=== PATIENT | female | born 1955 | race Caucasian/White ===

== ENCOUNTER 2019-01-23 15:19 | Observation (INO) | payer OTHER ==
[2019-01-23] MEDS ORDERED: ASPIRIN 81 MG CHEWABLE TABLET ONE (16:11)
[2019-01-23 16:13] LABS: Absolute Lymphocytes (CBC) 0.9 K/uL (0.7-4.9); Absolute Monocytes 0.7 K/uL (0.1-1.3); Absolute Neutrophil 6.5 K/uL (1.8-8.0); Basophils % 0.6 % (0-1.3); Eosinophils % 1.9 % (0-4.4); Hematocrit 46.3 % (36.0-45.0); Lymphocytes % 10.9 % (15.3-44.8); MPV 9.4 fL (7.6-11.3); RBC Red Blood Cell Count 5.21 M/uL (3.86-4.86)
[2019-01-23 16:15] LABS: Protime INR 0.98
--- NOTE | 2019-01-23 16:32 | RAD REPORT ---
EXAM DESCRIPTION: Rico Single View01/23/2019 4:15 pm CLINICAL HISTORY: Cough COMPARISON: December 2017 FINDINGS: The lungs appear clear of acute infiltrate. The heart is mildly enlarged. Aorta is tortuo us/ectatic IMPRESSION: No acute abnormalities displayed
[2019-01-23 16:35] LABS: ALT/SGPT 16 U/L (12-78); AST/SGOT 18 U/L (15-37); Albumin 3.2 g/dL (3.4-5.0); Alkaline Phosphatase 80 U/L (45-117); BUN Blood Urea Nitrogen 20 mg/dL (7-18); Bicarbonate 32 mmol/L (21-32); Bilirubin Direct < 0.1 mg/dL (0-0.2); Bilirubin Total 0.3 mg/dL (0.2-1.0); Glucose Level 112 mg/dL (74-106); Magnesium 1.9 mg/dL (1.8-2.4); NT PRO-BNP 3426 pg/mL (<125); Potassium 3.3 mmol/L (3.5-5.1); Protein, Total 7.3 g/dL (6.4-8.2); Sodium Level 139 mmol/L (136-145); Troponin (Emerg Dept Use Only) 0.07 ng/mL (0.0-0.045)
--- NOTE | 2019-01-23 17:04 | ER ---
Nurse's Notes [facility] Name: Mandy Swain Age: 63 yrs Sex: Female : 1955 Arrival Date: 01/23/2019 Time: 15:21 Bed 26 Private MD: Angelo Matta E Diagnosis: Dyspnea;Abnormal electrocardiogram [ECG] [EKG];Chest pain, unspecified Presentation: 01/23 15:26 Presenting complaint: Patient states: sent by Dr Matta office for abnormal EKG. Pt sv stated that she went over there for a routine physical exam and for her cough, fatigue x 2 days. Denies SOB, CP, n/v/d. Transition of care: patient was not received from another setting of care. Onset of symptoms was January 21, 2019. Care prior to arrival: None. 15:26 Method Of Arrival: Wheelchair sv 15:26 Acuity: CRISTEL 3 sv 20:23 Risk Assessment: Do you want to hurt yourself or someone else? Patient reports no mg2 desire to harm self or others. Initial Sepsis Screen: Does the patient meet any 2 criteria? No. Patient's initial sepsis screen is negative. Does the patient have a suspected source of infection? No. Patient's initial sepsis screen is negative. Historical: - Allergies: 15:34 No Known Allergies; sv - PMHx: 15:34 Anxiety; CHF; Depression; Hypertension; sv - PSHx: 15:34 Hernia repair; sv - Immunization history:: Flu vaccine is not up to date. - Social history:: Smoking status: Patient/guardian denies using tobacco. - Ebola Screening: : No symptoms or risks identified at this time. Screenin:30 Abuse screen: Denies threats or abuse. Denies injuries from another. Nutritional ca1 screening: No deficits noted. Tuberculosis screening: No symptoms or risk factors identified. Fall Risk Assessment: 15:30 General: Appears in no apparent distress. comfortable, Behavior is calm, cooperative, ca1 appropriate for age. General: Reports fatigue for 1-2 days. Pain: Denies pain. Pain does not radiate. Pain began. Neuro: Level of Consciousness is awake, alert, obeys commands, Oriented to person, place, time, situation, Reports dizziness, since yesterday. Cardiovascular: Heart tones S1 S2 present Capillary refill < 3 seconds Patient's skin is warm and dry. Respiratory: Airway is patent Respiratory effort is even, unlabored, Respiratory pattern is regular, symmetrical, Breath sounds are clear bilaterally. GI: Abdomen is round non-distended, Bowel sounds present X 4 quads. Abd is soft and non tender X 4 quads. : No deficits noted. No signs and/or symptoms were reported regarding the genitourinary system. EENT: No deficits noted. No signs and/or symptoms were reported regarding the EENT system. Derm: Skin is intact, is healthy with good turgor, Skin is pink, warm \T\ dry. Musculoskeletal: Circulation, motion, and sensation intact. Capillary refill < 3 seconds. Vital Signs: 15:35 BP 130 / 112; Pulse 93; Resp 18; Temp 97.4; Pulse Ox 94% ; Weight 169 kg; Height 56 in. sv (142.24 cm); Pain 0/10; 16:41 BP 137 / 89; Pulse 71; Resp 20; Temp 97.8; Pulse Ox 94% ; lt1 20:23 BP 148 / 88; Pulse 74; Resp 18; Temp 98.4; Pulse Ox 94% on R/A; Pain 0/10; mg2 15:35 Body Mass Index 83.53 (169.00 kg, 142.24 cm) sv ED Course: 15:21 Patient arrived in ED. mr 15:22 Angelo Matta MD is Private Physician. mr 15:27 Damon Ross PA is PHCP. cp 15:27 Aimee Ramirez MD is Attending Physician. cp 15:29 Mandy Vaughan, DEZ is Primary Nurse. ca1 15:34 Triage completed. sv 15:35 Arm band placed on. sv 15:40 Warm blanket given. ca1 15:40 Patient has correct armband on for positive identification. Placed in gown. Bed in low ca1 position. Call light in reach. science job titles on. Pulse ox on. NIBP on. 15:45 Missed attempt(s): 20 gauge in right antecubital area. 22 gauge in left forearm. ca1 Patient maintains SpO2 saturation greater than 95% on room air. 15:46 EKG done, by hazardous waste technician. reviewed by Damon GIORDANO. sm3 16:00 Inserted saline lock: 22 gauge in right hand, using aseptic technique. Blood collected. mg2 16:15 XRAY Chest (1 view) In Process Unspecified. EDMS 17:01 Denise Rose MD is Hospitalizing Provider. cp 20:22 No provider procedures requiring assistance completed. mg2 20:22 Patient admitted, IV remains in place. mg2 Administered Medications: 16:02 Drug: Aspirin Chewable Tablet 324 mg Route: PO; ca1 17:00 Follow up: Response: No adverse reaction ca1 17:22 Drug: Potassium Effervescent Tablet 50 mEq Route: PO; mg2 18:30 Follow up: Response: No adverse reaction ca1 17:22 Drug: Lasix 20 mg Route: IVP; Site: right hand; mg2 18:30 Follow up: Response: No adverse reaction ca1 17:22 Drug: Lovenox 40 mg Route: Sub-Q; Site: right lower abdomen; mg2 19:30 Follow up: Response: No adverse reaction ca1 Outcome: 17:03 Decision to Hospitalize by Provider. cp 20:22 Admitted to Tele accompanied by tech, via wheelchair, room 430, with chart, Report mg2 called to DEZ Bella 20:22 Condition: stable 20:22 Instructed on the need for admit. 20:24 Patient left the ED. mg2 Signatures: Dispatcher [employer] EDMN Mimi Dominique RN RN Vargas, Evelia mr Vandana, Damon, PA PA cp Timothy Johnston RN RN mg2 Ebony Mathis 3 Mandy Vaughan RN RN ca1 Faith Hays lt1 Corrections: (The following items were deleted from the chart) 15:56 15:30 Patient has correct armband on for positive identification. Placed in gown. Bed ca1 in low position. Call light in reach. ca1 15:56 15:30 science job titles on. Pulse ox on. NIBP on. ca1 ca1 15:56 15:30 Warm blanket given. ca1 ca1
--- NOTE | 2019-01-23 17:05 | EDPHYS ---
Physician Documentation [facility] Name: Mandy Swain Age: 63 yrs Sex: Female : 1955 Arrival Date: 01/23/2019 Time: 15:21 Bed 26 Private MD: Angelo Matta E ED Physician Aimee Ramirez HPI: 01/23 15:45 This 63 yrs old Female presents to ER via Wheelchair with complaints of Chest cp Pain, Abnormal Lab Results. 15:45 The patient or guardian reports chest pain that is located primarily in the anterior cp chest wall. Onset: 2 day(s) ago, intermittent. Associated signs and symptoms: Pertinent positives: cough, exertional SOB, Pertinent negatives: abdominal pain, lower extremity pain, lower extremity swelling, syncope, vomiting. Duration: The patient or guardian reports multiple episodes, that are intermittent. 15:45 Modifying factors: the symptoms are aggravated by activity. Severity of pain: in the emergency department the pain has resolved. Patient reports she referred to ED for abnormal EKG done at office of DR Matta today. Historical: - Allergies: 15:34 No Known Allergies; sv - PMHx: 15:34 Anxiety; CHF; Depression; Hypertension; sv - PSHx: 15:34 Hernia repair; sv - Immunization history:: Flu vaccine is not up to date. - Social history:: Smoking status: Patient/guardian denies using tobacco. - Ebola Screening: : No symptoms or risks identified at this time. ROS: 15:50 Constitutional: Negative for body aches, chills, fever, poor PO intake. cp 15:50 Eyes: Negative for injury, pain, redness, and discharge. cp 15:50 ENT: Negative for drainage from ear(s), ear pain, sore throat, difficulty swallowing, difficulty handling secretions. 15:50 Cardiovascular: Negative for edema, palpitations. 15:50 Respiratory: Positive for cough, shortness of breath, on exertion. Negative for wheezing. 15:50 Abdomen/GI: Negative for abdominal pain, nausea, vomiting, and diarrhea, black/tarry stool, rectal bleeding. 15:50 Back: Negative for pain at rest, pain with movement, radiated pain. 15:50 Skin: Negative for cellulitis, rash. 15:50 Neuro: Negative for altered mental status, headache, weakness. 15:50 All other systems are negative. Exam: 15:55 Constitutional: The patient appears in no acute distress, alert, awake, cp non-diaphoretic, non-toxic, well developed, well nourished. 15:55 Head/Face: Normocephalic, atraumatic. Eyes: Pupils equal round and reactive to light, cp extra-ocular motions intact. Lids and lashes normal. Conjunctiva and sclera are non-icteric and not injected. Cornea within normal limits. Periorbital areas with no swelling, redness, or edema. ENT: Nares patent. No nasal discharge, no septal abnormalities noted. Tympanic membranes are normal and external auditory canals are clear. Oropharynx with no redness, swelling, or masses, exudates, or evidence of obstruction, uvula midline. Mucous membranes moist. Chest/axilla: Normal chest wall appearance and motion. Nontender with no deformity. No lesions are appreciated. 15:55 Cardiovascular: Rate: normal, Rhythm: regular, Pulses: Pulses are 2+ in right radial artery and left radial artery. Edema: is not appreciated, JVD: is not appreciated. 15:55 Respiratory: the patient does not display signs of respiratory distress, Respirations: normal, no use of accessory muscles, no retractions, no splinting, no tachypnea. 15:55 Abdomen/GI: Inspection: abdomen appears normal, Bowel sounds: active, all quadrants, Palpation: abdomen is soft and non-tender, in all quadrants. 15:55 Back: pain, is absent, ROM is normal. 15:55 Skin: no rash present. 15:55 Neuro: Orientation: to person, place \T\ time. Mentation: is normal, Cerebellar function: is grossly normal, Motor: moves all fours, strength is normal, Sensation: is normal. 15:56 ECG was reviewed by the Attending Physician. cp Vital Signs: 15:35 BP 130 / 112; Pulse 93; Resp 18; Temp 97.4; Pulse Ox 94% ; Weight 169 kg; Height 56 in. sv (142.24 cm); Pain 0/10; 16:41 BP 137 / 89; Pulse 71; Resp 20; Temp 97.8; Pulse Ox 94% ; lt1 20:23 BP 148 / 88; Pulse 74; Resp 18; Temp 98.4; Pulse Ox 94% on R/A; Pain 0/10; mg2 15:35 Body Mass Index 83.53 (169.00 kg, 142.24 cm) sv MDM: 15:27 Patient medically screened. 16:00 Differential diagnosis: acute myocardial infarction, pericarditis, pleurisy, pneumonia, cp pneumothorax, stable angina, unstable angina. 16:43 Physician consultation: Denise Rose MD was called at 16:44, left message on voicemail. 16:49 Physician consultation: Denise Rose MD was contacted at 16:49, regarding admission, to the telemetry unit. patient's condition. 17:10 Data reviewed: vital signs, nurses notes, lab test result(s), EKG, radiologic studies, cp plain films. 17:10 The patient was given aspirin in the Emergency Department. Test interpretation: by ED cp physician or midlevel provider: ECG, plain radiologic studies. 01/23 15:32 Order name: Basic Metabolic Panel; Complete Time: 16:37 01/23 15:32 Order name: CBC with Diff; Complete Time: 16:29 01/23 16:29 Interpretation: Normal except: RBC 5.21; HGB 15.2; HCT 46.3; ALONSO% 78.6; LYM% 10.9. 01/23 15:32 Order name: LFT's; Complete Time: 16:37 01/23 15:32 Order name: Magnesium; Complete Time: 16:37 cp 01/23 15:32 Order name: NT PRO-BNP; Complete Time: 16:37 01/23 15:32 Order name: PT-INR; Complete Time: 16:29 01/23 15:32 Order name: Troponin (emerg Dept Use Only); Complete Time: 16:37 cp 01/23 17:04 Interpretation: Abnormal: TROPED 0.07. 01/23 15:32 Order name: XRAY Chest (1 view); Complete Time: 16:37 cp 01/23 15:32 Order name: EKG; Complete Time: 15:33 cp 01/23 15:32 Order name: Influenza Screen (a \T\ B); Complete Time: 16:37 cp 01/23 15:32 Order name: Cardiac monitoring; Complete Time: 15:39 01/23 15:32 Order name: EKG - Nurse/Tech; Complete Time: 15:39 cp 03/19 15:32 Order name: IV Saline Lock; Complete Time: 15:39 cp 01/23 15:32 Order name: Labs collected and sent; Complete Time: 15:39 cp 01/23 15:32 Order name: O2 Per Protocol; Complete Time: 15:40 cp 01/23 15:32 Order name: O2 Sat Monitoring; Complete Time: 15:40 cp EC:56 Rate is 79 beats/min. Rhythm is regular. [place] interval is normal. QRS interval is cp prolonged at 156 msec. QT interval is normal. T waves are Inverted in lead aVL. Interpreted by me. Reviewed by me. Administered Medications: 16:02 Drug: Aspirin Chewable Tablet 324 mg Route: PO; ca1 17:00 Follow up: Response: No adverse reaction ca1 17:22 Drug: Potassium Effervescent Tablet 50 mEq Route: PO; mg2 18:30 Follow up: Response: No adverse reaction ca1 17:22 Drug: Lasix 20 mg Route: IVP; Site: right hand; mg2 18:30 Follow up: Response: No adverse reaction ca1 17:22 Drug: Lovenox 40 mg Route: Sub-Q; Site: right lower abdomen; mg2 19:30 Follow up: Response: No adverse reaction ca1 Disposition: 20:39 Co-signature as Attending Physician, Aimee Ramirez MD. ma2 Disposition: 01/23/19 17:03 Hospitalization ordered by Denise Rose for Observation. Preliminary diagnosis are Dyspnea, Abnormal electrocardiogram [ECG] [EKG], Chest pain, unspecified. - Bed requested for Telemetry/MedSurg (observation). - Status is Observation. mg2 - Condition is Stable. - Problem is new. - Symptoms have improved. UTI on Admission? No Signatures: Dispatcher [employer] Mimi Snyder RN Kathy Huff RN RN dw Damon Ross, PASQUALE PA cp Aimee Ramirez MD MD ma2 Timothy Johnston RN RN mg2 Mandy Vaughan RN RN ca1 Corrections: (The following items were deleted from the chart) 17:55 17:03 Hospitalization Ordered by Denise Rose MD for Observation. Preliminary diagnosis dw is Dyspnea; Abnormal electrocardiogram [ECG] [EKG]; Chest pain, unspecified. Bed requested for Telemetry/MedSurg (observation). Status is Observation. Condition is Stable. Problem is new. Symptoms have improved. UTI on Admission? No. cp 20:24 17:55 01/23/2019 17:03 Hospitalization Ordered by Denise Rose MD for Observation. mg2 Preliminary diagnosis is Dyspnea; Abnormal electrocardiogram [ECG] [EKG]; Chest pain, unspecified. Bed requested for Telemetry/MedSurg (observation). Status is Observation. Condition is Stable. Problem is new. Symptoms have improved. UTI on Admission? No. dw
[2019-01-23] MEDS ORDERED: POTASSIUM 25 MEQ EFFERV TAB ONE (17:24)
[2019-01-23] MEDS ORDERED: FUROSEMIDE 20 MG/ 2ML VIAL ONE (17:24)
[2019-01-23] MEDS ORDERED: ENOXAPARIN 40 MG/0.4 ML SQ ONE (17:25)
[2019-01-23] MEDS ORDERED: ACETAMINOPHEN 500 MG TAB PO PRN (20:46)
[2019-01-23] MEDS ORDERED: ONDANSETRON 4 MG/2 ML VIAL IV PRN (20:46)
[2019-01-23 20:51] VITALS: BMI 27.3
[2019-01-23] MEDS ORDERED: ATORVASTATIN 40 MG TAB PO SCH (21:00)
[2019-01-23] MEDS: METOPROLOL TAR 50 MG TAB PO SCH (21:43)
--- NOTE | 2019-01-23 21:52 | P.HP ---
Certification for Inpatient Patient admitted to: Observation With expected LOS: <2 Midnights Practitioner: I am a practitioner with admitting privileges, knowledge of patient current condition, hospital course, and medical plan of care. Services: Services provided to patient in accordance with Admission requirements found in Title 42 Section 412.3 of the Code of Federal Regulations Patient History Date of Service: 01/23/19 Reason for admission: abnormal EKG, elevated tropoinin I History of Present Illness: Ms Swain is a 63 years old woman with history of HTN, depression and anxiety, who went to see her PCP for a year physical today. She also went to see him because has been more weak, and has had cough for the last 2 days. She denied fever or chills, but has had cold sweat. In her PCP office, she had an EKG done , and since it was abnormal, she was referred to come to ED for evaluation. She denied any chest pain, palpitations or SOB. EKG in ER shows SR at 70 bpm with LBBB. Lab work remarkable for hypokalemia, elevated ProBNP and trop I. CXR shows no acute abnormalities. Influenza screening negative. Allergies No Known Allergies Allergy (Verified 12/22/17 01:16) Home medications list reviewed: Yes Home Medications: ALPRAZolam [Alprazolam] 1 mg PO BID 01/23/19 Aspirin/Acetaminophen/Caffeine [Excedrin Migraine Caplet] 1 each PO BID PRN Losartan/Hydrochlorothiazide [Losartan-Hctz 50-12.5 mg Tab] 50 mg PO DAILY 01/23 Vortioxetine Hydrobromide [Trintellix] 20 mg PO DAILY 01/23/19 - Past Medical/Surgical History Has patient received pneumonia vaccine in the past: Yes Diabetic: No -: Depression, Anxiety -: CHF, Hypertension -: hernia repair - Family History Family History: Reviewed- Non-Contributory - Social History Smoking Status: Never smoker Alcohol use: No CD- Drugs: No Caffeine use: Yes Place of Residence: Home Review of Systems 10-point ROS is otherwise unremarkable Physical Examination - Vital Signs Temperature: 98.4 F Blood Pressure: 144/88 Pulse: 74 Respirations: 18 Pulse Ox (%): 96 - Physical Exam General: Alert, In no apparent distress HEENT: Atraumatic, PERRLA, Mucous membr. moist/pink, EOMI, Sclerae nonicteric Neck: Supple, 2+ carotid pulse no bruit, No LAD, Without JVD or thyroid abnormality Respiratory: Normal air movement, Rhonchi/gurgles (scattered rhonchi bilateral) Cardiovascular: Regular rate/rhythm, Normal S1 S2 Gastrointestinal: Normal bowel sounds, No tenderness Musculoskeletal: No tenderness Integumentary: No rashes Neurological: Normal speech, Normal strength at 5/5 x4 extr, Normal tone, Normal affect Lymphatics: No axilla or inguinal lymphadenopathy - Studies Laboratory Data (last 24 hrs) 01/23/19 15:55: PT 11.6, INR 0.98 01/23/19 15:55: WBC 8.3, Hgb 15.2 H, Hct 46.3 H, Plt Count 321 01/23/19 15:55: Sodium 139, Potassium 3.3 L, BUN 20 H, Creatinine 0.92, Glucose 112 H, Magnesium 1.9, Total Bilirubin 0.3, AST 18, ALT 16, Alkaline Phosphatase 80 Microbiology Data (last 24 hrs): 01/23/19 15:47 Nasopharnyx Influenza Type A Antigen Screen - Final 01/23/19 15:47 Nasopharnyx Influenza Type B Antigen Screen - Final Assessment and Plan - Problems (Diagnosis) (1) HTN (hypertension) Current Visit: Yes Status: Acute Qualifiers: Hypertension type: essential hypertension Qualified Code(s): I10 - Essential (primary) hypertension (2) Left bundle branch block (LBBB) Current Visit: Yes Status: Acute (3) Elevated troponin I level Current Visit: Yes Status: Acute (4) Anxiety disorder Onset Date: 12/22/17 Current Visit: No Status: Chronic Qualifiers: Anxiety disorder type: generalized anxiety disorder Qualified Code(s): F41.1 - Generalized anxiety disorder (5) Depression Onset Date: 12/22/17 Current Visit: No Status: Chronic Qualifiers: Depression Type: unspecified Qualified Code(s): F32.9 - Major depressive disorder, single episode, unspecified - Plan The patient was admitted due to abnormal EKG with elevated trop I. She has not had chest pain. Will repeat serial trop I, EKG, ECHO in AM, consult cardiology. - Advance Directives Does patient have a Living Will: No Does patient have a Durable POA for Healthcare: No - Code Status/Comfort Care Code Status Assessed: Yes Code Status: Full Code
[2019-01-24 03:33] LABS: Hematocrit 41.9 % (36.0-45.0); RBC Red Blood Cell Count 4.75 M/uL (3.86-4.86)
[2019-01-24 03:34] LABS: Absolute Lymphocytes (CBC) 1.7 K/uL (0.7-4.9); Absolute Monocytes 0.7 K/uL (0.1-1.3); Absolute Neutrophil 3.6 K/uL (1.8-8.0); Basophils % 0.4 % (0-1.3); Eosinophils % 2.1 % (0-4.4); Lymphocytes % 27.5 % (15.3-44.8); MPV 9.7 fL (7.6-11.3); Monocytes % 11.9 % (3.3-12.3)
[2019-01-24 03:58] LABS: Bilirubin Total 0.2 mg/dL (0.2-1.0); Potassium 3.5 mmol/L (3.5-5.1); Protein, Total 6.5 g/dL (6.4-8.2)
[2019-01-24] MEDS ORDERED: guaiFENesin 100 MG/5 ML UCUP PO PRN (06:38)
--- NOTE | 2019-01-24 07:45 | EKG ---
Test Date: 2019-01-23 Test Time: 15:40:05 Windows Deployment Technician: KALYANI MEASUREMENT RESULTS: Intervals: Rate: 79 GA: 178 QRSD: 156 QT: 452 QTc: 518 [place]: P: 57 GA: 178 QRS: -50 T: 94 INTERPRETIVE STATEMENTS: Sinus rhythm with occasional premature ventricular complexes Right atrial enlargement Left axis deviation Left bundle branch block Abnormal ECG Compared to ECG 12/16/2011 17:39:07 Ventricular premature complex(es) now present Atrial abnormality now present Left-axis deviation now present Left bundle-branch block now present Electronically Signed On 01-24-19 07:45:06 CDT by Shadi Edwards
[2019-01-24] MEDS ORDERED: POTASSIUM 25 MEQ EFFERV TAB PO ONE (08:00)
[2019-01-24] MEDS ORDERED: ENOXAPARIN 40 MG/0.4 ML SQ SCH (09:00)
[2019-01-24] MEDS ORDERED: INFLUENZA VACCINE (for 3y+) 0.5 ML DOSE IMVAC ONE (09:00)
[2019-01-24] MEDS ORDERED: LISINOPRIL 10 MG TAB PO SCH (09:00)
[2019-01-24] MEDS: METOPROLOL TAR 50 MG TAB PO SCH (09:16)
[2019-01-24] MEDS: FUROSEMIDE 40 MG/4 ML VIAL IV SCH ×2 (09:18→17:29)
[2019-01-24] MEDS ORDERED: REGADENOSON 0.4 MG/5 ML SYR IV ONE (10:25)
[2019-01-24] MEDS ORDERED: SODIUM CHLORIDE 0.9% 10ML INJ IV PRN (10:25)
[2019-01-24 12:11] VITALS: O2SAT 94
--- NOTE | 2019-01-24 12:27 | ECHO ---
HEIGHT: 5 ft 6 in WEIGHT: 169 lb 9.6 oz DATE OF STUDY: 01/24/[address]: Denise Rose MD 2-DIMENSIONAL: YES M.MODE: YES DOPPLER: YES COLOR FLOW: YES TDS: NO PORTABLE: NO DEFINITY: NO BUBBLE STUDY: NO DIAGNOSIS: CONGESTIVE HEART FALURE/ CHEST PAIN CARDIAC HISTORY: CATHERIZATION: NO SURGERY: NO PROSTHETIC VALVE: NO PACEMAKER: NO MEASUREMENTS (cm) DIASTOLIC (NORMALS) SYSTOLIC (NORMALS) IVSd 1.2 (0.6-1.2) LA Diam 4.0 (1.9-4.0) LVEF 51% LVIDd 5.5 (3.5-5.7) LVIDs 4.1 (2.0-3.5) %FS 26% LVPWd 1.3 (0.6-1.2) Ao Diam 2.8 (2.0-3.7) 2 DIMENSIONAL ASSESSMENT: RIGHT ATRIUM: NORMAL LEFT ATRIUM: DILATED RIGHT VENTRICLE: NORMAL LEFT VENTRICLE: LEFT VENTRICULAR HYPERTROPHY TRICUSPID VALVE: NORMAL MITRAL VALVE: NORMAL PULMONIC VALVE: NORMAL AORTIC VALVE: NORMAL PERICARDIAL EFFUSION: NONE AORTIC ROOT: NORMAL LEFT VENTRICULAR WALL MOTION: LOWER LIMIT OF NORMAL. DOPPLER/COLOR FLOW: NORMAL. COMMENTS: NORMAL LEFT VENTRICULAR EJECTION FRACTION. LEFT VENTRICULAR HYPERTROPHY. TECHNOLOGIST: MARICARMEN GHOSH
--- NOTE | 2019-01-24 13:58 | CON ---
History Of Present Illness: She is a 63-year-old woman. She is here because of generalized feeling of being weak. She denies shortness of breath. She has chest pain, but she attributes this to gastr oesophageal reflux disease. She had a hiatal hernia surgery and since then has had lots of heartburn type pain which seems to get better with antacids. Never had myocardial infarction or stroke or alyssa betes. She takes blood pressure medicines. Several years ago, she was told by an ER doctor she migh t have congestive heart failure. She never had any followup on that. Outpatient Medications: Losartan 50, hydrochlorothiazide 12.5, alprazolam, Trintellix, and aspirin. Allergies: SHE HAS NO ALLERGIES. Social History: She uses no tobacco, no alcohol, no illegal drugs. Physical Examination: Vital Signs: She is 5 feet 6 inches, 169 pounds. Blood pressure 148/77, heart rate 63. General: Denies any pain. HEENT: Normal. Lungs: Clear. Cardiac exam: Within normal limits. Abdomen: Soft. Extremities: Normal pulses. No cyanosis, clubbing or edema. Laboratory Data: EKG reveals left bundle-branch block. Several years ago, she did not have the left bundle-branch block. A chest x-ray reveals no abnormalities. Impression: The patient has left bundle-branch block and mildly elevated troponin and vague symptoms could be a sign of a cardiomyopathy. We should do an echocardiogram and a pharmacologic nuclear stress test to see what breezy hernandez might learn that might help her. ROBERT Voice ID: [id number] Report ID: [id number]
--- NOTE | 2019-01-24 16:07 | RAD REPORT ---
EXAM DESCRIPTION: NM - Rest Stress Cardiac Imaging - 01/24/2019 3:54 pm CLINICAL HISTORY: CP Chest pain. COMPARISON: No comparisons TECHNIQUE: The patient was administered approximately 10mCi of Tc 99m Sestamibi prior to resting SPE CT imaging of the heart. The patient was then administered approximately 30 mCi of Tc 99m Sestamibi f ollowing exercise or pharmacologic stress. Multiplanar SPECT images were reviewed. FINDINGS: No stress induced ischemic defect is seen to suggest stress induced ischemia. No fixed def ect is seen to suggest hibernating myocardium or scarred myocardium. The end diastolic volume is 142 ml, the end systolic volume is 89 ml, and the ejection fraction is 37 %. IMPRESSION: No stress induced ischemia.
[2019-01-24 17:29] VITALS: BP 143/86
[2019-01-24 17:31] VITALS: TEMP 97.3
[2019-01-24] MEDS ORDERED: ALPRAZOLAM 1 MG TABLET PO SCH (21:00)
--- NOTE | 2019-01-25 08:21 | TREADPHA ---
DX: CHEST PAIN Date of Study: 01/24/19 Ht: 5 6 Wt: 169 lb 9.6 oz Consulting Physician: YEMI MEDICATIONS: TYLENOL, LIPITOR, LOVENOX, LASIX, PRINIVIL, LOPRESSOR, ZOFRAN. HISTORY: 63 YEAR OLD FEMALE, HISTORY OF CONGESTIVE HEART FAILURE, HYPERTENSION, ANXIETY, DEPRESSION. NON SMOKER, NON DRINKER PHYSICIAL EXAMINATION: RESTING B.P.: 142/105 RESTING H.R.: 71 RESTING EKG: SINUS, LEFT BUNDLE BRANCH BLOCK. PROTOCOL: LEXISCAN EXERCISE TIME: 3:30 B.P. AT PEAK STRESS: 161/88 IMPRESSION: LEXISCAN INJECTED, FOLLOWED BY CARDIOLITE PER PROTOCOL. SEE NUCLEAR MEDICINE REPORT. NO SUPRA VENTRICULAR TACHYCARDIA, VENTRICULAR TACHYCARDIA, PREMATURE VENTRICULAR COMPLEXES. OCCASIONAL PREMATURE ATRIAL COMPLEXES. PATIENT REPORTED NO CHEST PAIN. NON DIAGNOSTIC EKG WITH LEXISCAN STRESS.
[2019-01-25] MEDS ORDERED: HOME MED 1 EA UNK (Vortioxetine Hydrobromide [Trintellix] 20 MG) PO SCH (09:00)
[2019-01-25] MEDS ORDERED: LOSARTAN/HCTZ 50-12.5 PO SCH (09:00)
[2019-01-25] MEDS ORDERED: PANTOPRAZOLE 40 MG INJ IVP SCH (09:00)
--- NOTE | 2019-01-25 16:09 | DS ---
Date of Discharge: 01/24/2019 Supervisor Logging: Dr. Edwards with Cardiology. Procedure: Cardiac stress test on 01/24/2019 shows no stress-induced ischemia. Discharge Diagnoses: 1.Elevated troponin level, acute coronary syndrome ruled out. 2.Left bundle branch block, cardiac stress test negative, no acute myocardial infarction. 3.Essential hypertension. 4.Congestive heart failure, diastolic dysfunction, ejection fraction 51%. 5.Hypertensive heart disease, we will add beta-geena. 6.Generalized anxiety disorder, on benzodiazepines. 7.Major depressive disorder, single episode, in remission. 8.Overweight, BMI 27. Hospital Course: The patient is a 63-year-old female sent from her PCP for generalized malaise, flu- type symptoms, chest pain and abnormal EKG. The patient's EKG showed left bundle branch block. No p revious EKG available for comparison. The patient's influenza screen was negative. She did have an elevated troponin level of 0.07, did not have any chest pain. She had some hypokalemia, which was co rrected. Cardiac enzymes were checked serially were remained at 0.07. The patient did not have any chest pain during the course of the hospital stay. She did not have the left bundle-branch block, wh ich may have ST-elevation [place]. Therefore, a cardiac stress test was done to further evaluate her card iac disposition. Her cardiac stress test was negative. She was evaluated by Dr. Edwards, Cardiology. Echocardiogram was also done which showed EF of 51% and left ventricular hypertrophy. The patient had stopped taking her CHF medications. She was counseled regarding compliance with her medications. Beta-geena was added to her regimen. She is already on ARB and hydrochlorothiazide for diuretics . Followup: The patient needs to follow up with Cardiology as an outpatient in next 1-2 weeks. Follow up with PCP in 2-3 days. Return to ER for worsening condition. Diet: Heart healthy. Activity: As tolerated. Medications: As per medication reconciliation list. Physical Examination: General: Awake, alert, and oriented x3. No acute distress. CV: S1 and S2. No murmurs. Respiratory: Moving air well bilaterally. No wheezing. Gastrointestinal: Abdomen is soft, nontender, nondistended. Positive bowel sounds. Extremities: No clubbing, cyanosis, or edema. The patient stable for discharge. Cleared by Cardiology standpoint. SA/MODL Voice ID: [id number] Report ID: [id number]
== END 2019-01-24 18:39 | disposition home or self-care (01) ==
LOC: ER 15:19 → ERHOLD 17:27 → 4TH 20:07
PROVIDERS: ADMIT Family Medicine; ATTEND Internal Medicine
DX: R79.89 Other specified abnormal findings of blood chemistry (principal); I44.7 Left bundle-branch block, unspecified; I11.0 Hypertensive heart disease with heart failure; I50.32 Chronic diastolic (congestive) heart failure; F41.8 Other specified anxiety disorders; E66.9 Obesity, unspecified; Z68.27 Body mass index [BMI] 27.0-27.9, adult; E87.6 Hypokalemia; Z23 Encounter for immunization
CPT/HCPCS: 93005; 93017; 93306; 85025 ×2; 80048; 36415; 83735; 85610; 80076; 84484 ×3; 80053; 83880; 87804 ×2; 71045; 94760 ×2; 78452; 96372; 96374; 99285; G0008; J1940 ×3; Q2035; J1650 ×2; J2785; A9500; G0378 ×2

== ENCOUNTER 2020-08-12 14:40 | Inpatient (IN) | payer OTHER ==
[2020-08-12 15:29] LABS: Absolute Lymphocytes (CBC) 1.6 K/uL (0.7-4.9); Basophils % 0.5 % (0-1.3); Lymphocytes % 22.5 % (15.3-44.8); MPV 8.8 fL (7.6-11.3); RBC Red Blood Cell Count 3.82 M/uL (3.86-4.86)
[2020-08-12 15:38] LABS: Protime INR 1.03
--- NOTE | 2020-08-12 15:45 | RAD REPORT ---
EXAM DESCRIPTION: RAD - Chest Single View - 08/12/2020 3:36 pm CLINICAL HISTORY: DYSPNEA COMPARISON: Portable January 2019 TECHNIQUE: AP portable chest image was obtained 08/12/2020 3:36 pm . FINDINGS: No peripheral mass consolidation. Cardiomegaly is present with vascular engorgement and pr ominence of the perihilar interstitial markings. No measurable pleural effusion and no pneumothorax. No acute bony abnormality seen. No acute aortic findings suspected. IMPRESSION: Mild failure/ volume overload findings are evident.
[2020-08-12 15:53] LABS: Potassium 3.3 mmol/L (3.5-5.1); Troponin (Emerg Dept Use Only) 0.26 ng/mL (0.0-0.045)
[2020-08-12 15:58] LABS: Anisocytosis 2+; Blood Morphology Comment NOTED (NOT SEEN); Platelet Estimate ADEQ; White Blood Cell Scan OK (OK)
--- NOTE | 2020-08-12 16:19 | EDPHYS ---
Physician Documentation [facility] Name: Mandy Swain Age: 65 yrs Sex: Female : 1955 Arrival Date: 08/12/2020 Time: 14:42 Bed 19 Private MD: Angelo Matta E ED Physician Gwyn Valdes HPI: 08/12 15:16 This 65 yrs old Female presents to ER via Wheelchair with complaints of rn General Weakness, Abnormal EKG. 15:16 Reports generalized weakness, been going on for a while, was at GI center for EGD, told rn BP was high, had LBBB on ECG, sent here, near syncope in [facility], denies blood in stool but states has had GI bleed before with a few blood transfusions in past. No fever. + sob with exertion. . Onset: The symptoms/episode began/occurred at an unknown time. Severity of symptoms: At their worst the symptoms were moderate in the emergency department the symptoms are unchanged. The patient has experienced similar episodes in the past. The patient has been recently seen by a physician:. Historical: - Allergies: 14:51 No Known Allergies; ll1 - PMHx: 14:51 Anxiety; CHF; Depression; Hypertension; esophagus problem; ll1 - PSHx: 14:51 Hernia repair; ll1 - Immunization history:: Flu vaccine is not up to date. - Social history:: Smoking status: Patient denies any tobacco usage or history of. - Family history:: not pertinent. - Hospitalizations: : No recent hospitalization is reported. ROS: 15:16 Constitutional: Negative for fever, chills, and weight loss, Eyes: Negative for injury, rn pain, redness, and discharge, Cardiovascular: Negative for chest pain, palpitations, and edema, Respiratory: Negative for cough, wheezing, and pleuritic chest pain, Abdomen/GI: Negative for abdominal pain, nausea, vomiting, diarrhea, and constipation, MS/Extremity: Negative for injury and deformity, Skin: Negative for injury, rash, and discoloration, Neuro: + generalized weakness Exam: 15:16 Constitutional: This is a well developed, well nourished patient who is awake, alert, rn and in no acute distress. Appears pale Head/Face: Normocephalic, atraumatic. Eyes: Pupils equal round and reactive to light, extra-ocular motions intact. Pale ocnjunctivae Cardiovascular: Regular rate and rhythm . No pulse deficits. Respiratory: No increased work of breathing, no retractions or nasal flaring. Abdomen/GI: Soft, non-tender Skin: Warm, dry MS/ Extremity: Pulses equal, no cyanosis. Neurovascular intact. Full, normal range of motion. Equal circumference. Neuro: Awake and alert, GCS 15, oriented to person, place, time, and situation. Cranial nerves II-XII grossly intact. Motor strength 5/5 in all extremities. Sensory grossly intact. Vital Signs: 14:48 BP 147 / 108; Pulse 60; Resp 18; Temp 97.9; Pulse Ox 99% ; Weight 63.5 kg; Height 5 ft. ll1 6 in. (167.64 cm); Pain 8/10; 16:03 BP 148 / 102; Pulse 70; Resp 22; Pulse Ox 96% on R/A; ph 17:00 BP 152 / 106; Pulse 68; Resp 20; Pulse Ox 99% on 2 lpm NC; ph 18:00 BP 147 / 90; Pulse 71; Resp 20; Pulse Ox 100% on 2 lpm NC; ph 19:03 BP 158 / 92; Pulse 67; Resp 18; Pulse Ox 100% on 2 lpm NC; ph 19:11 Temp 97.7; bb 14:48 Body Mass Index 22.60 (63.50 kg, 167.64 cm) ll1 MDM: 14:59 Patient medically screened. rn 16:16 Differential Diagnosis anemia, CHF, electrolyte disorder. Data reviewed: vital signs, rn nurses notes, lab test result(s), EKG, radiologic studies, plain films, and as a result, I will admit patient. Counseling: I had a detailed discussion with the patient and/or guardian regarding: the historical points, exam findings, and any diagnostic results supporting the discharge/admit diagnosis, lab results, radiology results, the need for further work-up and treatment in the hospital. Response to treatment: the patient's symptoms have mildly improved after treatment, and as a result, I will admit patient. Admission orders: after a detailed discussion of the patient's condition and case, the admit orders are written by me. ED course: Pt with CHF exacerbation, states not taking lasix for months, mild anemia, no signs of active bleed, will admit to Dr. Mercer for diuresis and GI consultation. . 08/12 15:08 Order name: CBC with Diff; Complete Time: 16:00 rn 08/12 15:08 Order name: Basic Metabolic Panel; Complete Time: 16:00 rn 08/12 15:08 Order name: Protime (+inr); Complete Time: 15:50 rn 08/12 15:08 Order name: Ptt, Activated; Complete Time: 15:50 rn 08/12 15:08 Order name: Troponin (emerg Dept Use Only); Complete Time: 16:00 rn 08/12 15:08 Order name: Type And Screen rn 08/12 15:59 Order name: CBC Smear Scan EDMS 08/12 16:23 Order name: Comprehensive Metabolic Panel EDMS 08/12 16:23 Order name: Comprehensive Metabolic Panel EDMS 08/12 16:23 Order name: Lipid Profile EDMS 08/12 16:23 Order name: Lipid Profile EDMS 08/12 16:23 Order name: Magnesium EDMS 08/12 16:23 Order name: Magnesium EDMS 08/12 16:23 Order name: NT PRO-BNP EDMS 08/12 15:08 Order name: EKG; Complete Time: 15:09 rn 08/12 15:08 Order name: XRAY Chest (1 view); Complete Time: 15:50 rn 08/12 16:23 Order name: NT PRO-BNP EDMS 08/12 16:23 Order name: Phosphorus EDMS 08/12 16:23 Order name: Phosphorus EDMS 08/12 16:23 Order name: Troponin I EDMS 08/12 16:23 Order name: Troponin I EDMS 08/12 16:23 Order name: Troponin I EDMS 08/12 16:23 Order name: CONS Physician Consult EDMS 08/12 16:23 Order name: CONS Physician Consult EDMS 08/12 16:24 Order name: Echo with Doppler EDMS 08/12 16:24 Order name: Echo with Doppler EDMS 08/12 16:24 Order name: CBC with Automated Diff EDMS 08/12 16:24 Order name: CBC with Automated Diff EDMS 08/12 15:08 Order name: IV Start; Complete Time: 16:03 rn 08/12 15:08 Order name: EKG - Nurse/Tech; Complete Time: 16:16 rn 08/12 16:23 Order name: Heart Healthy EDMS Administered Medications: 17:06 Drug: Nitro-Bid Ointment 2 % 1 inches Route: Transdermal; Site: anterior chest wall; ph 19:05 Follow up: Response: No adverse reaction ph 17:06 Drug: Lasix 40 mg Route: IVP; Site: right antecubital; ph 19:05 Follow up: Urine output 800 ml; Response: No adverse reaction ph Disposition: 08/12/20 16:18 Hospitalization ordered by Aimee Mercer for Inpatient Admission. Preliminary diagnosis are Unspecified combined systolic (congestive) and diastolic (congestive) heart failure, Pulmonary edema, Anemia, unspecified. - Bed requested for Telemetry/MedSurg (Inpatient). - Status is Inpatient Admission. bb - Condition is Stable. - Problem is an ongoing problem. - Symptoms are unchanged. Signatures: Dispatcher [employer] EDMS Sandi Khalil Marilu Page RN RN bb Gwyn Valdes MD MD rn Hall, Patricia, RN RN Kurtis Santiago RN RN [facility] Corrections: (The following items were deleted from the chart) 16:34 16:18 Hospitalization Ordered by Aimee Mercer MD for Inpatient Admission. Preliminary bd diagnosis is Unspecified combined systolic (congestive) and diastolic (congestive) heart failure; Pulmonary edema; Anemia, unspecified. Bed requested for Telemetry/MedSurg (Inpatient). Status is Inpatient Admission. Condition is Stable. Problem is an ongoing problem. Symptoms are unchanged. rn 21:01 16:34 08/12/2020 16:18 Hospitalization Ordered by Aimee Mercer MD for Inpatient bb Admission. Preliminary diagnosis is Unspecified combined systolic (congestive) and diastolic (congestive) heart failure; Pulmonary edema; Anemia, unspecified. Bed requested for Telemetry/MedSurg (Inpatient). Status is Inpatient Admission. Condition is Stable. Problem is an ongoing problem. Symptoms are unchanged. bd
--- NOTE | 2020-08-12 16:19 | ER ---
Nurse's Notes [facility] Name: Mandy Swain Age: 65 yrs Sex: Female : 1955 Arrival Date: 08/12/2020 Time: 14:42 Bed 19 Private MD: Angelo Matta E Diagnosis: Unspecified combined systolic (congestive) and diastolic (congestive) heart failure;Pulmonary edema;Anemia, unspecified Presentation: 08/12 14:48 Chief complaint: Patient states: Was going to have EGD today, BP was 180/120. Oxygen ll1 sat. 81%. EKG showed left BBB. Sent here for eval. Near syncope event walking into ER today. Coronavirus screen: Client denies travel out of the [place] in the last 14 days. At this time, the client does not indicate any symptoms associated with coronavirus-19. The client reports previous COVID testing was negative. Ebola Screen: Patient denies travel to an Ebola-affected area in the 21 days before illness onset. Initial Sepsis Screen: Does the patient meet any 2 criteria? No. Patient's initial sepsis screen is negative. Does the patient have a suspected source of infection? Yes: Acute abdominal pain. Risk Assessment: Do you want to hurt yourself or someone else? Patient reports no desire to harm self or others. Onset of symptoms was August 12, 2020. 14:48 Method Of Arrival: Wheelchair ll1 14:48 Acuity: CRISTEL 2 ll1 Historical: - Allergies: 14:51 No Known Allergies; ll1 - PMHx: 14:51 Anxiety; CHF; Depression; Hypertension; esophagus problem; ll1 - PSHx: 14:51 Hernia repair; ll1 - Immunization history:: Flu vaccine is not up to date. - Social history:: Smoking status: Patient denies any tobacco usage or history of. - Family history:: not pertinent. - Hospitalizations: : No recent hospitalization is reported. Screenin:59 Abuse screen: Denies threats or abuse. Denies injuries from another. Nutritional ph screening: No deficits noted. Tuberculosis screening: No symptoms or risk factors identified. Fall Risk None identified. Assessment: 15:30 General: Appears in no apparent distress. comfortable, well groomed, Behavior is calm, ph cooperative, appropriate for age, Reports fatigue for Denies fever, chills. Pain: Denies pain. Neuro: Level of Consciousness is awake, alert, obeys commands, Oriented to person, place, time, situation. Cardiovascular: Reports fatigue, lightheadedness, shortness of breath, Capillary refill < 3 seconds in bilateral fingers Patient's skin is warm and dry. Respiratory: Reports shortness of breath at rest on exertion Airway is patent Respiratory effort is even, unlabored, Respiratory pattern is regular, symmetrical. GI: No signs and/or symptoms were reported involving the gastrointestinal system. Patient currently denies abdominal pain, bloody stool, nausea, rectal bleeding, vomiting. : No signs and/or symptoms were reported regarding the genitourinary system. Derm: Skin is intact, Skin is pink, warm \T\ dry. Musculoskeletal: Circulation, motion, and sensation intact. Range of motion: intact in all extremities. 16:07 Reassessment: Patient appears in no apparent distress at this time. Patient and/or ph family updated on plan of care and expected duration. Pain level reassessed. Patient is alert, oriented x 3, equal unlabored respirations, skin warm/dry/pink. Dr Valdes at bedside to speak w/ pt. 17:00 Reassessment: Patient appears in no apparent distress at this time. Patient and/or ph family updated on plan of care and expected duration. Pain level reassessed. Patient is alert, oriented x 3, equal unlabored respirations, skin warm/dry/pink. 18:00 Reassessment: Patient appears in no apparent distress at this time. Patient and/or ph family updated on plan of care and expected duration. Pain level reassessed. Patient is alert, oriented x 3, equal unlabored respirations, skin warm/dry/pink. 19:10 General: Appears in no apparent distress. comfortable, Behavior is calm, cooperative. bb Pain: Denies pain. Neuro: Level of Consciousness is awake, alert, obeys commands, Oriented to person, place, time, situation. Cardiovascular: Capillary refill < 3 seconds Patient's skin is warm and dry. Respiratory: Airway is patent Respiratory effort is even, unlabored, Respiratory pattern is regular. GI: No signs and/or symptoms were reported involving the gastrointestinal system. Derm: Skin is intact, Skin is pink, warm \T\ dry. Musculoskeletal: Circulation, motion, and sensation intact. Vital Signs: 14:48 BP 147 / 108; Pulse 60; Resp 18; Temp 97.9; Pulse Ox 99% ; Weight 63.5 kg; Height 5 ft. ll1 6 in. (167.64 cm); Pain 8/10; 16:03 BP 148 / 102; Pulse 70; Resp 22; Pulse Ox 96% on R/A; ph 17:00 BP 152 / 106; Pulse 68; Resp 20; Pulse Ox 99% on 2 lpm NC; ph 18:00 BP 147 / 90; Pulse 71; Resp 20; Pulse Ox 100% on 2 lpm NC; ph 19:03 BP 158 / 92; Pulse 67; Resp 18; Pulse Ox 100% on 2 lpm NC; ph 19:11 Temp 97.7; bb 14:48 Body Mass Index 22.60 (63.50 kg, 167.64 cm) ll1 ED Course: 14:42 Patient arrived in ED. ag5 14:42 Angelo Matta MD is Private Physician. ag5 14:50 Triage completed. ll1 14:51 Arm band placed on. ll1 14:59 Erma Saenz RN is Primary Nurse. ph 14:59 Gwyn Valdes MD is Attending Physician. rn 14:59 Patient has correct armband on for positive identification. Placed in gown. Bed in low ph position. Call light in reach. Side rails up X2. wall to wall carpet installer on. Pulse ox on. NIBP on. 15:15 Initial lab(s) drawn, by ga, sent to lab. T\T\S collected, blood band applied to patient. ph Inserted saline lock: 22 gauge in right antecubital area, using aseptic technique. Blood collected. 15:36 XRAY Chest (1 view) In Process Unspecified. EDMS 16:17 Aimee Mercer MD is Hospitalizing Provider. rn 19:05 No provider procedures requiring assistance completed. Patient admitted, IV remains in ph place. 19:13 IV is intact, no erythema or edema noted. bb Administered Medications: 17:06 Drug: Nitro-Bid Ointment 2 % 1 inches Route: Transdermal; Site: anterior chest wall; ph 19:05 Follow up: Response: No adverse reaction ph 17:06 Drug: Lasix 40 mg Route: IVP; Site: right antecubital; ph 19:05 Follow up: Urine output 800 ml; Response: No adverse reaction ph Output: 19:05 Urine: 800ml; Total: 800ml. ph Outcome: 16:18 Decision to Hospitalize by Provider. rn 19:12 Instructed on the need for admit. bb 20:29 Admitted to Tele accompanied by tech, via wheelchair, room 402, with chart, Report called to Shelly Merritt 20:29 Condition: good 21:01 Patient left the ED. bb Signatures: Dispatcher [employer] EDMS Arminda Fletcher RN RN Marilu Spence RN RN Gwyn Valdes MD MD rn Hall, Patricia, RN RN Maximo Martines ag5 Kurtis Santiago RN RN ll1 Corrections: (The following items were deleted from the chart) 14:52 14:48 Acuity: CRISTEL 3 ll1 ll1 19:13 19:11 BP 96 / 77; Pulse 67bpm; Resp 20bpm; Spontaneous; Pulse Ox 100% 2 lpm Nasal bb Cannula; Temp 97.7F; bb
[2020-08-12] MEDS ORDERED: NITROGLYCERIN 1 GM PKT TD ONE (16:33)
[2020-08-12] MEDS ORDERED: FUROSEMIDE 40 MG/4 ML VIAL ONE (16:33)
[2020-08-12] MEDS ORDERED: POTASSIUM CL SA 10 MEQ TAB PO ONE (21:23)
[2020-08-12] MEDS: METOPROLOL TAR 25 MG TAB PO SCH (21:42)
[2020-08-12] MEDS: ENOXAPARIN 40 MG/0.4 ML SQ SCH (21:43)
[2020-08-12] MEDS ORDERED: ALPRAZOLAM 1 MG TABLET PO ONE (23:23)
[2020-08-13 03:52] LABS: Absolute Lymphocytes (CBC) 1.3 K/uL (0.7-4.9); Hematocrit 28.8 % (36.0-45.0); Lymphocytes % 24.9 % (15.3-44.8); MPV 9.1 fL (7.6-11.3); RBC Red Blood Cell Count 3.47 M/uL (3.86-4.86)
[2020-08-13 04:25] LABS: Albumin 2.8 g/dL (3.4-5.0); Bilirubin Total 0.2 mg/dL (0.2-1.0); Magnesium 1.6 mg/dL (1.8-2.4); Phosphorus 3.6 mg/dL (2.5-4.9); Potassium 3.7 mmol/L (3.5-5.1); Protein, Total 6.2 g/dL (6.4-8.2); Troponin I 0.24 ng/mL (0.0-0.045)
[2020-08-13] MEDS: FUROSEMIDE 40 MG/4 ML VIAL IV SCH ×2 (04:51→16:16)
[2020-08-13] MEDS ORDERED: MAGNESIUM SULFATE 1 gm IVPB 1 GM/100 ML BAG IV ONE (05:00)
[2020-08-13] MEDS ORDERED: POTASSIUM CL SA 10 MEQ TAB PO ONE (05:00)
[2020-08-13] MEDS: ENOXAPARIN 40 MG/0.4 ML SQ SCH (08:32)
[2020-08-13] MEDS: METOPROLOL TAR 25 MG TAB PO SCH ×2 (08:33→20:17)
[2020-08-13] MEDS: CLOPIDOGREL 75 MG TABLET PO SCH (08:33)
[2020-08-13] MEDS: ASPIRIN EC 81 MG TAB PO SCH (08:33)
[2020-08-13] MEDS ORDERED: INFLUENZA VACCINE (for 3y+) 0.5 ML DOSE IMVAC ONE (09:00)
--- NOTE | 2020-08-13 13:13 | RAD REPORT ---
EXAM DESCRIPTION: RAD - Esophagram Only - 08/13/2020 11:01 am CLINICAL HISTORY: Esophageal stenosis COMPARISON: None FINDINGS: Thirteen fluoroscopic spot images obtained. Fluoroscopy time 1 minutes Mild to moderate smooth narrowing involves the distal esophagus. No permanent filling defects or obstructing lesions noted. The mucosal folds appear intact IMPRESSION: Mild to moderate smooth narrowing of the distal esophagus presumably a stricture
--- NOTE | 2020-08-13 14:46 | P.HP ---
Certification for Inpatient Patient admitted to: Inpatient With expected LOS: >2 Midnights Patient will require the following post-hospital care: None Practitioner: I am a practitioner with admitting privileges, knowledge of patient current condition, hospital course, and medical plan of care. Services: Services provided to patient in accordance with Admission requirements found in Title 42 Section 412.3 of the Code of Federal Regulations Patient History Date of Service: 08/12/20 Reason for admission: ACUTE HYPOXEMIA; CHF; ESOPHAGEAL STENOSIS WITH DYSPHAGIA History of Present Illness: PATIENT IS A 65-YEAR-OLD FEMALE WHO CAME TO THE HOSPITAL WITH SHORTNESS OF BREATH. SHE WAS AT THE GI CLINIC AND SHE WAS SCHEDULED TO GET A EGD. HOWEVER WHEN SHE WAS ON THE TABLE SHE WAS HYPOXIC SO SHE WAS SENT INTO THE EMERGENCY ROOM. IN THE EMERGENCY ROOM SHE WAS SATTING 80% ON ROOM AIR. SHE WAS TACHYPNEIC WITH LOWER EXTREMITY EDEMA AND BILATERAL JVP. SHE USED TO SEE LOCAL CARDIOLOGY, AND SINCE HE HAS RETIRED SHE HAS NOT GONE TO SEE CARDIOLOGY. SHE HAS BEEN OUT OF LASIX X 1 MONTH. SHE ALSO SAYS SHE HAS HAD A 30 LBS WEIGHT LOSS. SHE IS NOT ABLE TO KEEP ANYTHING DOWN. SHE CAN KEEP CLEAR LIQUIDS DOWN , BUT SHE HAS A LOT OF PAIN WHEN SHE SWALLOWS HER LIQUIDS. SHE HAS DECIDED TO GET EVALUATED SHE HAS BEEN TOLD SHE HAS ESOPHAGEAL ISSUES ESPECIALLY SINCE SHE HAS HER TIFF PROCEDURE. THIS WAS DONE AT [facility] BY DR. DOVE. SHE WILL BE FURTHER EVALUATED IN THE HOSPITAL. Allergies No Known Allergies Allergy (Verified 12/22/17 01:16) Home Medications: ALPRAZolam [Xanax*] 1 tab PO TIDP PRN 08/13/20 Budesonide/Formoterol Fumarate [Symbicort 160-4.5 Mcg Inhaler] 2 puff IH BID 08/13/20 Dicyclomine HCl 10 mg PO Q12HP 08/13/20 Divalproex ER [Depakote *ER*] 250 mg PO BID 08/13/20 Esomeprazole Mag Trihydrate [Nexium] 40 mg PO DAILY 08/13/20 Fluoxetine HCl [Prozac*] 20 mg PO DAILY 08/13/20 Losartan Potassium 100 mg PO DAILY 08/13/20 Phentermine HCl 37.5 mg PO DAILY 08/13/20 - Past Medical/Surgical History Has patient received pneumonia vaccine in the past: Yes Diabetic: No -: Depression, Anxiety -: CHF, Hypertension -: GI/esophageal problems -: hernia repair -: tubal ligation -: carpal tunner both hands -: tummy tuck - Family History Father Medical History: Heart disease, Hypertension Mother Medical History: Heart disease, Hypertension Brother Medical History: Hypertension Sister Medical History: Hypertension - Social History Smoking Status: Never smoker Alcohol use: No CD- Drugs: No Caffeine use: Yes Place of Residence: Home Review of Systems 10-point ROS is otherwise unremarkable Physical Examination - Vital Signs Temperature: 98.5 F Blood Pressure: 154/92 Pulse: 56 Respirations: 16 Pulse Ox (%): 93 - Physical Exam General: Alert, In no apparent distress, Oriented x3 HEENT: Atraumatic, PERRLA, Mucous membr. moist/pink, EOMI, Sclerae nonicteric Neck: Supple, 2+ carotid pulse no bruit, No LAD, JVD distended Respiratory: Diminished, Crackles/rales Cardiovascular: Regular rate/rhythm, Normal S1 S2, No murmurs Gastrointestinal: Normal bowel sounds, Soft and benign, Non-distended, No tenderness Musculoskeletal: No clubbing, No tenderness, Swelling Integumentary: No rashes, No breakdown, No significant lesion Neurological: Normal gait, Normal speech, Normal strength at 5/5 x4 extr, Normal tone, Sensation intact, Cranial nerves 3-12 intact, Normal affect Lymphatics: No axilla or inguinal lymphadenopathy - Studies Laboratory Data (last 24 hrs) 08/12/20 15:15: PT 12.2, INR 1.03, APTT 26.5 08/12/20 15:15: Sodium 144, Potassium 3.3 L, BUN 27 H, Creatinine 0.95, Glucose 106 08/12/20 15:15: WBC 7.3, Hgb 10.0 L, Hct 32.0 L, Plt Count 356 Assessment & Plan - Problems (Diagnosis) (1) Acute exacerbation of CHF (congestive heart failure) Current Visit: Yes Status: Acute (2) Esophageal stenosis Current Visit: Yes Status: Acute (3) Hypoxemia Current Visit: Yes Status: Acute (4) Weight loss Current Visit: Yes Status: Acute (5) Depression Current Visit: Yes Status: Acute (6) Hypertension Current Visit: Yes Status: Acute - Plan 1. ECHOCARDIOGRAM 2. GI CONSULTATION TO FURTHER EVALUATE THE ETIOLOGY OF DIFFICULTY SWALLOWING 3. WE WILL CONTINUE WITH A BETA STEPH 4. CARDIOLOGY CONSULTATION 5. AGGRESSIVE DIURESIS 6. STRICT I'S AND O'S 7. REPEAT CXR 8. DAILY WEIGHTS 9. EDUCATION REGARDING DIET AND TREATMENT OF CONGESTIVE HEART FAILURE Discharge Plan: Home Plan to discharge in: Greater than 2 days - Advance Directives Does patient have a Living Will: No Does patient have a Durable POA for Healthcare: No - Code Status/Comfort Care Code Status Assessed: Yes Code Status: Full Code Critical Care: No Time Spent Managing PTS Care (In Minutes): 45
--- NOTE | 2020-08-13 18:59 | P.PN ---
Subjective Date of Service: 08/13/20 Patient is feeling better. Her respiratory status is improved. Significant amount of volume excreted. Patient's echocardiogram does reveal a ejection fraction of 30-35%. Her upper GI/esophagram revealed moderate esophageal stenosis. Patient is having a hard time swallowing anything but liquids. She will probably benefit from getting the esophagram. She also need workup for her cardiomyopathy. Review of Systems 10-point ROS is otherwise unremarkable Physical Examination - Vital Signs Temperature: 98.1 F Blood Pressure: 153/79 Pulse: 63 Respirations: 18 Pulse Ox (%): 96 - Physical Exam General: Alert, In no apparent distress, Oriented x3 Respiratory: Crackles/rales, Rhonchi/gurgles Cardiovascular: Regular rate/rhythm, Normal S1 S2, Systolic murmur Gastrointestinal: Normal bowel sounds, Soft and benign, Non-distended, No tenderness Musculoskeletal: No clubbing, No tenderness, Swelling Neurological: Normal speech, Normal tone, Normal affect Lymphatics: No axilla or inguinal lymphadenopathy - Studies Medications List Reviewed: Yes Assessment & Plan - Problems (Diagnosis) (1) Acute exacerbation of CHF (congestive heart failure) Current Visit: Yes Status: Acute (2) Esophageal stenosis Current Visit: Yes Status: Acute (3) Hypoxemia Current Visit: Yes Status: Acute (4) Weight loss Current Visit: Yes Status: Acute (5) Depression Current Visit: Yes Status: Acute (6) Hypertension Current Visit: Yes Status: Acute - Plan 1. ECHOCARDIOGRAM REVEALED AN EJECTION FRACTION OF 30-35%. PATIENT MAY NEED CARDIAC CATH OR STRESS TEST TO RULE OUT ATHEROSCLEROTIC DISEASE. WILL DISCUSS WITH CARDIOLOGY 2. GI CONSULTATION-ESOPHAGRAM REVEALED MODERATE ESOPHAGEAL STENOSIS. PATIENT HAVING DIFFICULTY SWALLOWING. HARDLY ABLE TO KEEP ANYTHING DOWN WITHOUT PAIN. MINIMAL MENTAL LIQUIDS. SHE HAS HAD A 30+ LB WEIGHT LOSS OVER THE LAST FEW MONTHS. 3. WE WILL CONTINUE WITH A BETA STEPH 4. CARDIOLOGY CONSULTATION 5. AGGRESSIVE DIURESIS 6. STRICT I'S AND O'S 7. REPEAT CXR 8. DAILY WEIGHTS 9. EDUCATION REGARDING DIET AND TREATMENT OF CONGESTIVE HEART FAILURE Discharge Plan: Home Plan to discharge in: Greater than 2 days - Advance Directives Does patient have a Living Will: No Does patient have a Durable POA for Healthcare: No - Code Status/Comfort Care Code Status: Full Code Critical Care: No Time Spent Managing PTS Care (In Minutes): 35
[2020-08-13] MEDS ORDERED: DICYCLOMINE HCL 10 MG CAP PO SCH (20:00)
[2020-08-13] MEDS: DIVALPROEX ER 250 MG TAB PO SCH (20:17)
[2020-08-13] MEDS: ALPRAZOLAM 1 MG TABLET PO PRN (20:18)
[2020-08-13] MEDS ORDERED: DIVALPROEX ER 250 MG TAB PO ONE (20:27)
[2020-08-13] MEDS ORDERED: ALPRAZOLAM 1 MG TABLET ONE (20:28)
[2020-08-13] MEDS ORDERED: HOME MED 1 EA UNK (Budesonide/Formoterol Fumarate [Symbicort 160-4.5 Mcg Inhaler] 2 PUFF) IH SCH (21:00)
[2020-08-14 04:26] LABS: Magnesium 1.9 mg/dL (1.8-2.4)
--- NOTE | 2020-08-14 05:31 | EKG ---
Test Date: 2020-08-12 Test Time: 15:47:30 Resource Economist: DOMI MEASUREMENT RESULTS: Intervals: Rate: 63 IL: 174 QRSD: 164 QT: 482 QTc: 493 [place]: P: 31 IL: 174 QRS: -49 T: 126 INTERPRETIVE STATEMENTS: Sinus rhythm with frequent premature ventricular complexes Possible Left atrial enlargement Left axis deviation Left bundle branch block Abnormal ECG Compared to ECG 01/23/2019 15:40:05 No significant changes Electronically Signed On 08-14-20 05:29:11 CDT by Agapito Bailey
[2020-08-14] MEDS: FUROSEMIDE 40 MG/4 ML VIAL IV SCH ×2 (06:14→16:15)
--- NOTE | 2020-08-14 07:25 | ECHO ---
HEIGHT: 5 ft 6 in WEIGHT: 139 lb 3.2 oz DATE OF STUDY: 08/13/[address]: Aimee Mercer MD 2-DIMENSIONAL: YES M.MODE: YES DOPPLER: YES COLOR FLOW: YES TDS: PORTABLE: DEFINITY: BUBBLE STUDY: DIAGNOSIS: HYPOXEMIA CARDIAC HISTORY: CATHERIZATION: NO SURGERY: NO PROSTHETIC VALVE: NO PACEMAKER: NO MEASUREMENTS (cm) DIASTOLIC (NORMALS) SYSTOLIC (NORMALS) IVSd 1.4 (0.6-1.2) LA Diam 4.9 (1.9-4.0) LVEF 30-35% LVIDd 5.6 (3.5-5.7) LVIDs 4.1 (2.0-3.5) %FS % LVPWd 1.4 (0.6-1.2) Ao Diam 1.4 (2.0-3.7) 2 DIMENSIONAL ASSESSMENT: RIGHT ATRIUM: NORMAL LEFT ATRIUM: DILATED RIGHT VENTRICLE: NORMAL LEFT VENTRICLE: LEFT VENTRICULAR HYPERTROPHY TRICUSPID VALVE: NORMAL MITRAL VALVE: MITRAL ANNULAR CALCIFICATION PULMONIC VALVE: NORMAL AORTIC VALVE: NORMAL PERICARDIAL EFFUSION: NONE AORTIC ROOT: NORMAL LEFT VENTRICULAR WALL MOTION: SEVERE GLOBAL HYPOKINESIS DOPPLER/COLOR FLOW: MILD TO MODERATE MITRAL AND TRICUSPID REGURGITATION. COMMENTS: SEVERE GLOBAL HYPOKINESIS. EJECTION FRACTION 30-35%. MILD TO MODERATE MITRAL AND TRICUSPID REGURGITATION. LEFT VENTRICULAR HYPERTROPHY. MITRAL ANNULAR CALCIFICATION. TECHNOLOGIST: TIMMY BONILLA
[2020-08-14] MEDS: ENOXAPARIN 40 MG/0.4 ML SQ SCH (09:00)
[2020-08-14] MEDS ORDERED: PANTOPRAZOLE 40MG TABLET PO SCH (09:00)
[2020-08-14] MEDS: CLOPIDOGREL 75 MG TABLET PO SCH ×2 (09:00→16:15)
[2020-08-14] MEDS: ASPIRIN EC 81 MG TAB PO SCH ×2 (09:00→16:15)
[2020-08-14] MEDS: DIVALPROEX ER 250 MG TAB PO SCH ×2 (09:00→20:07)
[2020-08-14] MEDS: LOSARTAN POTASSIUM 50 MG TABLET PO SCH (09:32)
[2020-08-14] MEDS: METOPROLOL TAR 25 MG TAB PO SCH ×2 (09:33→20:07)
[2020-08-14] MEDS: FLUOXETINE 10 MG CAP PO SCH (09:33)
--- NOTE | 2020-08-14 10:53 | CON ---
Date of Consultation: 08/13/2020 Reason For Consultation: Acute congestive heart failure. History Of Present Illness: Ms. Swain is a 65-year-old, who came in complaining of generalized weak ness, abnormal EKG, shortness of breath. The patient has been having symptoms for few days. She was in the [facility] for EGD. Her blood pressure was too high and she had a left bundle-branch block on EKG, near syncope. Has had GI bleeding with few blood transfusion in the past. She was brought to the emergency room for further evaluation and treatment and was found to have congestive heart failur e. She also has a history of anxiety, hernia repair, depression, hypertension, and esophagus problem . She denied chest pain, nausea, vomiting. She denied any palpitation. Past Medical History: As stated above. Allergies: NONE. Review of Systems: Negative. Social History: Negative. Family History: Noncontributory her. Medications: Include aspirin, Xanax, Plavix, Depakote, Prozac, Lasix, inhalers, losartan, metoprolol , and Protonix. Physical Examination: Vital Signs: She weighed 137 pounds. Vital signs are stable, afebrile. She was in sinus rhythm to sinus estelle with occasional PVCs. Her I's and O's were adequate. O2 saturation was 95%, on nasal ca nnula. HEENT: Negative. Neck: Supple with no bruit. Chest: Revealed some rales both bases. Cardiac: Revealed a regular rhythm and rate with a mitral regurgitation murmur and an S3 gallop as w ell as S4 gallops. Abdomen: Benign. Extremities: Revealed no clubbing, cyanosis. She had 1+ edema. Diagnostic Data: Echocardiogram showed an ejection fraction of 30% to 35%. Her EKG showed left bund le-branch block, EKG showed congestive heart failure. Impression And Plan: 1.Acute on chronic systolic congestive heart failure exacerbation. 2.Left bundle-branch block. 3.History of gastrointestinal bleed. 4.Gastroesophageal reflux disease. 5.Hypertension. 6.Chronic obstructive pulmonary disease. 7.History of anxiety. I think the patient is on appropriate medical therapy with aspirin, Plavix, L ovenox, Lasix IV, inhalers, metoprolol, and losartan. I think it would be very reasonable to do an o utpatient Lexiscan on Ms. Swain after she gets discharged to rule out coronary artery disease and we will continue to follow her. KARIE/FRANCISCO Voice ID: [id number] Report ID: [id number]
[2020-08-14] MEDS ORDERED: Ringers Lactate 1,000 ML IV ONE (13:49)
[2020-08-14] MEDS ORDERED: propofoL 200 MG/20 ML VIAL IV ONE (15:21)
[2020-08-14] MEDS ORDERED: LIDOCAINE 1% MPF 5 ML VIAL ONE (15:22)
--- OUTSIDE RECORDS SUMMARY | 2020-08-14 15:35 | XMS REPORT | Continuity of Care Document ---
:1955 Author Organization [facility] t Address [facility] [place] [address] Care Team Providers Name Role Phone Radiology Attending Clinician Unavailable 1, Lab Attending Clinician Unavailable Doctor Unassigned, Name Attending Clinician Unavailable Problems This patient has no known problems. Allergies, Adverse Reactions, Alerts This patient has no known allergies or adverse reactions. Medications This patient has no known medications. Procedures This patient has no known procedures. Encounters Start End Encounter Admission Attending Care Care Encounter Source Date/Time Date/Time Type Type Clinicians Facility Department ID 2019-07-05 2019-07-05 [facility] Radiology [facility] [id number] 13:04:53 23:59:00 Encounter Fransico [id number] [place] [id number] [place] [id number] 2019-07-05 2019-07-05 [employer] [address], Adc Lab [facility] [id number] 12:58:15 13:13:15 Visit Fransico [id number] [place] [id number] [place] [id number] 2019-07-05 2019-07-05 Orders Doctor SUDHIR [id number] 00:00:00 00:00:00 Only UnassignedBREN [id number] [place] [id number] Results This patient has no known results.
[2020-08-14] MEDS ORDERED: GLYCOPYRROLATE 0.2 MG/ML SYR ONE (15:48)
[2020-08-14] MEDS ORDERED: SODIUM CHLORIDE 0.9% 10ML INJ IV PRN (16:11)
[2020-08-14] MEDS: SUCRALFATE 1GM/10ML UCUP PO SCH ×2 (17:11→20:07)
[2020-08-14 17:42] VITALS: BMI 22.1
--- NOTE | 2020-08-14 18:40 | OP ---
Surgeon: Holden Monsalve MD Procedure To Be Performed: Esophagogastroduodenoscopy with balloon dilation. Indication For Procedure: Progressive worsening of dysphagia, odynophagia, significant weight loss d ue to the above, weight loss of 30 pounds. Imaging consistent with moderate esophageal stenosis and plan to do esophageal EGD with balloon dilation with TTS balloon. Plan For Anesthesia: Monitored anesthesia care. Complexity: Average. Technique: After obtaining informed consent from the patient explaining risks and complications whic h include, but are not limited to bleeding, infection, perforation, and anesthesia complication, the patient was placed in the left lateral position and sedation was given. From then on, the scope was advanced into the mouth and was carefully guided up till the second portion of the duodenum. After t he completion of examination and all diagnostic maneuvers, scope and equipment were withdrawn and pro cedure terminated in a safe manner. Findings: Esophagus: From mid to distal esophagus, there were multiple deep ulcerations that were v isible along with necrotic tissue. The mucosa in between the ulceration was very friable with even t he scope causing mild mucosal hemorrhage. There was moderate stenosis seen, but that likely is due t o the ulceration and the resulted esophagitis. The visible GE junction was at around 35 cm. Small t o medium size hiatal hernia was visualized. This was around 4 cm in size. In the hiatal hernia, the re was evidence of suture material. Retroflexion also confirmed the finding of a prior surgery after reviewing the records appears to be consistent with TIF procedure that was done. Stomach: Mild patchy erythema seen in the antrum and body. Biopsies done. Duodenum: The bulb and second portion appeared normal. Complications: None. Tolerance To Anesthesia: Excellent. Postoperative Diagnoses: Gastritis, small to medium size hiatal hernia, status post TIF procedure wi th severe esophageal ulceration and moderate stenosis, not amenable to balloon dilation due to high r isk nature. Plan: 1.Await biopsy results of the esophagus and stomach. 2.Continue PPI. 3.The patient will need to follow up with the advanced endoscopist to perform the procedure for furt her management as this would be better managed at a tertiary care institute. US/MODL Voice ID: [id number] Report ID: [id number]
[2020-08-14] MEDS ORDERED: INFLUENZA VACCINE (for 3y+) 0.5 ML DOSE IMVAC ONE (20:00)
[2020-08-14] MEDS: PANTOPRAZOLE 40 MG INJ IVP SCH (20:07)
[2020-08-14] MEDS: ALPRAZOLAM 1 MG TABLET PO PRN (20:07)
[2020-08-15] MEDS: FUROSEMIDE 40 MG/4 ML VIAL IV SCH ×2 (03:50→15:58)
[2020-08-15] MEDS: LOSARTAN POTASSIUM 50 MG TABLET PO SCH (08:38)
[2020-08-15] MEDS: ASPIRIN EC 81 MG TAB PO SCH (08:38)
[2020-08-15] MEDS: DIVALPROEX ER 250 MG TAB PO SCH ×2 (08:39→20:24)
[2020-08-15] MEDS: PANTOPRAZOLE 40 MG INJ IVP SCH ×2 (08:39→20:24)
[2020-08-15] MEDS: METOPROLOL TAR 25 MG TAB PO SCH ×2 (08:43→20:24)
[2020-08-15] MEDS: CLOPIDOGREL 75 MG TABLET PO SCH (08:44)
[2020-08-15] MEDS: FLUOXETINE 10 MG CAP PO SCH (08:45)
[2020-08-15] MEDS: ENOXAPARIN 40 MG/0.4 ML SQ SCH (08:45)
[2020-08-15] MEDS: SUCRALFATE 1GM/10ML UCUP PO SCH ×4 (08:50→20:24)
[2020-08-15] MEDS: ALPRAZOLAM 1 MG TABLET PO PRN (20:24)
[2020-08-15] MEDS: ENSURE ENLIVE 237 ML CAN PO SCH ×2 (20:25→21:00)
[2020-08-16] MEDS: FUROSEMIDE 40 MG/4 ML VIAL IV SCH (05:14)
[2020-08-16] MEDS: SUCRALFATE 1GM/10ML UCUP PO SCH (08:01)
[2020-08-16] MEDS: ENOXAPARIN 40 MG/0.4 ML SQ SCH (08:01)
[2020-08-16] MEDS: CLOPIDOGREL 75 MG TABLET PO SCH (08:02)
[2020-08-16] MEDS: LOSARTAN POTASSIUM 50 MG TABLET PO SCH (08:02)
[2020-08-16] MEDS: FLUOXETINE 10 MG CAP PO SCH (08:03)
[2020-08-16] MEDS: ASPIRIN EC 81 MG TAB PO SCH (08:03)
[2020-08-16] MEDS: DIVALPROEX ER 250 MG TAB PO SCH (08:03)
[2020-08-16] MEDS: PANTOPRAZOLE 40 MG INJ IVP SCH (08:03)
[2020-08-16] MEDS: ENSURE ENLIVE 237 ML CAN PO SCH (08:04)
[2020-08-16] MEDS: METOPROLOL TAR 25 MG TAB PO SCH (08:04)
[2020-08-16 08:43] VITALS: O2SAT 96
[2020-08-16 17:03] VITALS: BP 153/79; TEMP 98.1
--- NOTE | 2020-08-16 17:08 | P.PN ---
Subjective Date of Service: 08/14/20 Patient's respiratory status has improved. She 0 mg without getting too short of breath. Scheduled for EGD. Review of Systems 10-point ROS is otherwise unremarkable Physical Examination - Vital Signs Temperature: 98.1 F Blood Pressure: 153/79 Pulse: 63 Respirations: 18 Pulse Ox (%): 96 - Physical Exam General: Alert, In no apparent distress, Oriented x3 Respiratory: Diminished, Crackles/rales Cardiovascular: Regular rate/rhythm, Normal S1 S2, Systolic murmur Gastrointestinal: Normal bowel sounds, Soft and benign, Non-distended, No tenderness Musculoskeletal: No clubbing, No tenderness, Swelling Neurological: Sensation intact, Cranial nerves 3-12 intact - Studies Medications List Reviewed: Yes Assessment & Plan - Problems (Diagnosis) (1) Acute exacerbation of CHF (congestive heart failure) Status: Acute (2) Esophageal stenosis Status: Acute (3) Hypoxemia Status: Acute (4) Weight loss Status: Acute (5) Depression Status: Acute (6) Hypertension Status: Acute - Plan 1. Continue with diuresing 2. EGD scheduled for today 3. Continue low-dose beta-geena 4. Appreciate Cardiology and Gastroenterology assistance 5. Strict input and output 6. GI prophylaxis Discharge Plan: Home Plan to discharge in: Greater than 2 days - Advance Directives Does patient have a Living Will: No Does patient have a Durable POA for Healthcare: No - Code Status/Comfort Care Code Status: Full Code Critical Care: No Time Spent Managing PTS Care (In Minutes): 35
--- NOTE | 2020-08-16 17:12 | P.PN ---
Subjective Date of Service: 08/15/20 Patient had EGD which showed areas of necrosis. They recommended follow-up as soon as possible with outpatient thoracic Oncology. I spoke to the patient in length about this and she understands. We gave her the information to a thoracic oncologist at [facility]. She will also need to follow with Cardiology as she may need surgery and they will need to give her cardiac clearance Review of Systems 10-point ROS is otherwise unremarkable Physical Examination - Vital Signs Temperature: 98.1 F Blood Pressure: 153/79 Pulse: 63 Respirations: 18 Pulse Ox (%): 96 - Physical Exam General: Alert, In no apparent distress, Oriented x3 Respiratory: Clear to auscultation bilaterally, Normal air movement Cardiovascular: Regular rate/rhythm, Normal S1 S2, No murmurs Gastrointestinal: Normal bowel sounds, Soft and benign, Non-distended, No tenderness Musculoskeletal: No clubbing, No swelling, No tenderness Integumentary: No rashes Neurological: Normal speech, Normal tone, Sensation intact, Cranial nerves 3-12 intact, Normal affect Lymphatics: No axilla or inguinal lymphadenopathy - Studies Medications List Reviewed: Yes Assessment & Plan - Problems (Diagnosis) (1) Acute exacerbation of CHF (congestive heart failure) Status: Acute (2) Esophageal stenosis Status: Acute (3) Hypoxemia Status: Acute (4) Weight loss Status: Acute (5) Depression Status: Acute (6) Hypertension Status: Acute - Plan Patient has been noncompliant. 1. Continue with diuresing 2. EGD revealed necrosis which talked to the patient about following up with T horacic Oncology 3. Continue low-dose beta-geena 4. Appreciate Cardiology and Gastroenterology assistance 5. Strict input and output 6. GI prophylaxis Discharge Plan: Home Plan to discharge in: Greater than 2 days - Advance Directives Does patient have a Living Will: No Does patient have a Durable POA for Healthcare: No - Code Status/Comfort Care Code Status: Full Code Critical Care: No Time Spent Managing PTS Care (In Minutes): 35
--- NOTE | 2020-08-16 17:13 | P.DS ---
Discharge Date: 08/16/20 Disposition: ROUTINE DISCHARGE Discharge Condition: GOOD Reason for Admission: ACUTE HYPOXEMIA; CHF; ESOPHAGEAL STENOSIS WITH DYSPHAGIA Consultations: Cardiology Gastroenterology - Problems (1) Acute exacerbation of CHF (congestive heart failure) Status: Acute (2) Esophageal stenosis Status: Acute (3) Hypoxemia Status: Acute (4) Weight loss Status: Acute (5) Depression Status: Acute (6) Hypertension Status: Acute Brief History of Present Illness: PATIENT IS A 65-YEAR-OLD FEMALE WHO CAME TO THE HOSPITAL WITH SHORTNESS OF BREATH. SHE WAS AT THE GI CLINIC AND SHE WAS SCHEDULED TO GET A EGD. HOWEVER WHEN SHE WAS ON THE TABLE SHE WAS HYPOXIC SO SHE WAS SENT INTO THE EMERGENCY ROOM. IN THE EMERGENCY ROOM SHE WAS SATTING 80% ON ROOM AIR. SHE WAS TACHYPNEIC WITH LOWER EXTREMITY EDEMA AND BILATERAL JVP. SHE USED TO SEE LOCAL CARDIOLOGY, AND SINCE HE HAS RETIRED SHE HAS NOT GONE TO SEE CARDIOLOGY. SHE HAS BEEN OUT OF LASIX X 1 MONTH. SHE ALSO SAYS SHE HAS HAD A 30 LBS WEIGHT LOSS. SHE IS NOT ABLE TO KEEP ANYTHING DOWN. SHE CAN KEEP CLEAR LIQUIDS DOWN , BUT SHE HAS A LOT OF PAIN WHEN SHE SWALLOWS HER LIQUIDS. SHE HAS DECIDED TO GET EVALUATED SHE HAS BEEN TOLD SHE HAS ESOPHAGEAL ISSUES ESPECIALLY SINCE SHE HAS HER TIFF PROCEDURE. THIS WAS DONE AT [facility] BY DR. DOVE. SHE WILL BE FURTHER EVALUATED IN THE HOSPITAL. Hospital Course: Patient was diuresed aggressively. Patient is doing better and patient had an EGD which revealed areas of necrosis in the esophagus. At this time, patient is stable for discharge. Vital Signs/Physical Exam: Temp Pulse Resp BP Pulse Ox 98.1 F 63 18 153/79 H 96 08/16/20 17:12 08/16/20 17:12 08/16/20 17:12 08/16/20 17:12 08/16/20 17:12 General: Alert, In no apparent distress, Oriented x3 Laboratory Data at Discharge: WBC 5.4 K/uL (4.3-10.9) D 08/13/20 03:17 Hgb 9.2 g/dL (12.0-15.0) L 08/13/20 03:17 Hct 28.8 % (36.0-45.0) L 08/13/20 03:17 Plt Count 295 K/uL (152-406) 08/13/20 03:17 PT 12.2 SECONDS (9.5-12.5) 08/12/20 15:15 INR 1.03 08/12/20 15:15 APTT 26.5 SECONDS (24.3-36.9) 08/12/20 15:15 Sodium 146 mmol/L (136-145) H 08/14/20 03:20 Potassium 4.0 mmol/L (3.5-5.1) 08/14/20 03:20 BUN 28 mg/dL (7-18) H 08/14/20 03:20 Creatinine 0.95 mg/dL (0.55-1.3) 08/14/20 03:20 Glucose 92 mg/dL (74-106) 08/14/20 03:20 Phosphorus 3.6 mg/dL (2.5-4.9) 08/13/20 03:17 Magnesium 1.9 mg/dL (1.8-2.4) 08/14/20 03:20 Total Bilirubin 0.2 mg/dL (0.2-1.0) 08/13/20 03:17 AST 18 U/L (15-37) 08/13/20 03:17 ALT 21 U/L (12-78) 08/13/20 03:17 Alkaline Phosphatase 89 U/L (45-117) 08/13/20 03:17 Troponin I 0.24 ng/mL (0.0-0.045) H 08/13/20 03:17 Triglycerides 159 mg/dL (<150) H 08/13/20 03:17 Cholesterol 171 mg/dL (<200) 08/13/20 03:17 HDL Cholesterol 55 mg/dL (40-60) 08/13/20 03:17 Cholesterol/HDL Ratio 3.11 08/13/20 03:17 Home Medications: ALPRAZolam [Xanax*] 1 tab PO TIDP PRN 08/13/20 Budesonide/Formoterol Fumarate [Symbicort 160-4.5 Mcg Inhaler] 2 puff IH BID 08/13/20 Dicyclomine HCl 10 mg PO Q12HP 08/13/20 Divalproex ER [Depakote *ER] 250 mg PO BID 08/13/20 Esomeprazole Mag Trihydrate [Nexium] 40 mg PO DAILY 08/13/20 Fluoxetine HCl [Prozac*] 20 mg PO DAILY 08/13/20 Losartan Potassium 100 mg PO DAILY 08/13/20 Phentermine HCl 37.5 mg PO DAILY 08/13/20 Acetaminophen with Codeine [Tylenol with Codeine Solution] 5 ml PO Q12HP PRN #200 ml 08/16/20 Furosemide [Lasix] 40 mg PO 0800 #45 tab 08/16/20 Metoprolol Tartrate [Lopressor*] 25 mg PO BID #60 tab 08/16/20 Sucralfate [Carafate*] 10 ml PO QID #1000 ml 08/16/20 New Medications: Sucralfate [Carafate*] 10 ml PO QID #1000 ml Furosemide [Lasix] 40 mg PO 0800 #45 tab Metoprolol Tartrate [Lopressor*] 25 mg PO BID #60 tab Acetaminophen with Codeine [Tylenol with Codeine Solution] 5 ml PO Q12HP PRN #200 ml PRN Reason: Pain Scale 5-7 (Moderate) Patient Discharge Instructions: -OK TO DC IV AND DC HOME. -FOLLOW-UP WITH PRIMARY CARE PROVIDER IN 1-2 WEEKS. -FOLLOW-UP WITH THORACIC SURGERY IN 1-[address] MCCRACKEN, [facility], Office . -RETURN TO THE ER IF SYMPTOMS WORSEN. -CALL or TEXT DR. BRADSHAW AT [phone] IF ANY QUESTIONS REGARDING HOSPITAL STAY. -PLEASE CALL THE FLOOR AT [phone] IF ANY MEDICATION OR NURSING QUESTIONS. Diet: LIQUID DIET Activity: Fall precautions Time spent managing pt's care (in minutes): 35
== END 2020-08-16 11:00 | disposition home or self-care (01) | DRG 292 ==
LOC: ER 14:40 → ERHOLD 16:26 → 4TH 20:39
PROVIDERS: ADMIT Hospitalist; ATTEND Hospitalist
PROC: 0DB58ZX Excision of Esophagus, Via Natural or Artificial Opening Endoscopic, Diagnostic (ICD-10-PCS; 2020-08-14)
PROC: 0DB78ZX Excision of Stomach, Pylorus, Via Natural or Artificial Opening Endoscopic, Diagnostic (ICD-10-PCS; 2020-08-14)
PROC: 0D758ZZ Dilation of Esophagus, Via Natural or Artificial Opening Endoscopic (ICD-10-PCS; principal; 2020-08-14 14:00)
DX: I11.0 Hypertensive heart disease with heart failure (principal); K22.10 Ulcer of esophagus without bleeding; I50.23 Acute on chronic systolic (congestive) heart failure; K22.2 Esophageal obstruction; K29.70 Gastritis, unspecified, without bleeding; F32.9 Major depressive disorder, single episode, unspecified; K44.9 Diaphragmatic hernia without obstruction or gangrene; I44.7 Left bundle-branch block, unspecified; J44.9 Chronic obstructive pulmonary disease, unspecified; K21.9 Gastro-esophageal reflux disease without esophagitis; K22.8 Other specified diseases of esophagus; R63.4 Abnormal weight loss; R09.02 Hypoxemia; Z79.899 Other long term (current) drug therapy; Z98.51 Tubal ligation status; Z68.21 Body mass index [BMI] 21.0-21.9, adult; Z79.01 Long term (current) use of anticoagulants; Z91.19 Patient's noncompliance with other medical treatment and regimen; Z20.828 Contact with and (suspected) exposure to other viral communicable diseases
CPT/HCPCS: 36415; 71045; 74220; 80048; 80053; 80061; 83735; 83880; 84100; 84484; 85025; 85610; 85730; 86850; 86900; 86901; 88305; 88312; 90471; 93005; 93306; 96374; 99285; C9113; J1650; J1940; J2704; J3475; J7120; Q2035; U0002

== ENCOUNTER 2020-11-27 09:55 | Inpatient (IN) | payer MEDICARE, OTHER ==
--- OUTSIDE RECORDS SUMMARY | 2020-11-27 10:20 | XMS REPORT | Continuity of Care Document ---
:1955 Author Organization [facility] t Address [address] [place] [address] Care Team Providers Name Role Phone Radiology [...] Type Clinicians Facility Department ID 2019-07-05 2019-07-05 [facility] Radiology [facility] [id number] 13:04:53 23:59:00 Encounter Fransico [id number] [place] [id number] [place] [id number] 2019-07-05 2019-07-05 [employer] 1, Adc Lab [facility] [id number] 12:58:15 13:13:15 Visit Fransico [id number] [place] [id number] [place] [id number] 2019-07-05 2019-07-05 Orders Doctor SUDHIR [id number] 00:00:00 00:00:00 Only UnassignedBREN [id number] [place] [id number] [id number] Results This patient has no known results.
[2020-11-27] MEDS ORDERED: FUROSEMIDE 100 MG/10 ML VIAL IV ONE (10:55)
[2020-11-27] MEDS ORDERED: MORPHINE 4 MG/ML SYR ONE (10:55)
[2020-11-27] MEDS ORDERED: ONDANSETRON 4 MG/2 ML VIAL ONE (10:55)
[2020-11-27] MEDS ORDERED: FAMOTIDINE 20 MG/2 ML VIAL IV ONE (10:56)
[2020-11-27 11:08] LABS: Absolute Lymphocytes (CBC) 1.1 K/uL (0.7-4.9); Basophils % 0.7 % (0-1.3); Hematocrit 31.6 % (36.0-45.0); Lymphocytes % 18.8 % (15.3-44.8); MPV 8.9 fL (7.6-11.3); Protime INR 1.07; RBC Red Blood Cell Count 3.95 M/uL (3.86-4.86)
--- NOTE | 2020-11-27 11:26 | RAD REPORT ---
EXAM DESCRIPTION: RAD - Chest Single View - 11/27/2020 11:05 am CLINICAL HISTORY: DYSPNEA COMPARISON: Portable August 2020 TECHNIQUE: AP portable chest image was obtained 11/27/2020 11:05 am . FINDINGS: No peripheral mass or consolidation seen. Retrocardiac left base is mostly obscured. Lung volumes are relatively low. Interstitial opacification is present. Patient has significant cardiomega ly which is stable. Vascular engorgement is present. Trachea is midline. Left pleural effusion is natacha ntified. No pneumothorax. No acute bony abnormality seen. No acute aortic findings suspected. IMPRESSION: Mild CHF/volume overload pattern similar to August 2020.
[2020-11-27 11:51] LABS: Albumin 3.3 g/dL (3.4-5.0); Bilirubin Direct 0.2 mg/dL (0-0.2); Bilirubin Total 0.4 mg/dL (0.2-1.0); Potassium 3.2 mmol/L (3.5-5.1); Protein, Total 7.3 g/dL (6.4-8.2); Troponin (Emerg Dept Use Only) 0.09 ng/mL (0.0-0.045)
--- NOTE | 2020-11-27 12:26 | ER ---
Nurse's Notes [facility] Name: Mandy Swain Age: 65 yrs Sex: Female : 1955 Arrival Date: 11/27/2020 Time: 10:02 Bed 7 Private MD: Diagnosis: Acute combined systolic (congestive) and diastolic (congestive) heart failure;Acute kidney failure Presentation: 11/27 10:03 Chief complaint: Patient states: Intermittent Shortness of breath that has been ongoing ss for months. Pt reports that she has become more short of breath lately and anxious. Coronavirus screen: Client presents with at least one sign or symptom that may indicate coronavirus-19. Standard/surgical mask placed on the client. Ebola Screen: Patient denies exposure to infectious person. Patient denies travel to an Ebola-affected area in the 21 days before illness onset. Initial Sepsis Screen: Does the patient meet any 2 criteria? No. Patient's initial sepsis screen is negative. Does the patient have a suspected source of infection? No. Patient's initial sepsis screen is negative. Risk Assessment: Do you want to hurt yourself or someone else? Patient reports no desire to harm self or others. Onset of symptoms is unknown. 10:03 Method Of Arrival: Ambulatory ss 10:03 Acuity: CRISTEL 2 ss Historical: - Allergies: 10:07 No Known Allergies; ss - PMHx: 10:07 Anxiety; CHF; Depression; esophagus problem; Hypertension; ss - PSHx: 10:07 Hernia repair; ss - Immunization history:: Adult Immunizations up to date. - Social history:: Smoking status: Patient denies any tobacco usage or history of. Screenin:21 Abuse screen: Denies threats or abuse. Nutritional screening: No deficits noted. em Tuberculosis screening: No symptoms or risk factors identified. Fall Risk None identified. Assessment: 10:45 General: Appears in no apparent distress. comfortable, Behavior is calm, appropriate em for age, Denies fever. Pain: Complains of pain in epigastric area Pain currently is 8 out of 10 on a pain scale. Neuro: Level of Consciousness is awake, alert, obeys commands, Oriented to person, place, time, situation, Appropriate for age. Cardiovascular: Rhythm is sinus rhythm. Respiratory: Airway is patent Respiratory effort is even, shallow, Breath sounds are diminished bilaterally. GI: Patient currently denies nausea, vomiting. Derm: Skin is intact, is healthy with good turgor. Musculoskeletal: Capillary refill < 3 seconds, Range of motion: intact in all extremities. 12:00 Reassessment: Patient appears in no apparent distress at this time. Patient and/or ph family updated on plan of care and expected duration. Pain level reassessed. Patient is alert, oriented x 3, equal unlabored respirations, skin warm/dry/pink. 13:20 Reassessment: Patient appears in no apparent distress at this time. Patient and/or ph family updated on plan of care and expected duration. Pain level reassessed. Patient is alert, oriented x 3, equal unlabored respirations, skin warm/dry/pink. 14:10 Reassessment: Patient appears in no apparent distress at this time. Patient and/or em family updated on plan of care and expected duration. Pain level reassessed. Patient is alert, oriented x 3, equal unlabored respirations, skin warm/dry/pink. 17:10 Reassessment: BP 171/109 after ativan was given, provider notified, received VO for em hydralazine 10 mg IVP x 1. Vital Signs: 10:03 BP 161 / 114; Pulse 80; Resp 22; Temp 98.0(TE); Pulse Ox 88% on R/A; Weight 60.33 kg; ss Height 5 ft. 4 in. (162.56 cm); Pain 8/10; 11:15 BP 164 / 99; Pulse 81; Resp 19; Pulse Ox 100% on 2 lpm NC; em 13:21 BP 136 / 111; Pulse 83; Resp 18; Pulse Ox 100% on 2 lpm NC; ph 14:10 BP 156 / 81; Pulse 87; Resp 18; Pulse Ox 98% on 2 lpm NC; em 17:11 BP 171 / 109; Pulse 85; Resp 24; Pulse Ox 97% on 2 lpm NC; em 17:37 BP 157 / 89; Pulse 88; em 10:03 Body Mass Index 22.83 (60.33 kg, 162.56 cm) ED Course: 10:02 Patient arrived in ED. mr 10:06 Triage completed. ss 10:07 Arm band placed on right wrist. 10:13 Owen Ricks PA is PHCP. jr8 10:13 Florencio Leon MD is Attending Physician. jr8 10:21 Kyle Guerin, RN is Primary Nurse. em 10:21 Patient has correct armband on for positive identification. Placed in gown. Bed in low em position. Adult w/ patient. 11:00 Initial lab(s) drawn, by me, sent to lab. Inserted saline lock: 22 gauge in right em wrist, using aseptic technique. Blood collected. 11:04 XRAY Chest (1 view) In Process Unspecified. EDMS 12:16 Tommie Deshpande DO is Hospitalizing Provider. jr8 17:16 No provider procedures requiring assistance completed. em 17:39 Patient admitted, IV remains in place. em Administered Medications: 11:04 Drug: Lasix 60 mg Route: IVP; Site: right wrist; em 13:58 Follow up: Response: No adverse reaction em 11:06 Drug: Pepcid 20 mg Route: IVP; Site: right wrist; em 13:57 Follow up: Response: No adverse reaction em 11:08 Drug: Zofran (Ondansetron) 4 mg Route: IVP; Site: right wrist; em 13:57 Follow up: Response: No adverse reaction em 11:10 Drug: morphine 4 mg Route: IVP; Site: right wrist; em 13:57 Follow up: Response: No adverse reaction; Marked relief of symptoms em 13:56 Drug: Potassium Chloride 40 mEq Route: PO; em 17:18 Follow up: Response: No adverse reaction em 17:18 Drug: Ativan 0.5 mg Route: IVP; Site: right wrist; em 17:28 Follow up: Response: No adverse reaction; Marked relief of symptoms; Anxiety decreased em 17:24 Drug: hydrALAZINE 10 mg Route: IV; Rate: 10 calculated rate; Site: right wrist; em Outcome: 12:25 Decision to Hospitalize by Provider. jr8 17:16 Admitted to Med/surg via wheelchair, room 201, with oxygen, with chart, Report called em to DEZ Trammell 17:16 Condition: stable 17:16 Instructed on the need for admit, Demonstrated understanding of instructions. 17:44 Patient left the ED. em Signatures: Dispatcher [facility] EDNE Evelia Vargas mr Kyle Guerin, DEZ GARCES Anita Spear RN RN Owen Ricks PA PA jr8 Erma Saenz, RN RN ph Corrections: (The following items were deleted from the chart) 10:08 10:03 Pulse 80bpm; Resp 22bpm; 60.33 kg; Height 5 ft. 4 in.; BMI: 22.8; ss ss 14:10 11:15 BP 164 / 99; Pulse 81bpm; Resp 19bpm; Pulse Ox 100% RA; em em
--- NOTE | 2020-11-27 12:26 | EDPHYS ---
Physician Documentation [facility] Name: Mandy Swain Age: 65 yrs Sex: Female : 1955 Arrival Date: 11/27/2020 Time: 10:02 Bed 7 Private MD: ED Physician Florencio Leon HPI: 11/27 13:23 This 65 yrs old Female presents to ER via Ambulatory with complaints of jr8 Shortness Of Breath. 13:23 The patient has shortness of breath at rest. Onset: The symptoms/episode began/occurred jr8 gradually, 2 day(s) ago. Duration: The symptoms are continuous. The patient's shortness of breath is aggravated by talking, walking. Associated signs and symptoms: Pertinent positives: non-productive cough. Severity of symptoms: At their worst the symptoms were moderate in the emergency department the symptoms are unchanged. It is unknown whether or not the patient has had similar symptoms in the past. The patient has not recently seen a physician. Patient with history of CHF. Stated that she is more fluid overloaded in her legs and is now having increased shortness of breath. 88% RA upon arrival. Normally does not require oxygen at home. Historical: - Allergies: 10:07 No Known Allergies; ss - PMHx: 10:07 Anxiety; CHF; Depression; esophagus problem; Hypertension; ss - PSHx: 10:07 Hernia repair; ss - Immunization history:: Adult Immunizations up to date. - Social history:: Smoking status: Patient denies any tobacco usage or history of. ROS: 13:23 Eyes: Negative for injury, pain, redness, and discharge, ENT: Negative for injury, jr8 pain, and discharge, Neck: Negative for injury, pain, and swelling, Back: Negative for injury and pain, MS/Extremity: Negative for injury and deformity, Skin: Negative for injury, rash, and discoloration, Neuro: Negative for headache, weakness, numbness, tingling, and seizure. 13:23 Cardiovascular: Positive for edema, orthopnea. 13:23 Respiratory: Positive for cough, dyspnea on exertion, shortness of breath, at rest. 13:33 Abdomen/GI: Positive for abdominal pain, Negative for nausea, vomiting, and diarrhea. jr8 Exam: 13:33 Eyes: Pupils equal round and reactive to light, extra-ocular motions intact. Lids and jr8 lashes normal. Conjunctiva and sclera are non-icteric and not injected. Cornea within normal limits. Periorbital areas with no swelling, redness, or edema. ENT: Nares patent. No nasal discharge, no septal abnormalities noted. Tympanic membranes are normal and external auditory canals are clear. Oropharynx with no redness, swelling, or masses, exudates, or evidence of obstruction, uvula midline. Mucous membranes moist. Neck: Trachea midline, no thyromegaly or masses palpated, and no cervical lymphadenopathy. Supple, full range of motion without nuchal rigidity, or vertebral point tenderness. No Meningismus. Cardiovascular: Regular rate and rhythm with a normal S1 and S2. No gallops, murmurs, or rubs. Normal PMI, no JVD. No pulse deficits. Abdomen/GI: Soft, non-tender, with normal bowel sounds. No distension or tympany. No guarding or rebound. No evidence of tenderness throughout. Back: No spinal tenderness. No costovertebral tenderness. Full range of motion. Skin: Warm, dry with normal turgor. Normal color with no rashes, no lesions, and no evidence of cellulitis. MS/ Extremity: Pulses equal, no cyanosis. Neurovascular intact. Full, normal range of motion. Neuro: Awake and alert, GCS 15, oriented to person, place, time, and situation. Cranial nerves II-XII grossly intact. Motor strength 5/5 in all extremities. Sensory grossly intact. Cerebellar exam normal. Normal gait. 13:33 Respiratory: the patient does not display signs of respiratory distress, Respirations: normal, Breath sounds: rales, that are moderate, are located in both bases. 15:28 ECG was reviewed by the Attending Physician. [facility] Vital Signs: 10:03 BP 161 / 114; Pulse 80; Resp 22; Temp 98.0(TE); Pulse Ox 88% on R/A; Weight 60.33 kg; ss Height 5 ft. 4 in. (162.56 cm); Pain 8/10; 11:15 BP 164 / 99; Pulse 81; Resp 19; Pulse Ox 100% on 2 lpm NC; em 13:21 BP 136 / 111; Pulse 83; Resp 18; Pulse Ox 100% on 2 lpm NC; ph 14:10 BP 156 / 81; Pulse 87; Resp 18; Pulse Ox 98% on 2 lpm NC; em 17:11 BP 171 / 109; Pulse 85; Resp 24; Pulse Ox 97% on 2 lpm NC; em 17:37 BP 157 / 89; Pulse 88; em 10:03 Body Mass Index 22.83 (60.33 kg, 162.56 cm) ss MDM: 10:13 Patient medically screened. [facility] 12:15 Data reviewed: vital signs, nurses notes, lab test result(s), EKG, radiologic studies, jr8 plain films. Data interpreted: Pulse oximetry: on room air is 88 %. Interpretation: normal. Counseling: I had a detailed discussion with the patient and/or guardian regarding: the historical points, exam findings, and any diagnostic results supporting the discharge/admit diagnosis, lab results, radiology results, the need for further work-up and treatment in the hospital. ED course: acute prerenal azotemia from CHF exacerbation and volume overload. Hypoxic upon arrival. normally is not on any oxygen supplementation and can get around fine . 11/27 10:28 Order name: Basic Metabolic Panel; Complete Time: 12:13 8 11/27 10:28 Order name: CBC with Diff; Complete Time: 13:35 8 11/27 10:28 Order name: LFT's; Complete Time: 12:13 8 11/27 10:28 Order name: Magnesium; Complete Time: 12:13 8 11/27 10:28 Order name: NT PRO-BNP; Complete Time: 12:13 8 11/27 10:28 Order name: PT-INR; Complete Time: 11:15 8 11/27 10:28 Order name: Troponin (emerg Dept Use Only); Complete Time: 12:13 8 11/27 10:28 Order name: XRAY Chest (1 view); Complete Time: 12:13 8 11/27 12:02 Order name: SARS-COV-2 RT PCR; Complete Time: 12:13 EDAL 11/27 13:28 Order name: CBC Smear Scan; Complete Time: 13:35 EDAL 11/27 17:05 Order name: US; Complete Time: 17:11 EDAL 11/27 10:28 Order name: EKG; Complete Time: 10:29 8 11/27 10:28 Order name: Cardiac monitoring; Complete Time: 14:09 8 11/27 10:28 Order name: EKG - Nurse/Tech; Complete Time: 14:09 11/27 10:28 Order name: IV Saline Lock; Complete Time: 11:04 11/27 10:28 Order name: Labs collected and sent; Complete Time: 10:36 11/27 10:28 Order name: O2 Per Protocol; Complete Time: 10:36 11/27 10:28 Order name: O2 Sat Monitoring; Complete Time: :11/27 15:23 Order name: Diet Regular; Complete Time: 15:24 em EC: Rate is 84 beats/min. Rhythm is regular, Sinus Rhythm. MI interval is normal at 190 jr8 msec. QRS interval is prolonged at 166 msec. QT interval is normal at 448 msec. No Q waves. T waves are Normal. No ST changes noted. Clinical impression: LBBB. Interpreted by me. Reviewed by me. Administered Medications: 11:04 Drug: Lasix 60 mg Route: IVP; Site: right wrist; em 13:58 Follow up: Response: No adverse reaction em 11:06 Drug: Pepcid 20 mg Route: IVP; Site: right wrist; em 13:57 Follow up: Response: No adverse reaction em 11:08 Drug: Zofran (Ondansetron) 4 mg Route: IVP; Site: right wrist; em 13:57 Follow up: Response: No adverse reaction em 11:10 Drug: morphine 4 mg Route: IVP; Site: right wrist; em 13:57 Follow up: Response: No adverse reaction; Marked relief of symptoms em 13:56 Drug: Potassium Chloride 40 mEq Route: PO; em 17:18 Follow up: Response: No adverse reaction em 17:18 Drug: Ativan 0.5 mg Route: IVP; Site: right wrist; em 17:28 Follow up: Response: No adverse reaction; Marked relief of symptoms; Anxiety decreased em 17:24 Drug: hydrALAZINE 10 mg Route: IV; Rate: 10 calculated rate; Site: right wrist; em Disposition: 11/28 07:31 Co-signature as Attending Physician, Florencio Leon MD I agree with the assessment and 4 plan of care. Disposition: 11/27/20 12:25 Hospitalization ordered by Tommie Deshpande for Inpatient Admission. Preliminary diagnosis are Acute combined systolic (congestive) and diastolic (congestive) heart failure, Acute kidney failure. - Bed requested for Telemetry/MedSurg (Inpatient). - Status is Inpatient Admission. em - Condition is Stable. - Problem is new. - Symptoms have improved. Signatures: Dispatcher [employer] EDMS Sandi Khalil bd Kyle Guerin, RN RN Anita Spear RN RN ss Millicent, Owen, PA PA jr8 Florencio Leon MD MD tw4 Corrections: (The following items were deleted from the chart) 11/27 10:57 10:28 CORONAVIRUS+MR.LAB.BRZ ordered. EDMS EDMS 13:34 13:23 Eyes: Negative for injury, pain, redness, and discharge, ENT: Negative for jr8 injury, pain, and discharge, Neck: Negative for injury, pain, and swelling, Back: Negative for injury and pain, MS/Extremity: Negative for injury and deformity, Skin: Negative for injury, rash, and discoloration, Neuro: Negative for headache, weakness, numbness, tingling, and seizure, jr8 15:36 12:25 Hospitalization Ordered by Tommie Deshpande DO for Inpatient Admission. Preliminary bd diagnosis is Acute combined systolic (congestive) and diastolic (congestive) heart failure; Acute kidney failure. Bed requested for Telemetry/MedSurg (Inpatient). Status is Inpatient Admission. Condition is Stable. Problem is new. Symptoms have improved. jr8 16:23 15:36 11/27/2020 12:25 Hospitalization Ordered by Tommie Charlee CROWLEY for Inpatient bd Admission. Preliminary diagnosis is Acute combined systolic (congestive) and diastolic (congestive) heart failure; Acute kidney failure. Bed requested for [facility] ER HOLD. Status is Inpatient Admission. Condition is Stable. Problem is new. Symptoms have improved. bd 17:44 16:23 11/27/2020 12:25 Hospitalization Ordered by Tommie Charlee CROWLEY for Inpatient em Admission. Preliminary diagnosis is Acute combined systolic (congestive) and diastolic (congestive) heart failure; Acute kidney failure. Bed requested for Telemetry/MedSurg (Inpatient). Status is Inpatient Admission. Condition is Stable. Problem is new. Symptoms have improved. bd
[2020-11-27 13:29] LABS: Anisocytosis 1+; Blood Morphology Comment NOTED (NOT SEEN); Hypochromasia 1+; Platelet Estimate ADEQ; White Blood Cell Scan OK (OK)
[2020-11-27] MEDS ORDERED: ONDANSETRON 4 MG/2 ML VIAL IV PRN (15:24)
--- NOTE | 2020-11-27 16:08 | P.HP ---
Certification for Inpatient Patient admitted to: Observation With expected LOS: <2 Midnights Patient will require the following post-hospital care: None Practitioner: I am a practitioner with admitting privileges, knowledge of patient current condition, hospital course, and medical plan of care. Services: Services provided to patient in accordance with Admission requirements found in Title 42 Section 412.3 of the Code of Federal Regulations Patient History Date of Service: 11/27/20 Primary Care Provider: Dr. Matta Reason for admission: Shortness of breath History of Present Illness: 65-year-old female with history of CHF, hypertension, GERD, and depression. Patient presented with increasing shortness of breath to the emergency room. Symptoms have worsened. Patient denies any significant chest pain. No fever. In the ER patient was evaluated. Patient was found to have room-air saturations run 85%. Blood pressure slightly elevated. Hemoglobin 9.4. Sodium 140, potassium 3.2. BUN of 27, creatinine 1.48 with a GFR of 35. Glucose 96. Troponin reviewed. Chest x-ray shows pulmonary edema. Patient started on IV Lasix. Patient admitted for further evaluation and treatment. Allergies No Known Allergies Allergy (Verified 12/22/17 01:16) Home medications list reviewed: Yes Home Medications: ALPRAZolam [Xanax*] 1 tab PO TIDP PRN 08/13/20 Budesonide/Formoterol Fumarate [Symbicort 160-4.5 Mcg Inhaler] 2 puff IH BID 05/26 Dicyclomine HCl 10 mg PO Q12HP 08/13/20 Divalproex ER [Depakote *ER] 250 mg PO BID 08/13/20 Esomeprazole Mag Trihydrate [Nexium] 40 mg PO DAILY 08/13/20 Fluoxetine HCl [Prozac*] 20 mg PO DAILY 08/13/20 Losartan Potassium 100 mg PO DAILY 08/13/20 Phentermine HCl 37.5 mg PO DAILY 08/13/20 Acetaminophen with Codeine [Tylenol with Codeine Solution] 5 ml PO Q12HP PRN #200 ml 08/16/20 Furosemide [Lasix] 40 mg PO 0800 #45 tab 08/16/20 Metoprolol Tartrate [Lopressor*] 25 mg PO BID #60 tab 08/16/20 Sucralfate [Carafate*] 10 ml PO QID #1000 ml 08/16/20 - Past Medical/Surgical History Diabetic: No -: Depression, Anxiety -: CHF, Hypertension -: GI/esophageal problems -: hernia repair -: tubal ligation -: carpal tunner both hands -: tummy tuck Psychosocial/ Personal History: Patient lives at home . - Family History Father -: Heart disease, Hypertension Mother -: Heart disease, Hypertension Brother -: Hypertension Sister -: Hypertension - Social History Smoking Status: Never smoker Alcohol use: No CD- Drugs: No Caffeine use: Yes Place of Residence: Home Review of Systems General: As per HPI Eyes: Unremarkable ENT: Unremarkable Respiratory: Shortness of Breath, SOB with Excertion, As per HPI Cardiovascular: Unremarkable Gastrointestinal: Unremarkable Genitourinary: Unremarkable Musculoskeletal: Unremarkable Integumentary: Unremarkable Neurological: Unremarkable Lymphatics: Unremarkable Physical Examination - Physical Exam General: Alert, In no apparent distress, Oriented x3, Cooperative HEENT: Atraumatic Neck: Supple Respiratory: Crackles/rales (Slight crackles to the bases) Cardiovascular: Normal pulses, Regular rate/rhythm Gastrointestinal: Normal bowel sounds, Soft and benign, Non-distended, No masses, No rebound, No guarding Musculoskeletal: No tenderness, No warmth Integumentary: Tenderness/swelling (Mild pitting edema to the lower extremity) Neurological: Normal speech, Normal strength at 5/5 x4 extr, Normal tone, Normal affect - Studies Laboratory Data (last 24 hrs) 11/27/20 11:00: PT 12.6 H, INR 1.07 11/27/20 11:00: WBC 5.7, Hgb 9.4 L, Hct 31.6 L, Plt Count 316 11/27/20 11:00: Sodium 140, Potassium 3.2 L, BUN 27 H, Creatinine 1.48 H, Glucose 96, Magnesium 2.0, Total Bilirubin 0.4, AST 27, ALT 85 H, Alkaline Phosphatase 158 H Assessment and Plan - Plan Impression: Dyspnea secondary to acute on chronic systolic CHF Acute on chronic renal disease stage III Hypertension GERD with hiatal hernia Depression with anxiety Plan: Dyspnea secondary to acute on chronic systolic CHF: Patient admitted for further evaluation and treatment. Will start IV Lasix. Will continue 1500 cc per day fluid restriction and low-salt diet. Will continue monitor closely. Will order echocardiogram to further evaluate. Cardiology consulted to further evaluate. Will monitor telemetry and cardiac enzymes. Recheck chest x-ray tomorrow. Will need to review and restart home medication. Adjustment in medication may be required. Nephrology also consulted due to acute on possible chronic renal disease. Acute on chronic renal disease stage III: Nephrology consulted. Obtain renal ultrasound to further evaluate. Hypertension: Obtain and restart home medication. GERD with hiatal hernia: Continue meds Depression with anxiety: Restart meds Discharge Plan: Home Plan to discharge in: 48 Hours - Advance Directives Does patient have a Living Will: No Does patient have a Durable POA for Healthcare: No - Code Status/Comfort Care Code Status Assessed: Yes (Patient full code) Time Spent Managing Pts Care (In Minutes): 55
[2020-11-27] MEDS: FUROSEMIDE 40 MG/4 ML VIAL IV SCH (17:00)
--- NOTE | 2020-11-27 17:04 | RAD REPORT ---
EXAM DESCRIPTION: US - Renal Ultrasound-Complete - 11/27/2020 4:46 pm CLINICAL HISTORY: suspect chronic renal disease Flank pain COMPARISON: Rest Stress Cardiac Imaging dated 01/24/2019; Chest Abdomen Pelvis W Cont dated 12/21/2017 ; Chest Single View dated 11/27/2020 FINDINGS: Echogenicity of both kidneys is within normal limits. Bilateral renal cysts are present. The right kidney measures 10.7 x 5.3 x 4.2 cm. No hydronephrosis or perinephric fluid. The left kidney measures 8.3 x 5.6 x 3.4 cm. No hydronephrosis or perinephric fluid. The urinary bladder is incompletely distended without gross abnormality seen. Bilateral pleural effusions are likely present. IMPRESSION: Bilateral benign appearing renal cysts.
[2020-11-27] MEDS ORDERED: LORazepam 2 MG/ML VIAL ONE (17:26)
[2020-11-27] MEDS ORDERED: HYDRALAZINE HCL 20 MG/ML VIAL ONE (17:37)
[2020-11-27] MEDS ORDERED: METOPROLOL TAR 25 MG TAB PO SCH (18:00)
[2020-11-27] MEDS: PANTOPRAZOLE 40MG TABLET PO SCH (19:04)
[2020-11-27 19:27] LABS: CKMB Creatine Kinase MB 4.5 ng/mL (0.3-3.6); Troponin I 0.1 ng/mL (0.0-0.045)
--- NOTE | 2020-11-27 21:16 | P.CNS ---
Date of Consult: 11/27/20 Reason for Consult: JAVAD Requesting Physician: Tommie Deshpande Primary Care Provider: Dr. Matta Chief Complaint: Shortness of breath History of Present Illness: 65-year-old female with history of CHF, hypertension, GERD, and depression. Patient presented with increasing shortness of breath to the emergency room. Symptoms have worsened. Patient denies any significant chest pain. No fever. Patient was found to have room-air saturations run 85%. 13:23 This 65 yrs old Female presents to ER via Ambulatory with complaints of jr8 Shortness Of Breath. 13:23 The patient has shortness of breath at rest. Onset: The symptoms/episode began/occurred jr8 gradually, 2 day(s) ago. Duration: The symptoms are continuous. The patient's shortness of breath is aggravated by talking, walking. Associated signs and symptoms: Pertinent positives: non-productive cough. Severity of symptoms: At their worst the symptoms were moderate in the emergency department the symptoms are unchanged. It is unknown whether or not the patient has had similar symptoms in the past. The patient has not recently seen a physician. Patient with history of CHF. Stated that she is more fluid overloaded in her legs and is now having increased shortness of breath. 88% RA upon arrival. Normally does not require oxygen at home. Reports regular NSAIDs including Ibuprofen every night. States that she takes Execedrin Migraine daily. Reports multiple ulcers on her legs for the past two months. Allergies No Known Allergies Allergy (Verified 12/22/17 01:16) Home medications list reviewed: Yes Home Medications: ALPRAZolam [Xanax*] 1 tab PO TIDP PRN 08/13/20 Budesonide/Formoterol Fumarate [Symbicort 160-4.5 Mcg Inhaler] 2 puff IH BID 08/13/20 Dicyclomine HCl 10 mg PO Q12HP 08/13/20 Divalproex ER [Depakote *ER] 250 mg PO BID 08/13/20 Esomeprazole Mag Trihydrate [Nexium] 40 mg PO DAILY 08/13/20 Fluoxetine HCl [Prozac*] 20 mg PO DAILY 08/13/20 Losartan Potassium 100 mg PO DAILY 08/13/20 Phentermine HCl 37.5 mg PO DAILY 08/13/20 Acetaminophen with Codeine [Tylenol with Codeine Solution] 5 ml PO Q12HP PRN #200 ml 08/16/20 Furosemide [Lasix] 40 mg PO 0800 #45 tab 08/16/20 Metoprolol Tartrate [Lopressor*] 25 mg PO BID #60 tab 08/16/20 Sucralfate [Carafate*] 10 ml PO QID #1000 ml 08/16/20 - Past Medical/Surgical History Diabetic: No -: Depression, Anxiety -: CHF, Hypertension -: GI/esophageal problems -: hernia repair -: tubal ligation -: carpal tunner both hands -: tummy tuck Psychosocial/ Personal History: Patient lives at home . - Family History Father Medical History: Heart disease, Hypertension Mother Medical History: Heart disease, Hypertension Brother Medical History: Hypertension Sister Medical History: Hypertension - Social History Alcohol use: No CD- Drugs: No Caffeine use: Yes Place of Residence: Home Review of Systems 10-point ROS is otherwise unremarkable General: Weakness, Malaise Respiratory: Shortness of Breath, SOB with Excertion Cardiovascular: Edema Integumentary: Lesions Neurological: Weakness Physical Examination Temp Pulse Resp BP Pulse Ox 98.1 F 81 18 150/76 H 90 L 11/27/20 18:00 11/27/20 18:00 11/27/20 18:00 11/27/20 18:00 11/27/20 18:00 General: Oriented x3, Cooperative, Mild distress Neck: Supple, JVD distended Respiratory: Clear to auscultation bilaterally, Diminished Cardiovascular: Regular rate/rhythm, Edema Gastrointestinal: Soft and benign, Non-distended Musculoskeletal: No clubbing, No contractures Integumentary: No cyanosis, Skin lesion Neurological: Normal speech Laboratory Data (last 24 hrs) 11/27/20 11:00: PT 12.6 H, INR 1.07 11/27/20 11:00: WBC 5.7, Hgb 9.4 L, Hct 31.6 L, Plt Count 316 11/27/20 11:00: Sodium 140, Potassium 3.2 L, BUN 27 H, Creatinine 1.48 H, Glucose 96, Magnesium 2.0, Total Bilirubin 0.4, AST 27, ALT 85 H, Alkaline Phosphatase 158 H Imagings Data: EXAM DESCRIPTION: RAD - Chest Single View - 11/27/2020 11:05 am CLINICAL HISTORY: DYSPNEA COMPARISON: Portable August 2020 TECHNIQUE: AP portable chest image was obtained 11/27/2020 11:05 am . FINDINGS: No peripheral mass or consolidation seen. Retrocardiac left base is mostly obscured. Lung volumes are relatively low. Interstitial opacification is present. Patient has significant cardiomegaly which is stable. Vascular engorg ement is present. Trachea is midline. Left pleural effusion is identified. No pneumothorax. No acute bony abnormality seen. No acute aortic findings suspected. IMPRESSION: Mild CHF/volume overload pattern similar to August 2020. EXAM DESCRIPTION: US - Renal Ultrasound-Complete - 11/27/2020 4:46 pm CLINICAL HISTORY: suspect chronic renal disease Flank pain COMPARISON: Rest Stress Cardiac Imaging dated 01/24/2019; Chest Abdomen Pelvis W Cont dated 12/21/2017; Chest Single View dated 11/27/2020 FINDINGS: Echogenicity of both kidneys is within normal limits. Bilateral renal cysts are present. The right kidney measures 10.7 x 5.3 x 4.2 cm. No hydronephrosis or perinephric fluid. The left kidney measures 8.3 x 5.6 x 3.4 cm. No hydronephrosis or perinephric fluid. The urinary bladder is incompletely distended without gross abnormality seen. Bilateral pleural effusions are likely present. IMPRESSION: Bilateral benign appearing renal cysts. Conclusions/Impression: A/P: Continue the current POC and Medications other than the changes listed. AM Labs PRN. Recommend daily weight. Please see the orders for complete details. JAVAD likely CRS -Start furosemide Hypokalemia -Replete potassium -Start Spironolactone HTN with CHF -Increase Metoprolol 50mg BID. -Restart Losartan Acute on chronic diastolic CHF -Start furosemide -Restart Losartan Anemia in chronic illness, microcytic -Check iron studies Thank you kindly for the consultation.
[2020-11-27] MEDS: SPIRONOLACTONE 25 MG TABLET PO SCH (22:12)
[2020-11-27] MEDS: HEPARIN 5000 UNIT/ML 1 ML VIAL SQ SCH (22:14)
[2020-11-27 22:58] VITALS: BMI 22.8
[2020-11-27] MEDS ORDERED: POTASSIUM CL SA 10 MEQ TAB PO ONE (23:07)
[2020-11-27] MEDS: LORazepam 2 MG/ML VIAL IV PRN (23:47)
[2020-11-28] MEDS ORDERED: LORazepam 2 MG/ML VIAL IV ONE ×2 (03:24→09:28)
[2020-11-28] MEDS ORDERED: LORazepam 2 MG/ML VIAL ONE (03:41)
[2020-11-28 03:54] LABS: CKMB Creatine Kinase MB 5.7 ng/mL (0.3-3.6); Troponin I 0.15 ng/mL (0.0-0.045)
[2020-11-28 04:12] LABS: Absolute Lymphocytes (CBC) 0.6 K/uL (0.7-4.9); Basophils % 1.4 % (0-1.3); Hematocrit 31.6 % (36.0-45.0); MPV 9.3 fL (7.6-11.3); RBC Red Blood Cell Count 3.94 M/uL (3.86-4.86)
[2020-11-28] MEDS: METOPROLOL TAR 25 MG TAB PO SCH ×2 (05:04→18:10)
[2020-11-28 05:10] LABS: Urine Appearance CLOUDY; Urine Bilirubin NEGATIVE (NEG); Urine Blood NEGATIVE (NEG); Urine Color YELLOW; Urine Glucose NEGATIVE (NEG); Urine Protein 2+ (NEG); Urine Urobilinogen 0.2 mg/dL (0.2-1.0)
[2020-11-28 05:12] LABS: Urine Microscopic Reflex ORDER UMIC
[2020-11-28 05:17] LABS: Anisocytosis 1+; Blood Morphology Comment NOTED (NOT SEEN); Hypochromasia 2+; Platelet Estimate ADEQ; Platelets, Giant FEW
[2020-11-28 05:18] LABS: Stomatocytes 1+
[2020-11-28 05:52] LABS: Urine Bacteria 20-50 /HPF (<20); Urine RBC <5 /HPF (NONE SEEN); Urine Yeast FEW (NONE SEEN)
[2020-11-28 06:31] LABS: BUN Blood Urea Nitrogen 28 mg/dL (7-18); Bicarbonate 30 mmol/L (21-32); Glucose Level 93 mg/dL (74-106); HDL Cholesterol 60 mg/dL (40-60); LDL Cholesterol, Calculated 69 (<130); Magnesium 1.7 mg/dL (1.8-2.4); Phosphorus 3.4 mg/dL (2.5-4.9); Potassium 3.7 mmol/L (3.5-5.1); Sodium Level 139 mmol/L (136-145); Uric Acid 11.3 mg/dL (2.6-6.0)
[2020-11-28] MEDS: ALPRAZOLAM 1 MG TABLET PO PRN ×2 (06:40→21:35)
[2020-11-28 07:09] LABS: Folic Acid, (Folate) > 20.0 ng/mL (3.1-17.5); Transferrin 270 mg/dL (200-360)
[2020-11-28] MEDS: PANTOPRAZOLE 40MG TABLET PO SCH ×2 (07:30→16:30)
[2020-11-28] MEDS: LOSARTAN POTASSIUM 50 MG TABLET PO SCH ×2 (09:00→12:50)
[2020-11-28] MEDS: FLUOXETINE 20 MG CAP PO SCH ×2 (09:00→12:49)
[2020-11-28] MEDS: SPIRONOLACTONE 25 MG TABLET PO SCH ×2 (09:00→21:34)
[2020-11-28] MEDS ORDERED: HOME MED 1 EA UNK (Esomeprazole Mag Trihydrate [Nexium] 40 MG Capsule.Dr) PO SCH (09:00)
--- NOTE | 2020-11-28 09:42 | RAD REPORT ---
EXAM DESCRIPTION: RAD - Chest Single View - 11/28/2020 9:10 am CLINICAL HISTORY: follow up CHF Chest pain. COMPARISON: Chest Single View dated 11/27/2020; Chest Single View dated 08/12/2020; Chest Single View dated 01/23/2019; Abdomen Acute Series dated 12/21/2017 FINDINGS: Portable technique limits examination quality. The lungs are grossly clear. The heart is moderately enlarged. No displaced fractures. IMPRESSION: Mild improvement in lung aeration since comparative study.
[2020-11-28] MEDS ORDERED: REGADENOSON 0.4 MG/5 ML SYR IV ONE (10:35)
--- NOTE | 2020-11-28 11:55 | RAD REPORT ---
EXAM DESCRIPTION: CT - Head Brain Wo Cont - 11/28/2020 11:45 am CLINICAL HISTORY: confusion Headache, drowsiness COMPARISON: No comparisons TECHNIQUE: All CT scans are performed using dose optimization technique as appropriate and may inclu de automated exposure control or mA/KV adjustment according to patient size. FINDINGS: No intracranial hemorrhage, hydrocephalus or extra-axial fluid collection.No areas of brai n edema or evidence of midline shift. The paranasal sinuses and mastoids are clear. The calvarium is intact. IMPRESSION: No acute intracranial abnormality.
[2020-11-28] MEDS: FUROSEMIDE 40 MG/4 ML VIAL IV SCH ×2 (12:50→16:58)
[2020-11-28] MEDS: HEPARIN 5000 UNIT/ML 1 ML VIAL SQ SCH ×2 (12:50→21:33)
[2020-11-28] MEDS: CEFTRIAXONE/SWI 1gm 1 GM/10 ML SYR IVP SCH (13:36)
--- NOTE | 2020-11-28 17:06 | P.PN ---
Subjective Date of Service: 11/28/20 Primary Care Provider: Dr. Matta Chief Complaint: Shortness of breath Subjective: Other (Patient had confusion this morning. Patient without oxygen.) Physical Examination - Vital Signs Temperature: 97.5 F Blood Pressure: 162/93 Pulse: 97 Respirations: 20 Pulse Ox (%): 88 - Physical Exam General: Alert, Other (Confusion noted. Improvement noted with oxygen present. at bedside.) HEENT: Atraumatic Neck: Supple Respiratory: Crackles/rales (Slight crackles to the bases) Cardiovascular: Normal pulses, Regular rate/rhythm Gastrointestinal: Normal bowel sounds, No masses, No rebound, No guarding Musculoskeletal: No erythema, No tenderness, No warmth Integumentary: No erythema, No warmth, No cyanosis Neurological: Normal speech, Normal strength at 5/5 x4 extr, Normal tone, Other (Confusion noted) - Studies Medications List Reviewed: Yes Assessment & Plan Discharge Plan: Home Plan to discharge in: 24 Hours Physician Review Additional Text: Impression: Toxic/metabolic encephalopathy likely secondary to hypoxia related to acute on chronic systolic CHF complicated with suspected underlying dementia and possible UTI Acute on chronic renal disease stage III Hypertension GERD with hiatal hernia Depression with anxiety Plan: Toxic/metabolic encephalopathy likely secondary to hypoxia related to acute on chronic systolic CHF complicated with suspected underlying dementia and possible UTI: Was able to speak to the . reports patient has had episodes of memory loss over the past 3 months. This was discussed in detail with Neurology. CT scan shows no acute stroke. UA shows possible UTI. Will start Rocephin. Urine culture pending. Patient has been hypoxic related to the fact that she is taking off her oxygen. Suspect some hypoxia complicating this diagnosis. Encourage patient to continue with oxygen. Continue treatment for CHF. Continue to evaluate further. Patient may also have underlying dementia. Will start Aricept 5 mg daily as recommended by neurology. Continue monitor for the next 24 hr. Maintain oxygen saturations. Anticipate possible discharge home if more medically stable. Patient will likely require medication for dementia, UTI and CHF. I will turn the service over to the hospitalist team tomorrow. I will go plan of care with him. Acute on chronic renal disease stage III: Nephrology consulted. Patient likely with underlying chronic renal disease. Overall stable. Hypertension: Continue medication GERD with hiatal hernia: Continue meds Depression with anxiety: Continue medication Time Spent Managing Pts Care (In Minutes): 55
--- NOTE | 2020-11-28 17:26 | RAD REPORT ---
EXAM DESCRIPTION: RAD - Barium Swallow Modified - 11/28/2020 4:17 pm CLINICAL HISTORY: dysphagia COMPARISON: None. TECHNIQUE: The patient was given liquid, semi-solid and solid forms of barium. Lateral view fluorosc opic imaging was performed in conjunction with speech pathology service. FINDINGS: Cineloop acquisitions: 16 Fluoro time: 3 minutes 14 seconds Aspiration: No cough with thin liquid other findings: Hiatal hernia IMPRESSION: Modified barium swallow as summarized above and fully detailed on speech pathology repor joby
[2020-11-28] MEDS ORDERED: FUROSEMIDE 40 MG/4 ML VIAL IV SCH (18:00)
--- NOTE | 2020-11-28 19:38 | CON ---
Reason For Consultation: Consultation called because of confusion. History Of Present Illness: Ms. Swain is a 65-year-old patient with multiple medical problems, whic h includes systolic congestive heart failure, hypertension, gastroesophageal reflux, progressive weig ht loss with dysphagia, who comes in with shortness of breath and some intermittent confusion. The yvan pineda's was at bedside. On her admission, she did have a low oxygenation of 85% and after o xygenation with improvement, there were some return towards her baseline level of cognitive functioni ng. However, her head CT scan was negative, which did not identify any acute ischemic or hemorrhagic change. The patient's additional workup include a complete blood count with differential showing a mild anemia of 9.3. Coagulation panel was unremarkable. Kidney function, which has chronic renal in sufficiency, had a creatinine around 1.4 to 1.5. Liver function studies show slightly elevated alkal ine phosphatase and ALT. Urinalysis did suggest possible infection with 3+ esterase, bacteria 20-50, and white blood cell count 5-10. At the time of my evaluation, the patient is actually in the bed w ith oxygen off and she was somewhat disoriented, replaced oxygen back and then -2. She was able to f ollow more instructions, actually got up and went to the restroom to urinate, but as she got up, she thought the chair beside the bed was the toilet. She was redirected to the toilet. Past Medical History: As noted including gastrointestinal issues where she has had progressive weigh t loss. The patient's said she has a mesh implantation that has failed and needs to be dilip ed in [place]. Past Surgical History: Hernia repair, tubal ligation, carpal tunnel bilaterally, and abdominoplasty. Allergies: NO KNOWN DRUG ALLERGIES. Medications: At home, Xanax, Depakote 250 mg twice daily, Prozac 20 mg daily, losartan 100 mg daily, Lasix 40 mg daily, metoprolol 25 mg twice daily, sucralfate 10 mg 4 times daily, Symbicort as direct ed. Family History: Heart disease and hypertension in father and mother. Brother with hypertension and sister with hypertension. Social History: No alcohol, tobacco, or IV drug use. The patient does use caffeinated beverages. Review of Systems: Aside from mentioned, she does have some shortness of breath that is worse with exertion and her diff iculty with swallowing. Otherwise, no fevers or chills, myalgias or arthralgias, rash, headache. Po sitive weight loss. No other positives as noted. Physical Examination: Vital Signs: Blood pressure 168/97, pulse 73, respiratory rate 18, temperature 97.5, oxygen saturati on 98% now on 2 L of oxygen. Oxygen was down to 88 without the oxygen by nasal cannula. General: She is a frail looking patient. BMI is around 22.8. HEENT: Otherwise normocephalic, atraumatic. Sclerae anicteric. Oropharynx is moist and pink. Neck: Supple. Chest: Good air movement. Abdomen: Soft. Extremities: No significant edema or cyanosis. Neurological: Once aroused, she is alert and oriented to person. Some difficulty following simple c ommands, but once awake, did better. On cranial nerve, no focal deficits. Motor, in upper lower and extremities, diffuse weakness around 4/5 proximally and distally. Sensory exam, stocking-glove loss . Coordination, slow, but intact in upper and lower extremities. Gait, she has good stance and stri de, although she does need some contact guard to ambulate steadily. Assessment: Ms. Swain is a 65-year-old patient with likely a hypoxic episode causing confusion. Kyleigh hernandez does have chronic renal insufficiency and there is per , unexplained weight loss and difficu lty with swallowing. Her modified barium swallow study done earlier did show per the speech patholog ist report moderate impairment of the oral and pharyngeal phase with minimal impairment of the esopha geal phase. 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 Otherwise, the patient may be discharged and follow up with her primary care physician and engineering department chair as appropriate. Continue with current care. NU/ANKITAL Voice ID: [id number] Report ID: [id number]
[2020-11-28] MEDS: DONEPEZIL HCL 5 MG TAB PO SCH (21:34)
[2020-11-29 03:33] LABS: Magnesium 1.8 mg/dL (1.8-2.4); Potassium 3.3 mmol/L (3.5-5.1)
[2020-11-29 04:01] LABS: Absolute Lymphocytes (CBC) 1.4 K/uL (0.7-4.9); Basophils % 0.6 % (0-1.3); Hematocrit 31.9 % (36.0-45.0); Lymphocytes % 24.2 % (15.3-44.8); RBC Red Blood Cell Count 4.01 M/uL (3.86-4.86)
[2020-11-29] MEDS ORDERED: POTASSIUM CL SA 10 MEQ TAB PO ONE (05:07)
[2020-11-29] MEDS ORDERED: MAGNESIUM SULFATE 1 gm IVPB 1 GM/100 ML BAG IV ONE (05:08)
[2020-11-29] MEDS: METOPROLOL TAR 25 MG TAB PO SCH ×2 (05:31→16:29)
[2020-11-29] MEDS ORDERED: POTASSIUM 25 MEQ EFFERV TAB PO ONE (06:55)
--- NOTE | 2020-11-29 07:02 | P.PN ---
Subjective Date of Service: 11/29/20 Primary Care Provider: Dr. Matta Chief Complaint: Shortness of breath Subjective: No new changes (spouse ststae she is less confused now , patient tolerating po voiding well -still needing 02) Physical Examination - Vital Signs Temperature: 97.6 F Blood Pressure: 132/67 Pulse: 57 Respirations: 20 Pulse Ox (%): 94 - Physical Exam General: Alert, Oriented x3, Cooperative, Obese HEENT: Atraumatic, Normocephalic Neck: Supple, 2+ carotid pulse no bruit, JVD not distended Respiratory: Diminished, Crackles/rales Cardiovascular: No edema, Regular rate/rhythm, Normal S1 S2 Gastrointestinal: Hypoactive, Soft and benign, Non-distended Musculoskeletal: No swelling, No contractures Neurological: Normal speech, Normal strength at 5/5 x4 extr, Normal tone - Studies Abnormal Lab Results 11/28/20 03:09 Iron 6.0 L TIBC 378 Transferrin 270 Transferrin % Sat 1.6 L Vitamin B12 955 Serum Folate > 20.0 H 11/28/20 03:09: Iron 6.0 L, TIBC 378, Transferrin 270, Transferrin % Sat 1.6 L, Vitamin B12 955, Serum Folate > 20.0 H Medications List Reviewed: Yes Assessment And Plan Physician Review Additional Text: Impression: Acute diastolic CHF UTI Hypokalemia - due to diuretuics Toxic/metabolic encephalopathy likely secondary to hypoxia related to acute on chronic systolic CHF complicated with suspected underlying dementia and possible UTI Acute on chronic renal disease stage III Hypertension GERD with hiatal hernia Depression with anxiety Plan: Toxic/metabolic encephalopathy likely secondary to hypoxia related to acute on chronic systolic CHF complicated with suspected underlying dementia and possible UTI: -improving , resolving hyopoxia -on abx for UTI , follow full culture - will switch IV diuretics to po Bumex now - still borderline low 02 sat with supplemental 02 - will d/w with case mgt for home 02 , if unable will need wean down 02 further prior to discharge -continue mechanical soft diet for dysphagia -will replete k today , start daily kcl bid Prior 11/28--Was able to speak to the . reports patient has had episodes of memory loss over the past 3 months. This was discussed in detail with Neurology. CT scan shows no acute stroke. UA shows possible UTI. Will start Rocephin. Urine culture pending. Patient has been hypoxic related to the fact that she is taking off her oxygen. Suspect some hypoxia complicating this diagnosis. Encourage patient to continue with oxygen. Continue treatment for CHF. Continue to evaluate further. Patient may also have underlying dementia. Will start Aricept 5 mg daily as recommended by neurology. Continue monitor for the next 24 hr. Maintain oxygen saturations. Anticipate possible discharge home if more medically stable. Patient will likely require medication for dementia, UTI and CHF. I will turn the service over to the hospitalist team tomorrow. I will go plan of care with him. Acute on chronic renal disease stage III: Nephrology consulted. Patient likely with underlying chronic renal disease. Overall stable. Hypertension: Continue medication GERD with hiatal hernia: Continue meds Depression with anxiety: Continue medication
--- NOTE | 2020-11-29 07:02 | P.PN ---
Date of Service: 11/28/20 Vital Signs Temp Pulse Resp BP Pulse Ox 97.6 F 57 20 132/67 94 11/29/20 04:00 11/29/20 05:31 11/29/20 04:00 11/29/20 05:31 11/29/20 04:00 Medications Acetaminophen (Acetaminophen 500 Mg Tab) 500 mg PO Q4HP PRN PRN Reason: TEMP > 101' F Stop: 12/27/20 15:25 Alprazolam (Alprazolam 1 Mg Tablet) 1 mg PO TIDP PRN PRN Reason: ANXIETY Stop: 12/28/20 05:11 Last Admin: 11/28/20 21:35 Dose: 1 mg Documented by: Donepezil HCl (Donepezil Hcl 5 Mg Tab) 5 mg PO BEDTIME FABIÁN Stop: 12/28/20 21:01 Last Admin: 11/28/20 21:34 Dose: 5 mg Documented by: Fluoxetine HCl (Fluoxetine 20 Mg Cap) 20 mg PO DAILY [facility] Stop: 12/28/20 09:01 Last Admin: 11/28/20 12:49 Dose: Not Given Documented by: Furosemide (Furosemide 40 Mg/4 Ml Vial) 20 mg IV BIDL FABIÁN Stop: 12/28/20 18:01 Last Admin: 11/28/20 17:58 Dose: Not Given Documented by: Heparin Sodium (Porcine) (Heparin 5000 Unit/Ml 1 Ml Vial) 5,000 unit SQ Q12HR FABIÁN Stop: 12/27/20 21:01 Last Admin: 11/28/20 21:33 Dose: 5,000 unit Documented by: Ceftriaxone Sodium/Sodium Chloride (Rocephin 1 Gm/10 Ml Swi Ivp) 1 gm in 10 mls @ 600 mls/hr IVP DAILY [facility]; Protocol Stop: 12/28/20 14:01 Last Admin: 11/28/20 13:36 Dose: 10 mls Documented by: Ferric Sodium Gluconate Complex 250 mg/ Sodium Chloride 120 mls @ 100 mls/hr IV DAILY [facility] Stop: 12/02/20 10:11 Lorazepam (Lorazepam 2 Mg/Ml Vial) 0.25 mg IV BID PRN PRN Reason: ANXIETY Stop: 12/27/20 15:25 Last Admin: 11/27/20 23:47 Dose: 0.25 mg Documented by: Losartan Potassium (Losartan Potassium 50 Mg Tablet) 50 mg PO DAILY [facility] Stop: 12/28/20 09:01 Last Admin: 11/28/20 12:50 Dose: Not Given Documented by: Metoprolol Tartrate (Metoprolol Tar 25 Mg Tab) 50 mg PO BID 6AM 6PM [facility] Stop: 12/28/20 06:01 Last Admin: 11/29/20 05:31 Dose: 50 mg Documented by: Ondansetron HCl (Ondansetron 4 Mg/2 Ml Vial) 4 mg IV Q6HP PRN PRN Reason: NAUSEA / VOMITING Stop: 12/27/20 15:25 Pantoprazole Sodium (Pantoprazole 40mg Tablet) 40 mg PO BIDAC [facility]; Protocol Stop: 12/27/20 16:31 Last Admin: 11/28/20 16:30 Dose: Not Given Documented by: Sodium Chloride (Flush Normal Saline 10 Ml) 10 ml IV BID [facility] Stop: 12/27/20 21:01 Last Admin: 11/28/20 21:35 Dose: 10 ml Documented by: Spironolactone (Spironolactone 25 Mg Tablet) 25 mg PO BID [facility] Stop: 12/27/20 21:31 Last Admin: 11/28/20 21:34 Dose: 25 mg Documented by: Lab Results (last 24 hrs) 11/28/20 03:09: Iron 6.0 L, TIBC 378, Transferrin 270, Transferrin % Sat 1.6 L, Vitamin B12 955, Serum Folate > 20.0 H Assessment/ Plan: Nephrology Limited IH/ ROS due to worsening confusion overnight possibly due to hypoxia Vitals, medications, blood work and imaging reviewed in the chart. General: NAD. Somnolent Neck: Supple, JVD distended Respiratory: Clear to auscultation bilaterally, Diminished Cardiovascular: Regular rate/rhythm, Edema Gastrointestinal: Soft and benign, Non-distended Musculoskeletal: No clubbing, No contractures Integumentary: No cyanosis, Skin lesion Neurological: Normal speech Laboratory Data (last 24 hrs) 11/27/20 11:00: PT 12.6 H, INR 1.07 11/27/20 11:00: WBC 5.7, Hgb 9.4 L, Hct 31.6 L, Plt Count 316 11/27/20 11:00: Sodium 140, Potassium 3.2 L, BUN 27 H, Creatinine 1.48 H, Glucose 96, Magnesium 2.0, Total Bilirubin 0.4, AST 27, ALT 85 H, Alkaline Phosphatase 158 H Imagings Data: EXAM DESCRIPTION: RAD - Chest Single View - 11/27/2020 11:05 am CLINICAL HISTORY: DYSPNEA COMPARISON: Portable August 2020 TECHNIQUE: AP portable chest image was obtained 11/27/2020 11:05 am . FINDINGS: No peripheral mass or consolidation seen. Retrocardiac left base is mostly obscured. Lung volumes are relatively low. Interstitial opacification is present. Patient has significant cardiomegaly which is stable. Vascular engorgement is present. Trachea is midline. Left pleural effusion is identified. No pneumothorax. No acute bony abnormality seen. No acute aortic findings suspected. IMPRESSION: Mild CHF/volume overload pattern similar to August 2020. EXAM DESCRIPTION: US - Renal Ultrasound-Complete - 11/27/2020 4:46 pm CLINICAL HISTORY: suspect chronic renal disease Flank pain COMPARISON: Rest Stress Cardiac Imaging dated 01/24/2019; Chest Abdomen Pelvis W Cont dated 12/21/2017; Chest Single View dated 11/27/2020 FINDINGS: Echogenicity of both kidneys is within normal limits. Bilateral renal cysts are present. The right kidney measures 10.7 x 5.3 x 4.2 cm. No hydronephrosis or perinephric fluid. The left kidney measures 8.3 x 5.6 x 3.4 cm. No hydronephrosis or perinephric fluid. The urinary bladder is incompletely distended without gross abnormality seen. Bilateral pleural effusions are likely present. IMPRESSION: Bilateral benign appearing renal cysts. Conclusions/Impression: A/P: Continue the current POC and Medications other than the changes listed. AM Labs PRN. Recommend daily weight. Please see the orders for complete details. JAVAD likely CRS -Continue furosemide and spironolactone Hypokalemia -Replete potassium -Continue Spironolactone HTN with CHF -Continue Metoprolol 50mg BID. -Continue Losartan Acute on chronic diastolic CHF -Continue furosemide and spironolactone -Continue Losartan Anemia in chronic illness, microcytic -Start IV iron for severe iron deficiency Case reviewed with Dr. Deshpande
[2020-11-29] MEDS: PANTOPRAZOLE 40MG TABLET PO SCH ×2 (07:30→16:30)
[2020-11-29] MEDS: BUMETANIDE 1 MG TABLET PO SCH ×2 (09:00→20:40)
[2020-11-29] MEDS: CEFTRIAXONE/SWI 1gm 1 GM/10 ML SYR IVP SCH (09:00)
[2020-11-29] MEDS: SPIRONOLACTONE 25 MG TABLET PO SCH ×2 (09:00→20:39)
[2020-11-29] MEDS: HEPARIN 5000 UNIT/ML 1 ML VIAL SQ SCH ×2 (09:00→20:41)
[2020-11-29] MEDS: LOSARTAN POTASSIUM 50 MG TABLET PO SCH (09:00)
[2020-11-29] MEDS: POTASSIUM CL SA 10 MEQ TAB PO SCH ×2 (09:00→20:40)
[2020-11-29] MEDS: SOD FERRIC GLUC COMPLX/SUCROSE 250 MG in NA CHLORIDE 0.9% 100 ML IV SCH (09:00)
[2020-11-29] MEDS: FLUOXETINE 20 MG CAP PO SCH (09:00)
--- NOTE | 2020-11-29 12:57 | PN ---
Date of Progress Note: 11/29/2020 Subjective: The patient was seen by bedside. She is doing much better. Fully alert, awake, and annamarie ented x3. Review of Systems: Denies having any chest pain. No nausea, vomiting, diarrhea. No shortness of breath. All other sys tems reviewed are negative. Objective: Vital Signs: Temperature is 97.2, pulse 56, breathing at 18, blood pressure is 156/82, s aturating 96%. General: Pleasant middle-aged female, in no apparent distress. Head and Neck: Pupils are equal, reactive to light. Intact eye movements. No JVD. No cervical lym phadenopathy. Neck is supple. Thyroid not enlarged. Lungs: Clear to auscultation bilaterally. No rhonchi, rales, or crackles. No accessory muscle use. Heart: Regular rate and rhythm. No extra sounds. Abdomen: Soft, nontender. Bowel sounds positive. No organomegaly. No masses or hernia. No rigidi ty or rebound. Extremities: No clubbing or cyanosis. Intact pulses. Skin: No rashes. Neurologic: Alert, awake, oriented x3. No acute focal deficits appreciated. Investigations: Labs were reviewed. Assessment/plan: 1.Acute on chronic systolic congestive heart failure, doing better. She is on oral diuretics. Cont inue the same regimen for now. 2.Elevated troponin with low ejection fraction. Ischemia workup is recommended. Recommend a nuclea r stress test to further evaluate. SR/MODL Voice ID: [id number] Report ID: [id number]
--- NOTE | 2020-11-29 13:15 | CON ---
Date of Consultation: 11/28/2020 Reason For Consultation: Congestive heart failure. History Of Present Illness: This is a 65-year-old female, history of heart failure, hypertension, ac id reflux, depression, presented to the emergency room with worsening shortness of breath, orthopnea, lower extremity edema. No cough or fever. Evaluated by bedside and she was confused. However, she was saturating 85% on room air in the emergency room. The patient was poor historian and could not get further history. Past Medical History: As outlined above in HPI. Medications: Refer to reconciliation sheet for detailed list. Allergies: NO KNOWN DRUG ALLERGIES. Family History: No premature coronary artery disease or cancer. Social History: Does not smoke or drink. Does not use drugs. Review of Systems: All systems reviewed and they were negative except for what mentioned in the HPI. Physical Examination: Vital Signs: Temperature was 97.8, heart rate was 97, breathing at 18, blood pressure 131/66, satura ting 95% with oxygen. General: Middle-aged female, appears to be confused. No distress. Head and Neck: Pupils are equal, reactive to light. Intact eye movements. No JVD. No cervical lym phadenopathy. Neck: Supple. Thyroid is not enlarged. Lungs: Decreased breathing sounds with thin crackles in the bases. No accessory muscle use or muscl e retraction. Heart: Regular rate and rhythm. No extra sounds. Abdomen: Soft, nontender. Bowel sounds positive. No organomegaly. No tenderness. Extremities: No clubbing, cyanosis. Intact pulses. Skin: No rash. Neurologic: Alert, awake, oriented x3. No acute focal deficits appreciated. Investigations: Troponin 0.10, then 0.15 with a creatinine is 1.5, hemoglobin is 9.3, white blood co unt 5.0. Her ejection fraction on echo done on August, EF was 30% to 35%. Assessment And Recommendations: 1.Afhbo-kw-luamdex systolic congestive heart failure exacerbation. I agree with IV diuretics and mo nitor BUN, creatinine, and electrolytes. For the low ejection fraction that she has ischemic workup done, especially that there is a troponin leak, I recommend a nuclear stress test to further evaluate . 2.Confusion with encephalopathy, possible infectious in etiology and this is being managed with anti biotics. 3.Elevated troponin could be due to the congestive heart failure. However, ischemia workup is warra nted due to the low ejection fraction as well. Thank you for the consult. /FRANCISCO Voice ID: [id number] Report ID: [id number]
--- NOTE | 2020-11-29 16:29 | PN ---
Date of Progress Note: 11/29/2020 Subjective: The patient looks alert, awake and comfortable today. She is breathing better. She say s her swelling in the lower extremities has resolved significantly. Her mentation is somewhat improv ed. She denies any new complaints or concerns currently and says that her congestion is better. Objective: Vital signs: Her blood pressure has fluctuated a little bit. Last reading most likely o n the higher side at 173/89, but prior to that, the blood pressure has actually been in good range. It seems like she gets a slightly higher blood pressure with activity and with agitation. Blood pres sure was 156/82 before that. Before that it had been 132/67, she is afebrile. Her pulse is around 6 0-70 and regular. Lungs: Clear to auscultation. Abdomen: Soft. Extremities: Revealed trace edema bilaterally. Laboratory Data: Her labs are reviewed. Her lab show sodium 144, earlier was 139; potassium 3.8, 10 5 chloride, bicarb is 33, BUN 31, creatinine 1.58, glucose 113, calcium 8.1, magnesium 1.8. Hematolo gy shows WBC count of 5.9, hemoglobin 9.5, hematocrit is 31.9. Platelet count is 276. Medications: In the chart and reviewed. The patient is currently on spironolactone. She is getting gentle potassium replacement. She has metoprolol and losartan. She is also on ceftriaxone and also on Bumex. Assessment And Plan: The patient with likely acute kidney injury, question chronic kidney disease st atus presents with congestion, significantly improved close to euvolemic. At this point, continue to monitor breathing, on antibiotics. She states that she thinks she had a urinary tract infection greta t is now corrected or getting better. The patient states that she will follow up with Nephrology for chronic care once acute issues are resolved. I have advised her that she may need assessment to see if there is any residual damage to the kidney and also to see whether kidney settled after her current bout of acute kidney injury is over. She se ems to be clinically stable today. /FRANCISCO Voice ID: [id number] Report ID: [id number]
[2020-11-29] MEDS: ALPRAZOLAM 1 MG TABLET PO PRN (17:02)
[2020-11-29] MEDS: DONEPEZIL HCL 5 MG TAB PO SCH (20:40)
[2020-11-30] MEDS: ACETAMINOPHEN 500 MG TAB PO PRN ×2 (00:04→13:14)
[2020-11-30] MEDS: LORazepam 2 MG/ML VIAL IV PRN (00:04)
[2020-11-30] MEDS: METOPROLOL TAR 25 MG TAB PO SCH (05:19)
[2020-11-30 06:39] LABS: Magnesium 1.8 mg/dL (1.8-2.4); Potassium 3.7 mmol/L (3.5-5.1)
[2020-11-30 08:54] VITALS: BP 177/95; TEMP 981
[2020-11-30] MEDS: FLUOXETINE 20 MG CAP PO SCH (09:00)
[2020-11-30] MEDS: PANTOPRAZOLE 40MG TABLET PO SCH (09:00)
[2020-11-30] MEDS ORDERED: POTASSIUM CL SA 10 MEQ TAB PO ONE (09:00)
[2020-11-30] MEDS: CEFTRIAXONE/SWI 1gm 1 GM/10 ML SYR IVP SCH (09:00)
[2020-11-30] MEDS ORDERED: MAGNESIUM SULFATE 1 gm IVPB 1 GM/100 ML BAG IV ONE (09:00)
[2020-11-30] MEDS: HEPARIN 5000 UNIT/ML 1 ML VIAL SQ SCH (09:00)
[2020-11-30] MEDS: LOSARTAN POTASSIUM 50 MG TABLET PO SCH (09:01)
[2020-11-30] MEDS: SPIRONOLACTONE 25 MG TABLET PO SCH (09:01)
[2020-11-30] MEDS: BUMETANIDE 1 MG TABLET PO SCH (09:01)
[2020-11-30] MEDS: POTASSIUM CL SA 10 MEQ TAB PO SCH (09:02)
[2020-11-30] MEDS: ALPRAZOLAM 1 MG TABLET PO PRN ×2 (09:02→15:14)
[2020-11-30 10:29] VITALS: O2SAT 96
[2020-11-30] MEDS: SOD FERRIC GLUC COMPLX/SUCROSE 250 MG in NA CHLORIDE 0.9% 100 ML IV SCH (11:35)
--- NOTE | 2020-11-30 11:59 | P.PN ---
Subjective Date of Service: 11/30/20 Primary Care Provider: Dr. Matta Chief Complaint: Altered mental status Subjective: Improving (Patient is doing well she is very alert responsive oriented no new complaint) Review of Systems General: Weakness Physical Examination - Vital Signs Temperature: 981 F Blood Pressure: 177/95 Pulse: 64 Respirations: 18 Pulse Ox (%): 96 - Physical Exam General: Alert, Oriented x3 Respiratory: Clear to auscultation bilaterally Cardiovascular: No edema, Regular rate/rhythm - Studies Microbiology Data (last 24 hrs): 11/28/20 04:46 Clean Catch Urine [place] Count - Final >100,000 CFU/ML. 11/28/20 04:46 Clean Catch Urine - Final Escherichia Coli Medications List Reviewed: Yes Assessment & Plan - Problems (Diagnosis) (1) Altered mental status Current Visit: Yes Status: Acute Plan: Patient is 65 years of age admitted with altered mental status E coli UTI with recently taking Prozac seems to have helped her head CT negative she apparently had a hiatal hernia has difficulty swallowing this is a chronic problem [place] virus negative renal function is still impaired renal ultrasound no evidence of obstruction appears to be acute also mention of diastolic heart failure seen by Nephrology patient's oxygen level is satisfactory plan for discharge to follow up with Nephrology continue with present medications Physician Review Additional Text: Impression: Acute diastolic CHF UTI Hypokalemia - due to diuretuics Toxic/metabolic encephalopathy likely secondary to hypoxia related to acute on chronic systolic CHF complicated with suspected underlying dementia and possible UTI Acute on chronic renal disease stage III Hypertension GERD with hiatal hernia Depression with anxiety Plan: Toxic/metabolic encephalopathy likely secondary to hypoxia related to acute on chronic systolic CHF complicated with suspected underlying dementia and possible UTI: -improving , resolving hyopoxia -on abx for UTI , follow full culture - will switch IV diuretics to po Bumex now - still borderline low 02 sat with supplemental 02 - will d/w with case mgt for home 02 , if unable will need wean down 02 further prior to discharge -continue mechanical soft diet for dysphagia -will replete k today , start daily kcl bid Prior 11/28--Was able to speak to the . reports patient has had episodes of memory loss over the past 3 months. This was discussed in detail with Neurology. CT scan shows no acute stroke. UA shows possible UTI. Will start Rocephin. Urine culture pending. Patient has been hypoxic related to the fact that she is taking off her oxygen. Suspect some hypoxia complicating this diagnosis. Encourage patient to continue with oxygen. Continue treatment for CHF. Continue to evaluate further. Patient may also have underlying dementia. Will start Aricept 5 mg daily as recommended by neurology. Continue monitor for the next 24 hr. Maintain oxygen saturations. Anticipate possible discharge home if more medically stable. Patient will likely require medication for dementia, UTI and CHF. I will turn the service over to the hospitalist team tomorrow. I will go plan of care with him. Acute on chronic renal disease stage III: Nephrology consulted. Patient likely with underlying chronic renal disease. Overall stable. Hypertension: Continue medication GERD with hiatal hernia: Continue meds Depression with anxiety: Continue medication
--- NOTE | 2020-11-30 13:54 | P.PN ---
Subjective Date of Service: 11/30/20 Primary Care Provider: Dr. Matta Chief Complaint: Altered mental status patient seen/examined. vs stable. bp is in higher range. lungs cta cvs regular abd soft ext edema resolved a/p patient clinically improved. breathing better. alert/ms improved. salt re striction/monitor bp counseled. return to er for any changes. knows to f/u with nephrology and has information on our group. has appointment with Dr. Matta (pcp) on . advised to visit pcp with all meds and bp readings. compliance with meds and monitoring of bp and diet counseled/reviewed. Physical Examination - Vital Signs Temperature: 981 F Blood Pressure: 177/95 Pulse: 64 Respirations: 18 Pulse Ox (%): 96 - Studies Microbiology Data (last 24 hrs): 11/28/20 04:46 Clean Catch Urine [place] Count - Final >100,000 CFU/ML. 11/28/20 04:46 Clean Catch Urine - Final Escherichia Coli Medications List Reviewed: Yes Assessment And Plan Physician Review Additional Text: Impression: Acute diastolic CHF UTI Hypokalemia - due to diuretuics Toxic/metabolic encephalopathy likely secondary to hypoxia related to acute on chronic systolic CHF complicated with suspected underlying dementia and possible UTI Acute on chronic renal disease stage III Hypertension GERD with hiatal hernia Depression with anxiety Plan: Toxic/metabolic encephalopathy likely secondary to hypoxia related to acute on chronic systolic CHF complicated with suspected underlying dementia and possible UTI: -improving , resolving hyopoxia -on abx for UTI , follow full culture - will switch IV diuretics to po Bumex now - still borderline low 02 sat with supplemental 02 - will d/w with case mgt for home 02 , if unable will need wean down 02 further prior to discharge -continue mechanical soft diet for dysphagia -will replete k today , start daily kcl bid Prior 11/28--Was able to speak to the . reports patient has had episodes of memory loss over the past 3 months. This was discussed in detail with Neurology. CT scan shows no acute stroke. UA shows possible UTI. Will start Rocephin. Urine culture pending. Patient has been hypoxic related to the fact that she is taking off her oxygen. Suspect some hypoxia complicating this diagnosis. Encourage patient to continue with oxygen. Continue treatment for CHF. Continue to evaluate further. Patient may also have underlying dementia. Will start Aricept 5 mg daily as recommended by neurology. Continue monitor for the next 24 hr. Maintain oxygen saturations. Anticipate possible discharge home if more medically stable. Patient will likely require medication for dementia, UTI and CHF. I will turn the service over to the hospitalist team tomorrow. I will go plan of care with him. Acute on chronic renal disease stage III: Nephrology consulted. Patient likely with underlying chronic renal disease. Overall stable. Hypertension: Continue medication GERD with hiatal hernia: Continue meds Depression with anxiety: Continue medication
--- NOTE | 2020-11-30 16:12 | P.DS ---
Admission Date: 11/28/20 Discharge Date: 11/30/20 Primary Care Provider: Dr. Matta Disposition: ROUTINE DISCHARGE Discharge Condition: FAIR Reason for Admission: Altered mental status - Problems (1) Altered mental status Status: Acute Qualifiers: Altered mental status type: unspecified Qualified Code(s): R41.82 - Altered mental status, unspecified Brief History of Present Illness: Pt Aw AMS and renal failure Hospital Course: See progress notes S/B nephrology and cardiology. Diastolic hear failure Vital Signs/Physical Exam: Temp Pulse Resp BP Pulse Ox 981 F H 64 18 177/95 H 96 11/30/20 13:54 11/30/20 13:54 11/30/20 13:54 11/30/20 13:54 11/30/20 13:54 Laboratory Data at Discharge: WBC 5.9 K/uL (4.3-10.9) D 11/29/20 02:59 Hgb 9.5 g/dL (12.0-15.0) L 11/29/20 02:59 Hct 31.9 % (36.0-45.0) L 11/29/20 02:59 Plt Count 276 K/uL (152-406) 11/29/20 02:59 PT 12.6 SECONDS (9.5-12.5) H 11/27/20 11:00 INR 1.07 11/27/20 11:00 Sodium 144 mmol/L (136-145) 11/29/20 02:59 Potassium 3.7 mmol/L (3.5-5.1) 11/30/20 06:10 BUN 31 mg/dL (7-18) H 11/29/20 02:59 Creatinine 1.58 mg/dL (0.55-1.3) H 11/29/20 02:59 Glucose 113 mg/dL (74-106) H 11/29/20 02:59 Uric Acid 11.3 mg/dL (2.6-6.0) H 11/28/20 03:09 Phosphorus 3.4 mg/dL (2.5-4.9) 11/28/20 03:09 Magnesium 1.8 mg/dL (1.8-2.4) 11/30/20 06:10 Total Bilirubin 0.4 mg/dL (0.2-1.0) 11/27/20 11:00 AST 27 U/L (15-37) 11/27/20 11:00 ALT 85 U/L (12-78) H 11/27/20 11:00 Alkaline Phosphatase 158 U/L (45-117) H 11/27/20 11:00 Troponin I 0.15 ng/mL (0.0-0.045) H 11/28/20 03:09 Triglycerides 134 mg/dL (<150) 11/28/20 03:09 Cholesterol 156 mg/dL (<200) 11/28/20 03:09 HDL Cholesterol 60 mg/dL (40-60) 11/28/20 03:09 Cholesterol/HDL Ratio 2.60 11/28/20 03:09 Home Medications: Alprazolam [Xanax] 1 mg PO TIDP PRN 11/28/20 Esomeprazole Mag Trihydrate [Nexium] 40 mg PO DAILY 11/28/20 Fluoxetine HCl [Prozac] 20 mg PO DAILY 11/28/20 Furosemide [Lasix] 0.5 tab PO SEECOM 11/28/20 Furosemide [Lasix] 40 mg PO SEECOM 11/28/20 Metoprolol Tartrate 25 mg PO BID 11/28/20 Phentermine HCl 37.5 mg PO DAILY 11/28/20 Amoxicillin 500 mg PO BID #14 capsule 11/30/20 New Medications: Amoxicillin 500 mg PO BID #14 capsule Followup: Jamison Cordero DO [ACTIVE - CAN ADMIT] - 1 Week (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
--- NOTE | 2020-12-01 11:18 | ECHO ---
HEIGHT: 5 ft 4 in WEIGHT: 133 lb 0 oz DATE OF STUDY: 11/28/[address]: Tommie Deshpande DO 2-DIMENSIONAL: YES M.MODE: YES DOPPLER: YES COLOR FLOW: YES TDS: PORTABLE: DEFINITY: BUBBLE STUDY: DIAGNOSIS: ACUTE CHRONIC SYSTOLIC CONGESTIVE HEART FAILURE CARDIAC HISTORY: CATHERIZATION: NO SURGERY: NO PROSTHETIC VALVE: NO PACEMAKER: NO MEASUREMENTS (cm) DIASTOLIC (NORMALS) SYSTOLIC (NORMALS) IVSd 1.7 (0.6-1.2) LA Diam 4.7 (1.9-4.0) LVEF 35-60% LVIDd 4.5 (3.5-5.7) LVIDs 4.1 (2.0-3.5) %FS 8% LVPWd 1.6 (0.6-1.2) Ao Diam 2.7 (2.0-3.7) 2 DIMENSIONAL ASSESSMENT: RIGHT ATRIUM: NORMAL LEFT ATRIUM: ENLARGED RIGHT VENTRICLE: NORMAL LEFT VENTRICLE: MODERATE LEFT VENTRICULAR HYPERTROPHY TRICUSPID VALVE: MODERATE TO SEVERE TRICUSPID REGURGITATION MITRAL VALVE: MODERATE MITRAL REGURGITATION AND MITRAL ANNULAR CALCIFICATION PULMONIC VALVE: NORMAL AORTIC VALVE: NORMAL PERICARDIAL EFFUSION: SMALL AORTIC ROOT: NORMAL LEFT VENTRICULAR WALL MOTION: MODERATE GLOBAL HYPOKINESIS DOPPLER/COLOR FLOW: SEE BELOW COMMENTS: MODERATELY DEPRESSED LEFT VENTRICULAR EJECTION FRACTION 35-40% WITH MODERATE GLOBAL HYPOKINESIS. MODERATE LEFT VENTRICULAR HYPERTROPHY. MODERATE DIASTOLIC DYSFUNCTION. SEVERE PULMONARY HYPERTENSION WITH RIGHT VENTRICULAR SYSTOLIC PRESSURE >60mmHg. MODERATE MITRAL REGURGITATION, MODERATE TO SEVERE TRICUSPID REGURGITATION. LEFT ATRIAL ENLARGEMENT. TECHNOLOGIST: TIMMY BONILLA
== END 2020-11-30 15:24 | disposition home or self-care (01) | DRG 291 ==
LOC: ER 09:55 → ERHOLD 12:51 → 2ND 17:00 → OBSVTOIN 11-28 15:34
PROVIDERS: ADMIT Family Medicine; ATTEND Internal Medicine
DX: I13.0 Hypertensive heart and chronic kidney disease with heart failure and stage 1 through stage 4 chronic kidney disease, or unspecified chronic kidney disease (principal); I50.23 Acute on chronic systolic (congestive) heart failure; G92 Toxic encephalopathy; N17.9 Acute kidney failure, unspecified; N39.0 Urinary tract infection, site not specified; N18.30 Chronic kidney disease, stage 3 unspecified; K21.9 Gastro-esophageal reflux disease without esophagitis; K44.9 Diaphragmatic hernia without obstruction or gangrene; F03.90 Unspecified dementia, unspecified severity, without behavioral disturbance, psychotic disturbance, mood disturbance, and anxiety; D50.9 Iron deficiency anemia, unspecified; E87.6 Hypokalemia; F41.8 Other specified anxiety disorders; R77.8 Other specified abnormalities of plasma proteins; B96.20 Unspecified Escherichia coli [E. coli] as the cause of diseases classified elsewhere; Z79.899 Other long term (current) drug therapy; Z79.51 Long term (current) use of inhaled steroids; Z98.51 Tubal ligation status; Z20.822 Contact with and (suspected) exposure to COVID-19
CPT/HCPCS: 36415; 70450; 71045; 74230; 76770; 80048; 80061; 80076; 81003; 81015; 82550; 82553; 82607; 82746; 83540; 83735; 83880; 84100; 84132; 84439; 84443; 84466; 84484; 84550; 85025; 85610; 87077; 87086; 87088; 87186; 92611; 93005; 93306; 96374; 96375; 99285; G0378; J0360; J0696; J1644; J1940; J2405; J2785; J2916; J3475; U0003

== ENCOUNTER 2020-12-25 16:11 | Inpatient (IN) | payer MEDICARE ==
[2020-12-25 21:17] LABS: Absolute Lymphocytes (CBC) 1.9 K/uL (0.7-4.9); Basophils % 0.9 % (0-1.3); Hematocrit 36.1 % (36.0-45.0); Lymphocytes % 20.1 % (15.3-44.8); MPV 9.1 fL (7.6-11.3); RBC Red Blood Cell Count 4.31 M/uL (3.86-4.86)
[2020-12-25 21:19] LABS: Protime INR 0.99
[2020-12-25 21:27] LABS: Urine Blood TRACE (NEG); Urine Glucose NEGATIVE (NEG); Urine Protein 3+ (NEG)
[2020-12-25 21:33] LABS: ALT/SGPT 22 U/L (12-78); AST/SGOT 28 U/L (15-37); Albumin 3.3 g/dL (3.4-5.0); Alkaline Phosphatase 154 U/L (45-117); BUN Blood Urea Nitrogen 17 mg/dL (7-18); Bicarbonate 30 mmol/L (21-32); Bilirubin Direct 0.1 mg/dL (0-0.2); Bilirubin Total 0.4 mg/dL (0.2-1.0); Glucose Level 106 mg/dL (74-106); Potassium 3.7 mmol/L (3.5-5.1); Protein, Total 7.5 g/dL (6.4-8.2); Sodium Level 139 mmol/L (136-145)
[2020-12-25 21:44] LABS: Barbiturates NEGATIVE (NEGATIVE); Benzodiazepines POSITIVE (NEGATIVE); Cocaine NEGATIVE (NEGATIVE); METHAMPHETAM NEGATIVE (NEGATIVE); Methadone NEGATIVE (NEGATIVE); Opiates POSITIVE (NEGATIVE); Phencyclidine NEGATIVE (NEGATIVE); THC Cannibis POSITIVE (NEGATIVE)
[2020-12-25 21:44] LABS: Anisocytosis 3+; Blood Morphology Comment NOTED (NOT SEEN); Platelet Estimate ADEQ; Poikilocytosis 1+; White Blood Cell Scan OK (OK)
[2020-12-25 21:45] LABS: Ovalocytes SLIGHT; Target Cells FEW
[2020-12-25] MEDS ORDERED: FUROSEMIDE 40 MG/4 ML VIAL ONE (23:36)
--- NOTE | 2020-12-25 23:51 | ER ---
Nurse's Notes [facility] Name: Mandy Swain Age: 65 yrs Sex: Female : 1955 Arrival Date: 12/25/2020 Time: 16:13 Bed 17 Private MD: Diagnosis: Unspecified combined systolic (congestive) and diastolic (congestive) heart failure;Non-ST elevation (NSTEMI) myocardial infarction;Pulmonary edema Presentation: 12/25 16:23 Chief complaint: Patient states: SI for past 6 months. Many family/friend stressors ll1 (family friend deaths) recently. Taking Prozac and Xanax, but no help yet. Hear voices that wont let her sleep. Coronavirus screen: Client denies travel out of the [place] in the last 14 days. At this time, the client does not indicate any symptoms associated with coronavirus-19. Ebola Screen: Patient denies travel to an Ebola-affected area in the 21 days before illness onset. Initial Sepsis Screen: Does the patient meet any 2 criteria? No. Patient's initial sepsis screen is negative. Does the patient have a suspected source of infection? No. Patient's initial sepsis screen is negative. Risk Assessment: Do you want to hurt yourself or someone else? Patient reports desire/thoughts of hurting themselves or someone else. Provider notified. Onset of symptoms was June 07, 2020. 16:23 Method Of Arrival: EMS: [facility] 1 16:23 Acuity: CRISTEL 2 ll1 16:26 Chief complaint: EMS states: Ativan 2mg IM given en route. Initial: BP 184/121, HR 66, ll1 resp 44. Better after Ativan. Historical: - Allergies: 16:22 No Known Allergies; ll1 - PMHx: 16:22 Anxiety; CHF; Depression; esophagus problem; Hypertension; ll1 - PSHx: 16:22 Hernia repair; ll1 - Immunization history:: Flu vaccine is not up to date. - Social history:: Smoking status: Patient denies any tobacco usage or history of. Screenin:20 Abuse screen: Denies threats or abuse. Nutritional screening: No deficits noted. em Tuberculosis screening: No symptoms or risk factors identified. Fall Risk None identified. Assessment: 20:20 General: Appears uncomfortable, slender, Behavior is crying, restless. Pain: Complains em of pain in epigastric area Pain currently is 5 out of 10 on a pain scale. Neuro: Level of Consciousness is awake, alert, obeys commands, Oriented to person, place, time, situation. Cardiovascular: Denies chest pain, Capillary refill < 3 seconds Patient's skin is warm and dry. Respiratory: Airway is patent Respiratory effort is even, unlabored, Respiratory pattern is regular, symmetrical. Derm: Skin is intact, is fragile, is thin, Skin is pink, warm \\T\\ dry. Musculoskeletal: Capillary refill < 3 seconds, Range of motion: intact in all extremities. 22:15 Reassessment: Patient appears in no apparent distress at this time. Patient and/or mg2 family updated on plan of care and expected duration. Pain level reassessed. Patient is alert, oriented x 3, equal unlabored respirations, skin warm/dry/pink. 22:15 Reassessment: meal given to the patient. mg2 12/26 01:30 Reassessment: Patient appears in no apparent distress at this time. Patient and/or wh family updated on plan of care and expected duration. Pain level reassessed. Patient is alert, oriented x 3, equal unlabored respirations, skin warm/dry/pink. Report received from Kyle GARCES. Psych: 01:30 [place] Suicide Severity Screening:. wh 01:30 [place] Suicide Severity Screening: In the past month, have you wished you were wh or wished you could go to sleep and not wake up? Patient responds "yes." "In the past month, have you actually had any thoughts of killing yourself?" Patient responds "no." "In your lifetime, have you ever done anything, started to do anything, or prepared to do anything to end your life?" Patient responds "no.". Subjective: Patient's mood is sad. Objective: Patient is cooperative, Speech is normal, Affect is appropriate. Interventions: Removed personal items and placed in bag. Patient placed in hospital gown. Searched person for dangerous items. Urine collected and sent for urine drug test. Suicide Risk Assessment: Sad Person Scale: Sex of patient: Female: Score 0 points. Age of patient: Score 1 point if patient is over 65. Safety Checks: Personal items have been removed. Door is open. No visitors are present at this time. Pt denies substance abuse. Commitment: Patient will be a voluntary commitment. Vital Signs: 12/25 16:23 BP 117 / 93; Pulse 82; Resp 17; Temp 98.0; Pulse Ox 99% on R/A; Weight 63.5 kg; Height ll1 5 ft. 6 in. (167.64 cm); Pain 5/10; 12/26 02:00 BP 155 / 99; Pulse 87; Resp 18; Pulse Ox 98% on 3 lpm NC; wh 12/27 09:55 BP 170 / 106; Pulse 78; Resp 18; Temp 97.8(O); Pulse Ox 95% on R/A; mh5 12/25 16:23 Body Mass Index 22.60 (63.50 kg, 167.64 cm) ll1 ED Course: 12/25 16:13 Patient arrived in ED. as 16:22 Arm band placed on. ll1 16:26 Triage completed. ll1 17:31 Daughter Leslie called to provide contact information. She can be reached at em1 [phone]. 20:11 Kyle Guerin, DEZ is Primary Nurse. em 20:19 Damon Ross PA is PHCP. cp 20:19 Florencio Leon MD is Attending Physician. cp 20:20 Patient has correct armband on for positive identification. Placed in gown. Bed in low em position. Call light in reach. Adult w/ patient. Pulse ox on. NIBP on. 20:20 Initial lab(s) drawn, by ak, sent to lab. Inserted saline lock: 22 gauge in right em antecubital area, using aseptic technique. Blood collected. 22:28 XRAY Chest (1 view) In Process Unspecified. EDMS 23:45 Elio Valdes MD is Hospitalizing Provider. cp 12/26 01:37 CT Chest For PE Angio In Process Unspecified. EDMS 02:00 No provider procedures requiring assistance completed. Patient admitted, IV remains in place. 07:23 Primary Nurse role handed off by Kyle Guerin RN eb 11:32 Attending Physician role handed off by Florencio Leon MD kdr 11:32 Derick Grimm MD is Attending Physician. kdr 12/27 00:24 Hossein Odell, DEZ is Primary Nurse. sf 04:36 D-Dimer Sent. sf 04:36 BNP Sent. sf 12/29 15:38 contacted [facility] to jeovany hopkins screener evaluate pt. bd Administered Medications: 12/25 23:24 Drug: Lasix 40 mg Route: IVP; Site: right antecubital; mg2 12/26 01:24 Follow up: Response: No adverse reaction 01:41 Drug: Aspirin Chewable Tablet 324 mg Route: PO; 02:24 Follow up: Response: No adverse reaction 01:41 Drug: Lovenox 1 mg/kg Route: Sub-Q; Site: right lower abdomen; 02:24 Follow up: Response: No adverse reaction 01:55 Drug: XANax Tablet 1 mg Route: PO; 03:30 Follow up: Response: No adverse reaction; RASS: Alert and Calm (0) 02:24 Drug: Melatonin 10 mg Route: PO; 03:30 Follow up: Response: No adverse reaction Outcome: 12/25 23:50 Decision to Hospitalize by Provider. 12/26 02:00 Admitted to ER Hold. Please see [facility] for further documentation. Condition: stable Instructed on the need for admit. 12/29 18:47 Patient left the ED. ph Signatures: Dispatcher [employer] EDMS Sandi Khalil Kevin, MD MD kdr Munoz, Edgar, RN RN em Mary Alice Tejeda Eric [facility] Erma Saenz RN RN ph Damon Ross PA PA cp Martinez, Maria Eve Wyatt RN RN Ellen Gambino Michele, RN RN [facility] [place] Kurtis Santiago RN RN [facility] Hossein Odell RN RN
--- NOTE | 2020-12-25 23:51 | EDPHYS ---
Physician Documentation [facility] Name: Mandy Swain Age: 65 yrs Sex: Female : 1955 Arrival Date: 12/25/2020 Time: 16:13 Bed 17 Private MD: ED Physician Derick Grimm HPI: 12/25 20:40 This 65 yrs old Female presents to ER via EMS with complaints of Suicidal cp Ideation. 20:40 The patient presents to the emergency department with depression, suicide ideation, and cp the patient has a plan, stab self in chest. Onset: The symptoms/episode began/occurred 6 month(s) ago. Past psychiatric history: Prior diagnosis: depression, Psychiatric medications include: Prozac, Xanax, the patient has not had a prior suicide gesture. Associated signs and symptoms: Pertinent positives; hallucinations, shortness of breath, Pertinent negatives: chest pain, fever, substance abuse, vomiting. Historical: - Allergies: 16:22 No Known Allergies; ll1 - PMHx: 16:22 Anxiety; CHF; Depression; esophagus problem; Hypertension; ll1 - PSHx: 16:22 Hernia repair; ll1 - Immunization history:: Flu vaccine is not up to date. - Social history:: Smoking status: Patient denies any tobacco usage or history of. ROS: 20:50 Constitutional: Negative for body aches, chills, fever, poor PO intake. cp 20:50 Cardiovascular: Positive for edema, Negative for chest pain, palpitations. cp 20:50 Eyes: Negative for injury, pain, redness, and discharge. cp 20:50 ENT: Negative for ear pain, sore throat. 20:50 Respiratory: Positive for shortness of breath, at rest. Negative for cough, wheezing. 20:50 Abdomen/GI: Negative for abdominal pain, nausea, vomiting, and diarrhea. 20:50 Neuro: Negative for altered mental status, headache, syncope, weakness. 20:50 All other systems are negative. Exam: 20:55 Constitutional: The patient appears in no acute distress, alert, awake, cp non-diaphoretic, non-toxic, well developed, well nourished. 20:55 Head/Face: Normocephalic, atraumatic. cp 20:55 Eyes: Periorbital structures: swelling, that is mild, bilaterally, on the infraorbital, Pupils: equal, round, and reactive to light and accomodation, Extraocular movements: intact throughout, Conjunctiva: normal, no exudate, no injection, Sclera: no appreciated abnormality. 20:55 ENT: External ear(s): are unremarkable, Nose: is normal, Mouth: Lips: moist, Oral mucosa: moist, Posterior pharynx: Airway: no evidence of obstruction, patent. 20:55 Neck: ROM/movement: is normal, is supple, without pain, no range of motions limitations. 20:55 Chest/axilla: Inspection: normal, Palpation: is normal, no crepitus, no tenderness. 20:55 Cardiovascular: Rate: normal, Rhythm: regular, Edema: ankle edema, that is mild, JVD: is not appreciated. 20:55 Respiratory: the patient does not display signs of respiratory distress, Respirations: labored breathing, that is mild, intercostal retractions, are absent, Breath sounds: decreased breath sounds, that are mild, diffuse, stridor, is not appreciated, wheezing: is not appreciated. 20:55 Abdomen/GI: Inspection: abdomen appears normal, Palpation: abdomen is soft and non-tender, in all quadrants. 20:55 Back: pain, is absent, ROM is normal. 20:55 Skin: cellulitis, is not appreciated, no rash present. 20:55 Neuro: Orientation: to person, place \T\ time. Mentation: is normal, Motor: moves all fours, strength is normal. 21:00 ECG was reviewed by the Attending Physician. cp Vital Signs: 16:23 BP 117 / 93; Pulse 82; Resp 17; Temp 98.0; Pulse Ox 99% on R/A; Weight 63.5 kg; Height ll1 5 ft. 6 in. (167.64 cm); Pain 5/10; 12/26 02:00 BP 155 / 99; Pulse 87; Resp 18; Pulse Ox 98% on 3 lpm NC; wh 12/27 09:55 BP 170 / 106; Pulse 78; Resp 18; Temp 97.8(O); Pulse Ox 95% on R/A; mh5 12/25 16:23 Body Mass Index 22.60 (63.50 kg, 167.64 cm) ll1 MDM: 12/25 21:00 Differential diagnosis: drug withdrawal. acute psychotic break, depression, psychosis cp secondary to non-compliance, CHF exacerbation, acute NH, pulmonary edema. 23:50 Patient medically screened. cp 23:55 Data reviewed: vital signs, nurses notes, lab test result(s), EKG, radiologic studies, cp plain films, and as a result, I will admit patient. 23:55 Test interpretation: by ED physician or midlevel provider: ECG, plain radiologic cp studies. Response to treatment: the patient's symptoms have mildly improved after treatment. Physician consultation: Deangelo GOLDSTEIN was called at 23:50, was contacted at 23:50, regarding admission, to the telemetry unit. patient's condition. 12/25 20:36 Order name: Acetaminophen; Complete Time: 21:57 cp 12/25 20:36 Order name: Basic Metabolic Panel; Complete Time: 21:57 cp 18 21:57 Interpretation: Normal except: GFR 55. cp / 20:36 Order name: CBC with Diff; Complete Time: 21:57 cp 12/25 21:57 Interpretation: Normal except: HGB 11.1; MCV 83.8; MCH 25.8; MCHC 30.8; RDW 25.1. cp / 20:36 Order name: ETOH Level; Complete Time: 21:57 cp 12/25 20:36 Order name: Hepatic Function; Complete Time: 21:57 cp 18 22:01 Interpretation: Normal except: ALK 154; ALB 3.3; GLOB 4.2; A/G 0.8. cp /18 20:36 Order name: PT-INR; Complete Time: 21:57 cp /18 20:36 Order name: Ptt, Activated; Complete Time: 21:57 cp 18 20:36 Order name: Salicylate; Complete Time: 21:57 cp /18 20:36 Order name: Urine Drug Screen; Complete Time: 21:57 cp 18 21:58 Interpretation: Normal except: BZO POSITIVE; THC POSITIVE; OPI POSITIVE. cp 12/25 21:14 Order name: Urine Dipstick--Ancillary (enter results); Complete Time: 21:57 mw2 12/25 21:25 Order name: CBC Smear Scan; Complete Time: 21:57 EDMS 12/25 23:05 Order name: BNP cp 12/25 23:05 Order name: NT PRO-BNP; Complete Time: 00:08 EDMS 12/26 00:08 Interpretation: Abnormal: NT PRO-BNP 03508. cp 12/25 23:07 Order name: D-Dimer cp 12/25 23:07 Order name: Troponin I; Complete Time: 23:42 cp 12/25 23:42 Interpretation: Abnormal: TROP 0.11. cp 12/25 23:07 Order name: D-Dimer; Complete Time: 23:42 EDMS 12/25 23:24 Order name: SARS-COV-2 RT PCR; Complete Time: 23:42 EDMS 12/26 05:52 Order name: CBC with Automated Diff; Complete Time: 23:07 EDMS 12/26 06:07 Order name: Basic Metabolic Panel; Complete Time: 23:07 EDMS 12/26 06:07 Order name: Troponin I; Complete Time: 23:07 EDMS 12/26 06:07 Order name: Lipid Profile; Complete Time: 23:07 EDMS 12/27 07:25 Order name: CBC with Automated Diff; Complete Time: 22:38 EDMS 12/27 07:36 Order name: Basic Metabolic Panel; Complete Time: 22:38 EDMS 12/27 20:58 Order name: Potassium; Complete Time: 22:38 EDMS 12/28 06:38 Order name: Basic Metabolic Panel EDMS 12/28 06:38 Order name: Magnesium EDMS 12/29 05:42 Order name: CBC with Automated Diff EDMS 12/29 05:44 Order name: Basic Metabolic Panel EDMS 12/29 05:44 Order name: Magnesium EDMS 12/25 20:36 Order name: EKG; Complete Time: 20:37 cp 12/25 20:36 Order name: EKG - Nurse/Tech; Complete Time: 20:52 cp 12/25 20:36 Order name: IV Saline Lock; Complete Time: 20:44 cp 12/25 20:36 Order name: Labs collected and sent; Complete Time: 20:45 cp 12/25 20:36 Order name: Urine Dipstick-Ancillary (obtain specimen); Complete Time: 21:15 cp 12/25 22:01 Order name: XRAY Chest (1 view); Complete Time: 23:07 cp 12/25 23:43 Order name: CT Chest For PE Angio; Complete Time: 23:07 cp EC:00 Rate is 83 beats/min. Rhythm is regular. CT interval is prolonged at 204 msec. QRS cp interval is prolonged at 164 msec. QT interval is normal. T waves are Inverted in lead aVR. Interpreted by me. Reviewed by me. Administered Medications: 23:24 Drug: Lasix 40 mg Route: IVP; Site: right antecubital; mg2 12/26 01:24 Follow up: Response: No adverse reaction 01:41 Drug: Aspirin Chewable Tablet 324 mg Route: PO; 02:24 Follow up: Response: No adverse reaction 01:41 Drug: Lovenox 1 mg/kg Route: Sub-Q; Site: right lower abdomen; 02:24 Follow up: Response: No adverse reaction 01:55 Drug: XANax Tablet 1 mg Route: PO; 03:30 Follow up: Response: No adverse reaction; RASS: Alert and Calm (0) 02:24 Drug: Melatonin 10 mg Route: PO; 03:30 Follow up: Response: No adverse reaction Disposition: 12/30 06:05 Co-signature as Attending Physician, Derick Grimm MD I agree with the assessment and [facility] plan of care. Disposition: 12/25/20 23:50 Hospitalization ordered by Elio Valdes for Inpatient Admission. Preliminary diagnosis are Unspecified combined systolic (congestive) and diastolic (congestive) heart failure, Non-ST elevation (NSTEMI) myocardial infarction, Pulmonary edema. - Bed requested for [facility] ER HOLD. - Status is Inpatient Admission. ph - Condition is Stable. - Problem is new. - Symptoms have improved. Signatures: Dispatcher [employer] [facility] Derick Grimm MD MD [facility] Erma Saenz RN RN ph Damon Ross PA PA cp Elenita Verdugo, DEZ RN Eve Gill RN RN Timothy Johnston RN RN [facility] [place] Kurtis Santiago RN RN ll1 Corrections: (The following items were deleted from the chart) 12/25 22:26 22:00 CORONAVIRUS+MR.LAB.BRZ ordered. [facility] 12/26 01:26 12/25 23:50 Hospitalization Ordered by Elio Valdes MD for Inpatient Admission. Preliminary diagnosis is Unspecified combined systolic (congestive) and diastolic (congestive) heart failure; Non-ST elevation (NSTEMI) myocardial infarction; Pulmonary edema. Bed requested for Telemetry/MedSurg (Inpatient). Status is Inpatient Admission. Condition is Stable. Problem is new. Symptoms have improved. cp 12/29 18:47 12/26 01:26 12/25/2020 23:50 Hospitalization Ordered by Elio Valdes MD for Inpatient ph Admission. Preliminary diagnosis is Unspecified combined systolic (congestive) and diastolic (congestive) heart failure; Non-ST elevation (NSTEMI) myocardial infarction; Pulmonary edema. Bed requested for [facility] ER HOLD. Status is Inpatient Admission. Condition is Stable. Problem is new. Symptoms have improved. cg
[2020-12-26] MEDS ORDERED: ENOXAPARIN 60 MG/0.6 ML SQ ONE (00:40)
[2020-12-26] MEDS ORDERED: ASPIRIN 81 MG CHEWABLE TABLET ONE (00:40)
[2020-12-26] MEDS ORDERED: ACETAMINOPHEN 500 MG TAB PO PRN (01:47)
[2020-12-26] MEDS ORDERED: ONDANSETRON 4 MG/2 ML VIAL IV PRN (01:47)
[2020-12-26] MEDS ORDERED: ALPRAZOLAM 1 MG TABLET ONE ×3 (02:09→17:07)
--- NOTE | 2020-12-26 02:18 | P.HP ---
Certification for Inpatient Patient admitted to: Observation With expected LOS: <2 Midnights Patient will require the following post-hospital care: None Practitioner: I am a practitioner with admitting privileges, knowledge of patient current condition, hospital course, and medical plan of care. Services: Services provided to patient in accordance with Admission requirements found in Title 42 Section 412.3 of the Code of Federal Regulations <Deangelo Freeman - Last Filed: 12/26/20 02:14> Patient History Date of Service: 12/26/20 Reason for admission: CHF exacerbation, suicidal ideations History of Present Illness: 65-year-old female with history of chronic systolic congestive heart failure, COPD, hypertension, GERD with hiatal hernia, depression with anxiety presents to the emergency department for suicidal ideation, shortness of breath. Patient reports that she has a little and otherwise with her family in her medical conditions and recently she has been having thoughts of harming herself. Patient reports that she has at home tonight and was thinking of killing herself had a plan of grabbing a steak knife and cutting herself. Patient denies previous suicide attempts, does report that she has auditory hallucinations that tell her that she is a failure or that she is lazy/stupid. Patient also reports increasing shortness of breath over the course of the last week. Patient reports she is compliant with her diuretics but was not familiar with fluid restrictions reporting that she thought it is important to drink a lot of water. Initial plan was to transfer patient to geriatric psychiatric facility from the emergency department but workup revealed significant volume overload requiring diuresis in clearance from cardiology. Labs remarkable for BNP 46493 troponin 0.11. D-dimer 1053. Patient had CT PE protocol performed which showed diffuse volume overload pattern, radiologist called stating that he was unable to visualize the pulmonary vessels in the left lower lung field stating that he could not rule out a pulmonary embolism given disappearance. Patient was given full dose Lovenox in the emergency department. ED provider wishes to admit patient for further evaluation and management. - Past Medical/Surgical History Diabetic: No -: Depression, Anxiety -: Chronic systolic congestive heart failure -: GERD/hiatal hernia -: Hypertension -: hernia repair -: tubal ligation -: carpal tunner both hands -: tummy tuck Psychosocial/ Personal History: Patient lives at home . - Family History Father -: Heart disease, Hypertension Mother -: Heart disease, Hypertension Brother -: Hypertension Sister -: Hypertension - Social History Alcohol use: No CD- Drugs: Yes Caffeine use: No Place of Residence: Home <Deangelo Freeman - Last Filed: 12/26/20 02:14> Date of Service: 12/26/20 <CrisflaquitadelgadoHaroon Sesar - Last Filed: 12/26/20 16:53> Allergies No Known Allergies Allergy (Verified 12/22/17 01:16) Home Medications: Alprazolam [Xanax] 1 mg PO TIDP PRN 11/28/20 Esomeprazole Mag Trihydrate [Nexium] 40 mg PO DAILY 11/28/20 Fluoxetine HCl [Prozac] 20 mg PO DAILY 11/28/20 Furosemide [Lasix] 0.5 tab PO SEECOM 11/28/20 Furosemide [Lasix] 40 mg PO SEECOM 11/28/20 Metoprolol Tartrate 25 mg PO BID 11/28/20 Phentermine HCl 37.5 mg PO DAILY 11/28/20 Amoxicillin 500 mg PO BID #14 capsule 11/30/20 Review of Systems 10-point ROS is otherwise unremarkable Respiratory: Cough, Shortness of Breath, SOB with Excertion Neurological: Other (Suicidal ideations), As per HPI <Deangelo Freeman - Last Filed: 12/26/20 02:14> Physical Examination - Physical Exam General: Alert, In no apparent distress, Oriented x3 HEENT: Atraumatic, Normocephalic Neck: Supple Respiratory: Crackles/rales (Bilateral crackles) Cardiovascular: Regular rate/rhythm, Normal S1 S2 Capillary refill: <2 Seconds Gastrointestinal: Normal bowel sounds, Soft and benign Musculoskeletal: No contractures, No erythema, No tenderness Integumentary: No tenderness/swelling, No erythema, No warmth Neurological: Normal speech, Normal strength at 5/5 x4 extr, Normal tone, Sensation intact, Other (Patient reports auditory hallucinations.) - Studies Laboratory Data (last 24 hrs) 12/25/20 22:45: Troponin I 0.11 H 12/25/20 20:25: PT 11.4, INR 0.99, APTT 26.4 12/25/20 20:25: WBC 9.30, Hgb 11.1 L, Hct 36.1, Plt Count 349 12/25/20 20:25: Sodium 139, Potassium 3.7, BUN 17, Creatinine 1.01, Glucose 106, Total Bilirubin 0.4, AST 28, ALT 22, Alkaline Phosphatase 154 H <Deangelo Freeman - Last Filed: 12/26/20 02:14> - Studies Laboratory Data (last 24 hrs) 12/25/20 22:45: Troponin I 0.11 H 12/25/20 20:25: PT 11.4, INR 0.99, APTT 26.4 12/25/20 20:25: WBC 9.30, Hgb 11.1 L, Hct 36.1, Plt Count 349 12/25/20 20:25: Sodium 139, Potassium 3.7, BUN 17, Creatinine 1.01, Glucose 106, Total Bilirubin 0.4, AST 28, ALT 22, Alkaline Phosphatase 154 H <CrisakashHaroon Sesar - Last Filed: 12/26/20 16:53> Assessment and Plan - Plan Assessment Acute on chronic systolic congestive heart failure Depression with anxiety complicated by auditory hallucinations and suicidal ideations with plan Hypertension GERD with hiatal hernia Plan Acute on chronic systolic congestive heart failure: Continue with IV diuresis, fluid restriction. Trend troponin, cardiology consulted. Heart healthy diet, daily weights and strict intake output. Once cleared from cardiac standpoint patient will need evaluation from psychiatry whether this be [facility] group or staff psychiatry. Patient will need either inpatient psychiatric treatment or discharged to follow up with psychiatric. DVT prophylaxis Lovenox 40 mg subcutaneous once daily. Depression with anxiety complicated by auditory hallucinations and suicidal ideations with plan: Continue as above. Will need psychiatric evaluation. Hypertension: Continue home meds GERD with hiatal hernia: Continue home meds Discharge Plan: Other (Inpatient psychiatric facility versus home with psychiatric followup) Plan to discharge in: 24 Hours - Advance Directives Does patient have a Living Will: No Does patient have a Durable POA for Healthcare: No - Code Status/Comfort Care Code Status Assessed: Yes (Full code) Critical Care: No Time Spent Managing Pts Care (In Minutes): 55 <Deangelo Freeman - Last Filed: 12/26/20 02:14>
[2020-12-26 03:32] VITALS: BMI 22.6
[2020-12-26 05:50] LABS: Absolute Lymphocytes (CBC) 1.3 K/uL (0.7-4.9); Basophils % 1.3 % (0-1.3); Hematocrit 32.2 % (36.0-45.0); Lymphocytes % 17.9 % (15.3-44.8); MPV 9.1 fL (7.6-11.3); RBC Red Blood Cell Count 3.87 M/uL (3.86-4.86)
[2020-12-26 06:07] LABS: Potassium 3.8 mmol/L (3.5-5.1); Troponin I 0.11 ng/mL (0.0-0.045)
[2020-12-26] MEDS ORDERED: PNEUMOCOCCAL VACCINE 0.5 ML IMVAC ONE (08:00)
[2020-12-26] MEDS: ALPRAZOLAM 1 MG TABLET PO PRN ×2 (08:32→16:56)
[2020-12-26] MEDS: METOPROLOL TAR 25 MG TAB PO SCH ×2 (08:32→23:30)
[2020-12-26] MEDS: FUROSEMIDE 40 MG/4 ML VIAL IV SCH ×2 (08:33→16:56)
[2020-12-26] MEDS: HEPARIN 5000 UNIT/ML 1 ML VIAL SQ SCH ×2 (08:33→23:30)
[2020-12-26] MEDS: AMOXICILLIN TRIHYDR 250 MG CAP PO SCH ×2 (08:33→23:30)
[2020-12-26] MEDS: FLUOXETINE 20 MG CAP PO SCH (08:33)
[2020-12-26] MEDS ORDERED: HEPARIN 5000 UNIT/ML 1 ML VIAL ONE ×2 (08:44→23:38)
[2020-12-26] MEDS ORDERED: METOPROLOL TAR 25 MG TAB ONE ×2 (08:45→23:39)
[2020-12-26] MEDS ORDERED: AMOXICILLIN TRIHYDR 250 MG CAP ONE ×2 (08:45→23:39)
[2020-12-26] MEDS ORDERED: FUROSEMIDE 40 MG/4 ML VIAL ONE ×2 (08:46→17:07)
--- NOTE | 2020-12-26 09:31 | RAD REPORT ---
EXAM DESCRIPTION: RAD - Chest Single View - 12/25/2020 10:29 pm CLINICAL HISTORY: SOB Chest pain. COMPARISON: Chest Single View dated 11/28/2020; Chest Single View dated 11/27/2020; Chest Single View dated 08/12/2020; Chest Single View dated 01/23/2019 FINDINGS: Portable technique limits examination quality. Moderate pulmonary edema is seen. Small bilateral pleural effusions are present, larger on the left. The heart is moderately enlarged in size. No displaced fractures. IMPRESSION: Moderate CHF versus volume overload.
--- NOTE | 2020-12-26 11:07 | RAD REPORT ---
EXAM DESCRIPTION: CT CHEST ANGIOGRAPHY WITH IV CONTRAST on 12/25/2020 11:43 PM [facility] CLINICAL HISTORY: SOB COMPARISON: None. TECHNIQUE: CT CHEST ANGIOGRAPHY WITH IV CONTRAST on 12/25/2020 11:43 PM [facility]. MIPS reconstructions wer e generated. This exam was performed according to our departmental dose-optimization program, which includes autom ated exposure control, adjustment of the mA and/or kV according to patient size and/or use of iterati ve reconstruction technique. MIP images were generated. FINDINGS: Thoracic aorta is normal in course and caliber without aneurysm or dissection. Pulmonary a rteries are adequately opacified, with poor opacification of the left lower lobe branches. The heart is grossly enlarged. There is a small to moderate pericardial effusion. Intrathoracic lymph nodes are not enlarged. There are small to moderate pleural effusions. There is extensive diffuse body wall anasarca. Central airways are patent. There is mild bibasilar atelectasis. There are no acute abnormalities within the limited images of the upper abdomen. There are no acute osseous findings. No suspicious bony lesions. IMPRESSION: Difficult to exclude left lower lobe pulmonary emboli. Slightly suboptimal study. Cardiomegaly with diffuse fluid overloaded state including pleural effusions, pericardial effusion an d anasarca. Electronically signed by: Papo Mcqueen MD 12/26/2020 2:02 AM [facility] Due to temporary technical issues with the PACS/Fluency reporting system, reports are being signed by the in house radiologists without review as a courtesy to insure prompt reporting. The interpreting radiologist is fully responsible for the content of the report.
[2020-12-26] MEDS ORDERED: ACETAMINOPHEN 500 MG TAB ONE (18:40)
[2020-12-26] MEDS ORDERED: LORazepam 2 MG/ML VIAL IV ONE (19:21)
[2020-12-26] MEDS ORDERED: LORazepam 2 MG/ML VIAL ONE (19:34)
[2020-12-27] MEDS: ALPRAZOLAM 1 MG TABLET PO PRN ×3 (00:44→20:55)
[2020-12-27] MEDS: MELATONIN 5 MG TABLET PO PRN (00:45)
[2020-12-27] MEDS ORDERED: MELATONIN 5 MG TABLET PO ONE (00:45)
[2020-12-27] MEDS ORDERED: ALPRAZOLAM 1 MG TABLET ONE ×3 (00:59→20:29)
--- NOTE | 2020-12-27 07:01 | P.PN ---
Subjective Date of Service: 12/27/20 Chief Complaint: CHF exacerbation, suicidal ideations Subjective: Improving, Doing well, Other (Patient mentions that she is depressed. Patient had a plan for suicide. She has been under a lot of stress lately with her medical problems. Patient willing to go to inpatient psych facility. Patient reports history of audio hallucinations.) Physical Examination - Vital Signs Temperature: 97.7 F Blood Pressure: 147/125 Pulse: 77 Respirations: 14 Pulse Ox (%): 96 Assessment & Plan Discharge Plan: Psychiatry Plan to discharge in: 24 Hours Physician Review Additional Text: Physical exam: Patient alert, cooperative. Patient appears depressed. Heart: Regular rate rhythm Lungs: Clear to auscultation. Patient on room-air. GI: Soft nontender nondistended Extremities: No significant edema to the lower extremities. Good range of motion to the upper lower extremities. Mental: Patient cooperative. Flat affect. Patient feels depressed. Patient willing to go to psych facility Assessment Acute on chronic diastolic congestive heart failure with EF of 35-40%, severe pulmonary hypertension, moderate mitral regurgitation, moderate to severe tricuspid regurgitation Depression with anxiety complicated by auditory hallucinations and suicidal ideations with plan Hypertension GERD with hiatal hernia with history of TIF procedure due to severe esophageal ulceration and moderate stenosis Chronic renal disease stage III Anemia of chronic disease with iron deficiency Drug screen positive for THC Plan Acute on chronic systolic congestive heart failure with EF of 35-40%, severe pulmonary hypertension, moderate mitral regurgitation, moderate to severe tricuspid regurgitation: Patient has done well with IV diuresis. Continue 1500 cc per day fluid restriction and low-salt diet. Heart healthy diet ordered. Patient on room-air requiring no oxygen. Will change IV diuresis to oral Lasix 40 mg 1 pill twice daily. Recent echocardiogram done November 28, 2020 showed EF of 35-40% with moderate global hypokinesis, moderate mitral regurgitation, moderate to severe tricuspid regurgitation, and severe pulmonary hypertension noted at that time. Patient medically stable for discharge to inpatient psych. Will confirm with cardiology. Anticipate no plan for intervention at this time. Patient willing to go to inpatient psych to further evaluate. Will initiate transfer. Continue DVT prophylaxis. Continue other medications. Await approval for transfer to inpatient psych. Depression with anxiety complicated by auditory hallucinations and suicidal ideations with plan: Patient willing to go to inpatient psych facility. Will initiate transfer to inpatient psych to further evaluate and treat. Continue Prozac. Will provide medication for anxiety. Hypertension: Continue metoprolol. Parameters in place. Overall stable. Chronic renal disease stage III: Overall stable. GERD with hiatal hernia with history of TIF procedure due to severe esophageal ulceration and moderate stenosis: Continue Protonix. Soft diet recommended. Patient is to follow up with advanced endoscopist/GI for further evaluation in the future. Patient reports that she has an appointment. Anemia of chronic disease with iron deficiency: Will start iron supplementation. Drug screen positive for THC: Cessation education provided. Time Spent Managing Pts Care (In Minutes): 55
[2020-12-27] MEDS ORDERED: METOPROLOL TAR 25 MG TAB PO SCH (07:11)
[2020-12-27 07:24] LABS: Absolute Lymphocytes (CBC) 1.6 K/uL (0.7-4.9); Basophils % 1.4 % (0-1.3); Hematocrit 33.1 % (36.0-45.0); Lymphocytes % 24.7 % (15.3-44.8); MPV 9.2 fL (7.6-11.3); RBC Red Blood Cell Count 3.97 M/uL (3.86-4.86)
[2020-12-27 07:36] LABS: Potassium 3.4 mmol/L (3.5-5.1)
[2020-12-27] MEDS ORDERED: THIAMINE HCL 100 MG TABLET ONE (07:56)
[2020-12-27] MEDS ORDERED: HEPARIN 5000 UNIT/ML 1 ML VIAL ONE ×2 (07:56→20:27)
[2020-12-27] MEDS ORDERED: FUROSEMIDE 40 MG TABLET ONE ×2 (07:56→19:09)
[2020-12-27] MEDS ORDERED: METOPROLOL TAR 25 MG TAB ONE (07:57)
[2020-12-27] MEDS ORDERED: FOLIC ACID 1 MG TABLET ONE (07:57)
[2020-12-27] MEDS: FOLIC ACID 1 MG TABLET PO SCH (08:50)
[2020-12-27] MEDS: THIAMINE HCL 100 MG TABLET PO SCH (08:50)
[2020-12-27] MEDS: FUROSEMIDE 40 MG TABLET PO SCH ×2 (08:50→17:00)
[2020-12-27] MEDS: HEPARIN 5000 UNIT/ML 1 ML VIAL SQ SCH ×2 (08:50→20:53)
[2020-12-27] MEDS: FLUOXETINE 20 MG CAP PO SCH (08:50)
[2020-12-27] MEDS: FERROUS SULFATE 325 MG TAB PO SCH (09:00)
[2020-12-27] MEDS ORDERED: POTASSIUM CL SA 10 MEQ TAB PO ONE ×2 (12:15→12:21)
[2020-12-27] MEDS ORDERED: ONDANSETRON 4 MG/2 ML VIAL ONE (12:47)
[2020-12-27] MEDS ORDERED: HYDRALAZINE HCL 20 MG/ML VIAL IV PRN (12:59)
[2020-12-27] MEDS ORDERED: METOPROLOL TAR 50 MG TAB ONE (20:27)
[2020-12-27] MEDS: LOSARTAN POTASSIUM 50 MG TABLET PO SCH (20:53)
[2020-12-27] MEDS: METOPROLOL TAR 25 MG TAB PO SCH (20:53)
[2020-12-28] MEDS: MELATONIN 5 MG TABLET PO PRN ×2 (01:35→21:52)
[2020-12-28] MEDS ORDERED: ALPRAZOLAM 1 MG TABLET ONE ×3 (03:30→21:50)
[2020-12-28] MEDS: ALPRAZOLAM 1 MG TABLET PO PRN ×3 (04:10→21:53)
[2020-12-28] MEDS: PANTOPRAZOLE 40MG TABLET PO SCH (05:33)
[2020-12-28] MEDS ORDERED: PANTOPRAZOLE 40MG TABLET PO ONE (05:44)
[2020-12-28 06:38] LABS: Magnesium 1.8 mg/dL (1.8-2.4); Potassium 4.1 mmol/L (3.5-5.1)
[2020-12-28] MEDS: LOSARTAN POTASSIUM 50 MG TABLET PO SCH ×2 (09:00→21:00)
[2020-12-28] MEDS: FERROUS SULFATE 325 MG TAB PO SCH (09:00)
[2020-12-28] MEDS ORDERED: MAGNESIUM SULFATE 1 gm IVPB 1 GM/100 ML BAG IV ONE ×2 (09:00)
[2020-12-28] MEDS: METOPROLOL TAR 25 MG TAB PO SCH ×2 (09:00→21:00)
[2020-12-28] MEDS: THIAMINE HCL 100 MG TABLET PO SCH (09:00)
[2020-12-28] MEDS: HEPARIN 5000 UNIT/ML 1 ML VIAL SQ SCH ×2 (09:00→21:00)
[2020-12-28] MEDS: FUROSEMIDE 40 MG TABLET PO SCH ×2 (09:00→17:00)
[2020-12-28] MEDS: FLUOXETINE 20 MG CAP PO SCH (09:00)
[2020-12-28] MEDS ORDERED: FOLIC ACID 1 MG TABLET ONE (09:00)
[2020-12-28] MEDS: FOLIC ACID 1 MG TABLET PO SCH (09:00)
[2020-12-28] MEDS ORDERED: HEPARIN 5000 UNIT/ML 1 ML VIAL ONE ×2 (09:02→21:50)
[2020-12-28] MEDS ORDERED: THIAMINE HCL 100 MG TABLET ONE (09:03)
[2020-12-28] MEDS ORDERED: METOPROLOL TAR 25 MG TAB ONE (09:03)
[2020-12-28] MEDS ORDERED: FUROSEMIDE 40 MG TABLET ONE (09:03)
--- NOTE | 2020-12-28 09:47 | P.PN ---
Subjective Date of Service: 12/28/20 Primary Care Provider: Dr. Matta; Nephrology-Dr. Cordero; Cardiology-Dr. Bailey Chief Complaint: CHF exacerbation, suicidal ideations Subjective: Doing well Physical Examination - Vital Signs Temperature: 97.4 F Blood Pressure: 149/100 Pulse: 65 Respirations: 17 Pulse Ox (%): 96 Assessment & Plan Discharge Plan: Psychiatry Plan to discharge in: 24 Hours Physician Review Additional Text: Initial chief complaint: 65-year-old female with history of CHF, hypertension, GERD, chronic renal disease and depression. Patient presented with chest pain and shortness of breath along with suicidal ideations. Physical exam: Patient alert, cooperative. Patient appears depressed. Heart: Regular rate rhythm Lungs: Clear to auscultation. Patient on room-air. GI: Soft nontender nondistended Extremities: No significant edema to the lower extremities. Good range of motion to the upper lower extremities. Mental: Patient cooperative. Flat affect. Patient feels depressed. Patient willing to go to psych facility Assessment Acute on chronic diastolic congestive heart failure with EF of 35-40%, severe pulmonary hypertension, moderate mitral regurgitation, moderate to severe tricuspid regurgitation Depression with anxiety complicated by auditory hallucinations and suicidal ideations with plan Hypertension GERD with hiatal hernia with history of TIF procedure due to severe esophageal ulceration and moderate stenosis Chronic renal disease stage III Anemia of chronic disease with iron deficiency Drug screen positive for THC Plan Acute on chronic systolic congestive heart failure with EF of 35-40%, severe pulmonary hypertension, moderate mitral regurgitation, moderate to severe tricuspid regurgitation: Patient remained stable. Continue Lasix 40 mg 1 pill twice daily. Continue 1500 cc per day fluid restriction. Monitor weight daily. Case discussed with cardiology. Cardiology plans for heart catheterization to further evaluate for possible ischemic disease. Recent echocardiogram done November 28, 2020 showed EF of 35-40% with moderate global hypokinesis, moderate mitral regurgitation, moderate to severe tricuspid regurgitation, and severe pulmonary hypertension noted at that time. Blood pressure needs to be be tter controlled. Will add hydralazine. Continue to adjust medication. Nephrology consulted due to her chronic renal disease. Await recommendations. If heart catheterization negative and cleared by cardiology then will pursue inpatient psychiatric transfer. Patient willing to go to inpatient psych. I will turn the service over to the hospitalist team tomorrow. I will go the plan of care with him. Depression with anxiety complicated by auditory hallucinations and suicidal ideations with plan: Patient with severe depression. Patient with suicidal ideation and plan. Patient willing to go to is inpatient psychiatric facility. Continue current medication. Will initiate transfer after cardiac workup and clearance. Hypertension: Continue metoprolol and losartan. Blood pressure still not well controlled. Will add hydralazine. Parameters in place. Overall stable. Chronic renal disease stage III: Overall stable. Will consult nephrology for further recommendation. GERD with hiatal hernia with history of TIF procedure due to severe esophageal ulceration and moderate stenosis: Continue Protonix. Soft diet recommended. Patient is to follow up with advanced endoscopist/GI for further evaluation in the future. Patient reports that she has an appointment in the future. Anemia of chronic disease with iron deficiency: Continue iron supplementation. Drug screen positive for THC: Cessation education provided. Time Spent Managing Pts Care (In Minutes): 55
[2020-12-28] MEDS ORDERED: FUROSEMIDE 40 MG/4 ML VIAL IV ONE (15:00)
--- NOTE | 2020-12-28 19:19 | CON ---
History Of Present Illness: The patient seen in emergency room. She is an ER hold right now, awaiti admission. The patient presented to the hospital feeling very anxious, mildly short of breath. T he patient states that she has been on medications for anxiety before. She has had a in the [facility] with her daughter and son-in-law dying in a car accident several years back and since then, she has been having some issues, question with PTSD and with depression and anxiety. She has been on alp razolam. She has been on antidepressants, currently on Prozac, and states that she has used Zoloft a nd Lexapro in the past too with reasonable affect. She states that she was having suicidal thoughts yesterday, was going to hurt herself with a steak knife. She currently is feeling a whole lot better . She seems to have good insight and able to talk in full sentences and comfortably explain herself, seems to be mildly short of breath, does have some crackles on her lung exam and also has some edema , which she says is a little bit more than her usual. Past Medical History: She states that she has had history of depression, has not had any suicidal at tempts in the past, but has suffered with depression. She is willing to go to a psych facility. She does think that she was feeling unwell yesterday and was feeling unsafe at home. Allergies: SHE HAS NO ALLERGIES TO ANY MEDICATIONS. Social History: Lives at home with her , feels like she has a good relationship, able to disc uss things with him, feels like she is safe with him at home. Medications: On medication review, medications and chart reviewed. The patient is currently on alpr azolam, Xanax 1 mg t.i.d. p.r.n., iron, Prozac, furosemide. She is getting 40 mg of furosemide twice a day p.o. She is on hydralazine. She is on heparin for DVT prophylaxis. She is on losartan. She is on melatonin p.r.n. for insomnia, metoprolol, Zofran p.r.n. She is on PPI p.r.n. She is on thia mine. Physical Examination: General: The patient seems comfortable. Vital Signs: Her blood pressure slightly on the higher side at 144/92, O2 sats 93% on room air. Lungs: Clear to auscultation anteriorly, but crackles at the bases bilaterally. Abdomen: Soft. Extremities: +1 edema bilaterally. Laboratory Data: Reviewed. WBC count of 6.4, hemoglobin 10, hematocrit 33.1, platelet count of 333. Sodium 138; potassium 4.1; chloride 100; bicarb is 32; BUN 33; creatinine 1.15, was 1.19 on Februar y 19, was 1.08 yesterday; glucose is 101; calcium 8.6; magnesium 1.8. BNP level was 61,428, checked on December 25. Cholesterol level with LDL of 78, HDL of 66, and triglycerides of 101, total cholest nida of 164. Assessment And Plan: The patient comes in with acute kidney injury with mild elevation in creatinine , volume overloaded with congestive heart failure exacerbation, seems to have fluid in her lungs with some breathing difficulty and edema. The patient also with suicidal ideation, seems to improve righ t now with good insight. She states that she is not feeling suicidal at this moment, but did have th trell feelings last night and is agreeable to going to a psychiatric facility once she is cleared from a Cardiology point of view. Cardiology evaluation is pending to clear her for this. She is on Lasix 40 mg p.o. b.i.d. At this point, we will go ahead and had another 40 mg of IV Lasix 1 time dose now . Monitor electrolytes with BMP. Continue salt restriction. The patient advised not to take any NS AIDs, ibuprofen, Aleve, Motrin, naproxen, and only use Tylenol carefully as the other medications can make blood pressure go up, also cause volume retention and kidney issues. We will assess renal func tion baseline once acute issues are resolved. I appreciate your consultation. Dr. Deshpande will follow this patient with you as needed. Do not hesi trevino to call me if you have any questions. /FRANCISCO Voice ID: [id number] Report ID: [id number]
[2020-12-28] MEDS ORDERED: HYDRALAZINE HCL 25 MG TABLET PO SCH (21:00)
[2020-12-28] MEDS ORDERED: METOPROLOL TAR 50 MG TAB ONE (21:50)
[2020-12-28] MEDS ORDERED: MELATONIN 5 MG TABLET PO ONE (21:59)
[2020-12-29 05:39] LABS: Absolute Lymphocytes (CBC) 1.5 K/uL (0.7-4.9); Basophils % 1.6 % (0-1.3); Hematocrit 33.2 % (36.0-45.0); Lymphocytes % 24.9 % (15.3-44.8); MPV 9.6 fL (7.6-11.3); RBC Red Blood Cell Count 3.97 M/uL (3.86-4.86)
[2020-12-29 05:43] LABS: Potassium 4.2 mmol/L (3.5-5.1)
[2020-12-29] MEDS: PANTOPRAZOLE 40MG TABLET PO SCH (05:58)
[2020-12-29] MEDS ORDERED: PANTOPRAZOLE 40MG TABLET PO ONE (06:04)
[2020-12-29] MEDS: HYDRALAZINE HCL 25 MG TABLET PO SCH ×2 (09:00→14:00)
[2020-12-29] MEDS: HEPARIN 5000 UNIT/ML 1 ML VIAL SQ SCH (09:00)
--- NOTE | 2020-12-29 09:01 | P.PN ---
Subjective Date of Service: 12/29/20 Primary Care Provider: Dr. Matta; Nephrology-Dr. Cordero; Cardiology-Dr. Bailey Chief Complaint: CHF exacerbation, suicidal ideations Subjective: No new changes, Doing well Physical Examination - Vital Signs Temperature: 97.9 F Blood Pressure: 146/96 Pulse: 56 Respirations: 18 Pulse Ox (%): 95 Assessment & Plan Discharge Plan: Psychiatry Plan to discharge in: 24 Hours Physician Review Additional Text: Initial chief complaint: 65-year-old female with history of CHF, hypertension, GERD, chronic renal disease and depression. Patient presented with chest pain and shortness of breath along with suicidal ideations. Physical exam: Patient alert, cooperative. Patient appears depressed but overall stable.. Heart: Regular rate rhythm Lungs: Clear to auscultation. Patient on room-air. GI: Soft nontender nondistended Extremities: No significant edema to the lower extremities. Good range of motion to the upper lower extremities. Mental: Patient cooperative. Flat affect. Patient feels depressed. Patient willing to go to psych facility Assessment Acute on chronic diastolic congestive heart failure with EF of 35-40%, severe pulmonary hypertension, moderate mitral regurgitation, moderate to severe tricuspid regurgitation Depression with anxiety complicated by auditory hallucinations and suicidal ideations with plan Hypertension GERD with hiatal hernia with history of TIF procedure due to severe esophageal ulceration and moderate stenosis Chronic renal disease stage III Anemia of chronic disease with iron deficiency Drug screen positive for THC Plan Acute on chronic systolic congestive heart failure with EF of 35-40%, severe pulmonary hypertension, moderate mitral regurgitation, moderate to severe tricuspid regurgitation: Patient remained stable. Continue Lasix 40 mg 1 pill twice daily. Continue 1500 cc per day fluid restriction. Continue to Monitor weight daily. Case discussed with cardiology. Cardiology plans for heart catheterization today to evaluate for possible ischemic disease. Recent echocar diogram done November 28, 2020 showed EF of 35-40% with moderate global hypokinesis, moderate mitral regurgitation, moderate to severe tricuspid regurgitation, and severe pulmonary hypertension noted at that time. Blood pressure improved with adjustment in medication. Will continue to adjust hydralazine. If heart catheterization unremarkable then will pursue transfer to inpatient psych to further address her depression and suicidal ideations. Patient willing to cooperate and go to facility. Await findings from heart catheterization. I will turn the service over to the hospitalist team tomorrow. I will go plan of care with him. Depression with anxiety complicated by auditory hallucinations and suicidal ideations with plan: Patient with severe depression. Patient with suicidal ideation and plan. Patient willing to go to is inpatient psychiatric facility. Continue current medication. Will initiate transfer after cardiac workup and clearance. Hypertension: Continue metoprolol, hydralazine and losartan. Blood pressure improved. Hydralazine increase to 3 times a day for better blood pressure control. Chronic renal disease stage III: Overall stable. Spoke with nephrology. Nephrology reports patient stable.. GERD with hiatal hernia with history of TIF procedure due to severe esophageal ulceration and moderate stenosis: Continue Protonix. Soft diet recommended. Patient is to follow up with advanced endoscopist/GI for further evaluation in the future. Patient reports that she has an appointment in the future. Anemia of chronic disease with iron deficiency: Continue iron supplementation. Drug screen positive for THC: Cessation education provided. Time Spent Managing Pts Care (In Minutes): 55
[2020-12-29 09:47] VITALS: O2SAT 100
[2020-12-29] MEDS: FUROSEMIDE 40 MG TABLET PO SCH (11:00)
[2020-12-29] MEDS: THIAMINE HCL 100 MG TABLET PO SCH (11:00)
[2020-12-29] MEDS: METOPROLOL TAR 25 MG TAB PO SCH (11:00)
[2020-12-29] MEDS: FOLIC ACID 1 MG TABLET PO SCH (11:00)
[2020-12-29] MEDS ORDERED: FOLIC ACID 1 MG TABLET ONE (11:47)
[2020-12-29] MEDS ORDERED: METOPROLOL TAR 50 MG TAB ONE (11:47)
[2020-12-29] MEDS ORDERED: HEPARIN 5000 UNIT/ML 1 ML VIAL ONE (11:47)
[2020-12-29] MEDS ORDERED: FUROSEMIDE 40 MG TABLET ONE (11:47)
[2020-12-29] MEDS: ALPRAZOLAM 1 MG TABLET PO PRN (11:50)
[2020-12-29] MEDS ORDERED: ALPRAZOLAM 1 MG TABLET ONE (12:06)
--- NOTE | 2020-12-29 12:18 | PN ---
Admitted to Dr. Deshpande on 12/27/2020. The patient has been seen and followed by Dr. Mendoza and Dr. Narinder haro for congestive heart failure. She also had psychiatric issues. Had come in with severe pulmon hemant hypertension. Has a known ejection fraction of 35% to 40% by recent echocardiogram in November. She is on Lasix, hydralazine, heparin, losartan, and metoprolol. She is asymptomatic. I think we ne ed to treat her medically. When I agree with her medical regimen, I do not think there is any need f or heart catheterization. At this point, she is not having any chest pain. We can certainly follow up as an outpatient and may be perform an outpatient stress test. From my standpoint, she is cleared to transfer to psychiatric care. KARIE/FRANCISCO Voice ID: [id number] Report ID: [id number]
[2020-12-29] MEDS ORDERED: HYDRALAZINE HCL 10 MG TABLET ONE (15:12)
[2020-12-29 15:41] VITALS: TEMP 97.8
[2020-12-29 17:47] VITALS: BP 146/95
--- NOTE | 2020-12-29 17:51 | P.DS ---
Admission Date: 12/27/20 Discharge Date: 12/29/20 Primary Care Provider: Dr. Matta; Nephrology-Dr. Cordero; Cardiology-Dr. Bailey Disposition: ROUTINE DISCHARGE Discharge Condition: GOOD Reason for Admission: CHF exacerbation, suicidal ideations Consultations: Cardiology-Dr. Bailey/Dr. Mendoza [facility] Procedures: COVID: Negative Medical Problem List: Acute on chronic diastolic congestive heart failure with EF of 35-40%, severe pulmonary hypertension, moderate mitral regurgitation, moderate to severe tricuspid regurgitation Depression with anxiety complicated by auditory hallucinations and suicidal ideations with plan Hypertension GERD with hiatal hernia with history of TIF procedure due to severe esophageal ulceration and moderate stenosis Chronic renal disease stage III Anemia of chronic disease with iron deficiency Drug screen positive for THC Brief History of Present Illness: Paitient admitted for SOB. She also had some suicidal ideation. Hospital Course: Patient presented with dyspnea secondary to acute on chronic systolic congestive heart failure with EF of 35-40%, severe pulmonary hypertension, moderate mitral regurgitation, moderate to severe tricuspid regurgitation. Patient remained stable. Patient was seen by Cardiology. Recent echocardiogram done November 28, 2020 showed EF of 35-40% with moderate global hypokinesis, moderate mitral regurgitation, moderate to severe tricuspid regurgitation, and severe pulmonary hypertension noted at that time. Blood pressure improved with adjustment in medication. Cardiology recommended no further intervention at time. At discharge she will continue with 1500 cc per day fluid restriction. She is to monitor her weight daily. At discharge she will continue with Lasix 40 mg one pill twice daily. For ther HTN, she will continue with Metoprolol 25 mg one pill twice daily. New medication includes Losartan 50 mg one pill twice daily and Hydralazine 25 mg one pill three times a day. Goal BP should be less than 130/80. If her BP remains above 140/90 then she will need to contact her PCP or Cardiology for recommendations. Recommend follow up with Cardiology to further monitor her condition. Patient with Depression with anxiety. She did have audio halluncinations and suicidal thoughts upon admission. She was monitored closely. She was willing to go to a facility for inpatient care. [facility] evaluated the patient to consider outpatient follow up or inpatient treatment. [facility] recommended outpatient follow up. An appointment will be made to follow this hospitalization. She has a strong family support. At discharge she was no longer suicidal. At discharge she will continue with her medication Prozac. Patient with GERD, hiatal hernia and history of TIF procedure. She will continue with her medication-Protonix. She will follow up with advanced GI endoscoppist to further address her condition in the near future. This will be done as outpatient in [place]. She has an appointment for this. She has chronic renal disease stage 2. It remains stable. No NSAIDS. Future medication will need to be renally dosed. She will follow up with Nephrology in the near future. She has anemia of chronic disease. She will continue with Iron, Folic acid and Thiamine. She did test positive for THC. Cessation education was addressed. Vital Signs/Physical Exam: Temp Pulse Resp BP Pulse Ox 97.8 F 52 16 144/90 H 98 12/29/20 12:00 12/29/20 12:00 12/29/20 12:00 12/29/20 12:00 12/29/20 12:00 General: Alert, In no apparent distress, Oriented x3, Cooperative HEENT: Atraumatic Neck: Supple Respiratory: Clear to auscultation bilaterally, Normal air movement Cardiovascular: Normal pulses, Regular rate/rhythm Gastrointestinal: Normal bowel sounds, No tenderness, No masses, No rebound, No guarding Neurological: Normal speech, Normal strength at 5/5 x4 extr, Normal tone, Normal affect Laboratory Data at Discharge: WBC 6.20 K/uL (4.3-10.9) 12/29/20 04:40 Hgb 10.0 g/dL (12.0-15.0) L 12/29/20 04:40 Hct 33.2 % (36.0-45.0) L 12/29/20 04:40 Plt Count 348 K/uL (152-406) 12/29/20 04:40 PT 11.4 SECONDS (9.5-12.5) 12/25/20 20:25 INR 0.99 12/25/20 20:25 APTT 26.4 SECONDS (24.3-36.9) 12/25/20 20:25 Sodium 139 mmol/L (136-145) 12/29/20 04:40 Potassium 4.2 mmol/L (3.5-5.1) 12/29/20 04:40 BUN 37 mg/dL (7-18) H 12/29/20 04:40 Creatinine 1.21 mg/dL (0.55-1.3) 12/29/20 04:40 Glucose 84 mg/dL (74-106) 12/29/20 04:40 Magnesium 2.0 mg/dL (1.8-2.4) 12/29/20 04:40 Total Bilirubin 0.4 mg/dL (0.2-1.0) 12/25/20 20:25 AST 28 U/L (15-37) 12/25/20 20:25 ALT 22 U/L (12-78) 12/25/20 20:25 Alkaline Phosphatase 154 U/L (45-117) H 12/25/20 20:25 Troponin I 0.11 ng/mL (0.0-0.045) H 12/26/20 05:32 Triglycerides 101 mg/dL (<150) 12/26/20 05:32 Cholesterol 164 mg/dL (<200) 12/26/20 05:32 HDL Cholesterol 66 mg/dL (40-60) H 12/26/20 05:32 Cholesterol/HDL Ratio 2.48 12/26/20 05:32 Home Medications: Alprazolam [Xanax] 1 mg PO TIDP PRN 11/28/20 Esomeprazole Mag Trihydrate [Nexium] 40 mg PO DAILY 11/28/20 Fluoxetine HCl [Prozac] 20 mg PO DAILY 11/28/20 Metoprolol Tartrate 25 mg PO BID 11/28/20 Ferrous Sulfate [Ferrous Sulfate*] 325 mg PO DAILY #30 tab 12/29/20 Folic Acid 1 mg PO DAILY #90 tablet 12/29/20 Furosemide [Lasix*] 40 mg PO BIDL #60 tab 12/29/20 Hydralazine [Apresoline*] 25 mg PO TID #90 tab 12/29/20 Losartan Potassium [Cozaar*] 50 mg PO BID #60 tablet 12/29/20 Thiamine HCl [Vitamin B-1*] 100 mg PO DAILY #90 tablet 12/29/20 New Medications: Hydralazine [Apresoline*] 25 mg PO TID #90 tab Losartan Potassium [Cozaar*] 50 mg PO BID #60 tablet Ferrous Sulfate [Ferrous Sulfate*] 325 mg PO DAILY #30 tab Folic Acid 1 mg PO DAILY #90 tablet Furosemide [Lasix*] 40 mg PO BIDL #60 tab Thiamine HCl [Vitamin B-1*] 100 mg PO DAILY #90 tablet Physician Discharge Instructions: Patient presented with dyspnea secondary to acute on chronic systolic congestive heart failure with EF of 35-40%, severe pulmonary hypertension, moderate mitral regurgitation, moderate to severe tricuspid regurgitation. Patient remained stable. Patient was seen by Cardiology. Recent echocardiogram done November 28, 2020 showed EF of 35-40% with moderate global hypokinesis, moderate mitral regurgitation, moderate to severe tricuspid regurgitation, and severe pulmonary hypertension noted at that time. Blood pressure improved with adjustment in medication. Cardiology recommended no further intervention at time. At discharge she will continue with 1500 cc per day fluid restriction. She is to monitor her weight daily. At discharge she will continue with Lasix 40 mg one pill twice daily. For ther HTN, she will continue with Metoprolol 25 mg one pill twice daily. New medication includes Losartan 50 mg one pill twice daily and Hydralazine 25 mg one pill three times a day. Goal BP should be less than 130/80. If her BP remains above 140/90 then she will need to contact her PCP or Cardiology for recommendations. Recommend follow up with Cardiology to further monitor her condition. Patient with Depression with anxiety. She did have audio halluncinations and suicidal thoughts upon admission. She was monitored closely. She was willing to go to a facility for inpatient care. [facility] evaluated the patient to consider outpatient follow up or inpatient treatment. [facility] recommended outpatient follow up. An appointment will be made to follow this hospitalization. She has a strong family support. At discharge she was no longer suicidal. At discharge she will continue with her medication Prozac. Patient with GERD, hiatal hernia and history of TIF procedure. She will continue with her medication-Protonix. She will follow up with advanced GI endoscoppist to further address her condition in the near future. This will be done as outpatient in [place]. She has an appointment for this. She has chronic renal disease stage 2. It remains stable. No NSAIDS. Future medication will need to be renally dosed. She will follow up with Nephrology in the near future. She has anemia of chronic disease. She will continue with Iron, Folic acid and Thiamine. She did test positive for THC. Cessation education was addressed. Diet: AHA Activity: Ad marlene Followup: NONE,NONE [Primary Care Provider] - Time spent managing pt's care (in minutes): 55
--- NOTE | 2020-12-29 18:27 | CON ---
Date of Consultation: 12/26/2020 Reason For Consultation: Acute congestive heart failure. History Of Present Illness: This is a 65-year-old female who presented to the emergency room with sh ortness of breath and some lower extremity edema and orthopnea. The patient also having some suicida l thoughts in the ER. She is in acute congestive heart failure, evaluated her, and did an echo. Eje ction fraction is in the mid 30s. Past Medical History: Congestive heart failure, anxiety, hypertension. Medications: Refer consultation sheet for detailed list. Allergies: NO KNOWN DRUG ALLERGIES. Family History: No premature coronary artery disease, cancer. Social History: She does not smoke or drink. Review of Systems: All systems reviewed. They were negative except for mentioned in the HPI. Physical Examination: Vital Signs: Temperature is 97.4, pulse is 78, breathing at 19 to 20, blood pressure is 141/91. General: Pleasant, middle-aged female, in no distress. Head and Neck: Pupils are equal, reactive to light. Intact eye movements. Positive JVD. No cervic al lymphadenopathy. Neck: Supple. Thyroid is not enlarged. Lungs: Crackles in both bases. No accessory muscle use or muscle retraction. Heart: Regular rate and rhythm with S3. Abdomen: Soft, nontender. Bowel sounds positive. No organomegaly. No rigidity or rebound. Extremities: No clubbing, cyanosis. Positive edema. Skin: No rash. Neurologic: Alert, awake, oriented x3. No acute focal deficit appreciated. Investigations: Creatinine is 1.01. NT-proBNP 61,429. Troponin 0.11. Assessment And Plan: 1.Acute on chronic systolic congestive heart failure exacerbation with very low ejection fraction. Recommend Lasix 40 mg IV q.12 hours. Once euvolemic to switch to oral Lasix. 2.Very low ejection fraction. No ischemia workup was done. Mild troponin leak. Recommend coronary angiogram once she is more stable from the congestive heart failure standpoint. Further evaluate th e reason for her low ejection fraction. Ischemia workup is warranted. SR/MODL Voice ID: [id number] Report ID: [id number]
--- NOTE | 2020-12-29 21:01 | P.PN ---
Date of Service: 12/29/20 Vital Signs Temp Pulse Resp BP Pulse Ox 97.8 F 61 18 146/95 H 100 12/29/20 16:00 12/29/20 16:00 12/29/20 16:00 12/29/20 16:00 12/29/20 16:00 Assessment/ Plan: Nephrology No acute cardiac or pulmonary complaints. No CP or SOB. No acute events overnight. Vitals, medications, blood work and imaging reviewed in the chart. NAD. MMM. Neck supple. CTA. RRR. Soft Abd. No C/C/E. No rash. AAO. Normal Speech. A/P: Continue the current POC and Medications other than the changes listed. AM Labs PRN. Recommend daily weight. Please see the orders for complete details. CKD III -No NSAIDs Proteinuria -Recommend good BP control HTN with CKD -Continue hyralazine Hypokalemia -Replete potassium prn. -Encourage nutrition. Anemia in chronic illness -Monitor H&H
== END 2020-12-29 18:40 | disposition home or self-care (01) | DRG 291 ==
LOC: ER 16:11 → ERHOLD 12-26 01:43 → OBSVTOIN 12-27 19:37
PROVIDERS: ADMIT Internal Medicine Nephrology; ATTEND Family Medicine
DX: I13.0 Hypertensive heart and chronic kidney disease with heart failure and stage 1 through stage 4 chronic kidney disease, or unspecified chronic kidney disease (principal); I50.23 Acute on chronic systolic (congestive) heart failure; R44.0 Auditory hallucinations; R45.851 Suicidal ideations; N17.9 Acute kidney failure, unspecified; N18.30 Chronic kidney disease, stage 3 unspecified; D63.8 Anemia in other chronic diseases classified elsewhere; J44.9 Chronic obstructive pulmonary disease, unspecified; F41.8 Other specified anxiety disorders; I07.1 Rheumatic tricuspid insufficiency; I34.0 Nonrheumatic mitral (valve) insufficiency; D50.9 Iron deficiency anemia, unspecified; K44.9 Diaphragmatic hernia without obstruction or gangrene; E87.6 Hypokalemia; I27.20 Pulmonary hypertension, unspecified; K21.9 Gastro-esophageal reflux disease without esophagitis; Z98.51 Tubal ligation status; Z79.899 Other long term (current) drug therapy; Z20.822 Contact with and (suspected) exposure to COVID-19
CPT/HCPCS: 36415; 71045; 71275; 80048; 80061; 80076; 80307; 80320; 80329; 81003; 83735; 83880; 84132; 84484; 85025; 85379; 85610; 85730; 96372; 96374; 99285; G0378; J1644; J1650; J1940; J2405; Q9967; U0003

== ENCOUNTER 2021-12-05 15:33 | Emergency (ER) | payer MEDICARE ==
--- OUTSIDE RECORDS SUMMARY | 2021-12-05 15:36 | XMS REPORT | Continuity of Care Document ---
:1955 Author Organization [facility] t Address [address] [place] [address] [place] [address] Care Team Providers Name Role Phone DANY MELTON JR Primary Care Physician Unavailable PADMAJA CORDOBA Attending Clinician Unavailable SUNNY Attending Clinician Unavailable KAYKAY Attending Clinician Unavailable BERYL Attending Clinician Unavailable YARY Attending Clinician Unavailable SOLANGE WINCHESTER Attending Clinician Unavailable Beryl LANDIN Attending Clinician KARINA Attending Clinician Unavailable ISSA Attending Clinician Unavailable MD SHER Attending Clinician Unavailable BIJAL Attending Clinician Unavailable Immanuel_A_AH Attending Clinician Unavailable MD MAUREEN APPIAH Attending Clinician Unavailable Radiology Attending Clinician Unavailable 1, Lab Attending Clinician Unavailable Scotty Cornejo MD Attending Clinician Doctor Unassigned, Name Attending Clinician Unavailable PADMAJA CORDOBA Admitting Clinician Unavailable SUNNY Admitting Clinician Unavailable SOLANGE WINCHESTER Admitting Clinician Unavailable SHER Admitting Clinician Unavailable MD SHER Admitting Clinician Unavailable BIJAL Admitting Clinician Unavailable Immanuel_A_AH Admitting Clinician Unavailable MD MAUREEN APPIAH Admitting Clinician Unavailable Payers Payer Name Policy Type Policy Number Effective Date Expiration Date S ource [place]IC[place] [id number] [place] [facility] [place]00 [facility] [id number] 2021 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 (HCCode) (HCCode) [facility] of this note might be different from the original. Added automatic ally from request for surgery [id number] Hiatal Hiatal Disease Active Overview: [facility] hernia hernia 4-16 [employer] 00:00: g of this of 00 note Medicin might be e different from the original. [facility] of this note might be different from the original. [facility] of this note might be different from the original. Added automatic ally from request for surgery [id number] rmatting of this note might be different from the original. Added automatic ally from request for surgery [id number] Hypertensi Hypertensi Disease Active [facility] ve urgency ve urgency 4-16 Co llege 00:00: of 00 Medicin e Weight Weight Disease Active Overview: [facility]: g of this of 00 note Medicin might be e different from the original. [facility] of this note might be different from the original. [facility] of this note might be different from the original. Added automatic ally from request for surgery [id number] rmatting of this note might be different from the original. Added automatic ally from request for surgery [id number] Hypertensi Hypertensi Disease Active [facility] on on 02-10 College 00:00: of 00 Medicin e Gastroesop Gastroesop Disease Active [facility] hageal hageal 06 College reflux reflux 00:00: of disease disease 00 Medicin without without e esophagiti esophagiti s s Hypokalemi Hypokalemi Disease Active [facility] a a 06 College 00:00: of 00 Medicin e Iron Iron Disease Active [facility] deficiency deficiency 06 Co llege 00:00: of 00 Medicin e Nephrogeno Nephrogeno Disease Active [facility] us us 06 College proteinuri proteinuri 00:00: of a a 00 Medicin e Acute on Acute on Disease Active [facility] chronic chronic 06 [facility] congestive congestive 00:00: of heart heart 00 Medicin failure failure e (HCCode) (HCCode) Anemia of Anemia of Disease Active [facility] chronic chronic 06 [place] disease disease 00:00: of 00 Medicin e Anxiety Anxiety Disease Active [facility] disorder disorder 2-15 Colleg e 00:00: of 00 Medicin e Depression Depression Disease Active [facility] 2-15 [facility] 00:00: of 00 Medicin e Dysphagia Dysphagia Disease Active [facility] 2-15 [facility] 00:00: of 00 Medicin e Dysphasia Dysphasia Disease Active [facility] 2-15 College 00:00: of 00 Medicin e Malignant Malignant Disease Active [facility] hypertensi hypertensi 2-15 Co llege ve urgency ve urgency 00:00: of 00 Medicin e Obstructio Obstructio Disease Active [facility] n of n of 2-15 College distal distal 00:00: of esophagus esophagus 00 Medi rj due to due to e foreign foreign body body Unstable Unstable Disease Active [facility] angina angina 4-02 College (HCCode) (HCCode) 00:00: of 00 Medicin e Allergies, Adverse Reactions, Alerts Allergy Allergy Status Severity Reaction(s) Onset Inactive Treating Comm ents Source Name Type Date Date Clinician NO KNOWN Allergy Active [facility] Social History Social Habit Start Date Stop Date Quantity Comments Source Exposure to Not sure [facility] Colleg e SARS-CoV-2 of Medicine (event) Alcohol intake 2021-12-01 2021-12-01 Ex-drinker [facility] Col lege 00:00:00 00:00:00 (finding) of Medicine Tobacco use and 2021-08-24 2021-08-24 Smokeless tobacco [facility] exposure 00:00:00 00:00:00 non-user of Medicine Sex Ass[birth year] [facility]lege 00:00:00 00:00:00 of Medicine Smoking Status Start Date Stop Date Source Never smoked tobacco [facility] of [facility] Medications Ordered Filled Start Stop Current Ordering Indication Dosage Frequency Signature Comments Components Source Medication Medication Date Date Medication? Clinician (SIG) Name Name atorvastati Yes 40mg Take 40 mg [facility] (LIPITOR) 1-24 by mouth [place] [facility] 40 MG 11:17: daily. of tablet 55 Medicin e sucralfate No 1g Take 1 g [facility] (CARAFATE) -11-30 by mouth [place] [facility] 1 g tablet 11:17: 00:00 four times of 50 :00 daily. Medicin e sucralfate 2020-11 Yes 1g Take 1 g [facility] (CARAFATE) 1-15 by mouth Colle ge 1 g tablet 13:24: four times o f 39 daily. Medicin e atorvastati 2020-11 Yes 40mg Take 40 mg [facility] n (LIPITOR) 1-15 by mouth [place] [facility] 40 MG 13:24: daily. of tablet 39 Medicin e omeprazole 2020-11- No 40mg Take 40 mg [facility] (PRILOSEC) 1-15 11-15 by mouth. Col lege 40 MG 13:24: 00:00 of capsule 33 :00 Medicin e esomeprazol 2020-11- No 40mg Take 40 mg [facility] e (NEXIUM) 1-15 11-15 by mouth. Col lege 40 MG 13:24: 00:00 of capsule 21 :00 Medicin e esomeprazol 2020-11 Yes 40mg Take 40 mg [facility] (NEXIUM) 0-18 by mouth. [place] [facility] 40 MG 13:55: of capsule 27 Medicin e omeprazole 2020-11 Yes 40mg Take 40 mg [facility] (PRILOSEC) 0-18 by mouth. [place] [facility] 40 MG 13:55: of capsule 27 Medicin e sucralfate 2020-11 Yes 1g Take 1 g [facility] (CARAFATE) 0-18 by mouth Colle ge 1 g tablet 13:55: four times o f 27 daily. Medicin e atorvastati 2020-11 Yes 40mg Take 40 mg [facility] n (LIPITOR) 0-18 by mouth [place] [facility] 40 MG 13:55: daily. of tablet 27 Medicin e trazodone 2020-11 Yes 100mg Take 100 [facility] (DESYREL) 0-13 mg by [place] 100 MG 00:00: mouth at of tablet 00 bedtime. Medicin e sertraline 2020-11 Yes 25mg Take 25 mg [facility] (ZOLOFT) 25 0-13 by mouth [place] [facility] MG tablet 00:00: daily. of Medicin e trazodone 2020-11 Yes 100mg Take 100 [facility] (DESYREL) 0-13 mg by [place] 100 MG 00:00: mouth at of tablet 00 bedtime. Medicin e sertraline 2020-11 Yes 25mg Take 25 mg [facility] (ZOLOFT) 25 0-13 by mouth [place] [facility] MG tablet 00:00: daily. of Medicin e trazodone 2020-11 Yes 100mg Take 100 [facility] (DESYREL) 0-13 mg by College 100 MG 00:00: mouth at of tablet 00 bedtime. Medicin e sertraline 2020-11 Yes 25mg Take 25 mg [facility] (ZOLOFT) 25 0-13 by mouth [place] [facility] MG tablet 00:00: daily. of Medicin e clonazepam 2020-11 Yes two times [facility] (KLONOPIN) 0-12 daily. College 0.5 MG 00:00: of tablet 00 Medicin e Azelastine- 2020-11 Yes [facility] Fluticasone 0-12 College 137-50 00:00: of MCG/ACT 00 Medicin SUSP e clonazepam 2020-11 Yes [facility] (KLONOPIN) 0-12 College 0.5 MG 00:00: of tablet 00 Medicin e clonazepam 2020-11 Yes two times [facility] (KLONOPIN) 0-12 daily. College 0.5 MG 00:00: of tablet 00 Medicin e Azelastine- 2020-11- No [facility] Fluticasone 0-12 11-15 College 137-50 00:00: 00:00 of MCG/ACT 00 :00 Medicin SUSP e alprazolam 2020- No TAKE 1 [facility] (XANAX) 2 9-17 10-18 TABLET BY [place] [facility] MG tablet 00:00: 00:00 MOUTH of 00 :00 TWICE Medicin DAILY e carvedilol Yes two times [facility] (COREG) 8-25 daily. College 6.25 MG 00:00: of tablet 00 Medicin e ENTRESTO 0 Yes two times [facility] 49-51 MG 8-25 daily. College TABS 00:00: of 00 Medicin e spironolact 0 Yes 25mg Take 25 mg [facility] one 8-25 by mouth [place] (ALDACTONE) 00:00: daily. of 25 MG 00 Medicin tablet e carvedilol 0 Yes [facility] (COREG) 8-25 College 6.25 MG 00:00: of tablet 00 Medicin e ENTRESTO 2020-0 Yes [facility] 49-51 MG 8-25 College TABS 00:00: of 00 Medicin e spironolact 0 Yes 25mg Take 25 mg [facility] one 8-25 by mouth College (ALDACTONE) 00:00: daily. of 25 MG 00 Medicin tablet e carvedilol 0 Yes two times [facility] (COREG) 8-25 daily. College 6.25 MG 00:00: of tablet 00 Medicin e ENTRESTO 2021-0 Yes two times [facility] 49-51 MG 8-25 daily. College TABS 00:00: of 00 Medicin e spironolact 0 Yes 25mg Take 25 mg [facility] one 8-25 by mouth [place] (ALDACTONE) 00:00: daily. of 25 MG 00 Medicin tablet e hydrocodone 2020-0 2020- No TAKE 1 [facility] -acetaminop 8-20 10-18 TABLET BY [facility] [place] [place] (NORCO) 00:00: 00:00 MOUTH o f 5-325 mg 00 :00 NEEDED FOR Medic in tablet MIGRAINE e FOR 7 DAYS Aspirin 81 2020-0 Yes 81mg Take 81 mg [facility] MG tablet 6-18 by mouth Colleg e 00:00: daily. of 00 Medicin e Dapaglifloz 0 Yes 10mg Take 10 mg [facility] in 6-18 by mouth [place] [facility] daily. of 10 MG TABS 00 Medicin e furosemide 0 Yes 20mg Take 20 mg [facility] (LASIX) 20 6-18 by mouth. [place] [facility] MG tablet 00:00: of 00 Medicin e Aspirin 81 2020-0 Yes 81mg Take 81 mg [facility] MG tablet 6-18 by mouth. Colle ge 00:00: of 00 Medicin e Dapaglifloz 2020-0 Yes 10mg Take 10 mg [facility] in 6-18 by mouth. [place] Propanediol 00:00: of 10 MG TABS 00 Medicin e furosemide 2020-0 Yes 20mg Take 20 mg [facility] (LASIX) 20 6-18 by mouth. [place] [facility] MG tablet 00:00: of 00 Medicin e pantoprazol 0 Yes 40mg Take 40 mg [facility] e 6-18 by mouth. [place] (PROTONIX) 00:00: of 40 MG 00 Medicin tablet e Aspirin 81 2020-0 Yes 81mg Take 81 mg [facility] MG tablet 6-18 by mouth. Colle ge 00:00: of 00 Medicin e Dapaglifloz 2020-0 Yes 10mg Take 10 mg [facility] in 6-18 by mouth [place] [facility] 00:00: daily. of 10 MG TABS 00 Medicin e furosemide 0 Yes 20mg Take 20 mg [facility] (LASIX) 20 6-18 by mouth. [place] [facility] MG tablet 00:00: of 00 Medicin e pantoprazol Yes 40mg Take 40 mg [facility] 6-18 by mouth. [place] (PROTONIX) 00:00: of 40 MG 00 Medicin tablet e pantoprazol 2021- No 40mg Take 40 mg [facility] e 6-18 01-24 by mouth. [place] (PROTONIX) 00:00: 00:00 of 40 MG 00 :00 Medicin tablet e losartan 2020- No 100mg Take 100 [facility] (COZAAR) 3-30 10-18 mg by [place] 100 MG 00:00: 00:00 mouth. of tablet 00 :00 Medicin e ferrous Yes 1{tbl} Take 1 [facility] sulfate 325 2-23 Tablet by Col lege (65 Fe) MG 00:00: mouth of tablet 00 daily. Medicin e ferrous Yes 1{tbl} Take 1 [facility] sulfate 325 2-23 Tablet by Col lege (65 Fe) MG 00:00: mouth of tablet 00 daily. Medicin e ferrous Yes 1{tbl} Take 1 [facility] sulfate 325 2-23 Tablet by Col lege (65 Fe) MG 00:00: mouth of tablet 00 daily. Medicin e folic acid 0 Yes DAILY [facility] (FOLVITE) 1 2-22 College MG tablet 00:00: of 00 Medicin e folic acid 2020-0 Yes DAILY [facility] (FOLVITE) 1 2-22 College MG tablet 00:00: of 00 Medicin e folic acid 0 Yes DAILY [facility] (FOLVITE) 1 2-22 College MG tablet 00:00: of 00 Medicin e hydrALAZINE 2020- No THREE [facility] (APRESOLINE 2-22 10-18 TIMES A [place] [facility] ) 25 MG 00:00: 00:00 DAY of tablet 00 :00 Medicin e losartan 2020- No TWICE [facility] (COZAAR) 50 2-22 10-18 DAILY Colleg e MG tablet 00:00: 00:00 of 00 :00 Medicin e metoprolol 2020- No Take by [facility] (TOPROL-XL) 1-25 10-18 mouth. Colle ge 25 MG XL 00:00: 00:00 of tablet 00 :00 Medicin e fluoxetine 2020- No DAILY [facility] (PROZAC) 20 11-28-18 College MG capsule 00:00: 00:00 of 00 :00 Medicin e furosemide 2020- No TWICE [facility] (LASIX) 40 11-28-18 DAILY AT [place] [facility] MG tablet 00:00: 00:00 9am & 5pm of 00 :00 Medicin e metoprolol 2020- No TWICE [facility] (LOPRESSOR) 11-28- DAILY Colleg e 25 MG 00:00: 00:00 of tablet 00 :00 Medicin e phentermine 2020- No 37.5mg Take 37.5 [facility] (ADIPEX-P) -16 10-18 mg by College 37.5 MG 00:00: 00:00 mouth. of tablet 00 :00 Medicin e enalapril Yes [id number] 20mg Take 1 Un xochitl 20 mg 4-12 tablet by ity of tablet 00:00: mouth 2 [place] 00 (two) Medical times Branch daily. furosemide Yes [id number] 20mg Take 1 U nivers 20 mg 4-12 tablet by ity of tablet 00:00: mouth [place] 00 every Medical morning Branch and evening. omeprazole Yes [id number] 40mg Take 1 [facility] (PRILOSEC) 4-12 capsule by ity of 40 mg 00:00: mouth [place] capsule 00 daily. Medical Branch enalapril Yes [id number] 20mg Take 1 Un xochitl 20 mg 4-12 tablet by ity of tablet 00:00: mouth 2 [place] 00 (two) Medical times Branch daily. furosemide Yes [id number] 20mg Take 1 [facility] 20 mg 4-12 tablet by ity of tablet 00:00: mouth [place] 00 every Medical morning Branch and evening. omeprazole Yes [id number] 40mg Take 1 [facility] (PRILOSEC) 4-12 capsule by ity of 40 mg 00:00: mouth [place] capsule 00 daily. Medical Branch enalapril Yes [id number] 20mg Take 1 Un xochitl 20 mg 4-12 tablet by ity of tablet 00:00: mouth 2 [place] 00 (two) Medical times Branch daily. furosemide 2017-0 Yes [id number] 20mg Take 1 [facility] 20 mg 4-12 tablet by ity of tablet 00:00: mouth [place] 00 every Medical morning Branch and evening. omeprazole 2017-0 Yes [id number] 40mg Take 1 [facility] (PRILOSEC) 4-12 capsule by ity of 40 mg 00:00: mouth capsule 00 daily. Medical Branch hydrOXYzine 2017-0 Yes 50mg Take 1 Univ ers 50 mg 4-04 tablet by ity of tablet 00:00: mouth (two) Medical times Branch daily as needed for Anxiety. carvedilol 2017- Yes 6.25mg Take 1 Uni vers 6.25 mg 4-04 tablet by ity of tablet 00:00: mouth (two) Medical times Branch daily with meals. amLODIPine 2016- Yes 10mg Take 1 Unive rs 10 mg 4-04 tablet by ity of tablet 00:00: mouth 00 daily. Medical Branch hydrOXYzine 2016-0 Yes 50mg Take 1 Univ ers 50 mg 4-04 tablet by ity of tablet 00:00: mouth (two) Medical times Branch daily as needed for Anxiety. carvedilol 2016-0 Yes 6.25mg Take 1 Uni vers 6.25 mg 4-04 tablet by ity of tablet 00:00: mouth (two) Medical times Branch daily with meals. amLODIPine 2016-0 Yes 10mg Take 1 Un[facility] rs 10 mg 4-04 tablet by ity of tablet 00:00: mouth 00 daily. Medical Branch hydrOXYzine 2016-0 Yes 50mg Take 1 Univ ers 50 mg 4-04 tablet by ity of tablet 00:00: mouth (two) Medical times Branch daily as needed for Anxiety. carvedilol 2017-0 Yes 6.25mg Take 1 Uni vers 6.25 mg 4-04 tablet by ity of tablet 00:00: mouth (two) Medical times Branch daily with meals. amLODIPine 2016-0 Yes 10mg Take 1 Unive rs 10 mg 4-04 tablet by ity of tablet 00:00: mouth 00 daily. Medical Branch aspirin 81 2017-0 Yes 81mg Take 1 Unive rs mg chewable 4-03 tablet by ity of tablet 00:00: mouth [place] 00 daily. Medical Branch atorvastati Yes 40mg Take 1 Univ ers n 40 mg 4-03 tablet by ity of tablet 00:00: mouth [place] 00 every Medical evening. Branch aspirin 81 0 Yes 81mg Take 1 Unive rs mg chewable 4-03 tablet by ity of tablet 00:00: mouth [place] 00 daily. Medical Branch atorvastati Yes 40mg Take 1 Univ ers n 40 mg 4-03 tablet by ity of tablet 00:00: mouth [place] 00 every Medical evening. Branch aspirin 81 0 Yes 81mg Take 1 Unive rs mg chewable 4-03 tablet by ity of tablet 00:00: mouth [place] 00 daily. Medical Branch atorvastati Yes 40mg Take 1 Univ ers n 40 mg 4-03 tablet by ity of tablet 00:00: mouth [place] 00 every Medical evening. Branch Immunizations Ordered Filled Immunization Date Status Comments [facility] e Immunization Name Name Moderna SARS-CoV-2 2021-02-06 Completed [facility] College of Vaccination 00:00:00 Medicine Moderna SARS-CoV-2 2021-02-06 Completed [facility] College of Vaccination 00:00:00 Medicine Moderna SARS-CoV-2 2021-02-06 Completed [facility] College of Vaccination 00:00:00 Medicine Moderna SARS-CoV-2 2021-01-09 Completed [facility] College of Vaccination 00:00:00 Medicine Moderna SARS-CoV-2 2021-01-09 Completed [facility] College of Vaccination 00:00:00 Medicine Moderna SARS-CoV-2 2021-01-09 Completed [facility] College of Vaccination 00:00:00 Medicine Influenza Virus 2017-02-07 Completed Universit y of Vaccine [facility] IM 3+ 00:00:00 [facility] Branch Influenza Virus 2017-02-07 Completed Universit y of Vaccine [facility] IM 3+ 00:00:00 [facility] Branch Influenza Virus 2017-02-07 Completed Universit y of Vaccine [facility] IM 3+ 00:00:00 [facility] Branch Vital Signs Vital Name Observation Time Observation Value Comments Source HEIGHT 2021-02-19 08:00:00 167.6 cm WEIGHT 2021-02-19 08:00:00 58.65 kg Systolic blood 2021-11-30 17:15:00 140 mm[Hg] [facility] of pressure Medicine Diastolic blood 2021-11-30 17:15:00 84 mm[Hg] [facility] pressure Medicine Heart rate 2021-11-30 17:15:00 77 /min [facility] C [facility]lege of Medicine Body temperature 2021-11-30 17:15:00 36.83 [facility] Body height 2021-11-30 17:15:00 162.6 cm [facility] C [facility] of Medicine Body weight 2021-11-30 17:15:00 65.318 kg [facility] of Medicine BMI 2021-11-30 17:15:00 24.72 kg/m2 [facility] C [facility] of Medicine Systolic blood 2021-09-21 19:22:00 125 mm[Hg] [facility] pressure Medicine Diastolic blood 2021-09-21 19:22:00 82 mm[Hg] [facility] pressure Medicine Heart rate 2021-09-21 19:22:00 60 /min [facility] C [facility]lege of Medicine Body temperature 2021-09-21 19:22:00 37 [facility] Body height 2021-09-21 19:22:00 162.6 cm [facility] C [facility]lege of Medicine Body weight 2021-09-21 19:22:00 62.596 kg [facility] ollege of Medicine BMI 2021-09-21 19:22:00 23.69 kg/m2 [facility] C ollege of Medicine Systolic blood 2021-08-24 18:44:00 150 mm[Hg] [facility] pressure Medicine Diastolic blood 2021-08-24 18:44:00 114 mm[Hg] [facility] Medicine Heart rate 2021-08-24 18:44:00 67 /min [facility] C [facility]lege of Medicine Body temperature 2021-08-24 18:44:00 36.5 [facility] Body height 2021-08-24 18:44:00 162.6 cm [facility] C [facility] of Medicine Body weight 2021-08-24 18:44:00 62.506 kg [facility] of Medicine BMI 2021-08-24 18:44:00 23.65 kg/m2 [facility] of Medicine HEIGHT 2021-02-19 08:00:00 167.6 cm WEIGHT 2021-02-19 08:00:00 58.65 kg Procedures Procedure Date / Time Performed Performing Clinician Sourc e XR CHEST 2 VW 2019-07-05 18:38:46 [facility] o f [facility] CONSENT/REFUSAL FOR 2019-07-05 17:58:03 Doctor Unassigned, No [facility] DIAGNOSIS AND Name Medical Branch TREATMENT ASSIGNMENT OF BENEFITS 2019-07-05 17:57:50 Doctor Unassigned, No [facility] Branch Plan of Care Planned Activity Planned Date Details Comments Source Future Scheduled 2021-12-01 Screening for [facility] Col lege Test 08:24:43 malignant neoplasm of Medici ne of colon (procedure) [code = 974982168] Future Scheduled 2021-12-01 Screening for [facility] Col lege Test 08:24:43 malignant neoplasm of Medici ne of breast (procedure) [code = 863772243] Future Scheduled 2021-12-01 TETANUS SHOT (ADULT) [facility] Test 08:24:43 [code = TETANUS SHOT of Medi cine (ADULT)] Future Scheduled 2021-12-01 Hepatitis C [facility] [place] [facility] Test 08:24:43 screening of Medicine (procedure) [code = 500707929] Future Scheduled 2021-12-01 ZOSTER VACCINE (1 of [facility] Test 08:24:43 2) [code = ZOSTER of Medicin e VACCINE (1 of 2)] Future Scheduled 2021-12-01 Screening for [facility] Col lege Test 08:24:43 osteoporosis of Medicine (procedure) [code = 767842266] Future Scheduled 2021-12-01 Pneumococcal 65+ (1 [facility] Test 08:24:43 of 1 - PPSV23) [code of Medi cine = Pneumococcal 65+ (1 of 1 - PPSV23)] Future Scheduled 2021-12-01 FLU VACCINE > 6 [facility] C [facility]lege Test 08:24:43 MONTHS [code = FLU of Medici ne VACCINE > 6 MONTHS] Future Scheduled 2021-12-01 COVID-19 Vaccine (3 [facility] Test 08:24:43 - Booster for of Medicine Moderna series) [code = COVID-19 Vaccine (3 - Booster for Moderna series)] Future Scheduled 2021-12-01 MEDICARE IPPE [facility] Test 08:24:43 (WELCOME TO of Medicine MEDICARE) [code = MEDICARE IPPE (WELCOME TO MEDICARE)] Future Scheduled 2021-12-01 FALL SCREEN [code = [facility] Test 08:24:43 FALL SCREEN] of Medicine Future Scheduled 2021-09-27 Screening for [facility] Test 12:10:08 malignant neoplasm of Medici ne of colon (procedure) [code = 353213244] Future Scheduled 2021-09-27 Screening for [facility] Col lege Test 12:10:08 malignant neoplasm of Medici ne of breast (procedure) [code = 385646260] Future Scheduled 2021-09-27 Pneumococcal 65+ (1 [facility] Test 12:10:08 of 2 - PPSV23) [code of Medi cine = Pneumococcal 65+ (1 of 2 - PPSV23)] Future Scheduled 2021-09-27 TETANUS SHOT (ADULT) [facility] Test 12:10:08 [code = TETANUS SHOT of Medi cine (ADULT)] Future Scheduled 2021-09-27 Hepatitis C [facility] [place] [facility] Test 12:10:08 screening of Medicine (procedure) [code = [id number]] Future Scheduled 2021-09-27 ZOSTER VACCINE (1 of [facility] Test 12:10:08 2) [code = ZOSTER of Medicin e VACCINE (1 of 2)] Future Scheduled 2021-09-27 Screening for [facility] Test 12:10:08 osteoporosis of Medicine (procedure) [code = [id number]] Future Scheduled 2021-09-27 FLU VACCINE > 6 [facility] C ollege Test 12:10:08 MONTHS [code = FLU of Medici ne VACCINE > 6 MONTHS] Future Scheduled 2021-09-27 COVID-19 Vaccine (3 [facility] Test 12:10:08 - Booster for of Medicine Moderna series) [code = COVID-19 Vaccine (3 - Booster for Moderna series)] Future Scheduled 2021-09-27 MEDICARE IPPE [employer] [facility] 12:10:08 (WELCOME TO of Medicine MEDICARE) [code = MEDICARE IPPE (WELCOME TO MEDICARE)] Future Scheduled 2021-09-27 FALL SCREEN [code = [employer] 12:10:08 FALL SCREEN] of Medicine Future Scheduled 2021-09-21 [place] ESOPHAGRAM 1 Occurrences [facility] [employer] Test 14:09:59 COMPLETE [code = starting of Medicine 80639-2] 09/21/2021 until 03/21/2023 Future Scheduled 2021-09-21 EATON PH EGD [code = Expected: [employer] 00:00:00 51630] 09/21/2021, of Medicine Expires: 02/22/2022 Future Scheduled 2021-08-30 Screening for [facility] [employer] Test 10:43:51 malignant neoplasm of Medici ne of colon (procedure) [code = 505220113] Future Scheduled 2021-08-30 Screening for [facility] [employer] Test 10:43:51 malignant neoplasm of Medici ne of breast (procedure) [code = 384981042] Future Scheduled 2021-08-30 TETANUS SHOT (ADULT) [employer] 10:43:51 [code = TETANUS SHOT of Medi cine (ADULT)] Future Scheduled 2021-08-30 Hepatitis C [facility] [employer] Test 10:43:51 screening of Medicine (procedure) [code = 001041947] Future Scheduled 2021-08-30 ZOSTER VACCINE (1 of [employer] Test 10:43:51 2) [code = ZOSTER of Medicin e VACCINE (1 of 2)] Future Scheduled 2021-08-30 Screening for [facility] [employer] Test 10:43:51 osteoporosis of Medicine (procedure) [code = 943726724] Future Scheduled 2021-08-30 PNEUMOVAX >=65 [facility] [employer] Test 10:43:51 (PPSV23) [code = of Medicine PNEUMOVAX >=65 (PPSV23)] Future Scheduled 2021-08-30 FLU VACCINE > 6 [facility] [employer] Test 10:43:51 MONTHS [code = FLU of Medici ne VACCINE > 6 MONTHS] Future Scheduled 2021-08-30 MEDICARE IPPE [facility] [employer] Test 10:43:51 (WELCOME TO of Medicine MEDICARE) [code = MEDICARE IPPE (WELCOME TO MEDICARE)] Future Scheduled 2021-08-30 FALL SCREEN [code = [employer] 10:43:51 FALL SCREEN] of Medicine Encounters Start End Encounter Admission Attending Care Care Encounter Source Date/Time Date/Time Type Type Clinicians Facility Department ID 2021-11-30 Inpatient WINSTON PAIGE [facility] Surgery [id number] [facility] 13:09:13 2021-09-21 Inpatient WINSTON PAIGE SLE Surgery [id number] [facility] 14:43:34 2021-08-15 Outpatient SUNNY SLE Surgery [id number] SLE 09:12:40 JAMES 2021-12-07 2021-12-[address] [facility] [id number] [facility] 00:00:00 00:00:00 2021-12-01 2021-12-01 Outpatient ARLENE MCCRACKEN [facility] [id number] [place] 00:00:00 00:00:[address] 2021-12-01 2021-12-01 Outpatient ARLENE MCCRACKEN [facility] [id number] [place] 00:00:00 00:00:[address] 2021-11-30 2021-11-30 Office WINSTON CORDOBA 1.2.840.114 [id number] [facility] 10:29:44 13:18:53 Visit AMBULATOR 350.1.13.21 College Y 0.2.7.2.686 of [id number] [facility] rj 810 e 2021-11-26 2021-11-[address] [facility] [id number] [facility] 12:17:29 23:59:00 YU 2021-10-23 2021-10-23 Outpatient EL AMSUSY, SLE Surgery [id number] [facility] 09:48:00 11:05:00 [facility] 2021-10-22 2021-10-22 Outpatient EL AMPHILIPPETNATHALIE, SLE Surgery [id number] [facility] 08:23:00 10:42:00 [facility] 2021-09-21 2021-09-21 Office Winston [place] [facility] 1.2.840.114 [id number] [facility] 13:15:00 16:04:38 Visit AMBULATOR 350.1.13.21 College Y 0.2.7.2.686 of [id number] [facility] rj 810 e 2021-08-24 2021-08-24 Office WINSTON CORDOBA 1.2.840.114 [id number] [facility] 13:30:32 15:32:43 Visit AMBULATOR 350.1.13.21 College Y 0.2.7.2.686 [id number] [facility] 810 e 2021-08-11 2021-08-11 Outpatient ARLENE MCCRACKEN [facility] [id number] [place] 00:00:00 00:00:[address] 2021-04-24 2021-04-24 Outpatient ARLENE MCCRACKEN [facility] [id number] [place] 00:00:00 00:00:[address] 2021-04-10 2021-04-10 Outpatient SEMONES, [facility] [id number] [place] 00:00:00 00:00:00 LYNNETTE [address] 2021-04-09 2021-04-09 Outpatient SEMONES, [facility] [id number] [place] 00:00:00 00:00:00 LYNNETTE [address] 2021-04-02 2021-04-08 Inpatient GADIRAJU, [place] [id number] [place] 00:00:00 00:00:00 SAHITYA [address] 2021-02-20 2021-03-09 Inpatient APPIAH, [facility] [id number] 61 [place] 00:00:00 00:00:00 AMITKUMAR [address] 2021-03-05 2021-03-05 Outpatient Priscilla-Mbayo VFP VFP [id number] [facility] 12:08:00 12:08:00 _A_AH 46968 Family Practic e 2021-02-17 2021-02-17 Outpatient [facility] [id number] [facility] 00:00:00 00:00:00 2019-12-26 2019-12-26 Outpatient Priscilla-Mbayo VFP VFP [id number] [place] 07:18:00 07:18:00 _A_AH 84279 Family Practic e 2019-12-26 2019-12-26 Outpatient Priscilla-Mbayo VFP VFP [id number] [facility] 07:18:00 07:18:00 _A_AH 32800 Family Practic e 2019-12-26 2019-12-26 Outpatient Priscilla-Mbayo VFP VFP [id number] [facility] 07:18:00 07:18:00 _A_AH 81579 Family Practic e 2019-07-05 2019-07-05 [facility] 1.2.840.114 [id number] [facility] 13:04:53 23:59:00 Encounter [place] 350.1.13.10 ity of [place] 4.2.7.2.686 [facility] [id number] [facility] [address] 2019-07-05 2019-07-05 [facility] 1.2.840.114 [id number] 13:04:53 23:59:00 Encounter [place] 350.1.13.10 [place] 4.2.7.2.686 [place] [id number] 2019-07-05 2019-07-05 Pearl Fisherman 1, Adc Lab [facility] 1.2.840.114 [id number] [facility] 12:58:15 13:13:15 Visit Sandi Cornejo 350.1.13 .10 ity of [place] 4.2.7.2.686 [facility] [id number] [facility] [address] 2019-07-05 2019-07-05 Pearl Fisherman 1, Adc Lab [facility] 1.2.840.114 [id number] 12:58:15 13:13:15 Visit Fransico 350.1.13.10 [place] 4.2.7.2.686 [place] [id number] 2019-07-05 2019-07-05 Orders Doctor SUDHIR 1.2.840.114 [id number] [facility] 00:00:00 00:00:00 Only Unassigned, BREN 350.1.13.10 ity of [place] [facility] 4.2.7.2.[id number] [facility] [address] 2019-07-05 2019-07-05 Orders Doctor SUDHIR 1.2.840.114 [id number] 00:00:00 00:00:00 Only Unassigned, BREN 350.1.13.10 [place] [facility] 4.2.7.2.686 [id number] [id number] Results Test Description Test Time Test Comments Results Result [facility] e Comments [place], ESOPHAGUS 2021-11-08 Reason for 0 Exam:->R13.10 15:11:00 (ICD-10-CM) - Dysphagia, [facility] - unspecified [facility]: type,K21.9 JAIR SEARS (ICD-10-CM) - [place] : Gastroesophageal 1955 reflux disease Sex: without esophagitis F *FINAL REPORT EXAM: Esophagram was performed with sodium carbonate and barium. INDICATION: 66-year-old woman with dysphagia and gastroesophageal reflux. COMPARISON: None. FINDINGS:Swallow: Swallowing mechanism is grossly normal. Esophagus is normally distensible and the mucosa is normal in appearance. Esophageal motility is within normal limits. Gastroesophageal junction: Moderate hiatal hernia. No gastroesophageal reflux identified. Visualized portions of the stomach and proximal small bowel are unremarkable. Fluoroscopy time: 1.5 minutesNumber of images: 35 IMPRESSION:Moderate hiatal hernia. No gastroesophageal reflux identified. Signed: Saw Dangelo MDReport Verified Date/Time: 11/26/2021 15:11:36 -CoV-2 (COVID-19) RNA [Presence] in Respiratory sp ecimen by 2021-04-02 20:21:40 LOULOU with probe detection Test Item Value Reference Range Interpretation Comme nts SARS-CoV-2 (COVID-19) RNA [Presence] in Respiratory Not detected No t-Detected specimen by LOULOU with probe detection (test code = 19520-6) Whether patient is employed in a healthcare setting (test code = 18366-7) Whether the patient has symptoms related to condition of interest (test code = 45417-5) Patient was hospitalized because of this condition (test code = 67837-0) Whether the patient was admitted to intensive care unit (ICU) for condition of interest (test code = 42224-8) Whether patient resides in a congregate care setting (test code = 44258-7) SARS-CoV-2 (COVID-19) RNA [Presence] in Respiratory specimen by LOULOU with probe [id number] 17:08:57 Test Item Value Reference Range Interpretation Comments SARS-CoV-2 (COVID-19) RNA Not detected Not-Detected [Presence] in Respiratory specimen by LOULOU with probe detection (test code = 14290-9) Whether patient is employed in a healthcare setting (test code = 56211-4) Whether the patient has symptoms related to condition of interest (test code = 06676-8) Patient was hospitalized because of this condition (test code = 66213-9) Whether the patient was admitted to intensive care unit (ICU) for condition of interest (test code = 26503-7) Whether patient resides in a congregate care setting (test code = 98370-5) TISSUE [id number] 17:19:00Surgical Pathology Report Case: [id number] Authorizing Provider: James Albrecht MD Collected: 02/19/2021 10:01 AM Ordering Location: [facility] Endoscopy Received: 02/19/2021 12:18 PM Services Pathologist: Kemar Beckford MD Specimens: A) - Esophagus, esophagus biopsy at 35cm, rule out Avina's B) -Esophagus, esophagus biopsy at 33cm, rule out Avina's C) - Esophagus, esophaus biopsy at 31cm, rule out Avina's D) - Esophagus, esophagus biopsy at 29cm, rule out Avina's E) - Esophagus, esophagus biopsy at 27cm, rule out Avina's F) - Esophagus, esophaus biopsy at 25cm, rule out Avina's G) - Biopsy, Gastric, random gastric biopsy, rule out H Pylori A. ESOPHAGUS, 35 CM, BIOPSY: - JUNCTIONAL MUCOSA WITH ACUTE EROSIVE ESOPHAGITIS - NEGATIVE FOR INTESTINAL METAPLASIA, DYSPLASIA, MALIGNANCY - GMS STAIN NEGATIVE FOR FUNGAL ELEMENTSB. ESOPHAGUS, 33 CM, BIOPSY: - ACUTE EROSIVE ESOPHAGITIS - NEGATIVE FOR INTESTINAL METAPLASIA, DYSPLASIA, MALIGNANCYC. ESOPHAGUS, 31 CM, BIOPSY: - NO VIABLE EPITHELIUM - INFLAMED GRANULATION TISSUE - NEGATIVE FOR INTESTINAL METAPLASIA, DYSPLASIA, MALIGNANCYD. ESOPHAGUS, 29 CM, BIOPSY: - ACUTE EROSIVE ESOPHAGITIS - NEGATIVE FOR INTESTINAL METAPLASIA, DYSPLASIA, MALIGNANCYE. ESOPHAGUS, 27 CM, BIOPSY: - ACUTE EROSIVE ESOPHAGITIS - NEGATIVE FOR INTESTINAL METAPLASIA, DYSPLASIA, MALIGNANCY - IMMUNOSTAINS FOR CMV, HSV1, HSV2: NEGATIVEF. ESOPHAGUS, 25 CM, BIOPSY: - ACUTE EROSIVE ESOPHAGITIS - NEGATIVE FOR INTESTINAL METAPLASIA, DYSPLASIA, MALIGNANCYG. STOMACH, RANDOM BIOPSIES: - ANTRAL MUCOSA WITH REACTIVE GASTROPATHY AND MILD CHRONIC INACTIVE GASTRITIS - OXYNTIC MUCOSA WITH NO SIGNIFICANT DIAGNOSTIC ABNORMALITY - NEGATIVE FOR HELICOBACTER PYLORI ORGANISMS BY WARTHIN STARRY STAIN - NEGATIVE FOR INTESTINAL METAPLASIA, DYSPLASIA, MALIGNANCY Signing Pathologist Direct Phone Line: [phone] signed by Kemar Beckford MD on 02/25/2021 at 5:19 PME. Immunostain for Ki-67 and p53 are within normal limits.[id number] obstruction A. EsophagusB. EsophagusC. EsophagusD. EsophagusE. EsophagusF. EsophagusG. GastricA. Received in formalin labeled the patient's name, accession number and "esophagus at 35 cm" are 3 browne-pink tissue fragments measuring up to 0.2 cm in greatest dimension which are filtered and submitted in toto in A1.B. Received in formalin labeled the patient's name, accession number and "esophagus at 33 cm" are multiple browne-pink tissue fragments measuring up to 0.2 cm in greatest dimension which are filtered and submitted in toto in B1.C. Received in formalin labeled the patient's name, accession number and "esophagus at 31 cm" are 2 browne-pink tissue fragments measuring up to 0.3 cm in greatest dimension which are filtered and submitted in toto in C1.D. Received in formalin labeled the patient's name, accession number and "esophagus at 29 cm" are 2 browne-pink tissue fragments measuring up to 0.3 cm in greatest dimension which are filtered and submitted in toto in D1.E. Received in formalin labeled the patient's name, accession number and "esophagus at 27 cm" are 2tan-pink tissue fragments measuring up to 0.2 cm in greatest dimension which are filtered and submitted in toto in E1.F. Received in formalin labeled the patient's name, accession number and "esophagus at 25 cm" are 3 browne-pink tissue fragments measuring up to 0.3 cm in greatest dimension which are filtered and submitted in toto in F1.G. Received in formalin labeled the patient's name, accession number and "gastric biopsy" are 2 browne-pink tissue fragments measuring up to 0.3 cm in greatest dimensionwhich are filtered and submitted in toto in G1.PASQUALE Mejia, HT (ASCP)Performed.The interpretation of this case included the use of immunohistochemistry or special stains.Control Slides Examined: In-house known positive controls were evaluated along with the test tissue. These control slides run alongside of the patients sample show appropriate staining. Internal positive and negative controls when available are evaluated Immunohistochemistry technical testing was performed at [facility], Pathology Laboratory where it was developed and its performance characteristics were determined. It has not been cleared or approved by the U.S. Food and Drug Administration. The FDA has determined that such clearance or approval is not necessary. The test is used for clinical purposes. It should not be regarded as investigational or for research. This laboratory is certified under the Clinical Laboratory Improvement Amendments of 1988 (CLIA-88) as qualified to perform high complexity clinical laboratory testing.SARS-CoV-2 (COVID-19) RNA [Presence] in Respiratory specimen by LOULOU with probe [id number] 04:01:08 Test Item Value Reference Range Interpretation Comments SARS-CoV-2 (COVID-19) RNA Not detected Not-Detected [Presence] in Respiratory specimen by LOULOU with probe detection (test code = 63959-8) [id number] 09:55:00 Test Item Value Reference Range Interpretation Comments POC-POTASSIUM 3.9 meq/L 3.6-5.5 : TESTED AT [facility] 6720 (BEAKER) (test code [facility], = 1540) [address]9314: Chief Clerk Shelter/Techni lakeisha ID = [id number] for IGGY STEWART (LEE Hough SARS-COV2/RT-PCR ([facility])2021-02-18 00:05:00 Test Item Value Reference Range Interpretation Comments SARS-COV2/RT-PCR (test Negative Not Detected, Negative, code = 5437701) See external report for linked test SARS-COV-2 PERFORMING LAB [facility] (test code = 9182875) Negative result for this test determines that SARS-CoV-2 RNA was not present in the specimen above the Limit of Detection (LOD). However, Negative results do not preclude SARS-CoV-2 infection and should not be used as the sole basis for treatment or patient management decisions. Negative results mustbe combined with clinical observations, patient history, and epidemiological information. A false negative result may occur if a specimen is improperly collected, transported or handled. A false negative result should be considered if patient's recent exposures or clinical presentation indicate that COVID-19 (SARS-CoV-2) is likely and diagnostic tests for other causes of illness are negative. Re-testing should be considered in cases of suspected false negatives.The limit of detection for this assay is 100 copies/mL.This SARS CoV-2 test is a real-time RT-PCR test intended for the qualitative detection of nucleic acid from SARS-CoV-2 in a nasopharyngeal swab specimen collected from individuals suspected of COVID-19 by their healthcare provider.This test has not been Food and Drug Administration (FDA) cleared or approved. This is a modified version of an approved Emergency Use Authorization (EUA) and is in the process of review by the FDA. Once authorized by the FDA, the issued EUA will be effective until the declaration that circumstances exist justifying the authorization of the emergency use of in vitro diagnostic tests for detection and/or diagnosis of COVID-19 is terminated under Section 564(b)(2) of the Act or the EUA is revoked under Section 564(g) of the Act.Testing was performed using the [employer] SARS-CoV-2 assay.Fact Sheet for Healthcare Providers:https://www.molecular.aiken/dmitry/ CL_NVWM-FnQ-5_BTW_Vuph_Jfiae_52-038449.pdfFact Sheet for Healthcare Patients:https://www.molecular.ab joradn/dmitry/UW_OWQO-WhF-3_Yhjqthe_Zxep_Mhisu_ZA_78-702645Q0.pdfPerforming Laboratory:[facility], [place] [address]HK CHEST 2 [id number] 18:42:23HISTORY: Pneumonia both lungs due to infectious organism. TECHNIQUE: PA and lateral views of the chest are obtained. Comparison ismade with CT scan of the chest dated 02/06/2017. FINDINGS: No acute pneumonia detected. No pneumothorax or pulmonarycongestion. Cardiothoracic ratio of approximately 16/30.2 cm is consistentwith mild cardiomegaly with minimal left pleural effusion. Hiatal hernianoted. CONCLUSIONS: Mild cardiomegaly with minimal left pleural effusion. Nopneumonia. [facility], Radiant Results Inft User - 07/05/2019 1:44 PM CDTHISTORY: Pneumonia both lungs due to infectious organism.TECHNIQUE: PA and lateral views of the chest are obtained. Comparison ismade with CT scan of the chest dated 02/06/2017.FINDINGS: No acute pneumonia detected. No pneumothorax or pulmonarycongestion. Cardiothoracic ratio of approximately 16/30.2 cm is consistentwith mild cardiomegaly with minimal left pleural effusion.Hiatal hernianoted.CONCLUSIONS: Mild cardiomegaly with minimal left pleural effusion. Nopneumonia.[facility]
[2021-12-05] MEDS ORDERED: HYDROCODONE/APAP 10/325 TAB ONE (16:32)
[2021-12-05] MEDS ORDERED: LORAZEPAM 1 MG TABLET ONE (16:34)
--- NOTE | 2021-12-05 17:11 | RAD REPORT ---
EXAM DESCRIPTION: CT - Thorax Wo Con - 12/05/2021 4:36 pm CLINICAL HISTORY: Chest pain status post fall COMPARISON: December 2020 TECHNIQUE: Computed axial tomography of the chest was obtained. Contrast was not requested. All CT scans are performed using dose optimization technique as appropriate and may include automated exposure control or mA/KV adjustment according to patient size. FINDINGS: The evaluation of mediastinum, shane and vessels is limited secondary to lack of IV contras t administration. A mediastinal hematoma is not seen. A pulmonary contusion is not noted A pleural effusion is not present. A pericardial effusion is not seen 4 millimeter calculus left kidney. Moderate hiatal hernia. IMPRESSION: No acute traumatic injury involving the chest seen
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
--- NOTE | 2021-12-05 17:27 | RAD REPORT ---
EXAM DESCRIPTION: CT - Head C Spine Mpr Wo Con - 12/05/2021 4:34 pm CLINICAL HISTORY: Head and neck injury status post fall. Head and neck pain COMPARISON: None. TECHNIQUE: Computed axial tomography of the head and cervical spine was obtained. Sagittal and coronal reconstruction was performed. All CT scans are performed using dose optimization technique as appropriate and may include automated exposure control or mA/KV adjustment according to patient size. FINDINGS: An intracranial bleed is not seen. The ventricles are normal in caliber. An extra-axial fl uid collection is not noted.Fluid within the visualized sinuses and mastoids is not seen A cervical fracture is not visualized. Mild posterior subluxation C3 on C4. Minimal anterior subluxat ion C4 on C5. Mild posterior subluxation C5 on C6. . Prevertebral soft tissue swelling is not seen. IMPRESSION: No acute intracranial abnormality is seen. A cervical fracture is not visualized. Mild posterior subluxation C3 on C4. Minimal anterior subluxation C4 on C5. Mild posterior subluxatio n C5 on C6. Presumably these are chronic findings. However, if the patient has clinical symptoms to s uggest a ligamentous injury or spinal canal pathology MRI would be recommended.
--- NOTE | 2021-12-05 17:30 | RAD REPORT ---
EXAM DESCRIPTION: RAD - Elbow Left 3 View - 12/05/2021 5:00 pm CLINICAL HISTORY: Left elbow pain status post trauma FINDINGS: No fracture or dislocation is seen.
--- NOTE | 2021-12-05 18:04 | RAD REPORT ---
EXAM DESCRIPTION: RAD - Knee Left 3 View - 12/05/2021 5:00 pm CLINICAL HISTORY: Left knee pain status post injury FINDINGS: Cortical regularity involves lateral tibial plateau. Given that there is not a significant joint effusion this probably is not significant. 11 millimeter calcific/ bony density within the anterior lower left knee likely loose body. The bones are osteoporotic. No dislocation. If the patient continues to have symptoms to suggest an occult fracture then MRI would be recommended .
[2021-12-05 18:32] LABS: Absolute Lymphocytes (CBC) 1.1 K/uL (0.7-4.9); Hematocrit 42.7 % (36.0-45.0); Lymphocytes % 13.1 % (15.3-44.8); MPV 10.1 fL (7.6-11.3); RBC Red Blood Cell Count 4.67 M/uL (3.86-4.86)
[2021-12-05 18:33] LABS: Protime INR 0.94
[2021-12-05 19:02] LABS: ALT/SGPT 51 U/L (12-78); AST/SGOT 37 U/L (15-37); Albumin 3.2 g/dL (3.4-5.0); Alkaline Phosphatase 85 U/L (45-117); BUN Blood Urea Nitrogen 35 mg/dL (7-18); Bicarbonate 23 mmol/L (21-32); Bilirubin Direct < 0.1 mg/dL (0-0.2); Bilirubin Total 0.3 mg/dL (0.2-1.0); Glucose Level 99 mg/dL (74-106); Magnesium 2.3 mg/dL (1.8-2.4); NT PRO-BNP 1085 pg/mL (<125); Potassium 4.3 mmol/L (3.5-5.1); Protein, Total 6.8 g/dL (6.4-8.2); Sodium Level 141 mmol/L (136-145)
[2021-12-05] MEDS ORDERED: ONDANSETRON 4 MG/2 ML VIAL ONE (19:22)
[2021-12-05] MEDS ORDERED: MORPHINE 4 MG/ML SYR ONE (19:22)
--- NOTE | 2021-12-05 20:01 | ER ---
Nurse's Notes [facility] Name: Mandy Swain Age: 66 yrs Sex: Female : 1955 Arrival Date: 12/05/2021 Time: 15:43 Bed 5 Private MD: Diagnosis: Fracture of Orbit;Chest Contusion;Elbow Contusion;Knee Sprain Presentation: 12/05 15:43 Chief complaint: EMS states: pt was trying to walk over a dog gate, lost balanced and vg1 tripped onto Left side of face; pt appears to have a bruise to left side of cheek and left eye. Pt c/o pain to left side of ribs and Left elbow and left knee. Pt states pain upon taking deep breaths. Coronavirus screen: Vaccine status: Patient reports receiving the 2nd dose of the covid vaccine. Client denies travel out of the [place] in the last 14 days. Ebola Screen: Patient negative for fever greater than or equal to 101.5 degrees Fahrenheit, and additional compatible Ebola Virus Disease symptoms. Initial Sepsis Screen: Does the patient meet any 2 criteria? HR > 90 bpm. Does the patient have a suspected source of infection?. Risk Assessment: Do you want to hurt yourself or someone else? Patient reports no desire to harm self or others. Onset of symptoms was December 05, 2021. Care prior to arrival: Medication(s) given: fentanyl 100 mcg IVP x1 and 600 mL of NS. 15:43 Method Of Arrival: EMS: [facility] vg1 15:43 Acuity: CRISTEL 3 vg1 17:02 Mechanism of Injury: Fall from standing position. Trauma event details: Injury occurred ph in the [facility], Injury occurred: at home. Injury occurred: December 05, 2021. 17:02 Care prior to arrival: IV initiated. 18 GA, in the left wrist. Triage Assessment: 15:49 General: Appears uncomfortable, Behavior is calm, cooperative. Pain: Complains of pain vg1 in head, Left elbow, and Left knee, Left side of face, and Left side of ribs. 15:49 Respiratory: Reports pain with respiration Airway is patent Respiratory effort is even, vg1 unlabored. Trauma Activation: Not Applicable Physician: ED Physician; Name: ; Notified At: ; Arrived At: Physician: General Surgeon; Name: ; Notified At: ; Arrived At: Physician: Radiology; Name: ; Notified At: ; Arrived At: Physician: Respiratory; Name: ; Notified At: ; Arrived At: Physician: Lab; Name: ; Notified At: ; Arrived At: Historical: - Allergies: 15:49 No Known Allergies; vg1 - PMHx: 15:49 Anxiety; CHF; Depression; esophagus problem; Hypertension; vg1 - Immunization history:: Client reports receiving the 2nd dose of the Covid vaccine. - Social history:: Smoking status: Patient denies any tobacco usage or history of. - Immunization history: Last tetanus immunization: unknown. Screenin:01 Abuse screen: Denies threats or abuse. Denies injuries from another. Nutritional ph screening: No deficits noted. Tuberculosis screening: No symptoms or risk factors identified. Fall Risk Fall in past 12 months (25 points). No secondary diagnosis (0 pts). IV access (20 points). Ambulatory Aid- None/Bed Rest/Nurse Assist (0 pts). Gait- Normal/Bed Rest/Wheelchair (0 pts) Mental Status- Oriented to own ability (0 pts). Total Quintana Fall Scale indicates High Risk Score (45 or more points). Fall prevention measures have been instituted. Side Rails Up X 2 Frequent Obs/Assessments Occuring As available patient and family educated on Fall Prevention Program and Strategies. Primary Survey: 17:00 NO uncontrolled hemorrhage observed. A: The patient is alert. No supplemental oxygen in ph use on arrival. Breathing/Chest: Respiratory pattern: regular, Respiratory effort: spontaneous, unlabored. Circulation: Skin color: pink, Skin temperature: warm, dry. Disability Alert. Exposure/Environment: There is no evidence of uncontrolled external bleeding. Obvious injury(ies) are noted at this time: abrasion/bruising to L eye. 18:18 Reassessment Airway Airway Patent Breathing/Chest Respiratory pattern Regular ph Respiratory effort Spontaneous Unlabored Chest inspection Symmetrical Circulation Color [place] Temperature Warm Dry Disability Alert. Secondary Survey: 17:00 Gastrointestinal: No deficits noted. Musculoskeletal: No deficits noted. ph Assessment: 16:58 General: Appears in no apparent distress. uncomfortable, Behavior is cooperative, ph appropriate for age, anxious. Pain: Complains of pain in L side of face, L chest, L leg. Neuro: Level of Consciousness is awake, alert, obeys commands, Oriented to person, place, time, situation. Cardiovascular: Capillary refill < 3 seconds in bilateral fingers Patient's skin is warm and dry. Respiratory: Reports pain with movement pain with respiration Airway is patent Respiratory effort is even, unlabored, Respiratory pattern is regular, symmetrical. GI: No signs and/or symptoms were reported involving the gastrointestinal system. Derm: Skin is healthy with good turgor, Skin is pink, warm \T\ dry. Musculoskeletal: Circulation, motion, and sensation intact. Range of motion: intact in all extremities. Injury Description: Abrasion sustained to left eye. 18:19 Reassessment: Patient appears in no apparent distress at this time. Patient and/or ph family updated on plan of care and expected duration. Pain level reassessed. Patient is alert, oriented x 3, equal unlabored respirations, skin warm/dry/pink. Pt continues to c/o pain to L rib area, blood work sent to lab and EKG done, awaiting lab results. 19:25 General: Appears uncomfortable. Pain: Complains of pain in chest. Respiratory: as6 Respiratory effort is even, unlabored. Vital Signs: 15:43 BP 152 / 75; Pulse 110; Resp 15; Temp 98.7; Pulse Ox 96% ; Weight 64.41 kg; Height 5 vg1 ft. 2 in. (157.48 cm); Pain 8/10; 17:01 BP 151 / 82; Pulse 77; Resp 18; Pulse Ox 99% on R/A; ph 18:20 BP 159 / 99; Pulse 78; Resp 18; Pulse Ox 98% on R/A; ph 19:25 BP 152 / 92; Pulse 76; Resp 15 S; Pulse Ox 96% on R/A; Pain 10/10; as6 15:43 Body Mass Index 25.97 (64.41 kg, 157.48 cm) vg1 Kyle Coma Score: 17:01 Eye Response: spontaneous(4). Verbal Response: oriented(5). Motor Response: obeys ph commands(6). Total: 15. 18:20 Eye Response: spontaneous(4). Verbal Response: oriented(5). Motor Response: obeys ph commands(6). Total: 15. Trauma Score (Adult): 17:01 Eye Response: spontaneous(1); Verbal Response: oriented(1); Motor Response: obeys ph commands(2); Systolic BP: > 89 mm Hg(4); Respiratory Rate: 10 to 29 per min(4); Kyle Score: 15; Trauma Score: 12 18:20 Eye Response: spontaneous(1); Verbal Response: oriented(1); Motor Response: obeys ph commands(2); Systolic BP: > 89 mm Hg(4); Respiratory Rate: 10 to 29 per min(4); Kyle Score: 15; Trauma Score: 12 ED Course: 15:43 Patient arrived in ED. vg1 15:49 Triage completed. vg1 15:49 Arm band placed on. vg1 15:52 Maintain EMS IV. Dressing intact. Good blood return noted. Site clean \T\ dry. Gauge \T\ vg 1 site: 18 g Left Wrist. 16:06 Patient placed in an exam room, on a stretcher. ll1 16:07 Humza Doll PA is PHCP. jmm 16:07 Damon Ro MD is Attending Physician. jmm 16:27 Erma Saenz, RN is Primary Nurse. ph 16:34 CT Head C Spine In Process Unspecified. EDMS 16:35 CT Facial Bones W/O Con In Process Unspecified. EDMS 16:36 CT Chest Wo Con In Process Unspecified. EDMS 17:00 Elbow Left 3 View XRAY In Process Unspecified. EDMS 17:00 Knee Left 3 View XRAY In Process Unspecified. EDMS 17:02 Patient has correct armband on for positive identification. Bed in low position. Call ph light in reach. Side rails up X 1. Pulse ox on. NIBP on. Door closed. Noise minimized. Warm blanket given. 17:02 Patient maintains SpO2 saturation greater than 95% on room air. Thermoregulation: warm ph blanket given to patient. 18:21 No provider procedures requiring assistance completed. ph 19:59 Celestina Mclaughlin MD is Referral Physician. jmm 20:50 IV discontinued, intact, bleeding controlled, No redness/swelling at site. Pressure as6 dressing applied. Administered Medications: 16:58 Drug: [place] (HYDROcodone-acetaminophen) 10 mg-325 mg 1 tabs Route: PO; ph 18:18 Follow up: Response: No adverse reaction ph 16:58 Drug: Ativan (LORazepam) 1 mg Route: PO; ph 18:18 Follow up: Response: No adverse reaction ph 19:24 Drug: Zofran (Ondansetron) 4 mg Route: IVP; Site: left wrist; as6 20:53 Follow up: Response: No adverse reaction as6 19:25 Drug: morphine 4 mg Route: IVP; Site: left wrist; as6 20:52 Follow up: Response: No adverse reaction; RASS: Alert and Calm (0) as6 Intake: 17:01 PO: 0ml; Total: 0ml. ph Output: 17:01 Urine: 0ml; Total: 0ml. ph Outcome: 20:00 Discharge ordered by . chase 20:50 Discharged to home via wheelchair, with family. as6 20:50 Condition: stable 20:50 Discharge instructions given to patient, Instructed on discharge instructions, follow up and referral plans. medication usage, Demonstrated understanding of instructions, follow-up care, medications, Prescriptions given X 2. 20:50 Patient's length of stay in the Emergency Department was greater than 2 hours. pending as6 DCPatient's length of stay extended due to 20:50 Patient left the ED. as6 Signatures: Dispatcher [employer] EDMS Humza Doll PA PA jmm Hall, Patricia RN RN Monet Perkins RN RN vg1 Kurtis Santiago RN RN ll1 Asad Hayes RN RN as6 Corrections: (The following items were deleted from the chart) 15:52 15:49 Respiratory: Airway is patent Respiratory effort is even, unlabored, vg1 vg1
--- NOTE | 2021-12-05 20:02 | EDPHYS ---
Physician Documentation [facility] Name: Mandy Swain Age: 66 yrs Sex: Female : 1955 Arrival Date: 12/05/2021 Time: 15:43 Bed 5 Private MD: ED Physician Damon Ro HPI: 12/05 16:28 This 66 yrs old Female presents to ER via EMS with complaints of Fall Injury. [facility] 16:28 Details of fall: The patient fell from an upright position. Onset: The symptoms/episode jmm began/occurred acutely, just prior to arrival. Associated injuries: The patient sustained injury to the head, injury to the chest. Patient states she tripped on a dog gate hitting her face. Also complains of pain to her chest. Left elbow, left anterior knee. Historical: - Allergies: 15:49 No Known Allergies; vg1 - PMHx: 15:49 Anxiety; CHF; Depression; esophagus problem; Hypertension; vg1 - Immunization history:: Client reports receiving the 2nd dose of the Covid vaccine. - Social history:: Smoking status: Patient denies any tobacco usage or history of. - Immunization history: Last tetanus immunization: unknown. ROS: 16:28 Constitutional: Negative for fever, chills, and weight loss, Cardiovascular: Negative [facility] for chest pain, palpitations, and edema, Respiratory: Negative for shortness of breath, cough, wheezing, and pleuritic chest pain. 16:28 MS/extremity: Positive for injury or acute deformity, pain. 16:28 All other systems are negative. Exam: 16:28 Eyes: EOMI, no conjunctival erythema appreciated ENT: Moist Mucus Membranes Neck: jmm Trachea midline, Supple Chest/axilla: Normal chest wall appearance and motion. Cardiovascular: Regular rate and rhythm. No edema appreciated Respiratory: Normal respirations, no respiratory distress appreciated Abdomen/GI: Non distended, soft Back: Normal ROM 16:28 Constitutional: The patient appears alert, awake, anxious, uncomfortable. 16:28 Head/face: ecchymosis noted to the left side of the face. 16:28 Chest/axilla: Palpation: tenderness, that is moderate, of the anterior aspect of right upper chest and right lateral posterior chest. 16:28 Musculoskeletal/extremity: FROM appreciated to the left knee and elbow, mildly ttp, compartments are soft, NVI. 16:28 Skin: abrasion noted to the left anterior knee, ecchymosis noted to the left side of the face. 16:28 Neuro: Orientation: is normal, Mentation: is normal, Memory: is normal. 16:28 Psych: Behavior/mood is pleasant, cooperative. Vital Signs: 15:43 BP 152 / 75; Pulse 110; Resp 15; Temp 98.7; Pulse Ox 96% ; Weight 64.41 kg; Height 5 vg1 ft. 2 in. (157.48 cm); Pain 8/10; 17:01 BP 151 / 82; Pulse 77; Resp 18; Pulse Ox 99% on R/A; ph 18:20 BP 159 / 99; Pulse 78; Resp 18; Pulse Ox 98% on R/A; ph 19:25 BP 152 / 92; Pulse 76; Resp 15 S; Pulse Ox 96% on R/A; Pain 10/10; as6 15:43 Body Mass Index 25.97 (64.41 kg, 157.48 cm) vg1 Geovani Coma Score: 17:01 Eye Response: spontaneous(4). Verbal Response: oriented(5). Motor Response: obeys ph commands(6). Total: 15. 18:20 Eye Response: spontaneous(4). Verbal Response: oriented(5). Motor Response: obeys ph commands(6). Total: 15. Trauma Score (Adult): 17:01 Eye Response: spontaneous(1); Verbal Response: oriented(1); Motor Response: obeys ph commands(2); Systolic BP: > 89 mm Hg(4); Respiratory Rate: 10 to 29 per min(4); Geovani Score: 15; Trauma Score: 12 18:20 Eye Response: spontaneous(1); Verbal Response: oriented(1); Motor Response: obeys ph commands(2); Systolic BP: > 89 mm Hg(4); Respiratory Rate: 10 to 29 per min(4); Geovani Score: 15; Trauma Score: 12 MDM: 16:07 Patient medically screened. jono 17:42 Data reviewed: vital signs, nurses notes. Counseling: I had a detailed discussion with chase the patient and/or guardian regarding: the historical points, exam findings, and any diagnostic results supporting the discharge/admit diagnosis, radiology results, the need for outpatient follow up, to return to the emergency department if symptoms worsen or persist or if there are any questions or concerns that arise at home. ED course: CT facial reveals fracture of the orbit. I do not suspect ocular injury, EOMI. . 19:56 ED course: Upon initial discharge patient was concerned her chest pain may be cardiac. [facility] EKG and labs unremarkable. Patient' pain is now relieved. Patient advised to follow up with ENT and otherwise given strict return precautions. Patient understood and agrees with the plan of care. . 12/05 17:44 Order name: Basic Metabolic Panel [facility] 12/05 17:44 Order name: CBC with Diff [facility] 12/05 17:44 Order name: LFT's [facility] 12/05 17:44 Order name: Magnesium [facility] 12/05 17:44 Order name: NT PRO-BNP; Complete Time: 19:05 [facility] 12/05 17:44 Order name: PT-INR; Complete Time: 18:43 [facility] 12/05 16:10 Order name: CT Head C Spine; Complete Time: 17:30 [facility] 12/05 16:10 Order name: CT Facial Bones W/O Con; Complete Time: 17:19 [facility] 12/05 16:10 Order name: CT Chest Wo Con; Complete Time: 17:19 [facility] 12/05 17:44 Order name: Troponin HS; Complete Time: 19:05 [facility] 12/05 17:45 Order name: Basic Metabolic Panel; Complete Time: 19:05 [facility] 12/05 17:45 Order name: CBC with Automated Diff; Complete Time: 18:43 [facility] 12/05 17:45 Order name: Liver (Hepatic) Function; Complete Time: 19:05 [facility] 12/05 17:45 Order name: Magnesium; Complete Time: 19:05 [facility] 12/05 16:15 Order name: Elbow Left 3 View XRAY; Complete Time: 17:30 [facility] 12/05 16:15 Order name: Knee Left 3 View XRAY; Complete Time: 18:06 [facility] 12/05 17:44 Order name: EKG; Complete Time: 17:45 [facility] 12/05 17:44 Order name: Cardiac monitoring; Complete Time: 18:18 [facility] 12/05 17:44 Order name: EKG - Nurse/Tech; Complete Time: 18:18 [facility] 12/05 17:44 Order name: IV Saline Lock; Complete Time: 18:18 [facility] 12/05 17:44 Order name: Labs collected and sent; Complete Time: 18:18 [facility] 12/05 17:44 Order name: O2 Per Protocol; Complete Time: 18:18 [facility] 12/05 17:44 Order name: O2 Sat Monitoring; Complete Time: 18:18 [facility] Administered Medications: 16:58 Drug: Anselmo (HYDROcodone-acetaminophen) 10 mg-325 mg 1 tabs Route: PO; ph 18:18 Follow up: Response: No adverse reaction ph 16:58 Drug: Ativan (LORazepam) 1 mg Route: PO; ph 18:18 Follow up: Response: No adverse reaction ph 19:24 Drug: Zofran (Ondansetron) 4 mg Route: IVP; Site: left wrist; as6 20:53 Follow up: Response: No adverse reaction as6 19:25 Drug: morphine 4 mg Route: IVP; Site: left wrist; as6 20:52 Follow up: Response: No adverse reaction; RASS: Alert and Calm (0) as6 Disposition: 12/06 13:24 Co-signature as Attending Physician, Damon oR MD I agree with the assessment and jono plan of care. Disposition Summary: 12/05/21 20:00 Discharge Ordered Location: Home [facility] Condition: Stable [facility] Diagnosis - Fracture of Orbit jm - Chest Contusion [facility] - Elbow Contusion [facility] - Knee Sprain [facility] Followup: [facility] - With: Celestina Mclaughlin MD - When: 1 - 2 days - Reason: Recheck today's complaints, Continuance of care, Re-evaluation by your physician Discharge Instructions: - Discharge Summary Sheet [facility] Forms: - Medication Reconciliation Form [facility] - Thank You Letter [facility] - Antibiotic Education [facility] - Prescription Opioid Use [facility] Prescriptions: - Clindamycin HCl 300 mg Oral Capsule - take 1 capsule by ORAL route every 6 hours for 10 days; 40 capsule; Refills: 0, [facility] Product Selection Permitted - orphenadrine citrate 100 mg Oral Tablet Sustained Release - take 1 tablet by ORAL route 2 times per day As needed; 20 tablet; Refills: 0, [facility] Product Selection Permitted Signatures: Dispatcher [employer] Damon Matthew MD MD cha Mickail, Joel, PA PA Erma Roman RN RN Monet Perkins, RN RN vg1 Asad Hayes, RN RN as6
[2021-12-05 21:26] VITALS: BP 152/92; O2SAT 96
== END 2021-12-05 20:50 | disposition home or self-care (01) ==
LOC: ER 15:33
DX: S02.85XA Fracture of orbit, unspecified, initial encounter for closed fracture (principal); S83.92XA Sprain of unspecified site of left knee, initial encounter; S20.212A Contusion of left front wall of thorax, initial encounter; S50.02XA Contusion of left elbow, initial encounter; W18.09XA Striking against other object with subsequent fall, initial encounter; I10 Essential (primary) hypertension
CPT/HCPCS: 85025; 80048; 36415; 83735; 85610; 80076; 84484; 83880; 70450; 71250; 72125; 70486; 76377; 73080; 73562; 96375; 96374; 99284; J2405

== ENCOUNTER 2022-05-17 16:28 | Observation (INO) | payer OTHER ==
[2022-05-17 17:09] LABS: Absolute Lymphocytes (CBC) 1.4 K/uL (0.7-4.9); Hematocrit 46.3 % (36.0-45.0); Lymphocytes % 17.8 % (15.3-44.8); MCV 88.2 fL (80-100); MPV 9.8 fL (7.6-11.3); RBC Red Blood Cell Count 5.25 M/uL (3.86-4.86)
[2022-05-17 17:14] LABS: Protime INR 1.01
[2022-05-17] MEDS ORDERED: ONDANSETRON 4 MG/2 ML VIAL ONE (17:25)
[2022-05-17] MEDS ORDERED: MORPHINE 4 MG/ML SYR ONE (17:25)
[2022-05-17 17:27] LABS: Bilirubin Direct 0.1 mg/dL (0-0.2); Bilirubin Total 0.4 mg/dL (0.2-1.0); Potassium 4.2 mmol/L (3.5-5.1)
[2022-05-17 17:28] LABS: Albumin 3.8 g/dL (3.4-5.0); Magnesium 2.1 mg/dL (1.8-2.4); Protein, Total 7.6 g/dL (6.4-8.2); Troponin High Sensitivity 19.6 pg/mL (<58.9)
--- NOTE | 2022-05-17 17:31 | RAD REPORT ---
EXAM DESCRIPTION: RAD - Chest Single View - 05/17/2022 5:10 pm CLINICAL HISTORY: CHEST PAIN COMPARISON: Portable 12/25/2020, portable 11/28/2020 TECHNIQUE: AP portable chest image was obtained 05/17/2022 5:10 pm . FINDINGS: Left subclavian internal pacer/defibrillator has been placed since prior imaging. No perip heral mass or consolidation. No significant failure or volume overload findings seen. Interstitial pa ttern is similar or less prominent than prior imaging. Heart and vasculature are normal. No measurable pleural effusion and no pneumothorax. No acute bony abnormality seen. No acute aortic findings suspected. IMPRESSION: No acute cardiopulmonary process.
--- NOTE | 2022-05-17 19:56 | RAD REPORT ---
EXAM DESCRIPTION: CT - Head Brain Wo Cont - 05/17/2022 7:42 pm CLINICAL HISTORY: dizziness COMPARISON: Head C Spine Mpr Wo Con dated 12/05/2021 TECHNIQUE: Axial 5 mm thick images of the head were obtained without IV contrast. All CT scans are performed using dose optimization technique as appropriate and may include automated exposure control or mA/KV adjustment according to patient size. FINDINGS: No intracranial hemorrhage, mass, edema or shift of mid-line structures. No acute infarcti on changes seen. No abnormal extra-axial fluid collections. Ventricles are normal. Mastoid air cells and visualized portions of the paranasal sinuses are clear. No acute bony findings. No significant changes from December 05 imaging. IMPRESSION: Negative non-contrast CT head examination for acute or significant finding.
[2022-05-17] MEDS ORDERED: LORazepam 2 MG/ML VIAL ONE (20:51)
--- NOTE | 2022-05-17 20:51 | EDPHYS ---
Physician Documentation [facility] Name: Mandy Swain Age: 66 yrs Sex: Female : 1955 Arrival Date: 05/17/2022 Time: 16:32 Bed 26 Private MD: ED Physician Gwyn Valdes HPI: 05/17 16:51 This 66 yrs old Unknown Female presents to ER via EMS with complaints of Breathing jmm Difficulty, Chest Pain. 16:51 The patient has shortness of breath at rest. Onset: The symptoms/episode began/occurred jmm gradually, 3 day(s) ago. This is a 66 year old female with a history of anxiety, chf, atrial fibrillation, htn that presents to the ED with complaints of chest pain which has been intermittent beginning approx 3 days ago. Patient also complains of intermittent episodes of dizziness. Patient denies history of CAD. . Historical: - Allergies: 16:35 No Known Allergies; ss - PMHx: 16:35 Anxiety; CHF; Depression; esophagus problem; Hypertension; ss - Immunization history:: Client reports receiving the 2nd dose of the Covid vaccine. - Social history:: Smoking status: Patient denies any tobacco usage or history of. ROS: 16:51 Cardiovascular: Positive for chest pain. jmm 16:51 Respiratory: Positive for shortness of breath. 16:51 Neuro: Positive for dizziness. 16:51 All other systems are negative. Exam: 18:49 Constitutional: This is a well developed, well nourished patient who is awake, alert, jmm and in no acute distress. Head/Face: atraumatic. Eyes: EOMI, no conjunctival erythema appreciated ENT: Moist Mucus Membranes Neck: Trachea midline, Supple Chest/axilla: Normal chest wall appearance and motion. Cardiovascular: Regular rate and rhythm. No edema appreciated Respiratory: Normal respirations, no respiratory distress appreciated Abdomen/GI: Non distended Back: Normal ROM Skin: General appearance color normal 18:49 Musculoskeletal/extremity: ROM: intact in all extremities. 18:49 Neuro: Orientation: is normal, Mentation: is normal, Memory: is normal, Cerebellar function: normal finger to nose testing. 18:49 Psych: Behavior/mood is pleasant, cooperative, anxious. Vital Signs: 16:33 Resp 16; Weight 68.04 kg; Height 5 ft. 4 in. (162.56 cm); Pain 9/10; ss 16:51 BP 171 / 93; Pulse 87; Resp 18; Temp 98.5; Pulse Ox 98% on R/A; Weight 72.57 kg; Height ph 5 ft. 4 in. (162.56 cm); 18:23 BP 150 / 103; Pulse 73; Resp 18; Pulse Ox 98% on R/A; ph 16:51 Body Mass Index 27.46 (72.57 kg, 162.56 cm) ph MDM: 17:56 Patient medically screened. [facility] 20:49 Data reviewed: vital signs, nurses notes. Counseling: I had a detailed discussion with chase the patient and/or guardian regarding: the historical points, exam findings, and any diagnostic results supporting the discharge/admit diagnosis, lab results, radiology results, the need for further work-up and treatment in the hospital. ED course: I discussed the patient with Ninfa Ssoa whom accepted the patient to Dr. Francis's service. . 05/17 16:51 Order name: Basic Metabolic Panel; Complete Time: 17:49 05/17 16:51 Order name: CBC with Diff; Complete Time: 17:49 05/17 16:51 Order name: LFT's; Complete Time: 17:49 05/17 16:51 Order name: Magnesium; Complete Time: 17:49 05/17 16:51 Order name: NT PRO-BNP; Complete Time: 17:49 05/17 16:51 Order name: PT-INR; Complete Time: 17:49 05/17 16:51 Order name: Troponin HS; Complete Time: 17:49 05/17 18:10 Order name: SARS-COV-2 RT PCR (Document "Date of Onset" if Symptomatic); Complete Time: [facility] 22:36 05/17 23:10 Order name: Urinalysis [facility] 05/17 23:10 Order name: Lipid Profile [facility] 05/17 23:10 Order name: Lipid Profile [facility] 05/17 23:10 Order name: Thyroid Stimulating Hormone [facility] 05/17 23:10 Order name: Thyroid Stimulating Hormone [facility] 05/17 23:10 Order name: Troponin High Sensitivity [facility] 05/17 16:51 Order name: XRAY Chest (1 view); Complete Time: 17:49 05/17 16:51 Order name: EKG; Complete Time: 16:52 ph 05/17 16:51 Order name: Cardiac monitoring; Complete Time: 16:51 ph 05/17 16:51 Order name: EKG - Nurse/Tech; Complete Time: 17:26 ph 05/17 16:51 Order name: IV Saline Lock; Complete Time: 16:51 ph 05/17 16:51 Order name: Labs collected and sent; Complete Time: 16:51 ph 05/17 16:51 Order name: O2 Per Protocol; Complete Time: 16:51 ph 05/17 16:51 Order name: O2 Sat Monitoring; Complete Time: 16:51 ph 05/17 18:11 Order name: CT Head Brain wo Cont; Complete Time: 20:24 [facility] 05/17 23:10 Order name: CONS Physician Consult [facility] 05/17 23:10 Order name: Heart Healthy [facility] 05/17 23:10 Order name: Troponin High Sensitivity [facility] 05/17 23:10 Order name: Troponin High Sensitivity EDMS Administered Medications: 17:28 Drug: Zofran (Ondansetron) 4 mg Route: IVP; Site: right antecubital; ph 18:22 Follow up: Response: No adverse reaction ph 17:30 Drug: morphine 4 mg Route: IVP; Infused Over: 4 mins; Site: right antecubital; ph 18:22 Follow up: Response: No adverse reaction; Pain is decreased ph 20:47 Drug: Ativan (LORazepam) 1 mg Route: IVP; Site: right forearm; sm5 Disposition: 05/18 18:48 Co-signature as Attending Physician, Gwyn Valdes MD. rn Disposition Summary: 05/17/22 20:50 Hospitalization Ordered Hospitalization Status: Observation [facility] Provider: Braulio Francis Condition: Stable jmm Problem: new jmm Symptoms: are unchanged jmm Bed/Room Type: Standard [facility] Location: Telemetry/MedSurg (Inpatient)(05/18/22 08:02) [email or web address] Room Assignment: 401(05/18/22 08:02) kj1 Diagnosis - Chest pain, unspecified m Forms: - Medication Reconciliation Form jmm - SBAR form jmm Signatures: Dispatcher [employer] EDMS Humza Doll PA PA Gwyn Trujillo MD MD rn Smirch, Shelby, RN RN ss Hall, Patricia, RN RN antony Ramiro Genna kj1 Anh Gore Tahira Guillen RN RN sm5 Samantha Sosa PA PA sb3 Corrections: (The following items were deleted from the chart) 05/17 18:50 16:51 Constitutional: This is a well developed, well nourished patient who is awake, jmm alert, and in no acute distress. Head/Face: atraumatic. Eyes: EOMI, no conjunctival erythema appreciated ENT: Moist Mucus Membranes Neck: Trachea midline, Supple Chest/axilla: Normal chest wall appearance and motion. Cardiovascular: Regular rate and rhythm. No edema appreciated Respiratory: Normal respirations, no respiratory distress appreciated Abdomen/GI: Non distended Back: Normal ROM Skin: General appearance color normal MS/ Extremity: Moves all extremities, no obvious deformities appreciated, no edema noted to the lower extremities Neuro: Awake and alert Psych: Behavior is normal, Mood is normal, Patient is cooperative and pleasant [facility] 21:46 20:50 Telemetry/MedSurg (observation) [facility] 21:46 20:50 [facility] 05/18 08:02 05/17 21:46 [facility] ER HOLD [email or web address] 05/18 08:02 05/17 21:46 ERHOLD- kj1
--- NOTE | 2022-05-17 20:51 | ER ---
Nurse's Notes [facility] Name: Mandy Swain Age: 66 yrs Sex: Female : 1955 Arrival Date: 05/17/2022 Time: 16:32 Bed 26 Private MD: Diagnosis: Chest pain, unspecified Presentation: 05/17 16:33 Chief complaint: Patient states: difficulty breathing and chest discomfort that began ss yesterday. Coronavirus screen: Client denies travel out of the [place] in the last 14 days. Ebola Screen: Patient denies exposure to infectious person. Patient denies travel to an Ebola-affected area in the 21 days before illness onset. Initial Sepsis Screen: Does the patient meet any 2 criteria? No. Patient's initial sepsis screen is negative. Does the patient have a suspected source of infection? No. Patient's initial sepsis screen is negative. Risk Assessment: Do you want to hurt yourself or someone else? Patient reports no desire to harm self or others. Onset of symptoms was May 16, 2022. 16:33 Method Of Arrival: EMS: [facility] 16:33 Acuity: CRISTEL 3 ss Historical: - Allergies: 16:35 No Known Allergies; ss - PMHx: 16:35 Anxiety; CHF; Depression; esophagus problem; Hypertension; ss - Immunization history:: Client reports receiving the 2nd dose of the Covid vaccine. - Social history:: Smoking status: Patient denies any tobacco usage or history of. Screenin:52 Abuse screen: Denies threats or abuse. Denies injuries from another. Nutritional ph screening: No deficits noted. Tuberculosis screening: No symptoms or risk factors identified. Fall Risk None identified. Assessment: 16:52 General: Appears in no apparent distress. uncomfortable, well groomed, Behavior is ph calm, cooperative, appropriate for age, Denies fever, feeling ill. Pain: Complains of pain in chest Pain radiates to back and left arm. Neuro: Level of Consciousness is awake, alert, obeys commands, Oriented to person, place, time, situation. Cardiovascular: Reports chest pain, shortness of breath, Denies nausea, vomiting, Capillary refill < 3 seconds in bilateral fingers Patient's skin is warm and dry. Rhythm is A-V sequential pacer Chest pain quality is pressure, is located in left anterior chest wall radiates to left arm(s) back began 1 day ago. 17:31 Reassessment: Patient appears in no apparent distress at this time. Patient and/or ph family updated on plan of care and expected duration. Pain level reassessed. Patient is alert, oriented x 3, equal unlabored respirations, skin warm/dry/pink. 19:15 General: Appears in no apparent distress. Behavior is cooperative. Pain: Complains of sm5 pain in chest. Neuro: Level of Consciousness is awake, alert, obeys commands, Oriented to person, place, time, situation. Cardiovascular: Reports chest pain, Capillary refill < 3 seconds Patient's skin is warm and dry. Respiratory: Airway is patent Trachea midline Respiratory effort is even, unlabored, Breath sounds are clear bilaterally. Vital Signs: 16:33 Resp 16; Weight 68.04 kg; Height 5 ft. 4 in. (162.56 cm); Pain 9/10; ss 16:51 BP 171 / 93; Pulse 87; Resp 18; Temp 98.5; Pulse Ox 98% on R/A; Weight 72.57 kg; Height ph 5 ft. 4 in. (162.56 cm); 18:23 BP 150 / 103; Pulse 73; Resp 18; Pulse Ox 98% on R/A; ph 16:51 Body Mass Index 27.46 (72.57 kg, 162.56 cm) ph ED Course: 16:32 Patient arrived in ED. ss 16:35 Triage completed. ss 16:35 Arm band placed on right wrist. ss 16:36 Erma Saenz, DEZ is Primary Nurse. ph 16:49 Humza Doll PA is PHCP. [facility] 16:49 Gwyn Valdes MD is Attending Physician. [facility] 16:50 Initial lab(s) drawn, by [facility], sent to lab. Inserted saline lock: 22 gauge in right ph antecubital area, using aseptic technique. Blood collected. 17:12 XRAY Chest (1 view) In Process Unspecified. EDMS 17:31 Patient has correct armband on for positive identification. Placed in gown. Bed in low ph position. Call light in reach. Side rails up X2. Client placed on continuous cardiac and pulse oximetry monitoring. NIBP monitoring applied. 19:33 SARS-COV-2 RT PCR (Document "Date of Onset" if Symptomatic) Sent. sm5 19:44 CT Head Brain wo Cont In Process Unspecified. EDMS 20:50 Braulio Francis MD is Hospitalizing Provider. chase Administered Medications: 17:28 Drug: Zofran (Ondansetron) 4 mg Route: IVP; Site: right antecubital; ph 18:22 Follow up: Response: No adverse reaction ph 17:30 Drug: morphine 4 mg Route: IVP; Infused Over: 4 mins; Site: right antecubital; ph 18:22 Follow up: Response: No adverse reaction; Pain is decreased ph 20:47 Drug: Ativan (LORazepam) 1 mg Route: IVP; Site: right forearm; 5 Medication: 17:31 VIS not applicable for this client. ph Outcome: 20:50 Decision to Hospitalize by Provider. chase 05/18 08:33 Patient left the ED. ss Signatures: Dispatcher [employer] EDMS Humza Doll PA PA jmm Smirch, Shelby, RN RN Erma Saenz RN RN Tahira Guillen, RN RN [facility]
--- NOTE | 2022-05-17 22:51 | P.HP ---
Certification for Inpatient Patient admitted to: Observation With expected LOS: <2 Midnights Patient will require the following post-hospital care: None Practitioner: I am a practitioner with admitting privileges, knowledge of patient current condition, hospital course, and medical plan of care. Services: Services provided to patient in accordance with Admission requirements found in Title 42 Section 412.3 of the Code of Federal Regulations Patient History Date of Service: 05/18/22 Primary Care Provider: Sigrid Reason for admission: Chest Pain History of Present Illness: Patient is a 66-year-old female with systolic CHF (echo Nov 2020 with EF 35- 40%), hypertension, ICD, depression/anxiety who presented to the ED with compl aints of chest pain and shortness of breath that began yesterday. Vital signs, labs, EKG, and imaging WNL. COVID+. When assessing the patient, it was clear that a large component of her symptoms are psychiatric. Patient reports that the 1 year anniversary of her passing away from a stroke is coming up and she has been very depressed and anxious about it. She states she has been putting off seeing a psychiatrist and is not on appropriate medications. Patient is admitted for observation. Allergies No Known Allergies Allergy (Verified 12/22/17 01:16) Home medications list reviewed: Yes Home Medications: Alprazolam [Xanax] 1 mg PO TIDP PRN 11/28/20 Esomeprazole Mag Trihydrate [Nexium] 40 mg PO DAILY 11/28/20 Fluoxetine HCl [Prozac] 20 mg PO DAILY 11/28/20 Metoprolol Tartrate 25 mg PO BID 11/28/20 Ferrous Sulfate [Ferrous Sulfate*] 325 mg PO DAILY #30 tab 12/29/20 Folic Acid 1 mg PO DAILY #90 tablet 12/29/20 Furosemide [Lasix*] 40 mg PO BIDL #60 tab 12/29/20 Hydralazine [Apresoline*] 25 mg PO TID #90 tab 12/29/20 Losartan Potassium [Cozaar*] 50 mg PO BID #60 tablet 12/29/20 Thiamine HCl [Vitamin B-1*] 100 mg PO DAILY #90 tablet 12/29/20 - Past Medical/Surgical History Diabetic: No -: Squamous Cell Carcinoma Left Ear -: IMPLANTED CARDIOVERTER (ICD) -: GERD/hiatal hernia -: Hypertension -: Depression/anxiety -: hernia repair -: tubal ligation -: 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 - Family History Father -: Heart disease, Hypertension Mother -: Heart disease, Hypertension Brother -: Hypertension Sister -: Hypertension - Social History Smoking Status: Never smoker Alcohol use: No CD- Drugs: Yes Caffeine use: No Place of Residence: Home Review of Systems General: As per HPI Respiratory: Shortness of Breath Cardiovascular: Chest Pain Physical Examination - Physical Exam General: Alert, In no apparent distress, Other (tearful) HEENT: Atraumatic, PERRLA, EOMI, Sclerae nonicteric Neck: Supple, 2+ carotid pulse no bruit, No LAD, Without JVD or thyroid abnormality Respiratory: Clear to auscultation bilaterally, Normal air movement Cardiovascular: Regular rate/rhythm, Normal S1 S2 Gastrointestinal: Normal bowel sounds, No tenderness Musculoskeletal: No tenderness Integumentary: No rashes Neurological: Normal speech, Normal strength at 5/5 x4 extr, Normal tone, Normal affect - Studies Laboratory Data (last 24 hrs) 05/17/22 16:55: PT 11.1, INR 1.01 05/17/22 16:55: WBC 7.9, Hgb 15.2 H, Hct 46.3 H, Plt Count 189 05/17/22 16:55: Sodium 137, Potassium 4.2, BUN 28 H, Creatinine 0.96, Glucose 96, Magnesium 2.1, Total Bilirubin 0.4, AST 17, ALT 25, Alkaline Phosphatase 69 Assessment and Plan - Problems (Diagnosis) (1) Chest pain Current Visit: Yes Status: Acute Qualifiers: Chest pain type: unspecified Qualified Code(s): R07.9 - Chest pain, unspecified (2) Shortness of breath Current Visit: Yes Status: Acute (3) CHF (congestive heart failure) Current Visit: Yes Status: Chronic Qualifiers: Heart failure type: systolic Heart failure chronicity: acute on chronic Qualified Code(s): I50.23 - Acute on chronic systolic (congestive) heart failure (4) Depression Current Visit: Yes Status: Chronic Qualifiers: Depression Type: major depressive disorder Major depression recurrence: recurrent Active/Remission status: currently active Major depression episode severity: moderate Qualified Code(s): F33.1 - Major depressive disorder, recurrent, moderate (5) Hypertension Current Visit: Yes Status: Chronic Qualifiers: Hypertension type: primary hypertension Qualified Code(s): I10 - Essential (primary) hypertension (6) Anxiety disorder Current Visit: Yes Status: Chronic Qualifiers: Anxiety disorder type: generalized anxiety disorder Qualified Code(s): F41.1 - Generalized anxiety disorder (7) COVID-19 Current Visit: Yes Status: Acute - Plan -Echo ordered. Cardiology consulted -Initial troponin negative. Will trend. Monitor on telemetry -Lipid panel and TSH ordered for morning -Incidentally COVID positive. Vitamin C and zinc ordered daily. -Psychiatry consulted -Xanax PRN -Monitor and replete electrolytes per protocol -Lovenox for VTE ppx -Full code Discharge Plan: Home Plan to discharge in: 24 Hours - Advance Directives Does patient have a Living Will: No Does patient have a Durable POA for Healthcare: No - Code Status/Comfort Care Code Status Assessed: Yes (Full) Critical Care: No Time Spent Managing Pts Care (In Minutes): 50
[2022-05-17] MEDS ORDERED: ALBUTEROL 2.5 MG/3 ML NEB SOL NEB PRN (23:08)
[2022-05-17] MEDS ORDERED: ONDANSETRON 4 MG/2 ML VIAL IV PRN (23:08)
[2022-05-17] MEDS ORDERED: ACETAMINOPHEN 500 MG TAB PO PRN (23:08)
[2022-05-17] MEDS ORDERED: ALPRAZOLAM 1 MG TABLET PO PRN (23:08)
[2022-05-17] MEDS ORDERED: IBUPROFEN 400 MG TAB PO PRN (23:13)
[2022-05-17] MEDS: HYDROCODONE/APAP 7.5/325 MG TAB PO PRN (23:34)
[2022-05-17] MEDS ORDERED: HYDROCODONE/APAP 7.5/325 MG TAB ONE (23:40)
[2022-05-18 02:11] VITALS: O2SAT 95; BMI 25.7
[2022-05-18 04:49] LABS: Thyroid Stimulating Hormone 1.14 uIU/mL (0.360-3.740); Troponin High Sensitivity 18.7 pg/mL (<58.9)
[2022-05-18] MEDS ORDERED: ALPRAZOLAM 1 MG TABLET ONE (05:54)
[2022-05-18] MEDS: HYDROCODONE/APAP 7.5/325 MG TAB PO PRN (07:41)
[2022-05-18] MEDS ORDERED: HYDROCODONE/APAP 7.5/325 MG TAB ONE (07:44)
[2022-05-18] MEDS ORDERED: PNEUMOCOCCAL VACCINE 0.5 ML IMVAC ONE (08:00)
--- NOTE | 2022-05-18 08:21 | EKG ---
Test Date: 2022-05-17 Test Time: 17:08:02 Dowel Sander Operator: PH MEASUREMENT RESULTS: Intervals: Rate: 73 RI: 152 QRSD: 134 QT: 444 QTc: 489 [place]: P: 85 RI: 152 QRS: 203 T: 92 INTERPRETIVE STATEMENTS: AV sequential or dual chamber electronic pacemaker Compared to ECG 12/05/2021 18:15:32 Ventricular-paced complex(es) or rhythm no longer present Sinus bradycardia no longer present Sinus arrhythmia no longer present Ventricular premature complex(es) no longer present Short RI interval no longer present Left bundle-branch block no longer present Electronically Signed On 05-18-22 08:18:23 CDT by Agapito Bailey
[2022-05-18] MEDS ORDERED: ASCORBIC ACID 500 MG TABLET PO SCH (09:00)
[2022-05-18] MEDS ORDERED: ENOXAPARIN 40 MG/0.4 ML SQ SCH (09:00)
[2022-05-18] MEDS ORDERED: ASPIRIN EC 81 MG TAB PO SCH (09:00)
[2022-05-18] MEDS ORDERED: ZINC SULFATE 220 MG CAP PO SCH (09:00)
--- NOTE | 2022-05-18 10:58 | P.DS ---
Admission Date: 05/17/22 Discharge Date: 05/18/22 Primary Care Provider: Sigrid Disposition: ROUTINE DISCHARGE Discharge Condition: FAIR Reason for Admission: Chest Pain - Problems (1) Depression Status: Chronic Qualifiers: Depression Type: major depressive disorder Major depression recurrence: recurrent Active/Remission status: currently active Major depression episode severity: moderate Qualified Code(s): F33.1 - Major depressive disorder, recurrent, moderate (2) Chronic systolic heart failure Status: Acute (3) COVID-19 Status: Acute (4) Shortness of breath Status: Acute Brief History of Present Illness: Patient is a 66-year-old female with systolic CHF (echo Nov 2020 with EF 35-4 0%), hypertension, ICD, depression/anxiety who presented to the ED with complaints of chest pain and shortness of breath of 1 day duration. Vital signs, labs, EKG, and imaging WNL. COVID+. Patient was complaining of increased anxiety. She also reported history of depression which has gotten worse recently. Patient reported that the 1 year anniversary of her passing away from a stroke is coming up and she has been very depressed and anxious about it. She states she has been putting off seeing a psychiatrist and has been reliant on Klonopin and Xanax on as-needed basis. Patient was placed under observation for further evaluation and management. Hospital Course: Patient placed under observation on the medical floor. Troponin trended negative. Patient was asymptomatic during the hospital stay. She attributed her symptoms to anxiety. Physical examination revealed clear lungs. ACS has been ruled out. BNP was only mildly elevated and chest x-ray did not show any acute disease. Patient's symptoms likely secondary to anxiety. Vitals are stable and she is deemed stable for discharge. She is referred to see psychiatry-Dr. Salcedo as outpatient. Vital Signs/Physical Exam: Temp Pulse Resp BP Pulse Ox 101.0 F H 82 18 156/85 H 93 05/18/22 10:03 05/18/22 08:00 05/18/22 08:00 05/18/22 08:00 05/18/22 08:00 General: Alert, In no apparent distress, Oriented x3 HEENT: Mucous membr. moist/pink Neck: JVD not distended Respiratory: Clear to auscultation bilaterally, Normal air movement Cardiovascular: No edema, Regular rate/rhythm, Normal S1 S2 Gastrointestinal: Soft and benign, Non-distended, No tenderness Musculoskeletal: No swelling Integumentary: No rashes, No cyanosis Neurological: Normal strength at 5/5 x4 extr Laboratory Data at Discharge: WBC 7.9 K/uL (4.3-10.9) 05/17/22 16:55 Hgb 15.2 g/dL (12.0-15.0) H 05/17/22 16:55 Hct 46.3 % (36.0-45.0) H 05/17/22 16:55 Plt Count 189 K/uL (152-406) 05/17/22 16:55 PT 11.1 SECONDS (9.5-12.5) 05/17/22 16:55 INR 1.01 05/17/22 16:55 Sodium 137 mmol/L (136-145) 05/17/22 16:55 Potassium 4.2 mmol/L (3.5-5.1) 05/17/22 16:55 BUN 28 mg/dL (7-18) H 05/17/22 16:55 Creatinine 0.96 mg/dL (0.55-1.3) 05/17/22 16:55 Glucose 96 mg/dL (74-106) 05/17/22 16:55 Magnesium 2.1 mg/dL (1.8-2.4) 05/17/22 16:55 Total Bilirubin 0.4 mg/dL (0.2-1.0) 05/17/22 16:55 AST 17 U/L (15-37) 05/17/22 16:55 ALT 25 U/L (12-78) 05/17/22 16:55 Alkaline Phosphatase 69 U/L (45-117) 05/17/22 16:55 Triglycerides 113 mg/dL (<150) 05/18/22 04:00 Cholesterol 206 mg/dL (<200) H 05/18/22 04:00 HDL Cholesterol 68 mg/dL (40-60) H 05/18/22 04:00 Cholesterol/HDL Ratio 3.03 05/18/22 04:00 Home Medications: Alprazolam [Xanax] 1 mg PO BIDP PRN 11/28/20 Losartan Potassium [Cozaar*] 50 mg PO BID #60 tablet 12/29/20 Ascorbic Acid [C-500] 500 mg PO DAILY 05/18/22 Aspirin/Acetaminophen/Caffeine [Excedrin Migraine Caplet] 1 each PO TIDP PRN 05/18/22 Multivitamin 1 each PO DAILY 05/18/22 Spironolactone [Aldactone*] 25 mg PO DAILY 05/18/22 Zinc Sulfate [Zinc Sulfate*] 220 mg PO DAILY #30 cap 05/18/22 clonazePAM [Klonopin*] 0.5 mg PO BIDP PRN 05/18/22 New Medications: Zinc Sulfate [Zinc Sulfate*] 220 mg PO DAILY #30 cap Physician Discharge Instructions: PROBLEM: (list out Acute Problems for the Current visit) Chest pain Covid-19 Depression / anxiety GOAL: Clear understanding of disease process INSTRUCTIONS: Follow up with DR. Bon Salcedo out patient in 1 to 2 weeks Followup: Bon Salcedo [ACTIVE - CAN ADMIT] - NONE,NONE [Primary Care Provider] -
[2022-05-18 12:04] VITALS: BP 118/62; TEMP 100
[2022-05-18] MEDS ORDERED: ATORVASTATIN 40 MG TAB PO SCH (21:00)
--- NOTE | 2022-05-19 00:58 | CON ---
Admitted to Dr. Mccormack. I was asked to give my opinion regarding Mrs. Swain. She is a 66-year-old woman who came in with shortness of breath and chest pain, was found to have COVID. Mrs. Swain has a history of anxiety, CHF, depression, hypertension, and esophageal problem. No previous history of coronary artery disease. She apparently has had a history of hypertension and paroxysmal atrial fibr illation in the past. She did not have any fever or chills. She tested positive for COVID. She den ied having any allergy. She got a chest x-ray that was normal. She has an EKG that showed a pacemak er rhythm. Her troponin was negative and I was asked to give my opinion regarding her going home. Review of Systems: Were unobtainable. Social History: Unobtainable. Family History: Unobtainable. Physical Examination: By Dr. Mccormack was within normal limit except for a paced rhythm. Her blood pressure was 119/78. Laboratory Data: Her laboratory evaluations were all within normal limit. Cholesterol was slightly elevated at 206 with an HDL of 68. She was positive for COVID. I think, Mrs. Swain's symptoms are atypical and I think that apparently her chest pain and shortness of breath are probably more related to COVID. Her last echocardiogram showed an ejection fraction o f 35% to 40% with mild global hypokinesis and severe pulmonary hypertension, severe tricuspid regurgi tation, moderate diastolic dysfunction. Mrs. Swain can go home on her home medications which include Xanax, aspirin, losartan, spironolactone, and Klonopin and I will see her i n the office in the very near future. KARIE/FRANCISCO Voice ID: [id number] Report ID: [id number]
== END 2022-05-18 13:30 | disposition home or self-care (01) ==
LOC: ER 16:28 → ERHOLD 22:36 → 4TH 05-18 08:09
PROVIDERS: ADMIT Internal Medicine Sleep Medicine; ATTEND Internal Medicine
DX: R07.9 Chest pain, unspecified (principal); U07.1 COVID-19; F41.1 Generalized anxiety disorder; F33.1 Major depressive disorder, recurrent, moderate; I11.0 Hypertensive heart disease with heart failure; I50.22 Chronic systolic (congestive) heart failure; I48.0 Paroxysmal atrial fibrillation; K21.9 Gastro-esophageal reflux disease without esophagitis; K44.9 Diaphragmatic hernia without obstruction or gangrene; Z79.899 Other long term (current) drug therapy; Z95.810 Presence of automatic (implantable) cardiac defibrillator; Z85.828 Personal history of other malignant neoplasm of skin; Z82.49 Family history of ischemic heart disease and other diseases of the circulatory system
CPT/HCPCS: 93005; 85025; 80048; 36415; 83735; 85610; 80061; 80076; 84443; 84484 ×3; 83880; 70450; 71045; U0003; J1650; J2405; G0378 ×2; 99284

== ENCOUNTER 2022-08-16 16:20 | Observation (INO) | payer OTHER ==
--- OUTSIDE RECORDS SUMMARY | 2022-08-16 16:34 | XMS REPORT | Continuity of Care Document ---
:1955 Author Organization [facility] t Address [address] [place] [address] Care Team Providers Name Role Phone QI MELTON JR Primary Care Physician Unavailable WINSTON CORDOBA Attending Clinician Unavailable JAMES ALBRECHT Attending Clinician Unavailable Therapy, [facility] Attending Clinician Unavailable Juan Carlos Sullivan MD Attending Clinician JUAN CARLOS SULLIVAN Attending Clinician Unavailable Darcy Hill Attending Clinician [phone] Arabella Alvarenga Attending Clinician Doctor Unassigned, [place] Attending Clinician Unavailable Beth Oscar MD Attending Clinician Winston Cordoba MD Attending Clinician WINSTON CORDBOA Attending Clinician Unavailable Shirin Michelle MA Attending Clinician Unavailable YU PRINGLE Attending Clinician Unavailable DAYAN WINCHESTER Attending Clinician Unavail able Funmi Tejeda MA Attending Clinician Unavailable LYNNETTE COLLINS Attending Clinician Unavailable FRANCY PARSONS Attending Clinician Unavailable MD SHAQUILLE OLIVAREZ Attending Clinician Unavailable OWEN GÓMEZ Attending Clinician Unavailable Nancy_AH Attending Clinician Unavailable MD OWEN GÓMEZ Attending Clinician Unavailabl e Radiology Attending Clinician Unavailable 1, [facility] Attending Clinician Unavailable Sandi Cornejo MD Attending Clinician WINSTON CORDOBA Admitting Clinician Unavailable JAMES ALBRECHT Admitting Clinician Unavailable DAYAN WINCHESTER Admitting Clinician Unavail able SHAQUILLE OLIVAREZ Admitting Clinician Unavailable MD SHAQUILLE OLIVAREZ Admitting Clinician Unavailable OWEN GÓMEZ Admitting Clinician Unavailable Immanuel_Howard_AH Admitting Clinician Unavailable MD OWEN GÓMEZ Admitting Clinician Unavailjoanie hernandez Payers Payer Name Policy Type Policy Number Effective Date Expiration Date S ource UNITED MEDICARE [id number] 2020 2020 HMO 00:00:00 00:00:00 [facility] [id number] 2019 [place] 00:00:00 (MEDICARE REPLACEMENT/ADVAN TAGE - HMO) Problems Condition Condition Condition Status Onset Resolution Last Treating Co mments Source Name Details Category Date Date Treatment Clinician Date Elevated Elevated Disease Active 2020-11 Unive rs troponin I troponin I 0-18 it y of level level 00:00: [place] 00 Medical Branch Left Left Disease Active 2020-11 Univers bundle bundle 0-18 ity of branch branch 00:00: [place] block block 00 Medical (LBBB) (LBBB) Branch Stenosis Stenosis Disease Active 2020-11 Unive rs of of 0-18 ity of esophagus esophagus 00:00: [facility] 00 Medical Branch Hypoxemia Hypoxemia Disease Active 2020-11 [facility] 0-18 College 00:00: 00 Medicin e Altered Altered Disease Active 2020-11 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 Added automatic ally from request for surgery [id number] Weight Weight Disease Active Overview: Method i loss loss [address] 00:00: g of this Hospita 00 note l might be different from the original. Added automatic ally from request for surgery [id number] Anemia of Anemia of Disease Active Uni vers chronic chronic 02-10 ity of disease disease 00:00: [place] 00 Medical Branch Gastroesop Gastroesop Disease Active U nivers hageal hageal 06 ity of reflux reflux 00:00: [place] disease disease 00 Medical without without Branch esophagiti esophagiti s s Benign Benign Disease Active Univers hypertensi hypertensi 02-10 it y of on with on with 00:00: [place] chronic chronic 00 Medical kidney kidney Branch disease disease Iron Iron Disease Active Univers deficiency deficiency 02-10 it y of 00:00: 00 Medical Branch Nephrogeno Nephrogeno Disease Active U nivers [facility] 06 ity of proteinuri [place]uri [place] Hypertensi Hypertensi Disease Active [facility] on on 02-10 College 00:00: of 00 Medicin e Hypokalemi Hypokalemi Disease Active [facility] a a 02-10 College 00:00: of 00 Medicin e Acute on Acute on Disease Active [facility] chronic chronic 02-10 [facility] congestive congestive 00:00: of heart heart 00 Medicin failure failure e (HCCode) (HCCode) Anxiety Anxiety Disease Active Univers disorder disorder 2-15 ity of 00:00: Medical Branch Depression Depression Disease Active U nivers 2-15 ity of 00:00: Medical Branch Dysphasia Dysphasia Disease Active Uni vers 2-15 ity of 00:00: Medical Branch Dysphagia Dysphagia Disease Active [place] [facility] 2-15 College 00:00: of 00 Medicin e Malignant Malignant Disease Active [place] hypertensi hypertensi 2-15 Co llege ve urgency ve urgency 00:00: of 00 Medicin e Obstructio Obstructio Disease Active [facility] of n of 2-15 College distal distal 00:00: of esophagus esophagus 00 Medi rj due to due to e foreign foreign body body Unstable Unstable Disease Active [facility] [facility] angina angina 4-02 College (HCCode) (HCCode) 00:00: of 00 Medicin e Allergies, Adverse Reactions, Alerts Allergy Allergy Status Severity Reaction(s) Onset Inactive Treating Comm ents Source Name Type Date Date Clinician NO KNOWN Drug Active Univers ALLERGIE Class ity of S [facility] NO KNOWN Allergy Active [facility] Social History Social Habit Start Date Stop Date Quantity Comments Source Exposure to Not sure [facility] of SARS-CoV-2 Medicine (event) History [facility] Congregation Alcohol Std Hospital Drinks History [facility] Alcohol Binge Hospital Tobacco use and 2022-05-21 2022-05-21 Smokeless tobacco Un iversity of exposure 00:00:00 00:00:00 non-user [facility] Alcohol intake 2021-08-11 2021-08-11 Lifetime Congregation 00:00:00 00:00:00 non-drinker Hospital (finding) History SDUT 2021-02-20 2021-02-20 1 Congregation Alcohol Frequency 00:00:00 00:00:00 Hospita l Sex Ass[birth year] At [birth year] F [facility] [place] Co llege of 00:00:00 00:00:00 Medicine Smoking Status Start Date Stop Date Source Never smoked tobacco [facility] [place] [facility] of Medicine Medications Ordered Filled Start Stop Current Ordering Indication Dosage Frequency Signature Comments Components Source Medication Medication Date Date Medication? Clinician (SIG) Name Name Francisco Javier 10 2022-0 Yes TAKE 1 Metho di mg tablet 7-[address] 00:00: MOUTH Hospita 00 EVERY DAY l ALPRAZolam Yes 1mg Take 1 mg Un xochitl 1 mg tablet 7-15 by mouth. ity of 11:04: [place] [facility] budesonide- Yes 2{puff} Inhale 2 Univers formoteroL 7-15 Puffs. ity of 160-4.5 11:04: [facility]/actuati Medical on inhaler Branch dicyclomine Yes 10mg Take 10 mg Univers 10 mg 7-15 by mouth. ity of capsule 11:04: [address] [place] [address] divalproex Yes 250mg Take 250 Un xochitl 250 mg EC 7-15 mg by ity of tablet 11:04: mouth. [address] esomeprazol Yes 40mg Take 40 mg Univers e 40 mg 7-15 by mouth. ity of capsule 11:04: [address] sucralfate Yes 1g Take 1 g Uni vers 1 gram 7-15 by mouth. ity of tablet 11:04: [address] [place] [address] ALPRAZolam Yes 1mg Take 1 mg Un xochitl 1 mg tablet 7-15 by mouth. ity of 11:04: [address] budesonide- Yes 2{puff} Inhale 2 Univers formoteroL 7-15 Puffs. ity of 160-4.5 11:04: [facility]/actuati Medical on inhaler Branch dicyclomine Yes 10mg Take 10 mg Univers 10 mg 7-15 by mouth. ity of capsule 11:04: [facility] divalproex Yes 250mg Take 250 Un xochitl 250 mg EC 7-15 mg by ity of tablet 11:04: mouth. [address] esomeprazol Yes 40mg Take 40 mg Univers e 40 mg 7-15 by mouth. ity of capsule 11:04: [address] [place] [address] sucralfate Yes 1g Take 1 g Uni vers 1 gram 7-15 by mouth. ity of tablet 11:04: [address] [place] [address] ALPRAZolam Yes 1mg Take 1 mg Un xochitl 1 mg tablet 7-15 by mouth. ity of 11:04: [place] [address] Medical Branch budesonide- Yes 2{puff} Inhale 2 Univers formoteroL 7-15 Puffs. ity of 160-4.5 11:04: [facility] on inhaler Branch dicyclomine Yes 10mg Take 10 mg Univers 10 mg 7-15 by mouth. ity of capsule 11:04: [address] Branch divalproex Yes 250mg Take 250 Un xochitl 250 mg EC 7-15 mg by ity of tablet 11:04: mouth. [address] Branch esomeprazol Yes 40mg Take 40 mg Univers e 40 mg 7-15 by mouth. ity of capsule 11:04: [address] Branch sucralfate Yes 1g Take 1 g Uni vers 1 gram 7-15 by mouth. ity of tablet 11:04: [address] Branch benzonatate 2021- Yes [id number] 200mg Take 1 Univers 200 mg 7-15 07-21 capsule by ity of capsule 00:00: 04:59 mouth 3 [place] 00 :00 (three) Medical times [place] daily as needed for Cough for up to 5 days. benzonatate 2021- Yes [id number] 200mg Take 1 Univers 200 mg 7-15 07-21 capsule by ity of capsule 00:00: 04:59 mouth 3 [place] 00 :00 (three) Medical times [place] daily as needed for Cough for up to 5 days. spironolact Yes Univer s one 25 mg 7-13 ity of tablet 00:00: [place] [facility] Branch spironolact 0 Yes Univer s one 25 mg 7-13 ity of tablet 00:00: [address] Branch spironolact Yes Univer s one 25 mg 7-13 ity of tablet 00:00: [address] Branch ENTRESTO 0 Yes Univers 49-51 mg 7-06 ity of tablet 00:00: [address] Branch ENTRESTO 2021-0 Yes Univers 49-51 mg 7-06 ity of tablet 00:00: [address] Branch ENTRESTO 2022-0 Yes Univers 49-51 mg 7-06 ity of tablet 00:00: [place] 00 Medical Branch Entresto 2021-0 Yes TAKE 1 [facility] 49-51 mg 7-[address] tablet per 00:00: MOUTH Hospit a tablet 00 TWICE A l DAY clonazePAM 2021-0 Yes TAKE 1 Unive rs 0.5 mg 6-30 TABLET BY ity of tablet 00:00: MOUTH [place] [address] TWICE A Medical DAY FOR 30 Branch DAYS traZODone 2021-0 Yes 100mg Take 100 Uni vers 100 mg 6-30 mg by ity of tablet 00:00: mouth at [place] [address] bedtime. Medical Branch clonazePAM 2021-0 Yes TAKE 1 Unive rs 0.5 mg 6-30 TABLET BY ity of tablet 00:00: MOUTH [place] [address] TWICE A Medical DAY FOR 30 Branch DAYS traZODone 2021-0 Yes 100mg Take 100 Uni vers 100 mg 6-30 mg by ity of tablet 00:00: mouth at [place] [address] bedtime. Medical Branch clonazePAM 2021-0 Yes TAKE 1 Unive rs 0.5 mg 6-30 TABLET BY ity of tablet 00:00: MOUTH [place] [address] TWICE A Medical DAY FOR 30 Branch DAYS traZODone 2021-0 Yes 100mg Take 100 Uni vers 100 mg 6-30 mg by ity of tablet 00:00: mouth at [place] [address] bedtime. Medical Branch atorvastati 2021-0 2- No 40mg Take 40 mg [facility] [place] n (LIPITOR) 3-21 03-21 by mouth Col lege 40 MG 15:38: 00:00 daily. of tablet 01 :00 Medicin e gabapentin 2021-0 Yes [id number] 100mg Take 1 [facility] [place] (NEURONTIN) 3-21 capsule by Co llege 100 MG 00:00: mouth 3 of capsule 00 times Medicin daily. e gabapentin 2021-0 Yes 100mg Take 100 Un xochitl 100 mg 3-21 mg by ity of capsule 00:00: mouth. Medical Branch gabapentin 2021-0 Yes 100mg Take 100 Un xochitl 100 mg 3-21 mg by ity of capsule 00:00: mouth. Medical Branch gabapentin 2021-0 Yes 100mg Take 100 Un xochitl 100 mg 3-21 mg by ity of capsule 00:00: mouth. Medical Branch pantoprazol 2022-0 Yes TAKE 2 [facility] e 2-24 TABLETS BY [place] (PROTONIX) 00:00: MOUTH of 20 MG 00 DAILY Medicin tablet e atorvastati Yes 40mg Take 40 mg [facility] [place] n (LIPITOR) 2-14 by mouth [place] [facility] 40 MG 13:08: daily. of tablet 53 Medicin e gabapentin Yes [id number] 100mg Take 1 [place] (NEURONTIN) 2-14 capsule by Co llege 100 MG 00:00: mouth 3 of capsule 00 times Medicin daily. e tramadol Yes [id number] 1{tbl} Take 1 [facility] [place] (ULTRAM) 50 2-14 Tablet by Col lege MG tablet 00:00: mouth of 00 every 6 Medicin hours as e needed for Pain. gabapentin 2021- No [id number] 100mg Take 1 [facility] (NEURONTIN) 2-14 03-21 capsule by C ollege 100 MG 00:00: 00:00 mouth 3 of capsule 00 :00 times Medicin daily. e tramadol 2021- No [id number] 1{tbl} Take 1 [facility] (ULTRAM) 50 2-14 03-21 Tablet by Co llege MG tablet 00:00: 00:00 mouth of 00 :00 every 6 Medicin hours as e needed for Pain. pantoprazol 2021- No 40mg Take 2 [place] e 2-08 02-14 Tablets by [place] (PROTONIX) 00:00: 00:00 mouth of 20 MG 00 :00 daily. Medicin tablet e tramadol Yes TAKE 1 [facility] [place] (ULTRAM) 50 2-05 TABLET BY Col lege MG tablet 00:00: MOUTH of 00 EVERY 6 Medicin (SIX) e HOURS NEEDED FOR PAIN FOR UP TO 7 DAYS. tramadol 2021- No TAKE 1 [facility] [place] (ULTRAM) 50 2-05 03-21 TABLET BY Co llege MG tablet 00:00: 00:00 MOUTH of 00 :00 EVERY 6 Medicin (SIX) e HOURS NEEDED FOR PAIN FOR UP TO 7 DAYS. Lansoprazol 2021- No 15mg Take 15 mg [facility] [place] e 15 MG 2-05 03-20 by mouth [place] TBDD 00:00: 04:59 daily. of 00 :00 Medicin e Lidocaine 4 2021- No 1{patch Place 1-3 [facility] [place] % PTCH 2- 02-20 } Patches [place] 00:00: 05:59 onto the of 00 :00 skin as Medicin needed. e acetaminoph 2021- No 650mg Take 650 [facility] [place] en 2- 02-16 mg by [place] (TYLENOL) 00:00: 05:59 mouth. of 160 MG/5ML 00 :00 Medicin solution e sucralfate Yes 1g Q.25D Take 1 g [facility] (CARAFATE) 1-[address] 1 gram 14:13: (four) Hospita tablet 26 times a l day. sertraline Yes 25mg QD Take 25 mg M ethodi (ZOLOFT) 25 1-[address] MG tablet 14:13: daily. Hospit a 26 l traZODone Yes 100mg QD Take 100 [facility] (DESYREL) 1-[address] 100 MG 14:13: mouth Hospita tablet 26 nightly. l omeprazole Yes 40mg QD Take 40 mg M [facility]i (PriLOSEC) 1-[address] 40 MG 14:13: daily. Hospita capsule 26 l clonAZEPAM Yes .5mg Q.5D Take 0.5 [facility] (KlonoPIN) 1-[address] 0.5 MG 14:13: mouth 2 Hospita tablet 26 (two) l times a day as needed for seizures. atorvastati Yes 40mg Take 40 mg [facility] [place] n (LIPITOR) 1-24 by mouth [place] [facility] 40 MG 11:17: daily. of tablet 55 Medicin e sucralfate 2021- No 1g Take 1 g [facility] (CARAFATE) 1-24 01-24 by mouth [place] 1 g tablet 11:17: 00:00 four times of 50 :00 daily. Medicin e sucralfate 2020-11 Yes 1g Take 1 g [place] (CARAFATE) 1-15 by mouth Colle ge 1 g tablet 13:24: four times o f 39 daily. Medicin e atorvastati 2020-11 Yes 40mg Take 40 mg [facility] [place] n (LIPITOR) 1-15 by mouth [place] [facility] 40 MG 13:24: daily. of tablet 39 Medicin e omeprazole 2020-11 No 40mg Take 40 mg [facility] [place] (PRILOSEC) 1-15 11-15 by mouth. Col lege 40 MG 13:24: 00:00 of capsule 33 :00 Medicin e esomeprazol 2020-11 No 40mg Take 40 mg [place] e (NEXIUM) 1-15 11-15 by mouth. Col [...] sucralfate 2020-11 Yes 1g Take 1 g [place] (CARAFATE) 0-18 by mouth Colle ge 1 g tablet 13:55: four times o f 27 daily. Medicin e atorvastati 2020-11 Yes 40mg Take 40 mg [facility] [place] n (LIPITOR) 0-18 by mouth [place] [facility] 40 MG 13:55: daily. of tablet 27 Medicin e trazodone 2020-11 Yes 100mg Take 100 [place] (DESYREL) 0-13 mg by [place] 100 MG 00:00: mouth at of tablet 00 bedtime. Medicin e sertraline 2020-11 Yes 25mg Take 25 mg [facility] (ZOLOFT) 25 0-13 by mouth [place] MG tablet 00:00: daily. of 00 Medicin e trazodone 2020-11 Yes 100mg Take 100 [place] (DESYREL) 0-13 mg by [place] 100 MG 00:00: mouth at of tablet 00 bedtime. Medicin e sertraline 2020-11 Yes 25mg Take 25 mg [facility] (ZOLOFT) 25 0-13 by mouth [place] [facility] MG tablet 00:00: daily. of 00 Medicin e trazodone 2020-11 Yes 100mg Take 100 [place] (DESYREL) 0-13 mg by College 100 MG 00:00: mouth at of tablet 00 bedtime. Medicin e sertraline 2020-11 Yes 25mg Take 25 mg [facility] (ZOLOFT) 25 0-13 by mouth [place] MG tablet 00:00: daily. of Medicin e trazodone 2020-11 Yes 100mg Take 100 [place] (DESYREL) 0-13 mg by College 100 MG 00:00: mouth at of tablet 00 bedtime. Medicin e sertraline 2020-11 Yes 25mg Take 25 mg [facility] (ZOLOFT) 25 0-13 by mouth [place] MG tablet 00:00: daily. of Medicin e trazodone 2020-11 Yes 100mg Take 100 [place] (DESYREL) 0-13 mg by College 100 MG 00:00: mouth at of tablet 00 bedtime. Medicin e sertraline 2020-11 Yes 25mg Take 25 mg [facility] (ZOLOFT) 25 0-13 by mouth [place] MG tablet 00:00: daily. of Medicin e SERTraline 2020-11 Yes 25mg Take 25 mg U nivers 25 mg 0-13 by mouth. ity of tablet 00:00: [address] SERTraline 2020-11 Yes 25mg Take 25 mg U nivers 25 mg 0-13 by mouth. ity of tablet 00:00: [address] SERTraline 2020-11 Yes 25mg Take 25 mg U nivers 25 mg 0-13 by mouth. ity of tablet 00:00: [address] clonazepam 2020-11 Yes two times [facility] (KLONOPIN) 0-12 daily. College 0.5 MG 00:00: of tablet 00 Medicin e clonazepam 2020-11 Yes two times [facility] (KLONOPIN) 0-12 daily. College 0.5 MG 00:00: of tablet 00 Medicin e clonazepam 2020-11 Yes two times [facility] (KLONOPIN) 0-12 daily. College 0.5 MG 00:00: of tablet 00 Medicin e Azelastine- 2020-11 Yes [facility] [place] Fluticasone 0-12 College 137-50 00:00: of MCG/ACT 00 Medicin SUSP e clonazepam 2020-11 Yes [facility] (KLONOPIN) 0-12 College 0.5 MG 00:00: of [...] spironolact 0 Yes 25mg Take 25 mg [place] one 8-25 by mouth College (ALDACTONE) 00:00: daily. of 25 MG 00 Medicin tablet e carvedilol 0 Yes two times [facility] (COREG) 8-25 daily. College 6.25 MG 00:00: of tablet 00 Medicin e ENTRESTO 0 Yes two times [facility] 49-51 MG 8-25 daily. College TABS 00:00: of 00 Medicin e spironolact 0 Yes 25mg Take 25 mg [facility] [place] one 8-25 by mouth College (ALDACTONE) 00:00: daily. of 25 MG 00 Medicin tablet e carvedilol 0 Yes two times [facility] (COREG) 8-25 daily. College 6.25 MG 00:00: of tablet 00 Medicin e ENTRESTO 2020-0 Yes two times [facility] 49-51 MG 8-25 daily. College TABS 00:00: of 00 Medicin e spironolact 0 Yes 25mg Take 25 mg [facility] [place] one 8-25 by mouth College (ALDACTONE) 00:00: daily. of 25 MG 00 Medicin tablet e carvedilol 0 Yes [facility] (COREG) 8-25 College 6.25 MG 00:00: of tablet 00 Medicin e ENTRESTO 0 Yes [facility] 49-51 MG 8-25 College TABS 00:00: of 00 Medicin e spironolact 0 Yes 25mg Take 25 mg [facility] [place] one 8-25 by mouth College (ALDACTONE) 00:00: daily. of 25 MG 00 Medicin tablet e carvedilol Yes two times [facility] (COREG) 8-25 daily. College 6.25 MG 00:00: of tablet 00 Medicin e ENTRESTO 0 Yes two times [facility] 49-51 MG 8-25 daily. College TABS 00:00: of 00 Medicin e spironolact 0 Yes 25mg Take 25 mg [facility] [place] one 8-25 by mouth College (ALDACTONE) 00:00: daily. of 25 MG 00 Medicin tablet e hydrocodone No TAKE 1 [place] -acetaminop 8-20 10-18 TABLET BY Co [facility]ang bl[facility] ([employer]) 00:00: 00:00 MOUTH o f 5-325 mg 00 :00 NEEDED FOR Medic in tablet MIGRAINE e FOR 7 DAYS dapaglifloz Yes 10mg Take 10 mg Univers in 10 mg 6-18 by mouth. ity of tablet 00:00: [address] pantoprazol Yes 40mg Take 40 mg Univers e 40 mg EC 6-18 by mouth. ity of tablet 00:00: [address] dapaglifloz Yes 10mg Take 10 mg Univers in 10 mg 6-18 by mouth. ity of tablet 00:00: [address] pantoprazol Yes 40mg Take 40 mg Univers e 40 mg EC 6-18 by mouth. ity of tablet 00:00: [address] dapaglifloz Yes 10mg Take 10 mg Univers in 10 mg 6-18 by mouth. ity of tablet 00:00: [address] pantoprazol Yes 40mg Take 40 mg Univers e 40 mg EC 6-18 by mouth. ity of tablet 00:00: [address] Aspirin 81 202-0 Yes 81mg Take 81 mg [facility] tablet 6-18 [facility] Medicin e Dapaglifloz 2020-0 Yes 10mg Take 10 mg [facility] [place] in 6-18 by mouth [facility] 00:00: daily. of 10 MG TABS 00 Medicin e furosemide 2020-0 Yes 20mg Take 20 mg [facility] (LASIX) 20 6-18 by mouth. [place] [facility] MG tablet 00:00: of 00 Medicin e Aspirin 81 2020-0 Yes 81mg Take 81 mg [facility] MG tablet 6-18 [facility] of 00 Medicin e Dapaglifloz 2020-0 Yes 10mg Take 10 mg [facility] in 6-18 by mouth [facility] 00:00: daily. of 10 MG TABS 00 Medicin e furosemide 2020-0 Yes 20mg Take 20 mg [facility] (LASIX) 20 6-18 by mouth. [place] [facility] MG tablet 00:00: of 00 Medicin e Aspirin 81 2020-0 Yes 81mg Take 81 mg [facility] MG tablet 6-18 [facility] mouth [facility] of 00 Medicin e Dapaglifloz 2020-0 Yes 10mg Take 10 mg [facility] [place] in 6-18 by mouth [facility] 00:00: daily. of 10 MG TABS 00 Medicin e furosemide 2020-0 Yes 20mg Take 20 mg [facility] (LASIX) 20 6-18 by mouth. [place] [facility] MG tablet 00:00: of 00 Medicin e Aspirin 81 2020-0 Yes 81mg Take 81 mg [facility] MG tablet 6-18 by mouth. Colle ge 00:00: of 00 Medicin e Dapaglifloz 2020-0 Yes 10mg Take 10 mg [facility] [place] in 6-18 by mouth. [place] [facility] of 10 MG TABS 00 Medicin e furosemide 2020-0 Yes 20mg Take 20 mg [facility] (LASIX) 20 6-18 by mouth. [place] [facility] MG tablet 00:00: of 00 Medicin e pantoprazol 2020-0 Yes 40mg Take 40 mg [facility] [place] e 6-18 by mouth. [place] (PROTONIX) 00:00: of 40 MG 00 Medicin tablet e Aspirin 81 2020-0 Yes 81mg Take 81 mg [facility] MG tablet 6-18 by mouth. Colle ge 00:00: of 00 Medicin e Dapaglifloz 2020-0 Yes 10mg Take 10 mg [facility] [place] in -18 by mouth [place] Propanediol 00:00: daily. of 10 MG TABS 00 Medicin e furosemide 2020-0 Yes 20mg Take 20 mg [facility] (LASIX) 20 6-18 by mouth. [place] [facility] MG tablet 00:00: of Medicin e pantoprazol 2020-0 Yes 40mg Take 40 mg [facility] e 6-18 by mouth. College (PROTONIX) 00:00: of 40 MG 00 Medicin tablet e aspirin 2020-0 Yes 81mg QD Take 1 [facility] (ECOTRIN) 6-18 tablet (81 st 81 MG 00:00: mg total) Hospita enteric 00 by mouth l coated daily. tablet atorvastati 0 Yes 40mg QD Take 1 Meth darrion n (LIPITOR) 6-18 tablet (40 st 40 mg 00:00: mg total) Hospita tablet 00 by mouth l daily. carvediloL 0 Yes 6.25mg Q.5D Take 1 [facility] (COREG) 6-[address] 6.25 MG 00:00: (6.25 mg Hospit a tablet 00 total) by l mouth 2 (two) times a day. spironolact 2020-0 Yes 25mg QD Take 1 Meth darrion one 6-18 tablet (25 st (ALDACTONE) 00:00: mg total) H ospita 25 MG 00 by mouth l tablet daily. furosemide 0 Yes 20mg QD Take 1 [facility]o di (LASIX) 20 6-18 tablet (20 st mg tablet 00:00: mg total) Hos aura 00 by mouth l daily. pantoprazol 2020-0 Yes 40mg QD Take 1 Meth darrion e 6-18 tablet (40 st (PROTONIX) 00:00: mg total) Ho spita 40 MG EC 00 by mouth l tablet daily. dapaglifloz 0 2021- No 10mg QD Take 1 Met hodi in 18 07-19 tablet (10 st (Farxiga) 00:00: 00:00 mg total) Ho spita 10 mg 00 :00 by mouth l tablet daily. sacubitriL- 2021- No 1{tbl} Q.5D Take 1 M ethodi valsartan 6-18 07-[address] (Entresto) 00:00: 00:00 mouth 2 Hos aura 49-51 mg 00 :00 (two) l tablet per times a tablet day. pantoprazol 2021- No 40mg Take 40 mg [facility] 6-18 01-24 by mouth. [facility] (PROTONIX) 00:00: 00:00 of 40 MG 00 :00 Medicin tablet e ALPRAZolam Yes 2mg Q.[id number] Take 2 mg [facility] (XANAX) 1 3-30 [id number] by mouth 3 [address] MG tablet 00:00: 3D (three) Hospi ta 00 times a l day. losartan 2020- No 100mg Take 100 [place] [facility] (COZAAR) 3-30 10-18 mg by [place] 100 MG 00:00: 00:00 mouth. of tablet 00 :00 Medicin e ferrous Yes 1{tbl} Take 1 [facility] [place] sulfate 325 2-23 Tablet by Col lege [...] Medicin e ferrous Yes 1{tbl} Take 1 [facility] [place] sulfate 325 2-23 Tablet by Col lege (65 Fe) MG 00:00: mouth of tablet 00 daily. Medicin e ferrous Yes 1{tbl} Take 1 [facility] sulfate 325 2-23 Tablet by Col lege (65 Fe) MG 00:00: mouth of tablet 00 daily. Medicin e folic acid Yes 1mg QD Take 1 mg [facility] (FOLVITE) 1 2-[address] MG tablet 00:00: daily. Hospit a 00 l ferrous Yes 1{tbl} QD Take 1 [facility] sulfate 325 2-[address] (65 FE) MG 00:00: mouth Hospit a tablet 00 daily. l folic acid Yes DAILY [facility] (FOLVITE) 1 2-22 [facility] MG tablet 00:00: of 00 Medicin e folic acid Yes DAILY [facility] [place] (FOLVITE) 1 2-22 [facility] MG tablet 00:00: of 00 Medicin e folic acid Yes DAILY [facility] (FOLVITE) 1 2-22 [facility] MG tablet 00:00: of 00 Medicin e folic acid Yes DAILY [facility] (FOLVITE) 1 2-22 [facility] MG tablet 00:00: of 00 Medicin e folic acid Yes DAILY [facility] (FOLVITE) 1 2-22 [facility] MG tablet 00:00: of 00 Medicin e hydrALAZINE 2020- No THREE [facility] (APRESOLINE 2-22 10-18 TIMES A [place] [facility] ) 25 MG 00:00: 00:00 DAY of tablet 00 :00 Medicin e losartan 2020- No TWICE [facility] (COZAAR) 50 2-22 10-18 DAILY [facility] e MG tablet 00:00: 00:00 of 00 :00 Medicin e metoprolol 2020- No Take by [facility] (TOPROL-XL) 1-25 10-18 mouth. Colle ge 25 MG XL 00:00: 00:00 of tablet 00 :00 Medicin e fluoxetine 2020- No DAILY [facility] (PROZAC) 20 1-22 10-18 [facility] MG capsule 00:00: 00:00 of 00 :00 Medicin e furosemide 2020- No TWICE [facility] (LASIX) 40 1-22 10-18 DAILY AT [place] [facility] MG tablet 00:00: 00:00 9am & 5pm of 00 :00 Medicin e metoprolol 2020- No TWICE [facility] (LOPRESSOR) 1-22 10-18 DAILY Colleg e 25 MG 00:00: 00:00 of tablet 00 :00 Medicin e phentermine 2020- No 37.5mg Take 37.5 [facility] [place] (ADIPEX-P) 1-16 10-18 mg by College 37.5 MG 00:00: 00:00 mouth. of tablet 00 :00 Medicin e enalapril 2017-0 Yes [id number] 20mg Take 1 Un xochitl 20 mg 4-12 tablet by ity of tablet 00:00: mouth 2 [place] 00 (two) Medical times Branch daily. enalapril 2017-0 Yes [id number] 20mg Take 1 Un xochitl 20 mg 4-12 tablet by ity of tablet 00:00: mouth 2 [place] 00 (two) Medical times Branch daily. furosemide 2017-0 Yes [id number] 20mg Take 1 U nivers 20 mg 4-12 tablet by ity of tablet 00:00: mouth [place] 00 every Medical morning Branch and evening. omeprazole 2017-0 Yes [id number] 40mg Take 1 U nivers (PRILOSEC) 4-12 capsule by ity of 40 mg 00:00: mouth [place] capsule 00 daily. Medical Branch furosemide 2016-0 Yes [id number] 20mg Take 1 U nivers 20 mg 4-12 tablet by ity of tablet 00:00: mouth [place] 00 every Medical morning Branch and evening. omeprazole 2017-0 Yes [id number] 40mg Take 1 U nivers (PRILOSEC) 4-12 capsule by ity of 40 mg 00:00: mouth [place] capsule 00 daily. Medical Branch enalapril 2016-0 Yes [id number] 20mg Take 1 Un xochitl 20 mg 4-12 tablet by ity of tablet 00:00: mouth 2 [place] (two) Medical times Branch daily. furosemide 2017-0 Yes [id number] 20mg Take 1 U nivers 20 mg 4-12 tablet by ity of tablet 00:00: mouth [place] 00 every Medical morning Branch and evening. omeprazole 2017-0 Yes [id number] 40mg Take 1 U nivers (PRILOSEC) 4-12 capsule by ity of 40 mg 00:00: mouth [place] capsule 00 daily. Medical Branch enalapril 2017-0 Yes [id number] 20mg Take 1 Un xochitl 20 mg 4-12 tablet by ity of tablet 00:00: mouth 2 [place] 00 (two) Medical times Branch daily. furosemide 2017-0 Yes [id number] 20mg Take 1 U nivers 20 mg 4-12 tablet by ity of tablet 00:00: mouth [place] 00 every Medical morning Branch and evening. omeprazole 2017-0 Yes [id number] 40mg Take 1 U nivers (PRILOSEC) 4-12 capsule by ity of 40 mg 00:00: mouth [place] capsule 00 daily. Medical Branch enalapril 2017-0 Yes [id number] 20mg Take 1 Un xochitl 20 mg 4-12 tablet by ity of tablet 00:00: mouth 2 00 (two) Medical times Branch daily. furosemide 2017-0 Yes [id number] 20mg Take 1 U nivers 20 mg 4-12 tablet by ity of tablet 00:00: mouth [place] 00 every Medical morning Branch and evening. omeprazole 2017-0 Yes [id number] 40mg Take 1 U nivers (PRILOSEC) 4-12 capsule by ity of 40 mg 00:00: mouth [place] capsule 00 daily. Medical Branch enalapril 2016-0 Yes [id number] 20mg Take 1 Un xochitl 20 mg 4-12 tablet by ity of tablet 00:00: mouth (two) Medical times Branch daily. furosemide 2016-0 Yes [id number] 20mg Take 1 U nivers 20 mg 4-12 tablet by ity of tablet 00:00: mouth [place] 00 every Medical morning Branch and evening. omeprazole 2017- Yes [id number] 40mg Take 1 U nivers (PRILOSEC) 4-12 capsule by ity of 40 mg 00:00: mouth [place] capsule 00 daily. Medical Branch hydrOXYzine 0 Yes 50mg Take 1 Univ ers 50 mg 4-04 tablet by ity of tablet 00:00: mouth (two) Medical times Branch daily as needed for Anxiety. carvedilol 2017 Yes 6.25mg Take 1 Uni vers 6.25 mg 4-04 tablet by ity of tablet 00:00: mouth (two) Medical times Branch daily with meals. amLODIPine 2017-0 Yes 10mg Take 1 Unive rs 10 mg 4-04 tablet by ity of tablet 00:00: mouth [place] 00 daily. Medical Branch hydrOXYzine 2017-0 Yes 50mg Take 1 Univ ers 50 mg 4-04 tablet by ity of tablet 00:00: mouth (two) Medical times Branch daily as needed for Anxiety. carvedilol 2016- Yes 6.25mg Take 1 Uni vers 6.25 mg 4-04 tablet by ity of tablet 00:00: mouth (two) Medical times Branch daily with meals. amLODIPine 2017-0 Yes 10mg Take 1 Unive rs 10 mg 4-04 tablet by ity of tablet 00:00: mouth 00 daily. Medical Branch hydrOXYzine 2017-0 Yes 50mg Take 1 Univ ers 50 mg 4-04 tablet by ity of tablet 00:00: mouth (two) Medical times Branch daily as needed for Anxiety. carvedilol 2017-0 Yes 6.25mg Take 1 Uni vers 6.25 mg 4-04 tablet by ity of tablet 00:00: mouth (two) Medical times Branch daily with meals. amLODIPine 2017-0 Yes 10mg Take 1 Unive rs 10 mg 4-04 tablet by ity of tablet 00:00: mouth 00 daily. Medical Branch hydrOXYzine 2017-0 Yes 50mg Take 1 Univ ers 50 mg 4-04 tablet by ity of tablet 00:00: mouth (two) Medical times Branch daily as needed for Anxiety. carvedilol 2017-0 Yes 6.25mg Take 1 Uni vers 6.25 mg 4-04 tablet by ity of tablet 00:00: mouth (two) Medical times Branch daily with meals. amLODIPine 2017-0 Yes 10mg Take 1 Unive rs 10 mg 4-04 tablet by ity of tablet 00:00: mouth daily. Medical Branch hydrOXYzine 2017-0 Yes 50mg Take 1 Univ ers 50 mg 4-04 tablet by ity of tablet 00:00: mouth (two) Medical times Branch daily as needed for Anxiety. carvedilol 2017-0 Yes 6.25mg Take 1 Uni vers 6.25 mg 4-04 tablet by ity of tablet 00:00: mouth (two) Medical times Branch daily with meals. amLODIPine 2017-0 Yes 10mg Take 1 Unive rs 10 mg 4-04 tablet by ity of tablet 00:00: mouth 00 daily. Medical Branch hydrOXYzine 2017-0 Yes 50mg Take 1 Univ ers 50 mg 4-04 tablet by ity of tablet 00:00: mouth (two) Medical times Branch daily as needed for Anxiety. carvedilol 2017-0 Yes 6.25mg Take 1 Uni vers 6.25 mg 4-04 tablet by ity of tablet 00:00: mouth 2 [place] 00 (two) Medical times Branch daily with meals. amLODIPine 2017-0 Yes 10mg Take 1 Unive rs 10 mg 4-04 tablet by ity of tablet 00:00: mouth [place] 00 daily. Medical Branch aspirin 81 2017-0 Yes 81mg Take 1 Unive rs mg chewable 4-03 tablet by ity of tablet 00:00: mouth [place] 00 daily. Medical Branch atorvastati 2017-0 Yes 40mg Take 1 Univ ers n 40 mg 4-03 tablet by ity of tablet 00:00: mouth [place] 00 every Medical evening. Branch aspirin 81 2017-0 Yes 81mg Take 1 Unive rs mg chewable 4-03 tablet by ity of tablet 00:00: mouth [place] 00 daily. Medical Branch atorvastati 2017-0 Yes 40mg Take 1 Univ ers n 40 mg 4-03 tablet by ity of tablet 00:00: mouth [place] 00 every Medical evening. Branch aspirin 81 2017-0 Yes 81mg Take 1 Unive rs mg chewable 4-03 tablet by ity of tablet 00:00: mouth [place] 00 daily. Medical Branch atorvastati 2017-0 Yes 40mg Take 1 Univ ers n 40 mg 4-03 tablet by ity of tablet 00:00: mouth [place] 00 every Medical evening. Branch aspirin 81 2017-0 Yes 81mg Take 1 Unive rs mg chewable 4-03 tablet by ity of tablet 00:00: mouth [place] 00 daily. Medical Branch atorvastati 2017-0 Yes 40mg Take 1 Univ ers n 40 mg 4-03 tablet by ity of tablet 00:00: mouth [place] 00 every Medical evening. Branch aspirin 81 2017-0 Yes 81mg Take 1 Unive rs mg chewable 4-03 tablet by ity of tablet 00:00: mouth [place] 00 daily. Medical Branch aspirin 81 2017-0 Yes 81mg Take 1 Unive rs mg chewable 4-03 tablet by ity of tablet 00:00: mouth [place] 00 daily. Medical Branch atorvastati 2017-0 Yes 40mg Take 1 Univ ers n 40 mg 4-03 tablet by ity of tablet 00:00: mouth [place] 00 every Medical evening. Branch atorvastati 2017-0 Yes 40mg Take 1 Univ ers n 40 mg 4-03 tablet by ity of tablet 00:00: mouth [place] 00 every Medical evening. Branch Immunizations Ordered Filled Immunization Date Status Comments [facility] e Immunization Name Name DEAN 2022-05-21 Completed University o f 00:00:00 [facility] DEAN 2022-05-21 Completed University o f 00:00:00 [facility] Moderna SARS-CoV-2 2021-02-06 Completed [facility] of Vaccination 00:00:00 Medicine Moderna SARS-CoV-2 2021-02-06 Completed [facility] of Vaccination 00:00:00 Medicine Moderna SARS-CoV-2 2021-02-06 Completed [facility] of Vaccination 00:00:00 Medicine Moderna SARS-CoV-2 2021-02-06 Completed [facility] of Vaccination 00:00:00 Medicine Moderna SARS-CoV-2 2021-02-06 Completed [facility] of Vaccination 00:00:00 Medicine Moderna SARS-CoV-2 2021-01-09 Completed [facility] of Vaccination 00:00:00 Medicine Moderna SARS-CoV-2 2021-01-09 Completed [facility] of Vaccination 00:00:00 Medicine Moderna SARS-CoV-2 2021-01-09 Completed [facility] of Vaccination 00:00:00 Medicine Moderna SARS-CoV-2 2021-01-09 Completed [facility] of Vaccination 00:00:00 Medicine Moderna SARS-CoV-2 2021-01-09 Completed [facility] of Vaccination 00:00:00 Medicine Influenza Virus 2017-02-07 Completed Universit y of Vaccine Quad IM 3+ 00:00:00 [facility] Influenza Virus 2017-02-07 Completed Universit y of Vaccine Quad IM 3+ 00:00:00 [facility] Influenza Virus 2017-02-07 Completed Universit y of Vaccine Quad IM 3+ 00:00:00 [facility] Influenza Virus 2017-02-07 Completed Universit y of Vaccine Quad IM 3+ 00:00:00 [facility] Influenza Virus 2017-02-07 Completed Universit y of Vaccine Quad IM 3+ 00:00:00 [facility] Influenza Virus 2017-02-07 Completed Universit y of Vaccine Quad IM 3+ 00:00:00 [facility] Vital Signs Vital Name Observation Time Observation Value Comments Source HEIGHT 2021-02-19 167.6 cm 08:00:00 WEIGHT 2021-02-19 58.65 kg 08:00:00 Systolic blood 2022-05-21 140 mm[Hg] University of pressure 21:48:00 [facility] Diastolic blood 2022-05-21 91 mm[Hg] University o f pressure 21:48:00 [facility] Heart rate 2022-05-21 59 /min University of 21:48:00 [facility] Body temperature 2022-05-21 37 [place] University 21:48:00 [facility] Respiratory rate 2022-05-21 16 /min University of 21:48:00 [facility] Oxygen saturation 2022-05-21 95 /min University of in Arterial blood 21:48:00 [facility] gabriella by Pulse oximetry Branch Systolic blood 2022-05-21 133 mm[Hg] University of pressure 15:58:00 [facility] Diastolic blood 2022-05-21 87 mm[Hg] University o f pressure 15:58:00 [facility] Oxygen saturation 2022-05-21 95 /min [place] of in Arterial blood 15:57:00 [facility] by Pulse oximetry Branch Heart rate 2022-05-21 74 /min University 15:57:00 [facility] Body temperature 2022-05-21 36.56 Wilma [facility] 15:57:00 [facility] Respiratory rate 2022-05-21 20 /min University 15:57:00 [facility] Body height 2022-05-21 162.6 cm University 15:57:00 [facility] Body weight 2022-05-21 65 kg University 15:57:00 [facility] BMI 2022-05-21 24.60 kg/m2 University 15:57:00 [facility] Systolic blood 2022-01-25 170 mm[Hg] [facility] [place] [facility] e pressure 20:23:00 of Medicine Diastolic blood 2022-01-25 108 mm[Hg] [facility] ge pressure 20:23:00 of Medicine Heart rate 2022-01-25 72 /min [facility] 20:23:00 of Medicine Body temperature 2022-01-25 36.89 [place] [facility] [place] [facility] 20:23:00 of Medicine Body height 2022-01-25 162.6 cm [facility] 20:23:00 of Medicine Body weight 2022-01-25 65.318 kg [facility] 20:23:00 of Medicine BMI 2022-01-25 24.72 kg/m2 [facility] 20:23:00 of Medicine Systolic blood 2021-12-21 163 mm[Hg] under a lot of [facility] [place] [facility] pressure 18:54:00 stress due to of Medicine deaths in family; will recheck in 10 min Recheck BP [place] 164/124 Diastolic blood 2021-12-21 117 mm[Hg] under a lot of [facility] [place] [facility] pressure 18:54:00 stress due to of Medicine deaths in family; will recheck in 10 min Recheck BP [place] 164/124 Heart rate 2021-12-21 82 /min [facility] 18:54:00 of Medicine Body temperature 2021-12-21 36.89 [place] [facility] [place] [facility] 18:54:00 of Medicine Body height 2021-12-21 162.6 cm [facility] 18:54:00 of Medicine Body weight 2021-12-21 63.504 kg [facility] 18:54:00 of Medicine BMI 2021-12-21 24.03 kg/m2 [facility] 18:54:00 of Medicine WEIGHT 2021-12-13 65.3 kg 08:00:00 HEIGHT 2021-12-10 157.5 cm 06:32:00 WEIGHT 2021-12-10 65.2 kg 06:32:00 HEIGHT 2021-12-09 157.5 cm 13:51:00 WEIGHT 2021-12-09 63.504 kg 13:51:00 WEIGHT 2021-12-13 65.3 kg 08:00:00 HEIGHT 2021-12-10 157.5 cm 06:32:00 WEIGHT 2021-12-10 65.2 kg 06:32:00 HEIGHT 2021-12-09 157.5 cm 13:51:00 WEIGHT 2021-12-09 63.504 kg 13:51:00 Systolic blood 2021-11-30 140 mm[Hg] [facility] [place] [facility] e pressure 17:15:00 of Medicine Diastolic blood 2021-11-30 84 mm[Hg] [facility] ge pressure 17:15:00 of Medicine Heart rate 2021-11-30 77 /min [facility] 17:15:00 of Medicine Body temperature 2021-11-30 36.83 [place] [facility] [place] [facility] 17:15:00 of Medicine Body height 2021-11-30 162.6 cm [facility] 17:15:00 of Medicine Body weight 2021-11-30 65.318 kg [facility] 17:15:00 of Medicine BMI 2021-11-30 24.72 kg/m2 [facility] 17:15:00 of Medicine Systolic blood 2021-09-21 125 mm[Hg] [facility] pressure 19:22:00 of Medicine Diastolic blood 2021-09-21 82 mm[Hg] [facility] pressure 19:22:00 of Medicine Heart rate 2021-09-21 60 /min [facility] 19:22:00 of Medicine Body temperature 2021-09-21 37 [place] [facility] [place] [facility] 19:22:00 of Medicine Body height 2021-09-21 162.6 cm [facility] 19:22:00 of Medicine Body weight 2021-09-21 62.596 kg [facility] 19:22:00 of Medicine BMI 2021-09-21 23.69 kg/m2 [facility] 19:22:00 of Medicine Systolic blood 2021-08-24 150 mm[Hg] [facility] [place] [facility] pressure 18:44:00 of Medicine Diastolic blood 2021-08-24 114 mm[Hg] [facility] [place] [facility] pressure 18:44:00 of Medicine Heart rate 2021-08-24 67 /min [facility] 18:44:00 of Medicine Body temperature 2021-08-24 36.5 [place] [facility] [place] [facility] 18:44:00 of Medicine Body height 2021-08-24 162.6 cm [facility] 18:44:00 of Medicine Body weight 2021-08-24 62.506 kg [facility] 18:44:00 of Medicine BMI 2021-08-24 23.65 kg/m2 [facility] 18:44:00 of Medicine HEIGHT 2021-02-19 167.6 cm 08:00:00 WEIGHT 2021-02-19 58.65 kg 08:00:00 Systolic blood 2021-12-01 130 mm[Hg] [facility] pressure 20:14:00 Hospital Diastolic blood 2021-12-01 87 mm[Hg] [facility] pressure 20:14:00 Hospital Heart rate 2021-12-01 67 /min [facility] 20:14:00 [facility] Body weight 2021-12-01 65.772 kg [facility] 20:14:00 [facility] BMI 2021-12-01 24.89 kg/m2 [facility] 20:14:00 Hospital Oxygen saturation 2021-12-01 97 /min [facility] in Arterial blood 20:14:00 Hospital by Pulse oximetry Procedures Procedure Date / Time Performed Performing Clinician [facility] e POCT SARS-COV-2 2022-05-21 16:12:00 Darcy Abrams [facility] ANTIGEN (BINAX NOW) Medical Bran ch CONSENT/REFUSAL FOR 2022-05-21 05:01:00 Doctor Unassigned, No Un iversity [facility] DIAGNOSIS AND Name Medical Branch TREATMENT TTE COMPLETE, W 2021-12-01 19:55:12 Beth Oscar [facility] CONTRAST, W DOPPLER ([id number]) XR CHEST 2 VW 2019-07-05 18:38:46 [facility] Branch CONSENT/REFUSAL FOR 2019-07-05 17:58:03 [facility] Branch TREATMENT ASSIGNMENT OF BENEFITS 2019-07-05 17:57:50 Doctor Unassigned, No [facility] Plan of Care Planned Activity Planned Date Details Comments Source Future Scheduled 2022-07-29 HEPATITIS B [facility] Test 11:53:00 VACCINES (1 of 3 - Hospital 3-dose series) [code = HEPATITIS B VACCINES (1 of 3 - 3-dose series)] Future Scheduled 2022-07-29 65+ PNEUMOCOCC[address] Methodi [facility] Test 11:53:00 VACCINE (1 - PCV) Hospital [code = 65+ PNEUMOCOCCAL VACCINE (1 - PCV)] Future Scheduled 2022-07-29 Hepatitis C [facility] 11:53:00 screening Hospital (procedure) [code = 785084277] Future Scheduled 2022-07-29 SHINGLES VACCINES Method ist Test 11:53:00 (1 of 2) [code = Hospital SHINGLES VACCINES (1 of 2)] Future Scheduled 2022-07-29 BREAST CANCER [facility] Test 11:53:00 SCREENING [code = Hospital BREAST CANCER SCREENING] Future Scheduled 2022-07-29 COLONOSCOPY [facility] Test 11:53:00 SCREENING [code = Hospital COLONOSCOPY SCREENING] Future Scheduled 2022-07-29 COVID-19 VACCINE (3 Meth odist Test 11:53:00 - Booster for Hospital Moderna series) [code = COVID-19 VACCINE (3 - Booster for Moderna series)] Future Scheduled 2022-07-29 INFLUENZA VACCINE Method ist Test 11:53:00 [code = INFLUENZA Hospital VACCINE] Future Scheduled 2022-01-29 Screening for [facility] [place] [facility] Test 12:01:48 malignant neoplasm of Medici ne of colon (procedure) [code = 607836174] Future Scheduled 2022-01-29 Screening for [facility] [place] [facility] Test 12:01:48 malignant neoplasm of Medici ne of breast (procedure) [code = 537628254] Future Scheduled 2022-01-29 TETANUS SHOT [facility] [place] [facility] Test 12:01:48 (ADULT) [code = of Medicine TETANUS SHOT (ADULT)] Future Scheduled 2022-01-29 Hepatitis C [facility] [place] [facility] Test 12:01:48 screening of Medicine (procedure) [code = 117679937] Future Scheduled 2022-01-29 ZOSTER VACCINE (1 [facility] [place] [facility] Test 12:01:48 of 2) [code = of Medicine ZOSTER VACCINE (1 of 2)] Future Scheduled 2022-01-29 Screening for [facility] [place] [facility] Test 12:01:48 osteoporosis of Medicine (procedure) [code = 771463717] Future Scheduled 2022-01-29 Pneumococcal 65+ (1 [facility] Test 12:01:48 of 1 - PPSV23) of Medicine [code = Pneumococcal 65+ (1 of 1 - PPSV23)] Future Scheduled 2022-01-29 FLU VACCINE > 6 [facility] Test 12:01:48 MONTHS [code = FLU of Medici ne VACCINE > 6 MONTHS] Future Scheduled 2022-01-29 COVID-19 Vaccine (3 [facility] Test 12:01:48 - Booster for of Medicine Moderna series) [code = COVID-19 Vaccine (3 - Booster for Moderna series)] Future Scheduled 2022-01-29 MEDICARE IPPE [facility] Test 12:01:48 (WELCOME TO of Medicine MEDICARE) [code = MEDICARE IPPE (WELCOME TO MEDICARE)] Future Scheduled 2022-01-29 FALL SCREEN [code = [facility] Test 12:01:48 FALL SCREEN] of Medicine Future Scheduled 2021-12-25 Screening for [facility] [place] [facility] Test 11:43:27 malignant neoplasm of Medici ne of colon (procedure) [code = 314998032] Future Scheduled 2021-12-25 Screening for [facility] Test 11:43:27 malignant neoplasm of Medici ne of breast (procedure) [code = 621487732] Future Scheduled 2021-12-25 TETANUS SHOT [facility] [place] [facility] Test 11:43:27 (ADULT) [code = of Medicine TETANUS SHOT (ADULT)] Future Scheduled 2021-12-25 Hepatitis C [facility] [place] [facility] Test 11:43:27 screening of Medicine (procedure) [code = 636070285] Future Scheduled 2021-12-25 ZOSTER VACCINE (1 [facility] [place] [facility] Test 11:43:27 of 2) [code = of Medicine ZOSTER VACCINE (1 of 2)] Future Scheduled 2021-12-25 Screening for [facility] [place] [facility] Test 11:43:27 osteoporosis of Medicine (procedure) [code = 476375334] Future Scheduled 2021-12-25 Pneumococcal 65+ (1 [facility] Test 11:43:27 of 1 - PPSV23) of Medicine [code = Pneumococcal 65+ (1 of 1 - PPSV23)] Future Scheduled 2021-12-25 FLU VACCINE > 6 [facility] [place] [facility] Test 11:43:27 MONTHS [code = FLU of Medici ne VACCINE > 6 MONTHS] Future Scheduled 2021-12-25 COVID-19 Vaccine (3 [facility] Test 11:43:27 - Booster for of Medicine Moderna series) [code = COVID-19 Vaccine (3 - Booster for Moderna series)] Future Scheduled 2021-12-25 MEDICARE IPPE [facility] Test 11:43:27 (WELCOME TO of Medicine MEDICARE) [code = MEDICARE IPPE (WELCOME TO MEDICARE)] Future Scheduled 2021-12-25 FALL SCREEN [code = [facility] Test 11:43:27 FALL SCREEN] of Medicine Future Scheduled 2021-12-01 Screening for [facility] Test 08:24:43 malignant neoplasm of Medici ne of colon (procedure) [code = 375581853] Future Scheduled 2021-12-01 Screening for [facility] [place] [facility] Test 08:24:43 malignant neoplasm of Medici ne of breast (procedure) [code = 947287028] Future Scheduled 2021-12-01 TETANUS SHOT [facility] [place] [facility] Test 08:24:43 (ADULT) [code = of Medicine TETANUS SHOT (ADULT)] Future Scheduled 2021-12-01 Hepatitis C [facility] [place] [facility] Test 08:24:43 screening of Medicine (procedure) [code = 766803805] Future Scheduled 2021-12-01 ZOSTER VACCINE (1 [facility] [facility] [place] [employer] Test 08:24:43 of 2) [code = of Medicine ZOSTER VACCINE (1 of 2)] Future Scheduled 2021-12-01 Screening for [facility] [place] [employer] Test 08:24:43 osteoporosis of Medicine (procedure) [code = 749050316] Future Scheduled 2021-12-01 Pneumococcal 65+ (1 [employer] Test 08:24:43 of 1 - PPSV23) of Medicine [code = Pneumococcal 65+ (1 of 1 - PPSV23)] Future Scheduled 2021-12-01 FLU VACCINE > 6 [facility] [place] [facility] [employer] Test 08:24:43 MONTHS [code = [...] Medici ne of colon (procedure) [code = 882872047] Future Scheduled 2021-09-27 Screening for [employer] [facility] 12:10:08 malignant neoplasm of Medici ne of breast (procedure) [code = 994627753] Future Scheduled 2021-09-27 Pneumococcal 65+ (1 [employer] Test 12:10:08 of 2 - PPSV23) of Medicine [code = Pneumococcal 65+ (1 of 2 - PPSV23)] Future Scheduled 2021-09-27 TETANUS SHOT [facility] [place] [employer] Test 12:10:08 (ADULT) [code = of Medicine TETANUS SHOT (ADULT)] Future Scheduled 2021-09-27 Hepatitis C [facility] [place] [employer] Test 12:10:08 screening of Medicine (procedure) [code = 284521663] Future Scheduled 2021-09-27 ZOSTER VACCINE (1 [facility] [place] [employer] Test 12:10:08 of 2) [code = of Medicine ZOSTER VACCINE (1 of 2)] Future Scheduled 2021-09-27 Screening for [facility] [place] [facility] [employer] Test 12:10:08 osteoporosis of Medicine (procedure) [code = 809370557] Future Scheduled 2021-09-27 FLU VACCINE > 6 [facility] [place] [facility] [employer] Test 12:10:08 MONTHS [code = FLU of Medici ne VACCINE > 6 MONTHS] Future Scheduled 2021-09-27 COVID-19 Vaccine (3 [employer] Test 12:10:08 - Booster for of Medicine Moderna series) [code = COVID-19 Vaccine (3 - Booster for Moderna series)] Future Scheduled 2021-09-27 MEDICARE IPPE [facility] [place] [facility] [employer] Test 12:10:08 (WELCOME TO of Medicine MEDICARE) [code = MEDICARE IPPE (WELCOME TO MEDICARE)] Future Scheduled 2021-09-27 FALL SCREEN [code = [employer] [facility] 12:10:08 FALL SCREEN] of Medicine Future Scheduled 2021-09-21 FL ESOPHAGRAM 1 Occurrences [facility] [place] [employer] Test 14:09:59 COMPLETE [code = starting of Medicine 00640-1] 09/21/2021 until 03/21/2023 Future Scheduled 2021-09-21 EATON PH EGD [code Expected: [facility] [employer] [facility] 00:00:00 = 18395] 09/21/2021, of Medicine Expires: 02/22/2022 Future Scheduled 2021-08-30 Screening for [employer] [facility] 10:43:51 malignant neoplasm of Medici ne of colon (procedure) [code = 152808538] Future Scheduled 2021-08-30 Screening for [facility] [place] [facility] [employer] Test 10:43:51 malignant neoplasm of Medici ne of breast (procedure) [code = 312844120] Future Scheduled 2021-08-30 TETANUS SHOT [facility] [place] [employer] Test 10:43:51 (ADULT) [code = of Medicine TETANUS SHOT (ADULT)] Future Scheduled 2021-08-30 Hepatitis C [facility] [place] [employer] Test 10:43:51 screening of Medicine (procedure) [code = 222120471] Future Scheduled 2021-08-30 ZOSTER VACCINE (1 [facility] [place] [employer] Test 10:43:51 of 2) [code = of Medicine ZOSTER VACCINE (1 of 2)] Future Scheduled 2021-08-30 Screening for [facility] [place] [facility] [employer] Test 10:43:51 osteoporosis of Medicine (procedure) [code = 233869363] Future Scheduled 2021-08-30 PNEUMOVAX >=65 [facility] [place] [employer] Test 10:43:51 (PPSV23) [code = of Medicine PNEUMOVAX >=65 (PPSV23)] Future Scheduled 2021-08-30 FLU VACCINE > 6 [facility] [place] [facility] Test 10:43:51 MONTHS [code = FLU of Medici ne VACCINE > 6 MONTHS] Future Scheduled 2021-08-30 MEDICARE IPPE [facility] [place] [facility] [employer] Test 10:43:51 (WELCOME TO of Medicine MEDICARE) [code = MEDICARE IPPE (WELCOME TO MEDICARE)] Future Scheduled 2021-08-30 FALL SCREEN [code = [facility] or [employer] Test 10:43:51 FALL SCREEN] of Medicine Encounters Start End Encounter Admission Attending Care Care Encounter Source Date/Time Date/Time Type Type Clinicians Facility Department ID 2021-09-21 Inpatient WINSTON PAIGE [facility] Surgery [id number] SLE 14:43:34 2021-08-15 Outpatient SUNNY [facility] Surgery [id number] SLE 09:12:40 JAMES 2022-05-21 2022-05-21 Nurse Therapy, Clc Covid Infusion [facility] 1.2.840.114 [id number] Univers 15:30:00 16:30:00 Visit Juan Carlos Sullivan [facility] 350.1.13.10 jeff solis [place] 4.2.7.2.686 [facility] [id number] [place] [id number] Branch OFFICE BUILDING 2022-05-21 2022-05-21 Outpatient Corby [facility] [id number] Univers 15:30:00 15:30:00 JUAN CARLOS [id number] jeff [facility] 2022-05-21 2022-05-21 Outpatient Corby [facility] [id number] Univers 15:30:00 15:30:00 JUAN CARLOS aguilar [facility] 2022-05-21 2022-05-21 Urgent Darcy Abrams [facility] 1.2. 840.114 [id number] Univers 11:00:00 11:20:00 Care Arabella Encinas [facility] 350.1.13.10 ity of [place] 4.2.7.2.686 Quinten as DESHAWN?BLEA [id number] [address] MEDICAL OFFICE BUILDING 2022-05-21 2022-05-21 Orders Doctor SUDHIR 1.2.840.114 [id number] Univers 00:00:00 00:00:00 Only Unassigned, BREN 350.1.13.10 ity of [place] [facility] 4.2.7.2.686 Quinten as [id number] [address] 2022-05-19 2022-05-19 Beth Strickland 1.2.840.1 [id number] Methodi 00:00:00 00:00:[address] 3.430.2.7 Hospit a .3.943535 l .8 2022-05-08 2022-05-08 Beth Strickland 1.2.840.1 [id number] 3984 Methodi 00:00:00 00:00:[address] 3.430.2.7 Hospit a .3.584940 l .8 2022-01-25 2022-01-25 Office Winston Cordoba 1.2.840.114 [id number] [facility] [place] 14:45:00 15:53:45 Visit M AMBULATOR 350.1.13.21 College Y 0.2.7.2.686 of [id number] [facility] 810 e 2021-12-21 2021-12-21 Office Winston Cordoba [place] 1.2.840.114 [id number] [facility] [place] 12:45:00 14:26:54 Visit AMBULATOR 350.1.13.21 College Y 0.2.7.2.686 of [id number] [facility] 810 e 2021-12-10 2021-12-13 Inpatient EL WINSTON CORDOBA [facility] Surgery [id number] [facility] 05:48:00 13:31:00 2021-12-10 2021-12-10 Outpatient BCM [facility] [id number] [facility] [place] 05:48:00 23:59:00 Colleg e of Medicin e 2021-12-10 2021-12-10 [id number] [facility] [place] 00:00:00 05:47:00 Colleg e of Medicin e 2021-12-09 2021-12-09 Outpatient WINSTON PAIGE [facility] [id number] [facility] 14:04:51 23:59:00 2021-12-07 2021-12-07 Outpatient WINSTON PAIGE [facility] [id number] [facility] 15:22:30 23:59:00 2021-12-07 2021-12-07 Outpatient [facility] [id number] [facility] [place] 00:00:00 23:59:00 Colleg e of Medicin e 2021-12-07 2021-12-07 Outpatient WINSTON PAIGE [facility] [id number] [facility] 14:35:06 14:44:00 2021-12-07 2021-12-07 Outpatient ROMAINE [facility] [id number] [facility] 00:00:00 00:00:00 2021-12-07 2021-12-07 Outpatient WINSTON PAIGE SLE SLE [id number] [facility] 00:00:00 00:00:00 2021-12-01 2021-12-01 Office Beth Oscar 1.2.840.1 [id number] Methodi 14:20:00 14:40:[address] 18242.1.[address] 3.430.2.7 Hospit a .3.522089 l .8 2021-12-01 2021-12-01 Outpatient BETH OSCAR [facility] [id number] Industry 00:00:00 00:00:[address] 2021-12-01 2021-12-01 Outpatient BETH OSCAR [facility] [id number] Industry 00:00:00 00:00:[address] 2021-11-30 2021-11-30 Office BERYLANA MillanAN [facility] 1.2.840.114 [id number] [facility] [place] 10:29:44 13:18:53 Visit AMBULATOR 350.1.13.21 College Y 0.2.7.2.686 [id number] [facility] 810 e 2021-11-30 2021-11-30 Travel 1.2.840.1 1.2.529.411 [id number] Methodi 00:00:00 00:00:[address] 3.430.2.7 0.2.7.3.698 Ho spita .3.325609 084.8 l .8 2021-11-30 2021-11-30 Telephone Michelle, 1.2.840.1 [id number] Methodi 00:00:00 00:00:[address] 3.430.2.7 Hospit a .3.936139 l .8 2021-11-26 2021-11-26 [facility] [id number] [facility] 12:17:29 23:59:00 YU 2021-11-16 2021-11-16 Travel 1.2.840.1 1.2.295.350 [id number] Methodi 00:00:00 00:00:[address] 3.430.2.7 0.2.7.3.698 Ho spita .3.800215 084.8 l .8 2021-11-11 2021-11-11 Travel 1.2.840.1 1.2.599.818 [id number] [id number] Methodi 00:00:00 00:00:[address] 3.430.2.7 0.2.7.3.698 Ho spita .3.045480 084.8 l .8 2021-10-23 2021-10-23 Outpatient EL RANULFO [facility] Surgery [id number] [facility] 09:48:00 11:05:00 HARSHINIE 2021-10-22 2021-10-22 Outpatient EL AMARATUNGE, [facility] Surgery [id number] [facility] 08:23:00 10:42:00 HARSHINIE 2021-09-21 2021-09-21 Office BerylWinston millan [facility] 1.2.840.114 [id number] [facility] [place] 13:15:00 16:04:38 Visit AMBULATOR 350.1.13.21 College Y 0.2.7.2.686 of [id number] [facility] rj 810 e 2021-08-24 2021-08-24 Office WINSTON CORDOBA [facility] 1.2.840.114 [id number] [facility] [place] 13:30:32 15:32:43 Visit AMBULATOR 350.1.13.21 College Y 0.2.7.2.686 of [id number] [facility] rj 810 e 2021-08-20 2021-08-20 Orders Nikhil, 1.2.840.1 [id number] Methodi 00:00:00 00:00:00 Only Funmi 81749.1.1 969 3.430.2.7 Hospit a .3.458551 l .8 2021-08-11 2021-08-11 Outpatient BETH OSCAR [facility] [id number] Industry 00:00:00 00:00:00 948 Method i 2021-04-24 2021-04-24 Outpatient BETH OSCAR [facility] [id number] Industry 00:00:00 00:00:00 679 Method i 2021-04-10 2021-04-10 Outpatient SEMONES, [facility] [id number] Industry 00:00:00 00:00:00 LYNNETTE 306 Method i 2021-04-09 2021-04-09 Outpatient SEMONES, [facility] [id number] Industry 00:00:00 00:00:00 LYNNETTE 479 Method i 2021-04-02 2021-04-08 Inpatient GADIRAJU, [facility] 064 [id number] Industry 00:00:00 00:00:00 SAHITYA 295 Method i 2021-02-20 2021-03-09 Inpatient GÓMEZ, [facility] 064 [id number] Industry 00:00:00 00:00:00 OWEN [address] 2021-03-05 2021-03-05 Outpatient Priscilla-Mbayo VFP VFP [id number] [facility] 12:08:00 12:08:00 _A_AH 13800 Family Practic e 2021-02-17 2021-02-17 Outpatient EL [facility]H [facility] [id number] [facility] 00:00:00 00:00:00 2019-12-26 2019-12-26 Outpatient Priscilla-Mbayo VFP VFP [id number] [id number] [facility] 07:18:00 07:18:00 _A_AH 07165 Family Practic e 2019-12-26 2019-12-26 Outpatient Priscilla-Mbayo VFP VFP 794 [id number] [facility] 07:18:00 07:18:00 _A_AH 41061 Family Practic e 2019-12-26 2019-12-26 Outpatient Priscilla-Mbayo VFP VFP 794 [id number] [facility] 07:18:00 07:18:00 _A_AH 15860 Family Practic e 2019-07-05 2019-07-05 [facility]iology [facility] 1.2.840.114 [id number] 13:04:53 23:59:00 Encounter Fransico 350.1.13.10 [place] [address]7.[address] [place] [id number] [facility] 2019-07-05 2019-07-05 [facility] Radiology [facility] 1.2.840.114 [id number] [facility] 13:04:53 23:59:00 Encounter Fransico 350.1.13.10 ity of [place] 4.2.7.2.[address] [place] [address] [id number] [facility] [address] 2019-07-05 2019-07-05 [employer] 1, Adc Lab [facility] 1.2.840.114 [id number] [facility] 12:58:15 13:13:15 Visit Sandi Cornejo 350.1.13 .10 ity of [place] 4.2.7.2.[address] [place] [address] [id number] [facility] [address] 2019-07-05 2019-07-05 [employer] 1, Adc Lab [facility] 1.2.840.114 [id number] 12:58:15 13:13:15 Visit Fransico Bella.1.13.10 [place] 4.2.7.2.686 [place] [id number] 353 2019-07-05 2019-07-05 Orders Doctor SUDHIR 1.2.840.114 [id number] Univers 00:00:00 00:00:00 Only Unassigned, BREN 350.1.13.10 ity of [place] [facility] 4.2.7.2.686 Quinten as [id number] [facility] [address] 2019-07-05 2019-07-05 Orders Doctor SUDHIR 1.2.840.114 [id number] 00:00:00 00:00:00 Only Unassigned, BREN 350.1.13.10 [place] [address]686 [id number] 009 Results Test Description Test Time Test Comments Results Result Comments Source POCT SARS-COV-2 ANTIGEN (BINAX NOW) 2022-05-21 16:12:00 Test Item Value Reference Range Interpretation Comme nts POCT SARS-COV-2 ANTIGEN (test code Positive Not Detected A = 5076) On board controls acceptable with Yes C Line (test code = 3574) MORGAN (test code = MORGAN) accurate development and interpretation of all internal controls Lab Interpretation (test code = Abnormal 01019-6) [facility] [id number] 11:34:23Surgical Pathology Report Case: [id number] Authorizing Provider: Winston Cordoba MD Collected: 12/10/2021 12:45 PM Ordering Location: [facility] Received: 12/10/2021 03:38 PM PERIOPERATIVE SERVICES Pathologist: Kemar Beckford MD Specimen: Stomach, WEDGE FUNDECTOMY A. STOMACH, WEDGE FUNDECTOMY: - CARDIO- OXYNTIC MUCOSA WITH CHRONIC INACTIVE GASTRITIS - NEGATIVE FOR HELICOBACTER PYLORI ORGANISMS (BY IMMUNOSTAIN) - NEGATIVE FOR INTESTINAL METAPLASIA, DYSPLASIA, MALIGNANCY Signing Pathologist Direct Phone Line: [phone] signed by Kemar Beckford MD on 12/15/2021 at 11:34 [id number] reflux disease, hiatal hernia, history of fundoplication, historyof repair of hiatal herniaStomachReceived in formalin labeled the patient's name, accession number and " wedge fundectomy" is a 5.0 x 3.5 x 1.6 cm unoriented portion of stomach with a 5.0 cm linear staple line. The serosa is browne-pink and shaggy. The specimen is opened to reveal a browne-pink, focally erythematous mucosa that displays normal rugal folds. No discrete lesions are identified. Representativesections are submitted in A1-A2.PASQUALE Mejia HT (ASCP)Performed.The interpretation of this case included the use of immunohistochemistry or special stains.Control Slides Examined: In-house known positive controls were evaluated along with the test tissue. These control slides run alongside ofthe patients sample show appropriate staining. Internal positive and negative controls when available are evaluated Immunohistochemistry technical testing was performed at [facility], Pathology Laboratory where it was developed and its performance characteristics were determined.It has not been cleared or approved by the U.S. Food and Drug Administration. The FDA has determinedthat such clearance or approval is not necessary. The test is used for clinical purposes. It should not be regarded as investigational or for research. This laboratory is certified under the Clinical Laboratory Improvement Amendments of 1988 (CLIA-88) as qualified to perform high complexity clinical laboratory testing.[id number] 06:29:02 Test Item Value Reference Range Interpretation Comments PHOSPHORUS (BEAKER) (test code = 2.1 mg/dL 2.3-4.7 L 604) Caddie ID - PIAYA LBASIC METABOLIC [id number] 06:29:01 Test Item Value Reference Range Interpretation Comments SODIUM (BEAKER) 137 meq/L 136-145 (test code = 381) POTASSIUM (BEAKER) 4.1 meq/L 3.5-5.1 (test code = 379) CHLORIDE (BEAKER) 103 meq/L 98-107 (test code = 382) CO2 (BEAKER) (test 28 meq/L 22-29 code = 355) BLOOD UREA NITROGEN 12 mg/dL 7-21 (BEAKER) (test code = 354) CREATININE (BEAKER) 0.73 mg/dL 0.57-1.25 (test code = 358) GLUCOSE RANDOM 98 mg/dL 70-105 (BEAKER) (test code = 652) CALCIUM (BEAKER) 9.1 mg/dL 8.4-10.2 (test code = 697) EGFR (BEAKER) (test 79 mL/min/1.73 ESTIMA CRISTY GFR IS code = 1092) sq m NOT ACCURATE CREATININE CLEARANCE IN PREDICTING GLOMERULAR FILTRATION RATE . ESTIMATED GFR I S NOT APPLICABLE FOR DIALYSIS PATIEN TS. Caddie ID - ANIL [id number] 06:29:01 Test Item Value Reference Range Interpretation Comments MAGNESIUM (BEAKER) (test code = 2.0 mg/dL 1.6-2.6 627) Caddie ID - PISHANT LPOCT-GLUCOSE [id number] 06:10:15 Test Item Value Reference Range Interpretation Comments POC-GLUCOSE METER 85 mg/dL 70-110 : TESTED A T [facility] 6720 (BEAKER) (test code = [place], 1538) 76189: Caddie/Techni lakeisha ID = [id number] for MAXIM FONSECA CBC W/PLT COUNT & AUTO [id number] 05:53:04 Test Item Value Reference Range Interpretation Comments WHITE BLOOD CELL COUNT (BEAKER) 4.5 K/ L 3.5-10.5 (test code = 775) RED BLOOD CELL COUNT (BEAKER) 4.43 M/ L 3.93-5.22 (test code = 761) HEMOGLOBIN (BEAKER) (test code = 13.3 GM/DL 11.2-15.7 410) HEMATOCRIT (BEAKER) (test code = 42.0 % 34.1-44.9 411) MEAN CORPUSCULAR VOLUME (BEAKER) 94.8 fL 79.4-94.8 (test code = 753) MEAN CORPUSCULAR HEMOGLOBIN 30.0 pg 25.6-32.2 (BEAKER) (test code = 751) MEAN CORPUSCULAR HEMOGLOBIN CONC 31.7 GM/DL 32.2-35.5 L (BEAKER) (test code = 752) RED CELL DISTRIBUTION WIDTH 14.0 % 11.7-14.4 (BEAKER) (test code = 412) PLATELET COUNT (BEAKER) (test 189 K/CU MM 150-450 code = 756) MEAN PLATELET VOLUME (BEAKER) 11.7 fL 9.4-12.3 (test code = 754) NUCLEATED RED BLOOD CELLS 0 /100 WBC 0-0 (BEAKER) (test code = 413) NEUTROPHILS RELATIVE PERCENT 58 % (BEAKER) (test code = 429) LYMPHOCYTES RELATIVE PERCENT 22 % (BEAKER) (test code = 430) MONOCYTES RELATIVE PERCENT 13 % (BEAKER) (test code = 431) EOSINOPHILS RELATIVE PERCENT 6 % (BEAKER) (test code = 432) BASOPHILS RELATIVE PERCENT 0 % (BEAKER) (test code = 437) NEUTROPHILS ABSOLUTE COUNT 2.61 K/ L 1.56-6.13 (BEAKER) (test code = 670) LYMPHOCYTES ABSOLUTE COUNT 0.99 K/ L 1.18-3.74 L (BEAKER) (test code = 414) MONOCYTES ABSOLUTE COUNT (BEAKER) 0.60 K/ L 0.24-0.36 H (test code = 415) EOSINOPHILS ABSOLUTE COUNT 0.27 K/ L 0.04-0.36 (BEAKER) (test code = 416) BASOPHILS ABSOLUTE COUNT (BEAKER) 0.02 K/ L 0.01-0.08 (test code = 417) IMMATURE GRANULOCYTES-RELATIVE 0 % 0-1 PERCENT (BEAKER) (test code = 2801) POCT-GLUCOSE [id number] 23:23:41 Test Item Value Reference Range Interpretation Comments POC-GLUCOSE METER 127 mg/dL 70-110 H : TESTED A T [facility] 6720 (BEAKER) (test code = [facility], 1538) 71998: Caddie/Techni lakeisha ID = [id number] for MAXIM [place] SE POCT-GLUCOSE [id number] 17:59:13 Test Item Value Reference Range Interpretation Comments POC-GLUCOSE METER 119 mg/dL 70-110 H : TESTED A T [facility] 6720 (BEAKER) (test code = [facility], 1538) 39841: Caddie/Techni lakeisha ID = [id number] for Do minguez, Torin POCT-GLUCOSE [id number] 12:45:16 Test Item Value Reference Range Interpretation Comments POC-GLUCOSE METER 122 mg/dL 70-110 H : TESTED A T [facility] 6720 (BEAKER) (test code = [facility], 1538) 03215: Caddie/Techni lakeisha ID = [id number] for Do minguez, Torin [place], [id number] 10:03:00Reason for exam:->s/p wicho gastroplasty, fundoplication, eval for leak/obstruction [facility] : 1955 Sex: FFINAL REPORT Fluoroscopic esophagram ENVIRONMENTAL STUDIES DEPARTMENT CHAIR(S):Naina Aranda MD Comparison: None. Procedure: Esophagram fluoroscopic images obtained with gastrografin contrast Fluoroscopy Time: 0.9minutesDose: 612.9 uGym2 DISCUSSION/IMPRESSION:Postoperative findings of fundoplication. Luminal narr owing and mild delayed passage of contrast beyond the wrap. No leak. No free air. Signed: Naina Aranda MDReport Verified Date/Time: 12/12/2021 10:03:51 Reading Location: [address] Body Reading Room POCT-GLUCOSE [id number] 05:39:54 Test Item Value Reference Range Interpretation Comments POC-GLUCOSE METER 94 mg/dL 70-110 : TESTED A T [facility] 6720 (BEAKER) (test code = ASHLEY Tavarez [facility], 1538) 25183: Caddie/Techni lakeisha ID = [id number] for SB ELY [id number] 05:24:19 Test Item Value Reference Range Interpretation Comments MAGNESIUM (BEAKER) (test code = 1.9 mg/dL 1.6-2.6 627) Caddie ID - [id number] 05:24:19 Test Item Value Reference Range Interpretation Comments PHOSPHORUS (BEAKER) (test code = 1.7 mg/dL 2.3-4.7 L 604) Caddie ID - DBBASIC METABOLIC [id number] 05:24:18 Test Item Value Reference Range Interpretation Comments SODIUM (BEAKER) 136 meq/L 136-145 (test code = 381) POTASSIUM (BEAKER) 4.1 meq/L 3.5-5.1 (test code = 379) CHLORIDE (BEAKER) 102 meq/L 98-107 (test code = 382) CO2 (BEAKER) (test 23 meq/L 22-29 code = 355) BLOOD UREA NITROGEN 9 mg/dL 7-21 (BEAKER) (test code = 354) CREATININE (BEAKER) 0.71 mg/dL 0.57-1.25 (test code = 358) GLUCOSE RANDOM 95 mg/dL 70-105 (BEAKER) (test code = 652) CALCIUM (BEAKER) 9.2 mg/dL 8.4-10.2 (test code = 697) EGFR (BEAKER) (test 82 mL/min/1.73 ESTIMA CRISTY GFR IS code = 1092) sq m NOT ACCURATE CREATININE CLEARANCE IN PREDICTING GLOMERULAR FILTRATION RATE . ESTIMATED GFR I S NOT APPLICABLE FOR DIALYSIS PATIEN TS. Caddie ID - DBCBC W/PLT COUNT & AUTO [id number] 05:10:33 Test Item Value Reference Range Interpretation Comments WHITE BLOOD CELL COUNT (BEAKER) 7.2 K/ L 3.5-10.5 (test code = 775) RED BLOOD CELL COUNT (BEAKER) 4.22 M/ L 3.93-5.22 (test code = 761) HEMOGLOBIN (BEAKER) (test code = 12.7 GM/DL 11.2-15.7 410) HEMATOCRIT (BEAKER) (test code = 39.5 % 34.1-44.9 411) MEAN CORPUSCULAR VOLUME (BEAKER) 93.6 fL 79.4-94.8 (test code = 753) MEAN CORPUSCULAR HEMOGLOBIN 30.1 pg 25.6-32.2 (BEAKER) (test code = 751) MEAN CORPUSCULAR HEMOGLOBIN CONC 32.2 GM/DL 32.2-35.5 (BEAKER) (test code = 752) RED CELL DISTRIBUTION WIDTH 13.9 % 11.7-14.4 (BEAKER) (test code = 412) PLATELET COUNT (BEAKER) (test 168 K/CU MM 150-450 code = 756) MEAN PLATELET VOLUME (BEAKER) 12.0 fL 9.4-12.3 (test code = 754) NUCLEATED RED BLOOD CELLS 0 /100 WBC 0-0 (BEAKER) (test code = 413) NEUTROPHILS RELATIVE PERCENT 75 % (BEAKER) (test code = 429) LYMPHOCYTES RELATIVE PERCENT 11 % (BEAKER) (test code = 430) MONOCYTES RELATIVE PERCENT 12 % (BEAKER) (test code = 431) EOSINOPHILS RELATIVE PERCENT 2 % (BEAKER) (test code = 432) BASOPHILS RELATIVE PERCENT 0 % (BEAKER) (test code = 437) NEUTROPHILS ABSOLUTE COUNT 5.36 K/ L 1.56-6.13 (BEAKER) (test code = 670) LYMPHOCYTES ABSOLUTE COUNT 0.77 K/ L 1.18-3.74 L (BEAKER) (test code = 414) MONOCYTES ABSOLUTE COUNT (BEAKER) 0.88 K/ L 0.24-0.36 H (test code = 415) EOSINOPHILS ABSOLUTE COUNT 0.15 K/ L 0.04-0.36 (BEAKER) (test code = 416) BASOPHILS ABSOLUTE COUNT (BEAKER) 0.01 K/ L 0.01-0.08 (test code = 417) IMMATURE GRANULOCYTES-RELATIVE 0 % 0-1 PERCENT (BEAKER) (test code = 2801) POCT-GLUCOSE [id number] 00:50:22 Test Item Value Reference Range Interpretation Comments POC-GLUCOSE METER 96 mg/dL 70-110 : TESTED A T [facility] 6720 (BEAKER) (test code = [facility], 1538) [address]804: Caddie/Techni lakeisha ID = [id number] for SB ELY POCT-GLUCOSE [id number] 16:47:08 Test Item Value Reference Range Interpretation Comments POC-GLUCOSE METER 109 mg/dL 70-110 : TESTED A T [facility] 6720 (BEAKER) (test code = [facility], 1538) [address]806: Caddie/Techni lakeisha ID = [id number] for Do epperson Torin POCT-GLUCOSE [id number] 11:24:33 Test Item Value Reference Range Interpretation Comments POC-GLUCOSE METER 100 mg/dL 70-110 : TESTED A T [facility] 6720 (BEAKER) (test code = ASHLEY Tavarez [facility], 1538) [address]: Caddie/Techni lakeisha ID = [id number] for Do Torin epperson RAD, CHEST, 1 VIEW, NON [id number] 08:09:00Reason for exam:->s/p hernia reduction, new L basilar atelactasis, evaluate for interval changeShould this be performed at the bedside?->Yes [facility] 1955 Sex: FFINAL REPORT INDICATION: s/p hernia reduction, new L basilar atelactasis, evaluate for interval change COMPARISON: 12/10/2021 TECHNIQUE: Single frontal view of the chest. FINDINGS: Lines, tubes, and devices: A 3-lead left subclavian approach AICD-pacemaker combination projects in good position. The life support lines and tubes are unchanged. Lungs and pleura: Left retrocardiac opacity, representing singly or in combination airspace disease, atelectasis, or pleural effusion. No effusion.Heart and mediastinum: Normal heart size. Unremarkable mediastinal contours.Osseous structures: No acute abnormality.Other: Moderate subcutaneous emphysema in the lower neck bilaterally and right chest wall IMPRESSION: 1.Left retrocardiac opacity, representing singly or in combination airspace disease, atelectasis, or pleural effusion.2.Subcutaneous emphysema, similar to prior exam. Signed: Addison Shen MDReport Verified Date/Time: 12/11/2021 08:09:42 Reading Location: [address] TransitionalReading Room POCT-GLUCOSE [id number] 07:57:40 Test Item Value Reference Range Interpretation Comments POC-GLUCOSE METER 73 mg/dL 70-110 : TESTED A T [facility] 6720 (BEAKER) (test code = ASHLEY [place], 1538) [address]: Caddie/Techni lakeisha ID = [id number] for Torin Alvarez [id number] 06:03:15 Test Item Value Reference Range Interpretation Comments MAGNESIUM (BEAKER) (test code = 2.0 mg/dL 1.6-2.6 627) Caddie ID - [id number] 06:03:15 Test Item Value Reference Range Interpretation Comments PHOSPHORUS (BEAKER) (test code = 2.6 mg/dL 2.3-4.7 604) Caddie ID - ADMINBASIC METABOLIC [id number] 06:03:14 Test Item Value Reference Range Interpretation Comments SODIUM (BEAKER) 138 meq/L 136-145 (test code = 381) POTASSIUM (BEAKER) 4.2 meq/L 3.5-5.1 (test code = 379) CHLORIDE (BEAKER) 108 meq/L 98-107 H (test code = 382) CO2 (BEAKER) (test 19 meq/L 22-29 L code = 355) BLOOD UREA NITROGEN 14 mg/dL 7-21 (BEAKER) (test code = 354) CREATININE (BEAKER) 0.78 mg/dL 0.57-1.25 (test code = 358) GLUCOSE RANDOM 75 mg/dL 70-105 (BEAKER) (test code = 652) CALCIUM (BEAKER) 8.5 mg/dL 8.4-10.2 (test code = 697) EGFR (BEAKER) (test 73 mL/min/1.73 ESTIMA CRISTY GFR IS code = 1092) sq m NOT ACCURATE CREATININE CLEARANCE IN PREDICTING GLOMERULAR FILTRATION RATE . ESTIMATED GFR I S NOT APPLICABLE FOR DIALYSIS PATIEN TS. Caddie ID - ADMINCBC W/PLT COUNT & AUTO [id number] 05:28:30 Test Item Value Reference Range Interpretation Comments WHITE BLOOD CELL COUNT (BEAKER) 7.9 K/ L 3.5-10.5 (test code = 775) RED BLOOD CELL COUNT (BEAKER) 4.06 M/ L 3.93-5.22 (test code = 761) HEMOGLOBIN (BEAKER) (test code = 12.3 GM/DL 11.2-15.7 410) HEMATOCRIT (BEAKER) (test code = 38.4 % 34.1-44.9 411) MEAN CORPUSCULAR VOLUME (BEAKER) 94.6 fL 79.4-94.8 (test code = 753) MEAN CORPUSCULAR HEMOGLOBIN 30.3 pg 25.6-32.2 (BEAKER) (test code = 751) MEAN CORPUSCULAR HEMOGLOBIN CONC 32.0 GM/DL 32.2-35.5 L (BEAKER) (test code = 752) RED CELL DISTRIBUTION WIDTH 14.0 % 11.7-14.4 (BEAKER) (test code = 412) PLATELET COUNT (BEAKER) (test 149 K/CU MM 150-450 L code = 756) MEAN PLATELET VOLUME (BEAKER) 12.3 fL 9.4-12.3 (test code = 754) NUCLEATED RED BLOOD CELLS 0 /100 WBC 0-0 (BEAKER) (test code = 413) NEUTROPHILS RELATIVE PERCENT 79 % (BEAKER) (test code = 429) LYMPHOCYTES RELATIVE PERCENT 9 % (BEAKER) (test code = 430) MONOCYTES RELATIVE PERCENT 12 % (BEAKER) (test code = 431) EOSINOPHILS RELATIVE PERCENT 0 % (BEAKER) (test code = 432) BASOPHILS RELATIVE PERCENT 0 % (BEAKER) (test code = 437) NEUTROPHILS ABSOLUTE COUNT 6.24 K/ L 1.56-6.13 H (BEAKER) (test code = 670) LYMPHOCYTES ABSOLUTE COUNT 0.67 K/ L 1.18-3.74 L (BEAKER) (test code = 414) MONOCYTES ABSOLUTE COUNT (BEAKER) 0.90 K/ L 0.24-0.36 H (test code = 415) EOSINOPHILS ABSOLUTE COUNT 0.02 K/ L 0.04-0.36 L (BEAKER) (test code = 416) BASOPHILS ABSOLUTE COUNT (BEAKER) 0.01 K/ L 0.01-0.08 (test code = 417) IMMATURE GRANULOCYTES-RELATIVE 0 % 0-1 PERCENT (BEAKER) (test code = 2801) POCT-GLUCOSE [id number] 17:34:40 Test Item Value Reference Range Interpretation Comments POC-GLUCOSE METER 75 mg/dL 70-110 : TESTED A T [facility] 6720 (BEAKER) (test code = ASH[place], 1538) [address]: Caddie/Techni lakeisha ID = [id number] for CLIFF PEDERSEN RAD, CHEST, 1 VIEW, NON [id number] 15:24:00Reason for exam:->post-opShould this be performed at the bedside?->Yes [facility] : 1955 Sex: FFINAL REPORT TECHNIQUE: Frontal view of the chest. INDICATION: post-op COMPARISON:12/07/2021 DISCUSSION:Limited evaluation due to portable technique. Lines and hardware: Left chest wall triple lead ICD is stable. Subdiaphragmatic enteric tube is noted.Heart and mediastinum: Stable.Lungs and pleura: Perihilar and left lower lobe atelectasis is noted. No definite pneumothorax.Soft tissues and bones: No acute abnormality. Diffuse new subcutaneous emphysema is noted. IMPRESSION:Left basilar atelectasis. No pneumothorax.Diffuse subcutaneous emphysema. Signed: Peter Gómez MDReport Verified Date/Time: 12/10/2021 15:24:32 Reading Location: [facility] BASI METABOLIC [id number] 15:15:11 Test Item Value Reference Range Interpretation Comments SODIUM (BEAKER) 140 meq/L 136-145 (test code = 381) POTASSIUM (BEAKER) 4.2 meq/L 3.5-5.1 (test code = 379) CHLORIDE (BEAKER) 110 meq/L 98-107 H (test code = 382) CO2 (BEAKER) (test 21 meq/L 22-29 L code = 355) BLOOD UREA NITROGEN 24 mg/dL 7-21 H (BEAKER) (test code = 354) CREATININE (BEAKER) 0.83 mg/dL 0.57-1.25 (test code = 358) GLUCOSE RANDOM 98 mg/dL 70-105 (BEAKER) (test code = 652) CALCIUM (BEAKER) 8.2 mg/dL 8.4-10.2 L (test code = 697) EGFR (BEAKER) (test 68 mL/min/1.73 ESTIMA CRISTY GFR IS code = 1092) sq m NOT ACCURATE CREATININE CLEARANCE IN PREDICTING GLOMERULAR FILTRATION RATE . ESTIMATED GFR I S NOT APPLICABLE FOR DIALYSIS PATIEN TS. Caddie ID - [id number] 15:15:11 Test Item Value Reference Range Interpretation Comments MAGNESIUM (BEAKER) (test code = 1.8 mg/dL 1.6-2.6 627) Caddie ID - DBCBC W/PLT COUNT & AUTO [id number] 15:01:29 Test Item Value Reference Range Interpretation Comments WHITE BLOOD CELL COUNT (BEAKER) 6.8 K/ L 3.5-10.5 (test code = 775) RED BLOOD CELL COUNT (BEAKER) 3.79 M/ L 3.93-5.22 L (test code = 761) HEMOGLOBIN (BEAKER) (test code = 11.4 GM/DL 11.2-15.7 410) HEMATOCRIT (BEAKER) (test code = 36.0 % 34.1-44.9 411) MEAN CORPUSCULAR VOLUME (BEAKER) 95.0 fL 79.4-94.8 H (test code = 753) MEAN CORPUSCULAR HEMOGLOBIN 30.1 pg 25.6-32.2 (BEAKER) (test code = 751) MEAN CORPUSCULAR HEMOGLOBIN CONC 31.7 GM/DL 32.2-35.5 L (BEAKER) (test code = 752) RED CELL DISTRIBUTION WIDTH 13.8 % 11.7-14.4 (BEAKER) (test code = 412) PLATELET COUNT (BEAKER) (test 150 K/CU MM 150-450 code = 756) MEAN PLATELET VOLUME (BEAKER) 11.9 fL 9.4-12.3 (test code = 754) NUCLEATED RED BLOOD CELLS 0 /100 WBC 0-0 (BEAKER) (test code = 413) NEUTROPHILS RELATIVE PERCENT 85 % (BEAKER) (test code = 429) LYMPHOCYTES RELATIVE PERCENT 7 % (BEAKER) (test code = 430) MONOCYTES RELATIVE PERCENT 7 % (BEAKER) (test code = 431) EOSINOPHILS RELATIVE PERCENT 1 % (BEAKER) (test code = 432) BASOPHILS RELATIVE PERCENT 0 % (BEAKER) (test code = 437) NEUTROPHILS ABSOLUTE COUNT 5.81 K/ L 1.56-6.13 (BEAKER) (test code = 670) LYMPHOCYTES ABSOLUTE COUNT 0.48 K/ L 1.18-3.74 L (BEAKER) (test code = 414) MONOCYTES ABSOLUTE COUNT (BEAKER) 0.47 K/ L 0.24-0.36 H (test code = 415) EOSINOPHILS ABSOLUTE COUNT 0.04 K/ L 0.04-0.36 (BEAKER) (test code = 416) BASOPHILS ABSOLUTE COUNT (BEAKER) 0.01 K/ L 0.01-0.08 (test code = 417) IMMATURE GRANULOCYTES-RELATIVE 0 % 0-1 PERCENT (BEAKER) (test code = 2801) CALCIUM, [id number] 14:53:26 Test Item Value Reference Range Interpretation Comments CALCIUM IONIZED (BEAKER) (test 1.01 mmol/L 1.12-1.27 L code = 698) PH, BLOOD (BEAKER) (test code = 7.29 1810) BLOOD GAS, [id number] 12:29:21 Test Item Value Reference Range Interpretation Comments PH ARTERIAL (BEAKER) (test code = 7.31 7.35-7.45 L 383) PCO2 ARTERIAL (BEAKER) (test code 42 mm Hg 35-45 = 384) PO2 ARTERIAL (BEAKER) (test code 175 mm Hg 80-90 H = 385) O2 SATURATION ARTERIAL (BEAKER) 99.1 % 96.0-97.0 H (test code = 386) HCO3 ARTERIAL (BEAKER) (test code 21 mmol/L 21-29 = 388) BASE EXCESS ARTERIAL (BEAKER) -5.8 mmol/L -2.0-3.0 L (test code = 387) PATIENT TEMPERATURE (BEAKER) 35.8 (test code = 1818) FIO2 (BEAKER) (test code = 1819) 50.0 HGB/HCT (H&H) - STAT [id number] 12:29:15 Test Item Value Reference Range Interpretation Comments HEMOGLOBIN (BEAKER) (test code = 11.7 GM/DL 12.0-15.0 L 410) HEMATOCRIT (BEAKER) (test code = 34.0 % 36.0-45.0 L 411) POTASSIUM-STAT [id number] 12:27:20 Test Item Value Reference Range Interpretation Comments POTASSIUM (BEAKER) (test code = 3.7 meq/L 3.6-5.5 379) SODIUM NA-STAT [id number] 12:27:14 Test Item Value Reference Range Interpretation Comments SODIUM (BEAKER) (test code = 381) 139 meq/L 136-145 GLUCOSE-STAT [id number] 12:27:13 Test Item Value Reference Range Interpretation Comments GLUCOSE RANDOM (BEAKER) (test code = 93 mg/dL 70-110 652) BLOOD GAS, [id number] 10:50:28 Test Item Value Reference Range Interpretation Comments PH ARTERIAL (BEAKER) (test code = 7.34 7.35-7.45 L 383) PCO2 ARTERIAL (BEAKER) (test code 41 mm Hg 35-45 = 384) PO2 ARTERIAL (BEAKER) (test code 190 mm Hg 80-90 H = 385) O2 SATURATION ARTERIAL (BEAKER) 99.3 % 96.0-97.0 H (test code = 386) HCO3 ARTERIAL (BEAKER) (test code 22 mmol/L 21-29 = 388) BASE EXCESS ARTERIAL (BEAKER) -4.1 mmol/L -2.0-3.0 L (test code = 387) PATIENT TEMPERATURE (BEAKER) 35.1 (test code = 1818) FIO2 (BEAKER) (test code = 1819) 50.0 HGB/HCT (H&H) - STAT [id number] 10:50:28 Test Item Value Reference Range Interpretation Comments HEMOGLOBIN (BEAKER) (test code = 11.3 GM/DL 12.0-15.0 L 410) HEMATOCRIT (BEAKER) (test code = 33.0 % 36.0-45.0 L 411) POTASSIUM-STAT [id number] 10:50:09 Test Item Value Reference Range Interpretation Comments POTASSIUM (BEAKER) (test code = 3.5 meq/L 3.6-5.5 L 379) SODIUM NA-STAT [id number] 10:48:06 Test Item Value Reference Range Interpretation Comments SODIUM (BEAKER) (test code = 381) 139 meq/L 136-145 GLUCOSE-STAT [id number] 10:48:05 Test Item Value Reference Range Interpretation Comments GLUCOSE RANDOM (BEAKER) (test code = 88 mg/dL 70-110 652) POTASSIUM-STAT [id number] 09:38:39 Test Item Value Reference Range Interpretation Comments POTASSIUM (BEAKER) (test code = 3.3 meq/L 3.6-5.5 L 379) BLOOD GAS, [id number] 09:38:34 Test Item Value Reference Range Interpretation Comments PH ARTERIAL (BEAKER) (test code = 7.28 7.35-7.45 L 383) PCO2 ARTERIAL (BEAKER) (test code 42 mm Hg 35-45 = 384) PO2 ARTERIAL (BEAKER) (test code 172 mm Hg 80-90 H = 385) O2 SATURATION ARTERIAL (BEAKER) 99.0 % 96.0-97.0 H (test code = 386) HCO3 ARTERIAL (BEAKER) (test code 20 mmol/L 21-29 L = 388) BASE EXCESS ARTERIAL (BEAKER) -7.3 mmol/L -2.0-3.0 L (test code = 387) PATIENT TEMPERATURE (BEAKER) 35.0 (test code = 1818) FIO2 (BEAKER) (test code = 1819) 50.0 SODIUM NA-STAT [id number] 09:37:25 Test Item Value Reference Range Interpretation Comments SODIUM (BEAKER) (test code = 381) 139 meq/L 136-145 HGB/HCT (H&H) - STAT [id number] 09:37:25 Test Item Value Reference Range Interpretation Comments HEMOGLOBIN (BEAKER) (test code = 12.2 GM/DL 12.0-15.0 410) HEMATOCRIT (BEAKER) (test code = 36.0 % 36.0-45.0 411) GLUCOSE-STAT [id number] 09:37:24 Test Item Value Reference Range Interpretation Comments GLUCOSE RANDOM (BEAKER) (test code = 92 mg/dL 70-110 652) POCT-GLUCOSE [id number] 06:50:05 Test Item Value Reference Range Interpretation Comments POC-GLUCOSE METER 73 mg/dL 70-110 : TESTED Howard Millan [facility] 6720 (NAT) (test code = [place], 1538) [address]: Caddie/Techni lakeisha ID = [id number] for IRASEMA MOULTON SARS-COV2/RT-PCR ([facility])2021-12-07 23:11:46 Test Item Value Reference Range Interpretation Comments SARS-COV2/RT-PCR (test Negative Not Detected, Negative, code = 1018224) See external report for linked test SARS-COV-2 PERFORMING LAB [facility] SHAYAN (test code = 5011293) Negative result for this test determines that SARS-CoV-2 RNA was not present in the specimen above the Limit of Detection (LOD). However, Negative results do not preclude SARS-CoV-2 infection and should not be used as the sole basis for treatment or patient management decisions. Negative results must be combined with clinical observations, patient history, and [...] limit of detection for this assay is 800 copies/mL.This SARS CoV-2 test is a real-time [...] justifying the authorization of the emergency use ofin vitro diagnostic tests for detection and/or diagnosis of COVID-19 is terminated under Section 564(b)(2) of the Act or the EUA is revoked under Section 564(g) of the Act.Fact Sheet for Healthcare Prov iders:https://www.[employer]/sites/default/files/product/documents/Fact_Sheet_HC _Wuogqcogl_Fvtv_BKNE-QmY-6.pdfFact Sheet for Healthcare Patients:https://www.[employer]/sites/default/files/product/docume nts/Nckt_Yfwps_Bqtjtgdh_Zjvo_STHO-LkD-1.pdfPerforming Laboratory:[facility], [place] [address]MCN, CHEST, 2 VIEWS 2021-12-07 16:27:00Reason for exam:->[facility]op [facility] 1955 Sex: FFINAL REPORT TECHNIQUE: Frontal and lateral views of the chest. INDICATION: preop. COMPARISON: None. FINDINGS: LINES/TUBES: A left chest cardiac device has leads over the right atrium, right ventricle, and coronary sinus. LUNGS: Is likely calcified granuloma seen on the lateral view only in the immediate substernal region which measures 0.5 cm. No consolidation or pulmonary edema.PLEURA: Mild blunting of the left costophrenic sulcus. No pneumothorax HEART AND MEDIASTINUM: The cardiac silhouette is normal in size. SOFT TISSUES AND BONES: Mild degenerative disc changes of the thoracic spine. There is a calcification over the left renal shadow which measures 0.5 cm IMPRESSION: Small left pleural effusion. Otherwise, no acute intrathoracic abnormality. A calcification of the leftrenal shadow may be a 0.5 cm stone but is indeterminate. Signed: Zurdo Mauro [facility] Verified Date/Time: 12/07/2021 16:27:35 REHENSIVE METABOLIC [id number] 15:52:03 Test Item Value Reference Range Interpretation Comments TOTAL PROTEIN 7.0 gm/dL 6.0-8.3 (BEAKER) (test code = 770) ALBUMIN (BEAKER) 3.9 g/dL 3.5-5.0 (test code = 1145) ALKALINE PHOSPHATASE 87 U/L 40-150 (BEAKER) (test code = 346) BILIRUBIN TOTAL 0.4 mg/dL 0.2-1.2 (BEAKER) (test code = 377) SODIUM (BEAKER) (test 140 meq/L 136-145 code = 381) POTASSIUM (BEAKER) 4.5 meq/L 3.5-5.1 (test code = 379) CHLORIDE (BEAKER) 104 meq/L 98-107 (test code = 382) CO2 (BEAKER) (test 30 meq/L 22-29 H code = 355) BLOOD UREA NITROGEN 24 mg/dL 7-21 H (BEAKER) (test code = 354) CREATININE (BEAKER) 0.87 mg/dL 0.57-1.25 (test code = 358) GLUCOSE RANDOM 88 mg/dL 70-105 (BEAKER) (test code = 652) CALCIUM (BEAKER) 9.4 mg/dL 8.4-10.2 (test code = 697) AST (SGOT) (BEAKER) 46 U/L 5-34 H (test code = 353) ALT (SGPT) (BEAKER) 55 U/L 6-55 (test code = 347) EGFR (BEAKER) (test 65 mL/min/1.73 ESTIMA CRISTY GFR IS code = 1092) sq m NOT ACCURATE CREATININE CLEARANCE IN PREDICTING GLOMERULAR FILTRATION RATE . ESTIMATED GFR I S NOT APPLICABLE FOR DIALYSIS PATIEN TS. Caddie ID - [id number] 15:42:18 Test Item Value Reference Range Interpretation Comments PROTIME (BEAKER) (test 12.5 seconds 11.9-14.2 code = 759) INR (BEAKER) (test 0.95 See_Comment [Automat ed code = 370) message] The sy stem which generated this result transmitted reference range : <=5.90. The reference range was not used to interpret this result as normal/abnormal . PARTIAL THROMBOPLASTIN 30.9 seconds 22.5-36.0 TIME (BEAKER) (test code = 760) RECOMMENDED COUMADIN/WARFARIN INR THERAPY RANGESSTANDARD DOSE: 2.0 - 3.0 Includes: PROPHYLAXIS for venous thrombosis, systemic embolization; TREATMENT for venous thrombosis and/or pulmonary embolus.HIGH RISK: Target INR is 2.5-3.5 for patients with mechanical heart valves.CBC W/PLT COUNT & AUTO [id number] 15:25:09 Test Item Value Reference Range Interpretation Comments WHITE BLOOD CELL COUNT (BEAKER) 7.1 K/ L 3.5-10.5 (test code = 775) RED BLOOD CELL COUNT (BEAKER) 4.75 M/ L 3.93-5.22 (test code = 761) HEMOGLOBIN (BEAKER) (test code = 14.1 GM/DL 11.2-15.7 410) HEMATOCRIT (BEAKER) (test code = 46.0 % 34.1-44.9 H 411) MEAN CORPUSCULAR VOLUME (BEAKER) 96.8 fL 79.4-94.8 H (test code = 753) MEAN CORPUSCULAR HEMOGLOBIN 29.7 pg 25.6-32.2 (BEAKER) (test code = 751) MEAN CORPUSCULAR HEMOGLOBIN CONC 30.7 GM/DL 32.2-35.5 L (BEAKER) (test code = 752) RED CELL DISTRIBUTION WIDTH 13.2 % 11.7-14.4 (BEAKER) (test code = 412) PLATELET COUNT (BEAKER) (test 169 K/CU MM 150-450 code = 756) MEAN PLATELET VOLUME (BEAKER) 11.8 fL 9.4-12.3 (test code = 754) NUCLEATED RED BLOOD CELLS 0 /100 WBC 0-0 (BEAKER) (test code = 413) NEUTROPHILS RELATIVE PERCENT 75 % (BEAKER) (test code = 429) LYMPHOCYTES RELATIVE PERCENT 13 % (BEAKER) (test code = 430) MONOCYTES RELATIVE PERCENT 9 % (BEAKER) (test code = 431) EOSINOPHILS RELATIVE PERCENT 3 % (BEAKER) (test code = 432) BASOPHILS RELATIVE PERCENT 0 % (BEAKER) (test code = 437) NEUTROPHILS ABSOLUTE COUNT 5.35 K/ L 1.56-6.13 (BEAKER) (test code = 670) LYMPHOCYTES ABSOLUTE COUNT 0.95 K/ L 1.18-3.74 L (BEAKER) (test code = 414) MONOCYTES ABSOLUTE COUNT (BEAKER) 0.61 K/ L 0.24-0.36 H (test code = 415) EOSINOPHILS ABSOLUTE COUNT 0.18 K/ L 0.04-0.36 (BEAKER) (test code = 416) BASOPHILS ABSOLUTE COUNT (BEAKER) 0.03 K/ L 0.01-0.08 (test code = 417) IMMATURE GRANULOCYTES-RELATIVE 0 % 0-1 PERCENT (BEAKER) (test code = 2801) FL, [id number] 15:11:00Reason for Exam:->R13.10 (ICD-10-CM) - Dysphagia, unspecified type,K21.9 (ICD-10-CM) - Gastroesophageal reflux disease without esophagitis [facility] 1955 Sex: FFINAL REPORT EXAM: Esophagram was performed with sodium carbonate and barium. INDICATION: 66-year-old woman with dysphagia and gastroesophageal reflux. COMPARISON: None. FINDINGS:Swallow: Swallowing mechanism is grossly normal. Esophagus is normally distensible and the mucosa is normal in appearance. Esophageal motility is within normal limits. Gastroesophageal junction: Moderate hiatal hernia. No gastroesophageal reflux identified. Visualized portions of the stomach and proximalsmall bowel are unremarkable. Fluoroscopy time: 1.5 minutesNumber of images: 35 IMPRESSION:Moderate hiatal hernia. No gastroesophageal reflux identified. Signed: Saw Dangelo [facility] Verified Date/Time: 11/26/2021 15:11:36 PG-IhY-6 (COVID-19) RNA [Presence] in Respiratory specimen by LOULOU with probe [id number] 20:21:40 Test Item Value Reference Range Interpretation Comments SARS-CoV-2 (COVID-19) RNA Not detected Not-Detected [Presence] in Respiratory specimen by LOULOU with probe detection (test code = 34089-8) Whether patient is employed in a healthcare setting (test code = 57650-9) Whether the patient has symptoms related to condition of interest (test code = 34230-6) Patient was hospitalized because of this condition (test code = 19391-8) Whether the patient was admitted to intensive care unit (ICU) for condition of interest (test code = 27325-4) Whether patient resides in a congregate care setting (test code = 84380-7) SARS-CoV-2 (COVID-19) RNA [Presence] in Respiratory specimen by LOULOU with probe [id number] 17:08:57 Test Item Value Reference Range Interpretation Comments SARS-CoV-2 (COVID-19) RNA Not detected Not-Detected [Presence] in Respiratory specimen by LOULOU with probe detection (test code = 46865-1) Whether patient is employed in a healthcare setting (test code = 53315-9) Whether the patient has symptoms related to condition of interest (test code = 64475-5) Patient was hospitalized because of this condition (test code = 16512-2) Whether the patient was admitted to intensive care unit (ICU) for condition of interest (test code = 16719-1) Whether patient resides in a congregate care setting (test code = 49324-8) TISSUE [id number] 17:19:00Surgical Pathology Report Case: [id number] Authorizing Provider: James Albrecht MD Collected: 02/19/2021 10:01 AM Ordering Location: [facility] Endoscopy Received: 02/19/2021 12:18 PM Services Patholog ist: Kemar Beckford MD Specimens: A) - Esophagus, esophagus biopsy at 35cm, rule out Avina's B) - Esophagus, esophagus biopsy at 33cm, rule out Avina's C) - Esophagus, esophaus biopsy at 31cm, rule out Avina's D) - Esophagus, esophagus biopsy at 29cm, rule out Avina's E) - Esophagus, e sophagus biopsy at 27cm, rule out Avina's F) [...] EROSIVE ESOPHAGITIS - NEGATIVE FOR INTESTINAL METAPLASIA, DYSPLA JEAN, MALIGNANCYE. ESOPHAGUS, 27 CM, BIOPSY: - ACUTE [...] DYSPLASIA, MALIGNANCY Signing Pathologist Direct Phone Line: [phone] signed by Kemar Beckford MD on 02/25/2021 at 5:19 PME. Immunostain for Ki-67 and p53 are within normal limits.[id number] obstruction A. EsophagusB. EsophagusC. EsophagusD. EsophagusE. EsophagusF. EsophagusG. GastricA.Received in formalin labeled the patient's name, accession number and "esophagus at 35 cm" are 3 browne-pink tissue fragments measuring up to 0.2 cm in greatest dimension which are filtered and submitted in toto in A1.B. Received in formalin labeled the patient's name, accession number and "esophagus at 33 cm" are multiple browne- pink tissue fragments measuring up to 0.2 cm in greatest dimension which are f iltered and submitted in toto in B1.C. Received [...] number and "esophagus at 27 cm" are 2 browne-pink tissue fragments measuring up to 0.2 [...] accession number and "gastric biopsy" are 2 browne-pi nk tissue fragments measuring up to 0.3 cm in greatest dimension which are filtered and submitted intoto in G1.PASQUALE Mejia HT (ASCP)Performed.The interpretation of this case included the use of immunohistochemistry or special stains.Control Slides Examined: In-house known positive controls were evaluated along with the test tissue. These control slides run alongside of the patients sample show appropriate staining. Internal positive and negative controls when available are evaluated Immunohistochemistry technical testing was performed at [facility], Pathology Laboratory where it was developed and [...] in Respiratory specimen by LOULOU with probe [id number] 04:01:08 Test Item Value Reference Range Interpretation Comments SARS-CoV-2 (COVID-19) RNA Not detected Not-Detected [Presence] in Respiratory specimen by LOULOU with probe detection (test code = 91039-5) [id number] 09:55:00 Test Item Value Reference Range Interpretation Comments POC-POTASSIUM 3.9 meq/L 3.6-5.5 : TESTED AT [facility] 6720 (BEAKER) (test code NAIN CAMPOS IN, = 1540) 79389: Caddie/Techni lakeisha ID = [id number] for IGGY STEWART (V)LEE SARS-COV2/RT-PCR ([facility] [place] [facility])2021-02-18 00:05:00 Test Item Value Reference Range Interpretation Comments SARS-COV2/RT-PCR (test Negative Not Detected, Negative, code = 6238127) See external report for linked test SARS-COV-2 PERFORMING LAB [facility] (test code = 5902760) Negative result for this test determines that SARS-CoV-2 RNA was not present in the specimen above the Limit of Detection (LOD). However, Negative results do not preclude SARS-CoV-2 infection and should not be used as the sole basis for treatment or patient management decisions. Negative results must be combined with clinical observations, patient history, and [...] justifying the authorization of the emergency use ofin vitro diagnostic tests for detection and/or diagnosis of COVID-19 is terminated under Section 564(b)(2) of the Act or the EUA is revoked under Section 564(g) of the Act.Testing was performed using the Aiken SARS-CoV-2 assay.Fact Sheet for Healthcare Providers:https://www.[employer].Wir3s/dmitry/RT_SAR R-ByM-4_OSR_Axnt_Ffyay_38-777828.pdfFact Sheet for Healthcare Patients:https://www.[employer].Wir3s/s al/HR_QGFE-RuA-7_Jdwrsup_Ruox_Jvxwp_XV_27-416657J8.pdfPerforming Laboratory:[facility], [place] [address]ED CHEST 2 [id number] 18:42:23HISTORY: Pneumonia both lungs due to infectious organism. TECHNIQUE: PA and lateral views of the chest are obtained. Comparison ismade with CT scan of the chest dated 02/06/2017. FINDINGS: No acute pneumonia detected. No pneumothorax or pulmonarycongestion. Cardiothoracic ratio of approximately 16/30.2 cm is consistentwith mild cardiomegaly with minimal left pleural effusion. Hiatal hernianoted. CONCLUSIONS: Mild cardiomegaly with minimal left pleural effusion. Nopneumonia. [facility], Radiant Results Inft User - 07/05/2019 1:44 PM CDTHISTORY: Pneumonia both lungs due to infectious organism.TECHNIQUE: PA and lateral views of the chest are obtained. Comparison ismade with CT scan of the chest dated 02/06/2017.FINDINGS: No acute pneumonia detected. No pneumothorax or pulmonarycongestion. Cardiothoracic ratioof approximately 16/30.2 cm is consistentwith mild cardiomegaly with minimal left pleural effusion. Hiatal hernianoted.CONCLUSIONS: Mild cardiomegaly with minimal left pleural effusion. Nopneumonia.[facility]
[2022-08-16] MEDS ORDERED: ASPIRIN 81 MG CHEWABLE TABLET ONE (16:49)
[2022-08-16] MEDS ORDERED: ONDANSETRON 4 MG/2 ML VIAL ONE (16:50)
[2022-08-16] MEDS ORDERED: MORPHINE 4 MG/ML SYR ONE ×2 (16:50→19:42)
[2022-08-16 17:02] LABS: Absolute Lymphocytes (CBC) 1.2 K/uL (0.7-4.9); Hematocrit 40.9 % (36.0-45.0); Lymphocytes % 17.9 % (15.3-44.8); MCV 92.2 fL (80-100); MPV 9.8 fL (7.6-11.3); RBC Red Blood Cell Count 4.44 M/uL (3.86-4.86)
[2022-08-16 17:07] LABS: Protime INR 0.91
[2022-08-16 17:30] LABS: ALT/SGPT 28 U/L (12-78); AST/SGOT 24 U/L (15-37); Albumin 3.3 g/dL (3.4-5.0); Alkaline Phosphatase 66 U/L (45-117); BUN Blood Urea Nitrogen 22 mg/dL (7-18); Bicarbonate 25 mmol/L (21-32); Bilirubin Total 0.2 mg/dL (0.2-1.0); Glomerular Filtration Rate 64 ml/min (=/>90); Glucose Level 95 mg/dL (74-106); Lipase 93 U/L (73-393); Magnesium 1.9 mg/dL (1.8-2.4); NT PRO-BNP 899 pg/mL (<125); Potassium 3.6 mmol/L (3.5-5.1); Protein, Total 6.6 g/dL (6.4-8.2); Sodium Level 144 mmol/L (136-145); Troponin High Sensitivity 33.3 pg/mL (<58.9)
[2022-08-16 17:32] LABS: Bilirubin Direct < 0.1 mg/dL (0-0.2)
--- NOTE | 2022-08-16 18:13 | RAD REPORT ---
EXAM DESCRIPTION: CT - Angio Aorta For Dissection - 08/16/2022 5:49 pm CLINICAL HISTORY: . Chest and abd pain COMPARISON: November 2021 TECHNIQUE: Computed tomography angiography of the chest, abdomen pelvis were obtained. 100 cc Isovue 370 was administered intravenously. Coronal and sagittal reconstruction were performed. MIP 3D reconstruction was performed All CT scans are performed using dose optimization technique as appropriate and may include automated exposure control or mA/KV adjustment according to patient size. FINDINGS: An aortic dissection is not seen. An aortic aneurysm is not displayed. Mild calcified plaque within the aorta The celiac, SMA and TRACIE are patent . A lung consolidation is not present. A pericardial effusion is not seen. A pleural effusion is not no melani. The liver,spleen, pancreas,adrenals and kidneys demonstrate no significant abnormality. Diverticula stem from the colon without evidence diverticulitis Calcified uterine fibroids Small to moderate hiatal hernia. Wall of the distal esophagus appears mildly thickened IMPRESSION: Negative for an aortic dissection. Apparent mild thickening of the wall of the distal esophagus could be secondary to incomplete distent ion or pathology such as inflammation
[2022-08-16] MEDS ORDERED: HYDRALAZINE HCL 20 MG/ML VIAL ONE (18:16)
--- NOTE | 2022-08-16 18:52 | RAD REPORT ---
EXAM DESCRIPTION: Rico Single View08/16/2022 5:33 pm CLINICAL HISTORY: Chest pain COMPARISON: May 2022 FINDINGS: The lungs appear clear of acute infiltrate. The heart is mildly enlarged. Pacemaker leads are in place. IMPRESSION: No acute abnormalities displayed
--- NOTE | 2022-08-16 20:17 | ER ---
Nurse's Notes [facility] Name: Mandy Swain Age: 67 yrs Sex: Female : 1955 Arrival Date: 08/16/2022 Time: 16:23 Bed 30 Private MD: Diagnosis: Angina pectoris, unspecified Presentation: 08/16 16:23 Chief complaint: Patient states: chest pain that radiates towards back that began ss yesterday. Is worse today. Coronavirus screen: Client denies travel out of the [place] in the last 14 days. Ebola Screen: Patient denies exposure to infectious person. Patient denies travel to an Ebola-affected area in the 21 days before illness onset. Initial Sepsis Screen: Does the patient meet any 2 criteria? No. Patient's initial sepsis screen is negative. Does the patient have a suspected source of infection? No. Patient's initial sepsis screen is negative. Risk Assessment: Do you want to hurt yourself or someone else? Patient reports no desire to harm self or others. Onset of symptoms was August 15, 2022. 16:23 Method Of Arrival: EMS: [facility] 16:23 Acuity: CRISTEL 2 ss Historical: - Allergies: 16:24 No Known Allergies; ss - PMHx: 16:24 Anxiety; CHF; Depression; esophagus problem; Hypertension; Atrial fibrillation; ss - Immunization history:: Client reports receiving the 2nd dose of the Covid vaccine. - Social history:: Smoking status: Patient denies any tobacco usage or history of. Screenin:58 Abuse screen: Denies threats or abuse. Nutritional screening: No deficits noted. jd3 Tuberculosis screening: No symptoms or risk factors identified. Fall Risk IV access (20 points). Total Quintana Fall Scale indicates No Risk (0-24 pts). Assessment: 16:56 General: Appears in no apparent distress. uncomfortable, Behavior is calm, cooperative, jd3 appropriate for age. Pain: Complains of pain in chest Pain radiates to back Quality of pain is described as pressure, sharp, Pain began 1 day ago. Neuro: Moser Agitation-Sedation Scale (RASS): 0 - Alert and Calm Level of Consciousness is awake, alert, obeys commands, Oriented to person, place, time, situation. Cardiovascular: Reports chest pain, Capillary refill < 3 seconds Patient's skin is warm and dry. Rhythm is A-V sequential pacer. Respiratory: Reports pain with respiration Airway is patent Respiratory effort is even, unlabored, Respiratory pattern is regular, symmetrical. GI: No signs and/or symptoms were reported involving the gastrointestinal system. : No signs and/or symptoms were reported regarding the genitourinary system. EENT: No signs and/or symptoms were reported regarding the EENT system. Derm: Skin is intact, Skin is dry, Skin is normal, Skin temperature is warm. Musculoskeletal: Circulation, motion, and sensation intact. Range of motion: intact in all extremities. 18:01 Reassessment: Patient appears in no apparent distress at this time. No changes from jd3 previously documented assessment. Patient and/or family updated on plan of care and expected duration. Pain level reassessed. Patient is alert, oriented x 3, equal unlabored respirations, skin warm/dry/pink. 19:46 Reassessment: Pt c/o of pain to left arm and chest, ERP notified, medicated as ordered. ll3 Vital Signs: 16:23 Pulse 82; Resp 20; Temp 98.4(O); Pulse Ox 98% on R/A; Weight 65.77 kg; Height 5 ft. 4 ss in. (162.56 cm); Pain 8/10; 16:27 BP 192 / 131; ss 16:58 BP 179 / 101; Pulse 73; Resp 15; Pulse Ox 97% on R/A; jd3 18:02 BP 189 / 96; Pulse 69; Resp 16; Pulse Ox 95% on R/A; jd3 19:47 BP 161 / 99; Pulse 70; Resp 17; Pulse Ox 96% ; Pain 7/10; ll3 16:23 Body Mass Index 24.89 (65.77 kg, 162.56 cm) ED Course: 16:23 Patient arrived in ED. 16:24 Matthew Hernandez RN is Primary Nurse. jd3 16:24 Triage completed. 16:24 Arm band placed on right wrist. ss 16:26 Damon Ross PA is PHCP. cp 16:26 Damon Ro MD is Attending Physician. cp 16:56 Inserted saline lock: 20 gauge in left antecubital area, using aseptic technique. Blood jd3 collected. Patient maintains SpO2 saturation greater than 95% on room air. 16:58 Patient has correct armband on for positive identification. Placed in gown. Bed in low jd3 position. Call light in reach. Side rails up X2. Client placed on continuous cardiac and pulse oximetry monitoring. NIBP monitoring applied. 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 Pulse ox on. NIBP on. 20:16 Elio Valdes MD is Hospitalizing Provider. cp Administered Medications: 16:54 Drug: morphine 4 mg Route: IVP; Infused Over: 4 mins; Site: left antecubital; jd3 17:50 Follow up: Response: No adverse reaction; RASS: Alert and Calm (0) jd3 16:55 Drug: Zofran (Ondansetron) 4 mg Route: IVP; Site: left antecubital; jd3 17:50 Follow up: Response: No adverse reaction jd3 16:56 Not Given (Other Intervention Used; EMS gave 81mg X 4.): Aspirin Chewable Tablet 324 jd3 mg PO once; 81 mg tablets x 4 18:19 Drug: hydrALAZINE 10 mg Route: IVP; Site: left antecubital; jd3 19:04 Follow up: Response: No adverse reaction jd3 19:46 Drug: morphine 4 mg Route: IVP; Infused Over: 4 mins; Site: left antecubital; ll3 22:28 Drug: Pepcid (famotidine) 20 mg Route: IVP; Site: left antecubital; bb Medication: 16:58 VIS not applicable for this client. jd3 Outcome: 20:17 Decision to Hospitalize by Provider. cp 08/17 06:13 Patient left the ED. ll3 Signatures: Marilu Spence RN RN bb Smirch, Shelby, RN RN ss Page, Corey, PASQUALE PA cp Matthew Hernandez RN RN jd3 Loubet, Lynsea RN RN ll3 Corrections: (The following items were deleted from the chart) 08/16 19:47 19:47 BP 161 / 99; Pulse 70bpm; Resp 17bpm; Pulse Ox 96%; ll3 ll3
--- NOTE | 2022-08-16 20:17 | EDPHYS ---
Physician Documentation [facility] Name: Mandy Swain Age: 67 yrs Sex: Female : 1955 Arrival Date: 08/16/2022 Time: 16:23 Bed 30 Private MD: ED Physician Damon Ro HPI: 08/16 16:35 This 67 yrs old Female presents to ER via EMS with complaints of Chest Pain > 30 y/o. cp 16:35 The patient or guardian reports chest pain that is located primarily in the anterior cp chest wall, left. 16:35 Onset: yesterday. The pain radiates to back. Associated signs and symptoms: Pertinent cp positives: shortness of breath, Pertinent negatives: cough, diaphoresis, lower extremity pain, lower extremity swelling, syncope, vomiting. 16:35 The chest pain is described as a pressure, sharp. cp 16:35 Duration: The patient or guardian reports multiple episodes, that wax and wane. cp Severity of pain: in the emergency department the pain is actually worse. Historical: - Allergies: 16:24 No Known Allergies; ss - PMHx: 16:24 Anxiety; CHF; Depression; esophagus problem; Hypertension; Atrial fibrillation; ss - Immunization history:: Client reports receiving the 2nd dose of the Covid vaccine. - Social history:: Smoking status: Patient denies any tobacco usage or history of. ROS: 16:40 Constitutional: Negative for body aches, chills, fever, poor PO intake. cp 16:40 Eyes: Negative for injury, pain, redness, and discharge. cp 16:40 ENT: Negative for drainage from ear(s), ear pain, sore throat, difficulty swallowing, difficulty handling secretions. 16:40 Cardiovascular: Positive for chest pain, Negative for edema, palpitations. 16:40 Respiratory: Positive for shortness of breath, Negative for cough, wheezing. 16:40 Abdomen/GI: Negative for abdominal pain, vomiting, diarrhea, constipation. 16:40 Back: Positive for radiated pain. 16:40 Neuro: Negative for altered mental status, dizziness, headache, numbness, syncope, weakness. 16:40 All other systems are negative. Exam: 16:27 ECG was reviewed by the Attending Physician. cp 16:45 Constitutional: The patient appears in no acute distress, alert, awake, cp non-diaphoretic, non-toxic, well developed, well nourished, uncomfortable. 16:45 Head/Face: Normocephalic, atraumatic. cp 16:45 Eyes: Periorbital structures: appear normal, Conjunctiva: normal, no exudate, no injection, Sclera: no appreciated abnormality, Lids and lashes: appear normal, bilaterally. 16:45 ENT: External ear(s): are unremarkable, Nose: is normal, Mouth: Lips: moist, Oral mucosa: pink and intact, moist, Posterior pharynx: Airway: no evidence of obstruction, patent, swelling, is not appreciated, erythema, is not appreciated, exudate, is not appreciated. 16:45 Neck: ROM/movement: is normal, is supple, without pain, no range of motions limitations, no nuchal rigidity. 16:45 Chest/axilla: Inspection: normal, Palpation: is normal, no crepitus, no tenderness. 16:45 Cardiovascular: Rate: normal, Rhythm: regular, Pulses: Pulses are 2+ in right radial artery and left radial artery. Edema: is not appreciated, JVD: is not appreciated. 16:45 Respiratory: the patient does not display signs of respiratory distress, Respirations: normal, no use of accessory muscles, no retractions, labored breathing, is not present, Breath sounds: are clear throughout, no decreased breath sounds, no stridor, no wheezing. 16:45 Abdomen/GI: Inspection: abdomen appears normal, Bowel sounds: active, all quadrants, Palpation: abdomen is soft and non-tender, in all quadrants. 16:45 Back: ROM is normal, CVA tenderness, is absent. 16:45 Skin: cellulitis, is not appreciated, no rash present. 16:45 Neuro: Orientation: to person, place \T\ time. Mentation: is normal, Motor: moves all fours, strength is normal, Sensation: no obvious gross deficits. Vital Signs: 16:23 Pulse 82; Resp 20; Temp 98.4(O); Pulse Ox 98% on R/A; Weight 65.77 kg; Height 5 ft. 4 ss in. (162.56 cm); Pain 8/10; 16:27 BP 192 / 131; ss 16:58 BP 179 / 101; Pulse 73; Resp 15; Pulse Ox 97% on R/A; jd3 18:02 BP 189 / 96; Pulse 69; Resp 16; Pulse Ox 95% on R/A; jd3 19:47 BP 161 / 99; Pulse 70; Resp 17; Pulse Ox 96% ; Pain 7/10; ll3 16:23 Body Mass Index 24.89 (65.77 kg, 162.56 cm) ss MDM: 16:30 Patient medically screened. jono 20:00 Data reviewed: vital signs, nurses notes, lab test result(s), EKG, radiologic studies, cp CT scan, plain films. 20:00 The patient was not given aspirin in the Emergency Department. Administered by EMS. cp Test interpretation: by ED physician or midlevel provider: ECG, plain radiologic studies. Counseling: I had a detailed discussion with the patient and/or guardian regarding: the historical points, exam findings, and any diagnostic results supporting the discharge/admit diagnosis, the presence of at least one elevated blood pressure reading (>120/80) during this emergency department visit, lab results, radiology results, the need for further work-up and treatment in the hospital. Physician consultation: Deangelo GOLDSTEIN was called at 19:55, was contacted at 19:55, regarding admission, to the telemetry unit. patient's condition. 08/16 16:31 Order name: CBC with Diff cp 08/16 16:31 Order name: LFT's cp 08/16 16:31 Order name: Magnesium cp 10 16:31 Order name: NT PRO-BNP cp 08/16 16:31 Order name: PT-INR cp 08/16 16:31 Order name: Troponin HS cp 08/16 16:31 Order name: Lipase cp 08/16 17:06 Order name: CBC with Automated Diff; Complete Time: 17:31 EDMS 08/16 17:32 Interpretation: Reviewed. cp 08/16 17:07 Order name: Protime (+INR); Complete Time: 17:31 EDMS 08/16 17:32 Order name: Basic Metabolic Panel; Complete Time: 17:45 EDMS 08/16 17:45 Interpretation: Normal except: CL 112; BUN 22; GFR 64. cp 08/16 17:32 Order name: Liver (Hepatic) Function; Complete Time: 17:45 EDMS 08/16 17:32 Order name: Troponin High Sensitivity; Complete Time: 17:45 EDMS 08/16 17:45 Interpretation: Troponin HS 33.3; Reviewed. cp 08/16 17:32 Order name: NT PRO-BNP; Complete Time: 17:45 EDMS 08/16 18:12 Interpretation: NT PRO-BNP 899; Reviewed. 08/16 16:31 Order name: XRAY Chest (1 view) cp 08/16 16:33 Order name: CT Aorta for Dissection cp 08/16 17:32 Order name: Magnesium; Complete Time: 17:45 EDMS 08/16 17:32 Order name: Lipase; Complete Time: 17:45 EDMS 08/16 18:14 Order name: CT; Complete Time: 19:23 EDMS 08/16 18:53 Order name: RAD; Complete Time: 19:23 EDMS 08/16 19:36 Order name: US Extremity Venous Unilateral Ltd 08/16 19:56 Order name: SARS RAPID 08/16 21:12 Order name: US; Complete Time: 21:58 EDMS 08/16 23:06 Order name: SARS-COV-2 Antigen Rapid EDIL 08/16 23:35 Order name: Troponin High Sensitivity EDIL 08/17 02:45 Order name: CBC with Automated Diff EDIL 08/17 03:06 Order name: Basic Metabolic Panel EDIL 08/17 03:06 Order name: Troponin High Sensitivity EDIL 08/17 03:06 Order name: Lipid Profile EDIL 08/16 16:31 Order name: EKG; Complete Time: 16:32 08/16 16:31 Order name: Cardiac monitoring; Complete Time: 16:40 08/16 16:31 Order name: EKG - Nurse/Tech; Complete Time: 16:40 08/16 16:31 Order name: IV Saline Lock; Complete Time: 16:48 cp 08/16 16:31 Order name: Labs collected and sent; Complete Time: 16:48 cp 08/16 16:31 Order name: O2 Per Protocol; Complete Time: 16:40 cp 08/16 16:31 Order name: O2 Sat Monitoring; Complete Time: 16:40 cp EC:27 Rate is 75 beats/min. Rhythm is irregular. QRS interval is prolonged at 140 msec. QT cp interval is normal. T waves are Inverted in leads aVL, aVR. Interpreted by me. Reviewed by me. Administered Medications: 16:54 Drug: morphine 4 mg Route: IVP; Infused Over: 4 mins; Site: left antecubital; jd3 17:50 Follow up: Response: No adverse reaction; RASS: Alert and Calm (0) jd3 16:55 Drug: Zofran (Ondansetron) 4 mg Route: IVP; Site: left antecubital; jd3 17:50 Follow up: Response: No adverse reaction jd3 16:56 Not Given (Other Intervention Used; EMS gave 81mg X 4.): Aspirin Chewable Tablet 324 jd3 mg PO once; 81 mg tablets x 4 18:19 Drug: hydrALAZINE 10 mg Route: IVP; Site: left antecubital; jd3 19:04 Follow up: Response: No adverse reaction jd3 19:46 Drug: morphine 4 mg Route: IVP; Infused Over: 4 mins; Site: left antecubital; ll3 22:28 Drug: Pepcid (famotidine) 20 mg Route: IVP; Site: left antecubital; bb Disposition Summary: 08/16/22 20:17 Hospitalization Ordered Hospitalization Status: Observation cp Provider: Elio Valdes cp Condition: Stable cp Problem: new cp Symptoms: have improved cp Bed/Room Type: Standard cp Location: Telemetry/MedSurg (observation)(08/17/22 05:28) Room Assignment: 424(08/17/22 05:28) Diagnosis - Angina pectoris, unspecified cp Forms: - Medication Reconciliation Form cp - SBAR form cp Addendum: 08/18/2022 23:13 Co-signature as Attending Physician, Damon Ro MD I agree with the assessment and c leung plan of care. Signatures: Dispatcher [employer] EDMS Lisseth Eng RN Damon Travis MD MD cha Ballard, Brenda RN Anita Rendon RN RN ss Attema, Lee, ALLEN-C WELCOME HOSTESS-Cla1 Damon Ross PA PA Matthew Deutcsh RN RN jd3 Loubet, Lynsea RN RN ll3 Corrections: (The following items were deleted from the chart) 08/16 20:43 20:17 Telemetry/MedSurg (observation) [facility] 20:43 20:17 cp 08/17 05:28 08/16 20:43 [facility] ER HOLD [facility] 08/17 05:28 08/16 20:43 ERHOLD- mw mw
--- NOTE | 2022-08-16 20:31 | P.HP ---
Certification for Inpatient Patient admitted to: Observation With expected LOS: <2 Midnights Patient will require the following post-hospital care: None Practitioner: I am a practitioner with admitting privileges, knowledge of patient current condition, hospital course, and medical plan of care. Services: Services provided to patient in accordance with Admission requirements found in Title 42 Section 412.3 of the Code of Federal Regulations Patient History Date of Service: 08/16/22 Reason for admission: Chest pain History of Present Illness: 67-year-old female with history of chronic systolic congestive heart failure, depression, hypertension, atrial fibrillation with pacemaker in place presented to the emergency department for chest pain. She reports 2 episodes of chest pain occurring over the course of last 2 days pain described as sharp radiating to her back. She is evaluated in the emergency department her labs were significant for mildly elevated BNP, initial high-sensitivity troponin negative CT dissection protocol was performed which revealed mild thickening of the wall of the distal esophagus which could be secondary to incomplete distention or pathology such as inflammation. Patient reports that she is had 2 surgeries on her distal esophagus in the past for hiatal hernia/tears. She reports that she used to take PPIs but has not been on them for some time now. ED provider wishes to admit under observation for ACS rule out. She had an echocardiogram November 2020 which showed EF of 35 to 40% with moderate global hypokinesis, moderate left ventricular hypertrophy, severe pulmonary hypertension with right ventricular systolic pressure greater than 60, moderate mitral regurg, moderate to severe tricuspid regurg and left atrial enlargement. Allergies No Known Allergies Allergy (Verified 12/22/17 01:16) Home Medications: Alprazolam [Xanax] 1 mg PO BIDP PRN 11/28/20 Losartan Potassium [Cozaar*] 50 mg PO BID #60 tablet 12/29/20 Ascorbic Acid [C-500] 500 mg PO DAILY 05/18/22 Aspirin/Acetaminophen/Caffeine [Excedrin Migraine Caplet] 1 each PO TIDP PRN 05/18/22 Multivitamin 1 each PO DAILY 05/18/22 Spironolactone [Aldactone*] 25 mg PO DAILY 05/18/22 Zinc Sulfate [Zinc Sulfate*] 220 mg PO DAILY #30 cap 05/18/22 clonazePAM [Klonopin*] 0.5 mg PO BIDP PRN 05/18/22 - Past Medical/Surgical History Diabetic: No -: Squamous Cell Carcinoma Left Ear -: IMPLANTED CARDIOVERTER (ICD) -: GERD/hiatal hernia -: Hypertension -: Depression/anxiety -: Chronic systolic congestive heart failure -: hernia repair -: tubal ligation -: 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 - Family History Father -: Heart disease, Hypertension Mother -: Heart disease, Hypertension Brother -: Hypertension Sister -: Hypertension - Social History Smoking Status: Never smoker Alcohol use: No CD- Drugs: Yes Caffeine use: No Place of Residence: Home Review of Systems 10-point ROS is otherwise unremarkable Cardiovascular: Chest Pain Physical Examination - Physical Exam General: Alert, In no apparent distress, Oriented x3 HEENT: Atraumatic, PERRLA, Mucous membr. moist/pink, EOMI, Sclerae nonicteric Neck: Supple, 2+ carotid pulse no bruit, No LAD, Without JVD or thyroid abnormality Respiratory: Clear to auscultation bilaterally, Normal air movement Cardiovascular: Regular rate/rhythm, Normal S1 S2 Gastrointestinal: Normal bowel sounds, No tenderness Musculoskeletal: No tenderness Integumentary: No rashes Neurological: Normal speech, Normal strength at 5/5 x4 extr, Normal tone, Normal affect - Studies Laboratory Data (last 24 hrs) 08/16/22 16:47: PT 10.0, INR 0.91 08/16/22 16:47: WBC 6.70, Hgb 13.8, Hct 40.9, Plt Count 172 08/16/22 16:47: Sodium 144, Potassium 3.6, BUN 22 H, Creatinine 0.96, Glucose 95, Magnesium 1.9, Total Bilirubin 0.2, AST 24, ALT 28, Alkaline Phosphatase 66, Lipase 93 Assessment and Plan - Plan Assessment: Chest pain rule out ACS Chronic systolic congestive heart failure Depression/anxiety Hypertension Suspected GERD Plan: Chest pain rule out ACS: CT dissection protocol negative for aortic dissection, pulmonary embolism or other acute pathology. Initial high-sensitivity troponin negative. Will monitor on telemetry. Patient has never had heart catheterization last echocardiogram in November 2020 report detailed below. Cardiology consulted, will trend troponins, patient does have history of esophageal issues with previous hiatal hernia repair/distal esophageal repair from a tear reportedly. Patient reports she used to take PPI medications but had been taken off of them, symptoms may be related to GERD. Started on Protonix as well. Appreciate further input from cardiology. Chronic systolic congestive heart failure: Does not appear overloaded at this time, continue home medications carvedilol, Entresto when doses verified. She had an echocardiogram November 2020 which showed EF of 35 to 40% with moderate global hypokinesis, moderate left ventricular hypertrophy, severe pulmonary hypertension with right ventricular systolic pressure greater than 60, moderate mitral regurg, moderate to severe tricuspid regurg and left atrial enlargement. Depression/anxiety: Continue home medications once verified. Hypertension: Continue home medications once verified. Suspected GERD: Initiated PPI therapy. DVT PPX: Lovenox Code status: Full Discharge Plan: Home Plan to discharge in: 24 Hours - Advance Directives Does patient have a Living Will: No Does patient have a Durable POA for Healthcare: No - Code Status/Comfort Care Code Status Assessed: Yes (Full code) Critical Care: No Time Spent Managing Pts Care (In Minutes): 70
--- NOTE | 2022-08-16 21:12 | RAD REPORT ---
EXAM DESCRIPTION: US - UPPER EXTREMITY VENOUS UNILATE - 08/16/2022 8:25 pm CLINICAL HISTORY: Left arm pain COMPARISON: None. FINDINGS: Left internal jugular vein, left subclavian vein, left axillary vein, left brachial vein, left cephalic, left basilic, left ulnar and left radial veins demonstrate phasic signal. The veins are compressible. Doppler demonstrates good flow. . IMPRESSION: No sonographic evidence of thrombus involving the left upper extremity veins.
[2022-08-16] MEDS: carvediloL 6.25 MG TAB PO SCH (21:45)
[2022-08-16] MEDS ORDERED: ONDANSETRON 4 MG/2 ML VIAL IV PRN (21:45)
[2022-08-16] MEDS: ATORVASTATIN 40 MG TAB PO SCH (21:45)
[2022-08-16] MEDS ORDERED: ATORVASTATIN 20 MG TAB ONE (22:16)
[2022-08-16] MEDS ORDERED: FAMOTIDINE 20 MG/2 ML VIAL IV ONE (22:16)
[2022-08-16] MEDS ORDERED: HYDROCODONE/APAP 5/325 MG TAB ONE (22:16)
[2022-08-16] MEDS ORDERED: carvediloL 6.25 MG TAB ONE (22:16)
[2022-08-16] MEDS: HYDROCODONE/APAP 5/325 MG TAB PO PRN (22:24)
[2022-08-16] MEDS ORDERED: TRAZODONE 50 MG TABLET PO PRN (23:03)
[2022-08-16] MEDS ORDERED: HYDRALAZINE HCL 20 MG/ML VIAL IV PRN (23:03)
[2022-08-16 23:06] LABS: SARS-CoV-2 Antigen Rapid Res Negative (Negative)
[2022-08-17 02:40] LABS: Absolute Lymphocytes (CBC) 1.5 K/uL (0.7-4.9); Hematocrit 39.3 % (36.0-45.0); MCV 93.5 fL (80-100)
[2022-08-17 02:54] VITALS: BMI 24.7
[2022-08-17 03:03] LABS: Potassium 3.3 mmol/L (3.5-5.1); Troponin High Sensitivity 57.7 pg/mL (<58.9)
[2022-08-17] MEDS ORDERED: HYDROCODONE/APAP 5/325 MG TAB ONE (05:02)
[2022-08-17] MEDS: HYDROCODONE/APAP 5/325 MG TAB PO PRN ×3 (05:06→21:28)
[2022-08-17] MEDS ORDERED: PANTOPRAZOLE 40MG TABLET PO ONE (06:05)
[2022-08-17] MEDS: PANTOPRAZOLE 40MG TABLET PO SCH (06:16)
[2022-08-17] MEDS ORDERED: POTASSIUM CL SA 10 MEQ TAB PO ONE (08:15)
[2022-08-17] MEDS ORDERED: clonazePAM 0.5 MG TAB PO PRN (09:00)
[2022-08-17] MEDS: ENOXAPARIN 40 MG/0.4 ML SQ SCH ×2 (09:00→10:18)
[2022-08-17] MEDS: ASPIRIN EC 81 MG TAB PO SCH (10:19)
[2022-08-17] MEDS: carvediloL 6.25 MG TAB PO SCH ×2 (10:19→21:28)
[2022-08-17] MEDS ORDERED: HEPA 1000U/500MLS 2,000 UNIT/1,000 ML BAG IV ONE (10:28)
[2022-08-17] MEDS ORDERED: ASPIRIN 325 MG TAB ONE (10:29)
[2022-08-17] MEDS ORDERED: HEPARIN 5000 UNIT/ML 1 ML VIAL ONE (10:29)
[2022-08-17] MEDS ORDERED: VERAPAMIL HCL 10 MG/4 ML VIAL IV ONE (10:29)
[2022-08-17] MEDS ORDERED: MIDAZOLAM HCL 2 MG/2 ML INJ ONE (10:29)
[2022-08-17] MEDS ORDERED: FENTANYL CITR 100 MCG/2 ML ONE (10:29)
[2022-08-17] MEDS ORDERED: CLOPIDOGREL 75 MG TABLET ONE (10:29)
[2022-08-17] MEDS ORDERED: TICAGRELOR 90 MG TABLET PO ONE (10:30)
[2022-08-17] MEDS ORDERED: HEPARIN 10,000 UNIT/10 ML VIAL IV ONE (10:30)
[2022-08-17] MEDS ORDERED: NITROGLYCERIN/D5W 25 MG/250 ML BTL IV ONE (10:30)
[2022-08-17] MEDS ORDERED: NITROGLYCERIN 100 MCG/ML SYR (for cath lab use only) IV ONE (10:30)
[2022-08-17] MEDS ORDERED: LIDOCAINE 1% MPF 30 ML VIAL ONE ×2 (10:30→10:58)
[2022-08-17] MEDS ORDERED: NA CHLORIDE 0.9% 500 ML ONE (11:21)
[2022-08-17] MEDS ORDERED: REGADENOSON 0.4 MG/5 ML SYR IV ONE (12:54)
--- NOTE | 2022-08-17 13:21 | CON ---
Date of Consultation: 08/17/2022 Reason For Consultation: Unstable angina. History Of Present Illness: Ms. Swain is 67. Has a history of anxiety, paroxysmal atrial fibrillat ion, congestive heart failure. Came in with hypertension, blood pressure over 170, substernal chest pain going to the jaw and both arms, shortness of breath, diaphoresis. No nausea, vomiting. Denied PND, orthopnea, pedal edema, palpitations, or syncope. Her symptoms were exertional. She has a hist ory of pacemaker placement. Allergies: NONE. Review of Systems: Negative. Social History: Negative. Family History: Noncontributory. Medications: At home include aspirin, losartan, and Aldactone. Physical Examination: Vital Signs: Stable. Paced rhythm. HEENT: Negative. Neck: Supple with no bruit, lymphadenopathy, JVD, or thyromegaly. Chest: Clear to auscultation and percussion. Cardiac: Revealed a paced rhythm. No murmurs, gallops, or rubs. Abdomen: Benign. Extremities: Revealed no clubbing, cyanosis, or edema. Diagnostic Data: Chest x-ray was negative. EKG was paced rhythm. Venous Doppler is negative. BNP is 899. Impression And Plan: 1.Unstable angina. We will plan a left heart catheterization today to define her coronary anatomy. The patient understands the risk and the benefits of the procedure. She agreed to proceed. 2.History of paroxysmal atrial fibrillation. She is in a paced rhythm, on aspirin. 3.Congestive heart failure, chronic, diastolic, stable. Chest x-ray is negative. 4.Hypertension, poorly controlled. She is on losartan, aspirin, and Aldactone. We should consider adding beta-geena. We will see what her coronary shows first. KARIE/FRANCISCO Voice ID: [id number] Report ID: [id number]
--- NOTE | 2022-08-17 13:34 | EKG ---
Test Date: 2022-08-16 Test Time: 16:20:39 Radiophone Operator: LYN MEASUREMENT RESULTS: Intervals: Rate: 75 MI: QRSD: 140 QT: 436 QTc: 486 [place]: P: MI: QRS: 66 T: 205 INTERPRETIVE STATEMENTS: Atrial fibrillation with frequent ventricular-paced complexes Left bundle branch block Abnormal ECG Compared to ECG 05/17/2022 17:08:02 Left bundle-branch block now present AV dual-paced complex(es) or rhythm no longer present Electronically Signed On 08-17-22 13:33:45 CDT by Georges Mendoza
[2022-08-17 15:58] VITALS: O2SAT 99
--- NOTE | 2022-08-17 18:15 | OP ---
Date of Procedure: 08/17/2022 Surgeon: FRANCI HANEY Procedures Performed: 1.Selective coronary angiogram. 2.Left heart catheterization. 3.FFR of mid LAD shows insignificant 0.85. Indication: Unstable angina. Access: Right radial artery 6-[place] closed with TR band. Complications: None. Bleeding: Less than 10 mL. Anesthesia: Total sedation time was 45 minutes. Description Of Procedure: After risks, benefits, alternatives were explained, the patient agreed to proceed and signed informed consent. The patient was brought into the cardiac catheterization labora tory, prepped and draped in sterile fashion. Then, I accessed right radial artery using pediatric mi cropuncture kit, a 6-[place] Slender sheath and I took a 5-[place] 4.0 catheter into the aortic r oot, engaged the RCA and took standard views and pushed the catheter over the wire into the LV, measu red the LVEDP and pullback did not recording gradient. Then, I exchanged for 6-[place] JL3.5 catheter , engaged the left main, took standard views. We then gave systemic heparin to assure ACT level abov e 250 throughout the procedure. I took a comet wire into the aortic root. Pressures were equalized and then the wire was advanced into the LAD past the area of stenosis and FFR was performed using Pranav iscan and FFR value was 0.85. Then pullback did not record any drift and then final angiogram was sa tisfactory and then removed the wire and the catheter and sheath, placed TR band with good hemostasis . Findings: 1.Left main; large and normal. 2.LAD; very large vessel with proximal 10% to 20% stenosis in the mid 50% stenosis and then there is also 50% stenosis after bend. FFR was done on the LAD and it was insignificant at 0.85. Then, the LAD is with luminal irregularities. Diagonal branches are with luminal irregularities. No significa nt stenosis. 3.Left circumflex. It is moderate-size, non-dominant with luminal irregularities. 4.RCA; very large and dominant with luminal irregularities. 5.Elevated LVEDP at 20 mmHg. Conclusion: 1.Moderate LAD stenosis, negative FFR of 0.85. 2.Elevated LVEDP at 20 mmHg. Plan: 1.Aggressive risk factor modification and medical management. 2.Diuretics. SR/MODL Voice ID: [id number] Report ID: [id number]
[2022-08-17] MEDS: ATORVASTATIN 40 MG TAB PO SCH (21:28)
--- NOTE | 2022-08-17 22:34 | P.PN ---
Date of Service: 08/17/22 Subjective: slight improvement awaiting cath ROS: 10 point ROS as noted above, otherwise negative Physical Exam: Gen: NAD, AOx3 HEENT: normal conjunctiva, sclera anicteric CV: regular rate & rhythm, no edema Pulm: non-labored respirations, clear bilaterally Abd: soft, mild TTP in epigastrium Neuro: normal speech, normal affect, moves all extremities vitals reviewed Problem List Chest pain chronic S-CHF Depresision/anxiety HTN h/o GERD h/o hiatal hernia h/o Esophageal issues cardiology consulted, reocmmend cardiac catheterization today vs tomorrow confirm home meds, restart as appropriate thickening of distal esophagus noted on CT, suspect possible etiology of pain f/u cath results continue protonix anti-hypertensives Code: full Dispo: home, tomorrow, pending cath results Time Spent Managing Pts Care (In Minutes): 35
[2022-08-18] MEDS: HYDROCODONE/APAP 5/325 MG TAB PO PRN (05:02)
[2022-08-18 05:58] LABS: Absolute Lymphocytes (CBC) 1.2 K/uL (0.7-4.9); Hematocrit 40.2 % (36.0-45.0); Lymphocytes % 28.7 % (15.3-44.8); MCV 93.4 fL (80-100); MPV 9.9 fL (7.6-11.3)
[2022-08-18] MEDS: PANTOPRAZOLE 40MG TABLET PO SCH (06:04)
[2022-08-18 06:17] LABS: Potassium 3.6 mmol/L (3.5-5.1)
[2022-08-18 08:20] VITALS: BP 184/110; TEMP 98
--- NOTE | 2022-08-18 08:49 | PN ---
Date of Progress Note: 08/18/2022 Subjective: The patient underwent a heart catheterization yesterday by Dr. Mendoza for unstable angin a, was found to have multiple 50% stenosis in the LAD. This morning, she has no complaints. Objective: Her vital signs are stable. She is afebrile. Her right wrist entry site for the cathete rization is intact with good radial pulse. Impression And Plan: Coronary artery disease, 50% LAD. She needs to be on aspirin, statin, low-dose beta-geena. She has a history of pacemaker, atrial fibrillation, hypertension, congestive heart f ailure, all of those are stable. She can go home whenever it is okay with Dr. Valdes. We will see he r in the office in the very near future. We will follow up on her pacemaker, congestive heart failur e, atrial fibrillation, and hypertension and coronary artery disease. Ms. Swain should have a carot id Doppler sometime soon. KARIE/FRANCISCO Voice ID: [id number] Report ID: [id number]
[2022-08-18] MEDS ORDERED: HYDROCODONE/APAP 5/325 MG TAB PO ONE (08:52)
[2022-08-18] MEDS: ASPIRIN EC 81 MG TAB PO SCH (08:53)
[2022-08-18] MEDS: carvediloL 6.25 MG TAB PO SCH (08:53)
[2022-08-18] MEDS: ENOXAPARIN 40 MG/0.4 ML SQ SCH (08:54)
[2022-08-18] MEDS ORDERED: POTASSIUM CL SA 10 MEQ TAB PO ONE (09:00)
--- NOTE | 2022-08-18 23:04 | P.DS ---
Admission Date: 08/16/22 Discharge Date: 08/18/22 Disposition: ROUTINE DISCHARGE Discharge Condition: GOOD Reason for Admission: Chest pain Consultations: Cardiology - Dr. Bailey, Dr. Mendoza Brief History of Present Illness: 67-year-old female with history of chronic systolic congestive heart failure, depression, hypertension, atrial fibrillation with pacemaker in place presented to the emergency department for chest pain. She reports 2 episodes of chest pain occurring over the course of last 2 days pain described as sharp radiating to her back. She is evaluated in the emergency department her labs were significant for mildly elevated BNP, initial high-sensitivity troponin negative CT dissection protocol was performed which revealed mild thickening of the wall of the distal esophagus which could be secondary to incomplete distention or pathology such as inflammation. Patient reports that she is had 2 surgeries on her distal esophagus in the past for hiatal hernia/tears. She reports that she used to take PPIs but has not been on them for some time now. ED provider wishes to admit under observation for ACS rule out. She had an echocardiogram November 2020 which showed EF of 35 to 40% with moderate global hypokinesis, moderate left ventricular hypertrophy, severe pulmonary hypertension with right ventricular systolic pressure greater than 60, moderate mitral regurg, moderate to severe tricuspid regurg and left atrial enlargement. Hospital Course: Problem List unstable angina chronic S-CHF Depresision/anxiety HTN h/o GERD h/o hiatal hernia h/o Esophageal issues Patient presented with chest pain. Cardiology was consulted and patient underwent cardiac catheterization which revealed mild-moderate stenosis of LAD. Recommended continue medical management. CT noted some inflammatory findings around distal esophagus, and patient has been having increased epigastric/chest pain after stopping protonix. She is prescribed protonix twice daily and carafate to help with her symptoms. Wait at least 1 hour after taking medications before taking carafate. Follow up: GI in a few weeks, recommend outpatient EGD and c-scope Cardiology Dr. Bailey - 1-2 weeks PCP in 1 week Vital Signs/Physical Exam: Temp Pulse Resp BP Pulse Ox 98.0 F 62 16 184/110 H 96 08/18/22 08:00 08/18/22 08:53 08/18/22 08:00 08/18/22 08:53 08/18/22 08:00 General: Alert, In no apparent distress, Oriented x3 HEENT: EOMI, Sclerae nonicteric Neck: Supple, No LAD Respiratory: Clear to auscultation bilaterally, Normal air movement Cardiovascular: No edema, Regular rate/rhythm Gastrointestinal: Soft and benign, Tenderness (epigastrium) Integumentary: No rashes, No significant lesion Neurological: Normal speech, Normal affect Laboratory Data at Discharge: WBC 4.20 K/uL (4.3-10.9) L 08/18/22 05:30 Hgb 13.3 g/dL (12.0-15.0) 08/18/22 05:30 Hct 40.2 % (36.0-45.0) 08/18/22 05:30 Plt Count 164 K/uL (152-406) 08/18/22 05:30 PT 10.0 SECONDS (9.5-12.5) 08/16/22 16:47 INR 0.91 08/16/22 16:47 Sodium 141 mmol/L (136-145) 08/18/22 05:30 Potassium 3.6 mmol/L (3.5-5.1) 08/18/22 05:30 BUN 9 mg/dL (7-18) 08/18/22 05:30 Creatinine 0.78 mg/dL (0.55-1.3) 08/18/22 05:30 Glucose 95 mg/dL (74-106) 08/18/22 05:30 Magnesium 1.9 mg/dL (1.8-2.4) 08/16/22 16:47 Total Bilirubin 0.2 mg/dL (0.2-1.0) 08/16/22 16:47 AST 24 U/L (15-37) 08/16/22 16:47 ALT 28 U/L (12-78) 08/16/22 16:47 Alkaline Phosphatase 66 U/L (45-117) 08/16/22 16:47 Triglycerides 165 mg/dL (<150) H 08/17/22 02:12 Cholesterol 181 mg/dL (<200) 08/17/22 02:12 HDL Cholesterol 70 mg/dL (40-60) H 08/17/22 02:12 Cholesterol/HDL Ratio 2.59 08/17/22 02:12 Lipase 93 U/L (73-393) 08/16/22 16:47 Home Medications: Ascorbic Acid [C-500] 500 mg PO DAILY 05/18/22 Aspirin/Acetaminophen/Caffeine [Excedrin Migraine Caplet] 1 each PO TIDP PRN 05/18/22 Multivitamin 1 each PO DAILY 05/18/22 Zinc Sulfate [Zinc Sulfate*] 220 mg PO DAILY #30 cap 05/18/22 clonazePAM [Klonopin*] 0.5 mg PO BIDP PRN 05/18/22 Carvedilol [Coreg] 6.25 tab PO BID 08/17/22 Sacubitril/Valsartan [Entresto 49 mg-51 mg Tablet] 1 tab PO BID 08/17/22 Trazodone [Desyrel*] 100 tab PO BEDTIME PRN 08/17/22 Atorvastatin Calcium [Lipitor] 40 mg PO DAILY 30 Days #30 tab 08/18/22 Pantoprazole [Protonix Tab*] 40 mg PO BID 30 Days #60 tab 08/18/22 Sucralfate [Carafate Liq] 10 ml PO TIDWM 30 Days #900 ml 08/18/22 New Medications: Sucralfate [Carafate Liq] 10 ml PO TIDWM 30 Days #900 ml Atorvastatin Calcium [Lipitor] 40 mg PO DAILY 30 Days #30 tab Pantoprazole [Protonix Tab*] 40 mg PO BID 30 Days #60 tab Physician Discharge Instructions: AD Barby Wait to shower tomorrow 08/19/2022 sponge bath ok. Diet: AHA Followup: Agapito Bailey MD [ACTIVE - CAN ADMIT] - NONE,NONE [Primary Care Provider] - Time spent managing pt's care (in minutes): 45
== END 2022-08-18 11:48 | disposition home or self-care (01) ==
LOC: ER 16:20 → ERHOLD 21:29 → 4TH 08-17 06:13
PROVIDERS: ADMIT Hospitalist; ATTEND Hospitalist
DX: I25.110 Atherosclerotic heart disease of native coronary artery with unstable angina pectoris (principal); I10 Essential (primary) hypertension; I50.22 Chronic systolic (congestive) heart failure; I48.0 Paroxysmal atrial fibrillation; I34.0 Nonrheumatic mitral (valve) insufficiency; I07.1 Rheumatic tricuspid insufficiency; F32.A Depression, unspecified; F41.9 Anxiety disorder, unspecified; Z95.810 Presence of automatic (implantable) cardiac defibrillator; Z79.82 Long term (current) use of aspirin; Z79.899 Other long term (current) drug therapy; Z85.828 Personal history of other malignant neoplasm of skin; Z20.822 Contact with and (suspected) exposure to COVID-19; Z82.49 Family history of ischemic heart disease and other diseases of the circulatory system
CPT/HCPCS: 36415; 71045; 71275; 74175; 80048; 80061; 80076; 83690; 83735; 83880; 84132; 84484; 85025; 85347; 85610; 87811; 93005; 93458; 93571; 93971; 96374; 96375; 99285; C1769; C1893; G0378; J0360; J1644; J1650; J2250; J2405; J2785; J3010; J7040; Q9966; Q9967

== ENCOUNTER 2024-07-03 12:51 | Inpatient (IN) | payer OTHER ==
[2024-07-03] MEDS ORDERED: ASPIRIN 81 MG CHEWABLE TABLET ONE (13:08)
[2024-07-03] MEDS ORDERED: MORPHINE 4 MG/ML SYR ONE (13:19)
[2024-07-03] MEDS ORDERED: ONDANSETRON 4 MG/2 ML VIAL ONE (13:20)
[2024-07-03 13:29] LABS: Absolute Basophils 0.1 K/uL (0-0.5); Absolute Eosinophils 0.1 K/uL (0-0.5); Absolute Lymphocytes (CBC) 1.1 K/uL (0.7-4.9); Absolute Monocytes 1.5 K/uL (0.1-1.3); Absolute Neutrophil 10.1 K/uL (1.8-8.0); Basophils % 0.4 % (0-1.3); Eosinophils % 0.4 % (0-4.4); Hematocrit 40.7 % (36.0-45.0); Hemoglobin 13.3 g/dL (12.0-15.0); Lymphocytes % 8.3 % (15.3-44.8); MCH 29.3 pg (27.0-35.0); MCHC 32.6 g/dL (32.0-36.0); MPV 9.9 fL (7.6-11.3); Neutrophils % 78.9 % (41.7-73.7); Nucleated Red Blood Cells % 0.1 % (0-0); Platelets 243 thou/uL (152-406); RBC Red Blood Cell Count 4.52 M/uL (3.86-4.86); Red Cell Distribution Width 15.3 % (12.1-15.2)
[2024-07-03 13:50] LABS: Anion Gap 9.8 mEq/L (5.0-15.0); Magnesium 2.2 mg/dL (1.6-2.4); Potassium 3.8 mEq/L (3.5-5.1)
[2024-07-03] MEDS ORDERED: AMIODARONE HCL 150 MG/3 ML INJ IV ONE (13:59)
[2024-07-03 14:00] LABS: Troponin High Sensitivity 132.1 pg/mL (<58.9)
[2024-07-03] MEDS ORDERED: D5W 100 ML IV ONE (14:00)
--- NOTE | 2024-07-03 14:30 | ER ---
Nurse's Notes [facility] Name: Mandy Swain Age: 69 yrs Sex: Female : 1955 Arrival Date: 07/03/2024 Time: 12:51 Bed 18 Private MD: Diagnosis: Heart failure, unspecified;Ventricular tachycardia;Elevated Troponin Presentation: 07/03 12:56 Chief complaint: EMS states: toned out for difficulty breathing that has been going on me1 for 5 days and continually getting worse. Patient is in Afib with RVR and showing some pacer spikes on EKG. c/o CP 08/16. Coronavirus screen: Vaccine status: Patient reports receiving the 2nd dose of the covid vaccine. Ebola Screen: No symptoms or risks identified at this time. Initial Sepsis Screen: Does the patient meet any 2 criteria? No. Patient's initial sepsis screen is negative. Does the patient have a suspected source of infection? No. Patient's initial sepsis screen is negative. Risk Assessment: Do you want to hurt yourself or someone else? Patient reports no desire to harm self or others. Onset of symptoms was June 28, 2024. 12:56 Method Of Arrival: EMS: [facility] me1 12:56 Acuity: CRISTEL 2 me1 Historical: - Allergies: 12:59 No Known Allergies; me1 - PMHx: 12:59 Anxiety; Atrial fibrillation; CHF; Depression; esophagus problem; Hypertension; me1 - PSHx: 12:59 pacemaker (Hypertension); defibrilator (Hypertension); me1 - Immunization history:: Adult Immunizations up to date. - Infectious Disease History:: Denies. - Social history:: Smoking status: Patient denies any tobacco usage or history of. Screenin:10 [facility] ED Fall Risk Assessment (Adult) History of falling in the last 3 months, me1 including since admission No falls in past 3 months (0 pts) Confusion or Disorientation No (0 pts) Intoxicated or Sedated No (0 pts) Impaired Gait No (0 pts) Mobility Assist Device Used No (0 pt) Altered Elimination No (0 pt) Score/Fall Risk Level 0 - 2 = Low Risk Maintained a safe environment, Provided non-skid footwear, Hourly rounding (assess needs \T\ fall precautionary measures) done. Abuse screen: Denies threats or abuse. Nutritional screening: No deficits noted. Tuberculosis screening: No symptoms or risk factors identified. Assessment: 13:10 General: Appears uncomfortable, well groomed, well developed, well nourished, Behavior me1 is cooperative, appropriate for age, anxious, Reports Difficulty breathing and chest pain that started 5 days ago, intermittently and has gotten worse. CP 10/10. Pain: Complains of pain in chest Pain radiates to back Pain currently is 10 out of 10 on a pain scale. Quality of pain is described as Pain began suddenly, Is intermittent. Neuro: Level of Consciousness is awake, alert, obeys commands, Oriented to person, place, time, situation, Appropriate for age. Cardiovascular: Patient's skin is warm and dry. Respiratory: Airway is patent Respiratory effort is even, unlabored, Respiratory pattern is regular, symmetrical. GI: No signs and/or symptoms were reported involving the gastrointestinal system. : No signs and/or symptoms were reported regarding the genitourinary system. EENT: No signs and/or symptoms were reported regarding the EENT system. Derm: Skin is intact, is healthy with good turgor, Skin is pink, warm \T\ dry. Musculoskeletal: No signs and/or symptoms reported regarding the musculoskeletal system. 13:31 General: Appears in no apparent distress. uncomfortable, Behavior is calm, cooperative, ld1 appropriate for age. Pain: Complains of pain in chest Pain radiates to back Pain currently is 9 out of 10 on a pain scale. Quality of pain is described as throbbing, Pain began 5days Is intermittent. Neuro: Level of Consciousness is awake, alert, obeys commands, Oriented to person, place, time, situation, Appropriate for age. Cardiovascular: Capillary refill < 3 seconds Patient's skin is warm and dry. Rhythm is atrial fibrillation with rapid ventricular response. Respiratory: Airway is patent Respiratory effort is even, unlabored, Respiratory pattern is regular, symmetrical. GI: Abdomen is flat, non-distended. 15:15 Reassessment: Patient appears in no apparent distress at this time. No changes from ld1 previously documented assessment. 16:30 Reassessment: Patient appears in no apparent distress at this time. No changes from ld1 previously documented assessment. Patient and/or family updated on plan of care and expected duration. Pain level reassessed. Patient states symptoms have not improved. Vital Signs: 12:56 BP 154 / 110; Pulse 137; Resp 18; Temp 97.9; Pulse Ox 100% ; Weight 54.88 kg; Height 5 me1 ft. 3 in. ; Pain 10/10; 13:09 BP 123 / 106; Pulse 140; Resp 20; Pulse Ox 96% ; me1 13:54 BP 131 / 101; Pulse 112; Resp 19; Pulse Ox 96% on 2 lpm NC; ld1 14:47 BP 106 / 88; Pulse 116; Resp 18; Pulse Ox 100% on R/A; mb9 15:15 Pulse 127; Resp 18; Pulse Ox 92% on 3 lpm NC; ld1 12:56 Body Mass Index 21.43 (54.88 kg, 160.02 cm) me1 12:56 Pain Scale: Adult [facility] [place] ED Course: 12:52 Patient arrived in ED. ms3 12:52 Josh Tan DO is Attending Physician. ms3 12:56 Crystal Gross, DEZ is Primary Nurse. me1 12:59 Triage completed. me1 12:59 Arm band placed on Patient placed in an exam room. me1 13:00 Missed attempt(s): 24 gauge in right antecubital area. bc6 13:10 Patient has correct armband on for positive identification. Bed in low position. Call me1 light in reach. Side rails up X2. Provided Education on: POC. Verbalized understanding. . Client placed on continuous cardiac and pulse oximetry monitoring. NIBP monitoring applied. compliance monitor on. Pulse ox on. NIBP on. 13:10 No provider procedures requiring assistance completed. me1 13:17 Inserted saline lock: 24 gauge in right antecubital area, using aseptic technique. bc6 13:20 Initial lab(s) drawn, by az, sent to lab. Inserted saline lock: 22 gauge in left tm3 antecubital area, using aseptic technique. 13:30 Cyndi Tan, DEZ is Primary Nurse. ld1 14:22 Mitch Grimaldo MD is Hospitalizing Provider. ms3 14:40 XRAY Chest (1 view) In Process Unspecified. EDMS 15:07 1507 CM met with patient at bedside in the ED exam room. Patient identified by name and ane . Demographic sheet confirmed. Ms. Swain states she lives alone as she is a . She reports prior to admission, she performs ADLs independently and without physical limitations. No MPOA in place at this time. She states she does not have DME, HH, home oxygen or other medical services at this time. her preferred plan is to return home upon discharge. She reports that her brother Bill will transport her home when she is discharged. 16:31 Patient admitted, IV remains in place. ld1 Administered Medications: 13:09 Drug: Aspirin PO Chewable Tablet 324 mg PO once; 81 mg tablets x 4 Route: PO; me1 13:24 Follow up: Response: No adverse reaction; Nausea is decreased me1 13:23 Drug: morphine IVP or IV 4 mg IVP once over 4 mins Route: IVP; Infused Over: 4 mins; me1 Site: left antecubital; 14:03 Follow up: Response: No adverse reaction ld1 13:23 Drug: Ondansetron IVP 4 mg IVP once; over 2 minutes Route: IVP; Site: left antecubital; me1 14:03 Follow up: Response: No adverse reaction ld1 14:03 Drug: amiodarone IVPB 150 mg 100 ml IVPB once over 10 mins; (mix in D5W) Volume: 100 ld1 ml; Route: IVPB; Infused Over: 10 mins; Site: left antecubital; 14:45 Follow up: Response: No adverse reaction; IV Status: Completed infusion ld1 14:24 Drug: amiodarone IVPB 900 mg, D5W IV 500 ml IVPB at 1 mg/min continuous; for 6 hrs, mb9 then change to 0.5 mg/min Route: IVPB; Rate: 1 mg/min; Site: right forearm; 15:17 Follow up: Response: No adverse reaction; IV Status: Infusion continued ld1 14:54 Drug: Furosemide IVP 40 mg IVP once; give over 2 minutes Route: IVP; Site: left mb9 antecubital; 15:16 Follow up: Response: No adverse reaction ld1 16:07 Drug: Metoprolol IVP 5 mg IVP once; Hold for SBP <100 or HR <60. Route: IVP; Site: left mb9 antecubital; 16:30 Follow up: Response: No adverse reaction ld1 Medication: 13:10 VIS not applicable for this client. me1 Outcome: 14:29 Decision to Hospitalize by Provider. ms3 16:30 Admitted to ICU accompanied by nurse, via stretcher, room 5, Report called to DEZ Santamaria ld1 16:30 Condition: unchanged 16:30 Instructed on the need for admit, 16:31 Patient left the ED. ld1 Signatures: Dispatcher [employer] EDMS Jairo Blue tm3 Britney, Josh, DO DO ms3 Cyndi Tan RN RN ld1 Evelia White RN RN mb9 Jaclyn Mcfadden6 Crystal Gross, RN RN me1 Paris Cheema RN RN obdulio
--- NOTE | 2024-07-03 14:30 | EDPHYS ---
Physician Documentation [facility] Name: Mandy Swain Age: 69 yrs Sex: Female : 1955 Arrival Date: 07/03/2024 Time: 12:51 Bed 18 Private MD: ED Physician Josh Tan HPI: 07/03 13:30 This 69 yrs old Female presents to ER via EMS with complaints of chest pain and ms3 shortness of breath. 13:30 69-year-old female past medical history of anxiety, atrial fibrillation, congestive ms3 heart failure, depression, hypertension presents to the emergency department for chest pain and shortness of breath that been ongoing for 5 days and have become worse today. Patient denies any alleviating or inciting factors. Patient states her chest pain is 10/10. Historical: - Allergies: 12:59 No Known Allergies; me1 - PMHx: 12:59 Anxiety; Atrial fibrillation; CHF; Depression; esophagus problem; Hypertension; me1 - PSHx: 12:59 pacemaker (Hypertension); defibrilator (Hypertension); me1 - Immunization history:: Adult Immunizations up to date. - Infectious Disease History:: Denies. - Social history:: Smoking status: Patient denies any tobacco usage or history of. ROS: 13:30 Constitutional: Negative for fever, and chills. ms3 13:30 Abdomen/GI: Negative for abdominal pain, nausea, vomiting, diarrhea, and constipation, MS/Extremity: Negative for injury and deformity, Skin: Negative for injury, rash, and discoloration, 13:30 Cardiovascular: Positive for chest pain, 13:30 Respiratory: Positive for shortness of breath, Exam: 13:08 ECG was reviewed by the Attending Physician. ms3 13:30 Constitutional: This is a well developed, well nourished patient who is awake, alert, ms3 and in no acute distress. Respiratory: Lungs have equal breath sounds bilaterally, clear to auscultation and percussion. No rales, rhonchi or wheezes noted. No increased work of breathing, no retractions or nasal flaring. Abdomen/GI: Soft, non-tender, with normal bowel sounds. No distension or tympany. No guarding or rebound. No evidence of tenderness throughout. Skin: Warm, dry with normal turgor. Normal color with no rashes, no lesions, and no evidence of cellulitis. MS/ Extremity: Pulses equal, no cyanosis. Neurovascular intact. Full, normal range of motion. 13:30 Cardiovascular: Rate: tachycardic, Rhythm: irregularly irregular, Heart sounds: normal, normal S1and S2, Vital Signs: 12:56 BP 154 / 110; Pulse 137; Resp 18; Temp 97.9; Pulse Ox 100% ; Weight 54.88 kg; Height 5 me1 ft. 3 in. ; Pain 10/10; 13:09 BP 123 / 106; Pulse 140; Resp 20; Pulse Ox 96% ; me1 13:54 BP 131 / 101; Pulse 112; Resp 19; Pulse Ox 96% on 2 lpm NC; ld1 14:47 BP 106 / 88; Pulse 116; Resp 18; Pulse Ox 100% on R/A; mb9 15:15 Pulse 127; Resp 18; Pulse Ox 92% on 3 lpm NC; ld1 12:56 Body Mass Index 21.43 (54.88 kg, 160.02 cm) me1 12:56 Pain Scale: Adult me1 MDM: 12:52 Patient medically screened. ms3 13:30 Differential diagnosis: abnormal EKG, acute myocardial infarction, anxiety, congestive ms3 heart failure. 13:40 ED course: Discussed EKG with Dr Coats and he recommends 150 mg Amiodarone x1.. ms3 14:15 ED course: Discussed case with Dr Coats regarding wide complex beats between paced ms3 beats. Recommends Amiodarone ggt and Lasix 40 mg IV.. 14:29 The patient was given aspirin in the Emergency Department. Data reviewed: vital signs, ms3 lab test result(s), EKG, and as a result, I will admit patient. Consideration of Admission/Observation Patient was admitted/placed on observation. Management of patient was discussed with the following: Hospitalist: Dr Grimaldo. Radio Station Engineer: Dr Coats. I considered the following discharge prescriptions or medication management in the emergency department Medications were administered in the Emergency Department. See MAR. Independent interpretation of the following test(s) in the Emergency Department EKG: See my EKG interpretation above supervisor cook room: Paced with runs of V tach. Historians other than the Patient: EMS: [facility]. Care significantly affected by the following chronic conditions: Hypertension, Congestive Heart Failure. Counseling: I had a detailed discussion with the patient and/or guardian regarding the historical points, exam findings, and any diagnostic results supporting the discharge/admit diagnosis, lab results, the need for further work-up and treatment in the hospital. 07/03 12:56 Order name: Basic Metabolic Panel; Complete Time: 14:09 ms3 07/03 12:56 Order name: CBC with Diff; Complete Time: 14:09 ms3 07/03 12:56 Order name: Magnesium; Complete Time: 14: ms3 07/03 12:56 Order name: NT PRO-BNP; Complete Time: 14:09 ms3 07/03 12:56 Order name: Troponin HS; Complete Time: 14:09 ms3 07/03 14:55 Order name: Protime (+INR) EDMS 07/03 14:55 Order name: PTT, Activated Partial Thromb EDMS 07/03 14:55 Order name: Thyroid Stimulating Hormone EDMS 07/03 14:55 Order name: CBC with Automated Diff EDMS 07/03 14:55 Order name: CBC with Automated Diff EDMS 07/03 14:55 Order name: CBC with Automated Diff EDMS 07/03 14:55 Order name: CBC with Automated Diff EDMS 07/03 14:55 Order name: Comprehensive Metabolic Panel EDMS 07/03 14:55 Order name: Comprehensive Metabolic Panel EDMS 07/03 14:55 Order name: Comprehensive Metabolic Panel EDMS 07/03 14:55 Order name: Comprehensive Metabolic Panel EDMS 07/03 14:55 Order name: Lipid Profile EDMS 07/03 14:55 Order name: Lipid Profile EDMS 07/03 14:55 Order name: Magnesium EDMS 07/03 14:55 Order name: Magnesium EDMS 07/03 14:55 Order name: Magnesium EDMS 07/03 14:55 Order name: Magnesium EDMS 07/03 14:55 Order name: Phosphorus EDMS 07/03 14:55 Order name: Phosphorus EDMS 07/03 14:55 Order name: Phosphorus EDMS 07/03 14:55 Order name: Phosphorus EDMS 07/03 14:55 Order name: Troponin High Sensitivity EDMS 07/03 14:55 Order name: Troponin High Sensitivity EDMS 07/03 14:55 Order name: Troponin High Sensitivity EDMS 07/03 14:55 Order name: Troponin High Sensitivity EDMS 07/03 12:56 Order name: XRAY Chest (1 view) ms3 07/03 14:56 Order name: Echo with Doppler EDMS 07/03 14:55 Order name: CONS Physician Consult EDMS 07/03 12:56 Order name: Cardiac monitoring; Complete Time: 13:09 ms3 07/03 12:56 Order name: EKG - Nurse/Tech; Complete Time: 13:09 ms3 07/03 12:56 Order name: IV Saline Lock; Complete Time: 13:23 ms3 07/03 12:56 Order name: Labs collected and sent; Complete Time: 13:23 ms3 07/03 12:56 Order name: O2 Per Protocol; Complete Time: 13:23 ms3 07/03 12:56 Order name: O2 Sat Monitoring; Complete Time: 13:23 ms3 EC:08 Rate is 128 beats/min. QRS interval is prolonged. Clinical impression: Paced with PVCs. ms3 Interpreted by me. Reviewed by me. Administered Medications: 13:09 Drug: Aspirin PO Chewable Tablet 324 mg PO once; 81 mg tablets x 4 Route: PO; me1 13:24 Follow up: Response: No adverse reaction; Nausea is decreased me1 13:23 Drug: morphine IVP or IV 4 mg IVP once over 4 mins Route: IVP; Infused Over: 4 mins; me1 Site: left antecubital; 14:03 Follow up: Response: No adverse reaction ld1 13:23 Drug: Ondansetron IVP 4 mg IVP once; over 2 minutes Route: IVP; Site: left antecubital; me1 14:03 Follow up: Response: No adverse reaction ld1 14:03 Drug: amiodarone IVPB 150 mg 100 ml IVPB once over 10 mins; (mix in D5W) Volume: 100 ld1 ml; Route: IVPB; Infused Over: 10 mins; Site: left antecubital; 14:45 Follow up: Response: No adverse reaction; IV Status: Completed infusion ld1 14:24 Drug: amiodarone IVPB 900 mg, D5W IV 500 ml IVPB at 1 mg/min continuous; for 6 hrs, mb9 then change to 0.5 mg/min Route: IVPB; Rate: 1 mg/min; Site: right forearm; 15:17 Follow up: Response: No adverse reaction; IV Status: Infusion continued ld1 14:54 Drug: Furosemide IVP 40 mg IVP once; give over 2 minutes Route: IVP; Site: left mb9 antecubital; 15:16 Follow up: Response: No adverse reaction ld1 16:07 Drug: Metoprolol IVP 5 mg IVP once; Hold for SBP <100 or HR <60. Route: IVP; Site: left mb9 antecubital; 16:30 Follow up: Response: No adverse reaction ld1 Disposition: 14:22 Critical Care:. ms3 Disposition Summary: 07/03/24 14:29 Hospitalization Ordered Notes: Hospitalization Status: Inpatient Admission ms3 Provider: Mitch Grimaldo ms3 Location: Intensive Care Unit ms3 Condition: Stable ms3 Problem: new ms3 Symptoms: are unchanged ms3 Bed/Room Type: Standard ms3 Room Assignment: 5-(07/03/24 14:59) bd Diagnosis - Heart failure, unspecified ms3 - Ventricular tachycardia ms3 - Elevated Troponin ms3 Forms: - Medication Reconciliation Form ms3 - SBAR form ms3 - Leadership Thank You Letter ms3 Critical care time excluding procedures: 14:22 Critical care time: Bedside Care: 50 minutes, Consultation: 10 minutes. Total time: 60 ms3 minutes Signatures: Dispatcher [employer] EDMS Sandi Khalil bd Josh Tan, DO ms3 Cyndi Tan RN RN ld1 Evelia White, RN RN mb9 Crystal Gross RN RN me1 Corrections: (The following items were deleted from the chart) 12:56 12:56 BASIC METABOLIC PANEL+C.LAB.BRZ ordered. EDMS EDMS 12:56 12:56 CBC+H.LAB.BRZ ordered. EDMS EDMS 12:56 12:56 MAGNESIUM+C.LAB.BRZ ordered. EDMS EDMS 12:56 12:56 PROBNP+C.LAB.BRZ ordered. EDMS EDMS 12:56 12:56 Troponin High Sensitivity+C.LAB.BRZ ordered. EDMS EDMS 12:56 12:56 Chest Single View+RAD.RAD.BRZ ordered. EDMS EDMS 14:59 14:29 ms3 bd
--- NOTE | 2024-07-03 14:42 | P.HP ---
Certification for Inpatient Patient admitted to: Inpatient With expected LOS: >2 Midnights <Megan Baldwin - Last Filed: 07/03/24 19:47> Patient History Date of Service: 07/03/24 <Mitch Grimaldo - Last Filed: 07/03/24 19:12> Date of Service: 07/03/24 Reason for admission: A-fib with RVR, NSTEMI, fluid overload with JAVAD History of Present Illness: Ms. Swain has a PMH of combined heart failure, moderate CAD, Atrial fibrillation. She is s/p ICD/PM placement. She presents with palpitations, chest pressure sensation, associated with worsening SOB, denies any device firing. She states she has had a cough x 5 days. Denies fever, nausea, vomiting, or diaphoresis. She presented with a rate in the 150s and was given Amiodarone IV and started on a drip. On assessment, she continues to have a rate in the 120s with wide complex a fib with runs of VT. She will be admitted to ICU with cardiology consultation. Of note, she has JAVAD with a creatinine of 2.2 from 0.94 one year ago. Initial troponin 134.1, BNP 25,321. She was given 40mg Lasix IV in the ED and transported via stretcher to ICU 5. - Past Medical/Surgical History Diabetic: No -: Squamous Cell Carcinoma Left Ear -: IMPLANTED CARDIOVERTER (ICD) -: GERD/hiatal hernia -: Hypertension -: Depression/anxiety -: Chronic systolic congestive heart failure -: hernia repair -: tubal ligation -: carpal tunner both hands -: teresa love Psychosocial/ Personal History: Patient is . - Family History Father -: Heart disease, Hypertension Mother -: Heart disease, Hypertension Brother -: Hypertension Sister -: Hypertension - Social History Alcohol use: No CD- Drugs: Yes Caffeine use: No Place of Residence: Home <Megan Baldwin - Last Filed: 07/03/24 19:47> Allergies No Known Allergies Allergy (Verified 12/22/17 01:16) Home Medications: Ascorbic Acid [C-500] 500 mg PO DAILY 05/18/22 Multivitamin 1 each PO DAILY 05/18/22 Zinc Sulfate [Zinc Sulfate*] 220 mg PO DAILY #30 cap 05/18/22 Carvedilol [Coreg] 12.5 tab PO BID 08/17/22 Losartan/Hydrochlorothiazide [Losartan-Hctz 50-12.5 mg Tab] 1 tab PO DAILY 07/03/24 Thiamine HCl 100 mg PO DAILY 07/03/24 Review of Systems 10-point ROS is otherwise unremarkable Respiratory: Shortness of Breath, SOB with Excertion, As per HPI Cardiovascular: Chest Pain, Palpitations, As per HPI <Megan Baldwin - Last Filed: 07/03/24 19:47> Physical Examination - Studies Laboratory Data (last 24 hrs) 07/03/24 07/03/24 13:15 13:15 WBC 12.80 H Hgb 13.3 Hct 40.7 Plt Count 243 Sodium 138 Potassium 3.8 BUN 54 H Creatinine 2.20 H Glucose 125 H Magnesium 2.2 <Mitch Grimaldo - Last Filed: 07/03/24 19:12> - Physical Exam General: Alert, In no apparent distress, Oriented x3 HEENT: Atraumatic, Normocephalic Neck: Supple Respiratory: Crackles/rales (bases), Expiratory wheezes, Other (cough) Cardiovascular: Regular rate/rhythm, Other (tachycardia), Edema (pretibial) Capillary refill: <2 Seconds Gastrointestinal: Soft and benign Musculoskeletal: No clubbing Integumentary: No rashes Neurological: Normal speech, Normal tone, Normal affect Lymphatics: No axilla or inguinal lymphadenopathy External genitalia: Deferred Rectal: Deferred - Studies Laboratory Data (last 24 hrs) 07/03/24 07/03/24 13:15 13:15 WBC 12.80 H Hgb 13.3 Hct 40.7 Plt Count 243 Sodium 138 Potassium 3.8 BUN 54 H Creatinine 2.20 H Glucose 125 H Magnesium 2.2 <Meagn Baldwin - Last Filed: 07/03/24 19:47> Assessment and Plan Physician Review Additional Text: Pt seen and examined. I agree with the note by the CHAIN SALES CONSULTANT. Pt is a 69 yo female with past medical history of A. fib, Anxiety, CHF, Depression, htn and esophageal disease who presents with chest pain and SOB for 5 days. It progressively worsened and pt came to the ER for evaluation. On admission, lab studies show wbc 12.8, Hgb 13.3, K 3.8, Cr 2.2, troponin 132, and BNP 29951. At bedside, pt is in NAD. A/P: A.Fib with RVR: Will continue amiodarone drip. Pt received amiodarone bolus in the ER. Will continue telemetry and heparin drip. NSTEMI: Troponin is 132. Will continue heparin drip. Trend troponin and f/u Echo. Consulted Cardiology. Continue aspirin and statin. Hx of combined sys and diastolic CHF: Will continue Lasix, coreg, strict I/O and daily weight. Will f/u Echo Anxiety: Continue home med GI ppx: protnix DVT ppx: SCD Code: full <Mitch Grimaldo - Last Filed: 07/03/24 19:12> - Plan A-fib with RVR with pacemaker/defibrillator Admit to ICU Amiodarone drip Consult Dr. Coats Heparin drip NSTEMI Amiodarone Rate control Trend troponin Antiplatelet, anticoagulation, beta-geena, statin, Echocardiogram and stress test if cardiology is agreeable Pain control AHA, low-sodium diet Volume overload with JAVAD Lasix 40 mg IV BID Monitor and trend Replete electrolytes VTE/GI prophylaxis Plan to discharge in: Greater than 2 days - Advance Directives Does patient have a Living Will: No Does patient have a Durable POA for Healthcare: No - Code Status/Comfort Care Code Status Assessed: Yes Time Spent Managing Pts Care (In Minutes): 60 <Megan Baldwin - Last Filed: 07/03/24 19:47>
[2024-07-03] MEDS ORDERED: FUROSEMIDE 40 MG/4 ML VIAL ONE (14:48)
[2024-07-03] MEDS: FUROSEMIDE 40 MG/4 ML VIAL IV ONE (15:00)
--- NOTE | 2024-07-03 15:02 | RAD REPORT ---
EXAM DESCRIPTION: RAD - Chest Single View - 07/03/2024 2:39 pm CLINICAL HISTORY: DYSPNEA COMPARISON: Chest Single View dated 02/16/2023; Chest Single View dated 08/16/2022; Chest Single View dated 05/17/2022; Chest Single View dated 12/25/2020 FINDINGS: Lines: Pacemaker/ICD. Lungs: Obscuration of the left hemidiaphragm . The right lung is clear . Pleural: Probable left pleural effusion. Cardiac: The heart size is within normal limits. Mediastinum: Within normal limits. Bones: No acute fractures. Other: None IMPRESSION: Obscuration left hemidiaphragm may be secondary to pleural effusion and underlying atele ctasis and/or airspace disease. The right lung is clear. No edema.
[2024-07-03] MEDS ORDERED: METOPROLOL TARTRATE 5 MG/5 ML INJ IV ONE (15:59)
[2024-07-03] MEDS: carvediloL 12.5 MG TAB PO ONE (16:51)
--- NOTE | 2024-07-03 17:04 | P.CNS ---
Date of Consult: 07/03/24 Chief Complaint: A-fib with RVR, NSTEMI, fluid overload with JAVAD History of Present Illness: Patient with PMH of combined heart failure, moderate CAD, Atrial fibrillation, also s/p ICD/PM placement, she is presenting with palpitations, chest pressure sensation, associated with worsening SOB, denies any device firing. Allergies No Known Allergies Allergy (Verified 12/22/17 01:16) Home medications list reviewed: Yes Home Medications: RX: Ascorbic Acid [C-500] 500 mg PO DAILY 05/18/22 RX: Multivitamin 1 each PO DAILY 05/18/22 RX: Zinc Sulfate [Zinc Sulfate*] 220 mg PO DAILY #30 cap 05/18/22 RX: Carvedilol [Coreg] 12.5 tab PO BID 08/17/22 Losartan/Hydrochlorothiazide [Losartan-Hctz 50-12.5 mg Tab] 1 tab PO DAILY 07/03/24 RX: Thiamine HCl 100 mg PO DAILY 07/03/24 - Past Medical/Surgical History Diabetic: No -: Squamous Cell Carcinoma Left Ear -: IMPLANTED CARDIOVERTER (ICD) -: GERD/hiatal hernia -: Hypertension -: Depression/anxiety -: Chronic systolic congestive heart failure -: hernia repair -: tubal ligation -: 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 - Family History Father Medical History: Heart disease, Hypertension Mother Medical History: Heart disease, Hypertension Brother Medical History: Hypertension Sister Medical History: Hypertension - Social History Alcohol use: No CD- Drugs: Yes Caffeine use: No Place of Residence: Home Review of Systems 10-point ROS is otherwise unremarkable Physical Examination Temp Pulse Resp BP Pulse Ox 97.9 F 137 H 18 154/110 H 07/03/24 12:56 07/03/24 12:56 07/03/24 12:56 07/03/24 12:56 General: Alert, In no apparent distress HEENT: Atraumatic, PERRLA, Mucous membr. moist/pink, EOMI, Sclerae nonicteric Neck: Supple, 2+ carotid pulse no bruit, No LAD, Without JVD or thyroid abnormality Respiratory: Clear to auscultation bilaterally, Normal air movement Cardiovascular: Regular rate/rhythm, Normal S1 S2 Gastrointestinal: Normal bowel sounds, No tenderness Musculoskeletal: No tenderness Integumentary: No rashes Neurological: Normal gait, Normal speech, Normal tone, Normal affect Lymphatics: No axilla or inguinal lymphadenopathy Laboratory Data (last 24 hrs) 07/03/24 07/03/24 13:15 13:15 WBC 12.80 H Hgb 13.3 Hct 40.7 Plt Count 243 Sodium 138 Potassium 3.8 BUN 54 H Creatinine 2.20 H Glucose 125 H Magnesium 2.2 - Problems (1) Atrial fibrillation Current Visit: Yes Status: Acute Plan: Amidarone 150x1 was given in ER, continue amiodarone drip according to protocol therapeutic heparin for anticoagulation. get Echo device interrogation if possible. (2) Acute on chronic combined systolic and diastolic CHF, NYHA class 3 Current Visit: Yes Status: Acute Plan: Lasix 40 mg IV BID Continue Coreg 12.5 mg po BID Hold losartan/hCTZ due to JAVAD. get repeated echo (3) NSTEMI (non-ST elevated myocardial infarction) Current Visit: Yes Status: Acute Plan: continue to trend cardiac enzymes Echo Heparin ASA 81 mg daily Lipitor 40 mg daily
[2024-07-03 17:19] VITALS: BMI 24.1
[2024-07-03 17:20] LABS: PT Prothrombin Time 12.5 SECONDS (9.4-12.5); PTT, Activated Partial Thromb 20.4 SECONDS (24.3-36.9); Protime INR 1.12
[2024-07-03] MEDS: FUROSEMIDE 40 MG/4 ML VIAL IV SCH (17:28)
[2024-07-03] MEDS: carvediloL 12.5 MG TAB PO SCH (17:29)
[2024-07-03] MEDS: HEPARIN/D5W 25,000 UNIT/500 ML BAG IV SCH (17:29)
[2024-07-03] MEDS ORDERED: SODIUM CHLORIDE 0.9% 10ML INJ IV PRN (17:35)
[2024-07-03] MEDS: AMIODARONE HCL 900 MG in Dextrose 5%-Water 482 ML IV SCH (17:38)
[2024-07-03 19:36] LABS: Barbiturates NEGATIVE (NEGATIVE); Benzodiazepines NEGATIVE (NEGATIVE); Cocaine NEGATIVE (NEGATIVE); METHAMPHETAM POSITIVE (NEGATIVE); Methadone NEGATIVE (NEGATIVE); Opiates NEGATIVE (NEGATIVE); Phencyclidine NEGATIVE (NEGATIVE); THC Cannibis NEGATIVE (NEGATIVE)
[2024-07-03] MEDS: ALPRAZOLAM 0.5 MG TABLET PO PRN (20:30)
[2024-07-03] MEDS: PANTOPRAZOLE 40 MG INJ IVP SCH (20:30)
[2024-07-04 05:21] LABS: Absolute Eosinophils 0.2 K/uL (0-0.5); Absolute Lymphocytes (CBC) 1.4 K/uL (0.7-4.9); Absolute Monocytes 1.6 K/uL (0.1-1.3); Absolute Neutrophil 7.3 K/uL (1.8-8.0); Basophils % 0.3 % (0-1.3); Eosinophils % 1.8 % (0-4.4); Hematocrit 38.4 % (36.0-45.0); Hemoglobin 12.8 g/dL (12.0-15.0); Lymphocytes % 13.3 % (15.3-44.8); MCHC 33.2 g/dL (32.0-36.0); MCV 90.2 fL (80-100); MPV 10.4 fL (7.6-11.3); Monocytes % 15.2 % (3.3-12.3); Neutrophils % 69.4 % (41.7-73.7); Nucleated Red Blood Cells % 0.1 % (0-0); Platelets 208 thou/uL (152-406); RBC Red Blood Cell Count 4.26 M/uL (3.86-4.86); Red Cell Distribution Width 15.4 % (12.1-15.2)
[2024-07-04 05:38] LABS: Albumin 2.7 g/dL (3.4-5.0); Albumin/Globulin Ratio 0.9 (1.1-1.8); Anion Gap 9.3 mEq/L (5.0-15.0); Bilirubin Total 0.3 mg/dL (0.2-1.0); Globulin 3.1 g/dL (2.3-3.5); Magnesium 1.9 mg/dL (1.6-2.4); Phosphorus 4.2 mg/dL (2.5-4.9); Potassium 3.3 mEq/L (3.5-5.1); Protein, Total 5.8 g/dL (6.4-8.2)
[2024-07-04 05:40] LABS: Troponin High Sensitivity 106.2 pg/mL (<58.9)
[2024-07-04] MEDS: POTASSIUM CL SA 10 MEQ TAB PO ONE (06:12)
[2024-07-04] MEDS ORDERED: MORPHINE 4 MG/ML SYR IV PRN (07:15)
[2024-07-04] MEDS: ALPRAZOLAM 0.5 MG TABLET PO ONE (07:51)
[2024-07-04] MEDS: ASPIRIN EC 81 MG TAB PO SCH (07:52)
[2024-07-04] MEDS ORDERED: LOSARTAN POTASSIUM 50 MG TABLET PO SCH (09:00)
[2024-07-04] MEDS ORDERED: LOSARTAN/HCTZ 50-12.5 PO SCH (09:00)
--- NOTE | 2024-07-04 10:39 | P.PN ---
Subjective Date of Service: 07/04/24 Chief Complaint: A-fib with RVR, NSTEMI, fluid overload with ATUL Pt complain so left upper quadrant abdominal pain. Heart rate is controlled. She is getting amiodarone drip. cardiology is following. No other complaint. Review of Systems General: Unremarkable Eyes: Unremarkable ENT: Unremarkable Respiratory: Unremarkable Cardiovascular: Chest Pain Gastrointestinal: Unremarkable Genitourinary: Unremarkable Musculoskeletal: Unremarkable Integumentary: Unremarkable Neurological: Unremarkable Lymphatics: Unremarkable Physical Examination - Vital Signs Temperature: 97.8 F Blood Pressure: 96/79 Pulse: 98 Respirations: 16 Pulse Ox (%): 94 - Physical Exam General: Alert, In no apparent distress, Oriented x3 HEENT: Atraumatic, Normocephalic, PERRLA Neck: Supple, 2+ carotid pulse no bruit, JVD not distended Respiratory: Clear to auscultation bilaterally, Normal air movement Cardiovascular: No edema, Normal pulses, Regular rate/rhythm, Normal S1 S2 Capillary refill: <2 Seconds Gastrointestinal: Normal bowel sounds, Soft and benign, Non-distended Musculoskeletal: No clubbing, No swelling, No contractures Integumentary: No rashes, No breakdown, No significant lesion Neurological: Normal gait, Normal speech, Normal strength at 5/5 x4 extr, Normal tone Lymphatics: No axilla or inguinal lymphadenopathy - Studies Laboratory Data (last 24 hrs) 07/03/24 07/03/24 13:15 13:15 WBC 12.80 H Hgb 13.3 Hct 40.7 Plt Count 243 Sodium 138 Potassium 3.8 BUN 54 H Creatinine 2.20 H Glucose 125 H Magnesium 2.2 Assessment And Plan - Plan A.Fib with RVR: Will continue amiodarone drip. Pt received amiodarone bolus in the ER. Will continue telemetry and heparin drip. NSTEMI: Troponin is 106.2 <- 113<- 132. Likely due to A. fib with RVR. Will continue heparin drip. Trend troponin and f/u Echo. Consulted Cardiology. Continue aspirin and statin. Hx of combined sys and diastolic CHF: Will continue Lasix 40mg iv BID, coreg, strict I/O and daily weight. Will f/u Echo. Will likely decrease lasix to 40mg iv daily due to Atul; if ok with Cardiology. ATUL: Cr is 2.4 <- 2.2. Will avoid nephrotoxins and monitor renal function. Hypokalemia: K is 3.3. Will replete and monitor. Anxiety: Continue home med GI ppx: protnix DVT ppx: SCD Code: full Dispo: pending hospital course.
[2024-07-04] MEDS ORDERED: AMIODARONE HCL 900 MG in Dextrose 5%-Water 482 ML IV SCH (14:30)
[2024-07-04] MEDS: AMIODARONE HCL 200 MG TAB PO SCH (17:25)
--- NOTE | 2024-07-04 17:32 | P.PN ---
Subjective Date of Service: 07/04/24 Chief Complaint: A-fib with RVR, NSTEMI, fluid overload with JAVAD Subjective: No new changes, No C/O voiced, Tolerating diet, Ambulating, Improving Review of Systems 10-point ROS is otherwise unremarkable Physical Examination - Vital Signs Temperature: 98.5 F Blood Pressure: 97/75 Pulse: 103 Respirations: 16 Pulse Ox (%): 94 - Physical Exam General: Alert, In no apparent distress HEENT: Atraumatic, PERRLA, EOMI Neck: Supple, JVD not distended Respiratory: Clear to auscultation bilaterally, Normal air movement Cardiovascular: Regular rate/rhythm, Normal S1 S2 Gastrointestinal: Normal bowel sounds, No tenderness Musculoskeletal: No tenderness Integumentary: No rashes Neurological: Normal speech, Normal tone, Normal affect Lymphatics: No axilla or inguinal lymphadenopathy - Studies Medications List Reviewed: Yes Assessment And Plan - Current Problems (Diagnosis) (1) Atrial fibrillation Current Visit: Yes Status: Acute Plan: switch amiodarone to 200 mg po BID start Eliquis 5 mg po BID device interrogation if possible. (2) Acute on chronic combined systolic and diastolic CHF, NYHA class 3 Current Visit: Yes Status: Acute Plan: Lasix 40 mg IV BID Continue Coreg 12.5 mg po BID Hold losartan/hCTZ due to JAVAD. get repeated echo (3) NSTEMI (non-ST elevated myocardial infarction) Current Visit: Yes Status: Acute Plan: cardiac enzymes are trending down. ASA 81 mg daily Lipitor 40 mg daily
[2024-07-04] MEDS ORDERED: HEPARIN 5000 UNIT/ML 1 ML VIAL SQ ONE (17:42)
[2024-07-04] MEDS: APIXABAN 5 MG TABLET PO SCH (20:46)
[2024-07-05 05:25] LABS: Absolute Eosinophils 0.2 K/uL (0-0.5); Absolute Lymphocytes (CBC) 0.9 K/uL (0.7-4.9); Absolute Monocytes 1.4 K/uL (0.1-1.3); Absolute Neutrophil 9.5 K/uL (1.8-8.0); Basophils % 0.2 % (0-1.3); Eosinophils % 1.8 % (0-4.4); Hematocrit 38.2 % (36.0-45.0); Hemoglobin 12.6 g/dL (12.0-15.0); Lymphocytes % 7.3 % (15.3-44.8); MCH 29.6 pg (27.0-35.0); MCV 89.8 fL (80-100); MPV 10.3 fL (7.6-11.3); Monocytes % 11.6 % (3.3-12.3); Neutrophils % 79.1 % (41.7-73.7); Platelets 219 thou/uL (152-406); RBC Red Blood Cell Count 4.26 M/uL (3.86-4.86)
[2024-07-05 06:33] LABS: Albumin 2.4 g/dL (3.4-5.0); Albumin/Globulin Ratio 0.7 (1.1-1.8); Anion Gap 11.2 mEq/L (5.0-15.0); Bilirubin Total 0.4 mg/dL (0.2-1.0); Globulin 3.3 g/dL (2.3-3.5); Magnesium 1.7 mg/dL (1.6-2.4); Phosphorus 3.3 mg/dL (2.5-4.9); Potassium 3.2 mEq/L (3.5-5.1); Protein, Total 5.7 g/dL (6.4-8.2)
--- NOTE | 2024-07-05 08:06 | ECHO ---
HEIGHT: 5 ft 2 in WEIGHT: 132 lb 3.2 oz DATE OF STUDY: 07/04/[address]: Megan Baldwin [employer] SHIPPER-BC 2-DIMENSIONAL: YES M.MODE: YES DOPPLER: YES COLOR FLOW: YES TDS: NO PORTABLE: YES DEFINITY: NO BUBBLE STUDY: NO DIAGNOSIS: CONGESTIVE HEART FAILURE/ ATRIAL FIBRILLATION WITH ICD CARDIAC HISTORY: CATHERIZATION: SURGERY: PROSTHETIC VALVE: PACEMAKER: YES MEASUREMENTS (cm) DIASTOLIC (NORMALS) SYSTOLIC (NORMALS) IVSd 1.1 (0.6-1.2) LA Diam 5.5 (1.9-4.0) LVEF 15-20% LVIDd 5.2 (3.5-5.7) LVIDs 5.0 (2.0-3.5) %FS 4% LVPWd 1.1 (0.6-1.2) Ao Diam 2.8 (2.0-3.7) 2 DIMENSIONAL ASSESSMENT: RIGHT ATRIUM: NORMAL LEFT ATRIUM: SEVERELY DILATED RIGHT VENTRICLE: NORMAL, PACEMAKER LEAD LEFT VENTRICLE: MODERATLY DILATED TRICUSPID VALVE: MILD TRICUSPID REGURGITATION MITRAL VALVE: MODERATLY DILATED PULMONIC VALVE: NORMAL AORTIC VALVE: CALCIFIED, NORMAL PERICARDIAL EFFUSION: SMALL POSTERIOR AORTIC ROOT: NORMAL LEFT VENTRICULAR WALL MOTION: SEVERE GLOBAL HYPOKINESIS. DOPPLER/COLOR FLOW: GRADE II DIASTOLIC DYSFUNCTION. COMMENTS: 1. SEVERELY REDUCED LEFT VENTRICULAR SYSTOLIC FUNCTION, EJECTION FRACTION 15-20%, SEVERE GLOBAL HYPOKINESIS 2. GRADE II DIASTOLIC DYSFUNCTION. 3. ELEVATED FILLING PRESSURE (RIGHT ATRIAL PRESSURE GREATER THAN 20mmHg) 4. MODERATE MITRAL REGURGITATION. TECHNOLOGIST: MARICARMEN GHOSH
[2024-07-05] MEDS: POTASSIUM CL SA 10 MEQ TAB PO SCH (08:24)
[2024-07-05] MEDS: Magnesium Sulfate 2gm IVPB 2 G/50 ML BAG IV ONE (08:27)
--- NOTE | 2024-07-05 09:20 | P.PN ---
Subjective Date of Service: 07/05/24 Chief Complaint: A-fib with RVR, NSTEMI, fluid overload with JAVAD Subjective: No new changes, No C/O voiced, Tolerating diet, Ambulating, Improving Review of Systems 10-point ROS is otherwise unremarkable Physical Examination - Vital Signs Temperature: 97.4 F Blood Pressure: 98/82 Pulse: 102 Respirations: 13 Pulse Ox (%): 97 - Physical Exam General: Alert, In no apparent distress HEENT: Atraumatic, PERRLA, EOMI Neck: Supple, JVD not distended Respiratory: Clear to auscultation bilaterally, Normal air movement Cardiovascular: Regular rate/rhythm, Normal S1 S2 Gastrointestinal: Normal bowel sounds, No tenderness Musculoskeletal: No tenderness Integumentary: No rashes Neurological: Normal speech, Normal tone, Normal affect Lymphatics: No axilla or inguinal lymphadenopathy - Studies Medications List Reviewed: Yes Assessment And Plan - Current Problems (Diagnosis) (1) Atrial fibrillation Current Visit: Yes Status: Acute Plan: continue amiodarone to 200 mg po BID Eliquis 5 mg po BID device interrogation if possible. (2) Acute on chronic combined systolic and diastolic CHF, NYHA class 3 Current Visit: Yes Status: Acute Plan: Lasix 40 mg IV BID Continue Coreg 12.5 mg po BID Hold losartan/hCTZ due to JAVAD. (3) NSTEMI (non-ST elevated myocardial infarction) Current Visit: Yes Status: Acute Plan: cardiac enzymes are trending down. type 2 PA from CHF/JAVAD ASA 81 mg daily Lipitor 40 mg daily
--- NOTE | 2024-07-05 10:59 | P.PN ---
Subjective Date of Service: 07/05/24 Chief Complaint: A-fib with RVR, NSTEMI, fluid overload with ATUL Pt is restig comfortably in bed. He denies any left upper quadrant abdominal pain. Still in A. fib. Cardiology started po amidarone. Heart rate is controlled. cardiology is following. No other complaint. Review of Systems General: Unremarkable Eyes: Unremarkable ENT: Unremarkable Respiratory: Unremarkable Cardiovascular: Unremarkable Gastrointestinal: Unremarkable Genitourinary: Unremarkable Musculoskeletal: Unremarkable Integumentary: Unremarkable Neurological: Unremarkable Lymphatics: Unremarkable Physical Examination - Vital Signs Temperature: 97.4 F Blood Pressure: 83/66 Pulse: 102 Respirations: 10 Pulse Ox (%): 97 - Physical Exam General: Alert, In no apparent distress, Oriented x3 HEENT: Atraumatic, Normocephalic, PERRLA Neck: Supple, 2+ carotid pulse no bruit, JVD not distended Respiratory: Clear to auscultation bilaterally, Normal air movement Cardiovascular: No edema, Normal pulses, Normal S1 S2, Irregular heart rate/rhythm Capillary refill: <2 Seconds Gastrointestinal: Normal bowel sounds, Soft and benign, Non-distended Musculoskeletal: No clubbing, No swelling, No contractures Integumentary: No rashes, No breakdown, No significant lesion Neurological: Normal gait, Normal speech, Normal strength at 5/5 x4 extr Lymphatics: No axilla or inguinal lymphadenopathy - Studies Medications List Reviewed: Yes Assessment And Plan - Plan A.Fib with RVR: Will continue amiodarone 200mg po BID. off amio drip. Pt received amiodarone bolus in the ER. Will continue telemetry and Eliquis. Off heparin drip. Will interogate device. NSTEMI: Troponin is 96.4<- 106.2 <- 113<- 132. Likely due to A. fib with RVR. Will continue heparin drip. Trend troponin and f/u Echo. Consulted Cardiology. Continue aspirin and statin. Hx of combined sys and diastolic CHF: Will continue Lasix 40mg iv BID, coreg, strict I/O and daily weight. Will f/u Echo. Will likely decrease lasix to 40mg iv daily due to Atul; if ok with Cardiology. ATUL: Cr is 2.39<- 2.4 <- 2.2. Will avoid nephrotoxins and monitor renal function. Hypokalemia: K is 3.2<- 3.3. Will replete and monitor. Hypomagnesemia: Mag is is 1.7. Will replete and monitor. Anxiety: Continue home med GI ppx: protnix DVT ppx: SCD Code: full Dispo: pending hospital course.
--- NOTE | 2024-07-05 12:59 | EKG ---
Test Date: 2024-07-03 Test Time: 13:04:21 Head Transfer Clerk: MEASUREMENT RESULTS: Intervals: Rate: 128 [place]: QRSD: 156 QT: 380 QTc: 554 [place]: P: [place]: QRS: 263 T: 92 INTERPRETIVE STATEMENTS: Demand pacemaker, interpretation is based on intrinsic rhythm Atrial fibrillation with aberrancy Nonspecific intraventricular block Abnormal ECG Compared to ECG 02/16/2023 18:15:24 Sinus rhythm no longer present Sinus arrhythmia no longer present Fusion complex(es) no longer present Left bundle-branch block no longer present Electronically Signed On 07-05-24 12:56:36 CDT by Stevenson Coats
[2024-07-05] MEDS ORDERED: SIMETHICONE 125 MG TAB PO PRN (14:01)
[2024-07-05] MEDS: ALPRAZOLAM 0.25 MG TABLET PO ONE (14:31)
[2024-07-06] MEDS: METOPROLOL TARTRATE 5 MG/5 ML INJ IV STA (00:09)
--- NOTE | 2024-07-06 04:29 | P.PN ---
Date of Service: 07/06/24 Patient with A-fib previously on amnio drip de-escalated to amiodarone twice daily, developing recurrent V. tach's and intermittent A-fib with heart rate ranging up to 120s. Patient restless and complained of palpitation. Will restart amiodarone drip. Cardiology called
[2024-07-06] MEDS ORDERED: AMIODARONE HCL 900 MG in Dextrose 5%-Water 482 ML IV SCH ×2 (05:00→11:00)
[2024-07-06] MEDS: AMIODARONE IN DEXTROSE,ISO-OSM 360 MG/200 ML BAG IV SCH (05:07)
[2024-07-06 05:58] LABS: Absolute Eosinophils 0.2 K/uL (0-0.5); Absolute Lymphocytes (CBC) 0.8 K/uL (0.7-4.9); Absolute Monocytes 1.4 K/uL (0.1-1.3); Absolute Neutrophil 7.8 K/uL (1.8-8.0); Basophils % 0.4 % (0-1.3); Eosinophils % 2.2 % (0-4.4); Hemoglobin 12.8 g/dL (12.0-15.0); Lymphocytes % 7.7 % (15.3-44.8); MCHC 31.9 g/dL (32.0-36.0); MCV 90.8 fL (80-100); MPV 10.5 fL (7.6-11.3); Monocytes % 13.9 % (3.3-12.3); Neutrophils % 75.8 % (41.7-73.7); Platelets 227 thou/uL (152-406); Red Cell Distribution Width 15.6 % (12.1-15.2)
[2024-07-06 06:00] LABS: Albumin 2.4 g/dL (3.4-5.0); Albumin/Globulin Ratio 0.7 (1.1-1.8); Bilirubin Total 0.3 mg/dL (0.2-1.0); Globulin 3.3 g/dL (2.3-3.5); Magnesium 2.1 mg/dL (1.6-2.4); Phosphorus 2.5 mg/dL (2.5-4.9); Protein, Total 5.7 g/dL (6.4-8.2)
[2024-07-06 07:22] LABS: Specific Gravity 1.016 (1.005-1.030); Sqamous Epithelial None Seen /HPF (None Seen); Urine Bacteria <20 /HPF (<20); Urine Bilirubin NEGATIVE (Negative); Urine Blood 1+ (Negative); Urine Clarity Turbid (Clear); Urine Color Light-Yellow (Yellow); Urine Culture Reflex Order REFLEXED; Urine Glucose NEGATIVE (Negative); Urine Ketones NEGATIVE (Negative); Urine Microscopic Reflex YN ORDER UMIC; Urine Mucus Slight /HPF (None Seen); Urine Nitrite 2+ (Negative); Urine Protein TRACE (Negative); Urine RBC <5 /HPF (None Seen); Urine Urobilinogen Normal (Normal); Urine WBC >50 /HPF (<5); Urine pH 7.5 (5.0-7.0)
[2024-07-06] MEDS: CEFTRIAXONE 1,000 MG in NA CHLORIDE 0.9% 50 ML IVPB SCH (08:36)
[2024-07-06] MEDS: FUROSEMIDE 40 MG TABLET PO SCH (08:36)
--- NOTE | 2024-07-06 10:11 | P.PN ---
Subjective Date of Service: 07/06/24 Chief Complaint: A-fib with RVR, NSTEMI, fluid overload with JAVAD Pt is restig comfortably in bed. She was transferred to the ICU last night for amiodarone drip possible V-Tach. It is likely A. fib. Waiting for Cardiology eval. No other complaint. Review of Systems General: Unremarkable Eyes: Unremarkable ENT: Unremarkable Respiratory: Unremarkable Cardiovascular: Palpitations Gastrointestinal: Unremarkable Genitourinary: Unremarkable Musculoskeletal: Unremarkable Integumentary: Unremarkable Neurological: Unremarkable Lymphatics: Unremarkable Physical Examination - Vital Signs Temperature: 98.1 F Blood Pressure: 133/90 Pulse: 109 Respirations: 20 Pulse Ox (%): 94 - Physical Exam General: Alert, In no apparent distress, Oriented x3 HEENT: Atraumatic, Normocephalic, PERRLA Neck: Supple, 2+ carotid pulse no bruit Respiratory: Clear to auscultation bilaterally, Normal air movement, Diminished Cardiovascular: No edema, Normal pulses, Irregular heart rate/rhythm Capillary refill: <2 Seconds Gastrointestinal: Normal bowel sounds, Soft and benign, Non-distended Musculoskeletal: No clubbing, No swelling, No contractures Integumentary: No rashes, No breakdown, No significant lesion Neurological: Normal gait, Normal speech, Normal strength at 5/5 x4 extr Lymphatics: No axilla or inguinal lymphadenopathy - Studies Medications List Reviewed: Yes Assessment And Plan - Plan A.Fib with RVR: Resumed amiodarone drip last night due to possible V-tach. It is likely A. fib. Off amio tab. Pt received amiodarone bolus in the ER on admission. Will continue telemetry and Eliquis. Off heparin drip. Will interogate device. NSTEMI: Troponin is 96.4<- 106.2 <- 113<- 132. Likely due to A. fib with RVR. Will continue heparin drip. Trend troponin and f/u Echo. Consulted Cardiology. Continue aspirin and statin. Hx of combined sys and diastolic CHF: Will continue Lasix 40mg po daily, coreg, strict I/O and daily weight. Will f/u Echo. JAVAD: Cr is 1.94<- 2.39<- 2.4 <- 2.2. Will avoid nephrotoxins and monitor renal function. Hypokalemia: K is 3.2<- 3.3. Will replete and monitor. Hypomagnesemia: Mag is is 1.7. Repleted. Will monitor. Anxiety: Continue home med GI ppx: protnix DVT ppx: SCD Code: full Dispo: pending hospital course. Now in ICU
[2024-07-06] MEDS: AMIODARONE HCL 200 MG TAB PO SCH ×2 (13:36→14:20)
--- NOTE | 2024-07-06 14:28 | P.PN ---
Subjective Date of Service: 07/06/24 Chief Complaint: A-fib with RVR, NSTEMI, fluid overload with JAVAD Subjective: No new changes, No C/O voiced, Tolerating diet, Ambulating, Improving Review of Systems 10-point ROS is otherwise unremarkable Physical Examination - Vital Signs Temperature: 98.1 F Blood Pressure: 133/90 Pulse: 109 Respirations: 20 Pulse Ox (%): 94 - Physical Exam General: Alert, In no apparent distress HEENT: Atraumatic, PERRLA, EOMI Neck: Supple, JVD not distended Respiratory: Clear to auscultation bilaterally, Normal air movement Cardiovascular: Regular rate/rhythm, Normal S1 S2 Gastrointestinal: Normal bowel sounds, No tenderness Musculoskeletal: No tenderness Integumentary: No rashes Neurological: Normal speech, Normal tone, Normal affect Lymphatics: No axilla or inguinal lymphadenopathy - Studies Medications List Reviewed: Yes Assessment And Plan - Current Problems (Diagnosis) (1) Atrial fibrillation Current Visit: Yes Status: Acute Plan: Patient was transferred to ICU overnight for a concern about VT, patient is not having VT but she is having few runs of AF RVR with aberrancy, her PM device interrogation confirmed that stop Amiodarone drip start Amiodarone 400 mg po BID for 5 days then switch to amiodarone 200 mg po BID Eliquis 5 mg po BID (2) Acute on chronic combined systolic and diastolic CHF, NYHA class 3 Current Visit: Yes Status: Acute Plan: Lasix 40 mg po daily switch Coreg to lopressor 50 mg po BID Hold losartan/hCTZ due to JAVAD. (3) NSTEMI (non-ST elevated myocardial infarction) Current Visit: Yes Status: Acute Plan: cardiac enzymes are trending down. type 2 TX from CHF/JAVAD ASA 81 mg daily Lipitor 40 mg daily Outpatient stress test.
[2024-07-06] MEDS: METOPROLOL TAR 50 MG TAB PO SCH (19:44)
[2024-07-06] MEDS: FUROSEMIDE 40 MG/4 ML VIAL IV ONE (21:24)
[2024-07-07 00:48] VITALS: O2SAT 91
[2024-07-07 05:13] LABS: Anion Gap 8.6 mEq/L (5.0-15.0); Potassium 4.6 mEq/L (3.5-5.1)
--- NOTE | 2024-07-07 08:51 | P.DS ---
Admission Date: 07/03/24 Discharge Date: 07/07/24 Reason for Admission: A-fib with RVR, NSTEMI, fluid overload with JAVAD Consultations: Dr. Coats Brief History of Present Illness: Ms. Swain has a PMH of combined heart failure, moderate CAD, Atrial fibrillati on. She is s/p ICD/PM placement. She presents with palpitations, chest pressure sensation, associated with worsening SOB, denies any device firing. She states she has had a cough x 5 days. Denies fever, nausea, vomiting, or diaphoresis. She presented with a rate in the 150s and was given Amiodarone IV and started on a drip. On assessment, she continues to have a rate in the 120s with wide complex a fib with runs of VT. She will be admitted to ICU with cardiology consultation. Of note, she has JAAVD with a creatinine of 2.2 from 0.94 one year ago. Initial troponin 134.1, BNP 25,321. She was given 40mg Lasix IV in the ED and transported via stretcher to ICU 5. Hospital Course: Ms. Swain was placed on an amiodarone drip on arrival and transitioned to p.o. amiodarone. Transitioned off of heparin onto Eliquis and social work has worked with the patient to get a co-pay card so that patient may continue Eliquis outpatient. The patient was transported back to ICU for concern for V. tach and placed back on an amiodarone drip. Dr. Coats confirmed visually and also confirmed with the ICD/PM interrogation that the rhythm was actually A-fib with aberrancy. She was once again weaned from the drip and placed on amiodarone 400 mg p.o. twice daily. She will continue this for another 4 days and then switch to amiodarone 200 mg p.o. twice daily. She will be discharged with Lasix 40 mg p.o. daily and will stop losartan/HCTZ secondary to JAVAD. Over the course of her hospitalization her creatinine has trended down. She will also be discharged with Lopressor 50 mg p.o. twice daily and Lipitor 40 mg p.o. daily. She should follow-up with cardiology next week and they will organize an outpatient stress test. The patient's questions have been answered and she verbalizes understanding of the treatment plan and follow-up. <Megan Baldwin - Last Filed: 07/07/24 09:05> Admission Date: 07/03/24 Discharge Date: 07/07/24 Hospital Course: Pt seen and examined. I agree with the note by the SCALEMAN. Pt is resting comfortably in bed. Will continue amiodarone 400mg po BID for 4 more days then continue amiodarone 200mg po BID. Follow up with Cardiology and PCP in clinic. Ok to discharge pt. <Mitch Grimaldo - Last Filed: 07/07/24 11:00> Disposition: ROUTINE DISCHARGE Discharge Condition: GOOD Vital Signs/Physical Exam: Temp Pulse Resp BP Pulse Ox 96.8 F 105 H 14 132/99 H 91 07/07/24 04:00 07/07/24 04:00 07/07/24 04:00 07/07/24 04:00 07/07/24 04:00 General: Alert, In no apparent distress, Oriented x3, Other (Anxious) HEENT: Atraumatic, Normocephalic Neck: Supple Respiratory: Normal air movement Cardiovascular: No murmurs, Irregular heart rate/rhythm Capillary refill: <2 Seconds Gastrointestinal: Normal bowel sounds, Soft and benign Musculoskeletal: No clubbing, No swelling Integumentary: No rashes Neurological: Normal speech, Normal tone, Normal reflexes 2+ External genitalia: Deferred Rectal: Deferred Other Physical/Emotional Findings: Ms. Swain has a history of anxiety. Hospitalization has exacerbated this and she has been receiving Xanax. She states she takes Xanax at home 3 times daily Laboratory Data at Discharge: WBC 10.30 thou/uL (4.3-10.9) 07/06/24 05:24 Hgb 12.8 g/dL (12.0-15.0) 07/06/24 05:24 Hct 40.0 % (36.0-45.0) 07/06/24 05:24 Plt Count 227 thou/uL (152-406) 07/06/24 05:24 PT 12.5 SECONDS (9.4-12.5) 07/03/24 16:56 INR 1.12 07/03/24 16:56 APTT 54.9 SECONDS (24.3-36.9) H 07/04/24 09:19 Sodium 139 mEq/L (136-145) 07/07/24 04:23 Potassium 4.6 mEq/L (3.5-5.1) D 07/07/24 04:23 BUN 60 mg/dL (7-18) H 07/07/24 04:23 Creatinine 1.92 mg/dL (0.55-1.02) H 07/07/24 04:23 Glucose 100 mg/dL (74-106) 07/07/24 04:23 Phosphorus 2.5 mg/dL (2.5-4.9) 07/06/24 05:24 Magnesium 2.1 mg/dL (1.6-2.4) 07/06/24 05:24 Total Bilirubin 0.3 mg/dL (0.2-1.0) 07/06/24 05:24 AST 14 U/L (15-37) L 07/06/24 05:24 ALT 29 U/L (13-56) 07/06/24 05:24 Alkaline Phosphatase 165 U/L (45-117) H 07/06/24 05:24 Triglycerides 56 mg/dL (<150) 07/04/24 04:56 Cholesterol 130 mg/dL (<200) 07/04/24 04:56 HDL Cholesterol 50 mg/dL (40-60) 07/04/24 04:56 Cholesterol/HDL Ratio 2.60 07/04/24 04:56 <Baldwin,Megan Ruperto - Last Filed: 07/07/24 09:05> Vital Signs/Physical Exam: Temp Pulse Resp BP Pulse Ox 97.3 F 104 H 24 H 135/106 H 94 07/07/24 08:00 07/07/24 08:00 07/07/24 08:00 07/07/24 08:00 07/07/24 08:00 Laboratory Data at Discharge: WBC 10.30 thou/uL (4.3-10.9) 07/06/24 05:24 Hgb 12.8 g/dL (12.0-15.0) 07/06/24 05:24 Hct 40.0 % (36.0-45.0) 07/06/24 05:24 Plt Count 227 thou/uL (152-406) 07/06/24 05:24 PT 12.5 SECONDS (9.4-12.5) 07/03/24 16:56 INR 1.12 07/03/24 16:56 APTT 54.9 SECONDS (24.3-36.9) H 07/04/24 09:19 Sodium 139 mEq/L (136-145) 07/07/24 04:23 Potassium 4.6 mEq/L (3.5-5.1) D 07/07/24 04:23 BUN 60 mg/dL (7-18) H 07/07/24 04:23 Creatinine 1.92 mg/dL (0.55-1.02) H 07/07/24 04:23 Glucose 100 mg/dL (74-106) 07/07/24 04:23 Phosphorus 2.5 mg/dL (2.5-4.9) 07/06/24 05:24 Magnesium 2.1 mg/dL (1.6-2.4) 07/06/24 05:24 Total Bilirubin 0.3 mg/dL (0.2-1.0) 07/06/24 05:24 AST 14 U/L (15-37) L 07/06/24 05:24 ALT 29 U/L (13-56) 07/06/24 05:24 Alkaline Phosphatase 165 U/L (45-117) H 07/06/24 05:24 Triglycerides 56 mg/dL (<150) 07/04/24 04:56 Cholesterol 130 mg/dL (<200) 07/04/24 04:56 HDL Cholesterol 50 mg/dL (40-60) 07/04/24 04:56 Cholesterol/HDL Ratio 2.60 07/04/24 04:56 <Mitch Grimaldo - Last Filed: 07/07/24 11:00> Diet: AHA Activity: Ad marlene <Baldwin,Megan Ruperto - Last Filed: 07/07/24 09:05> <Mitch Grimaldo - Last Filed: 07/07/24 11:00> Home Medications: Ascorbic Acid [C-500] 500 mg PO DAILY 05/18/22 Multivitamin 1 each PO DAILY 05/18/22 Zinc Sulfate [Zinc Sulfate*] 220 mg PO DAILY #30 cap 05/18/22 Thiamine HCl 100 mg PO DAILY 07/03/24 Amiodarone HCl [Cordarone*] 200 mg PO BID #70 tab 07/07/24 Apixaban [Eliquis] 5 mg PO BID #60 tab 07/07/24 Aspirin [Aspirin EC 81 MG] 81 mg PO DAILY #365 tab 07/07/24 Atorvastatin Calcium [Lipitor] 40 mg PO BEDTIME #60 tab 07/07/24 Furosemide [Lasix*] 40 mg PO DAILY #60 tab 07/07/24 Metoprolol Tartrate [Lopressor*] 50 mg PO BID #60 tab 07/07/24 New Medications: Aspirin [Aspirin EC 81 MG] 81 mg PO DAILY #365 tab Amiodarone HCl [Cordarone*] 200 mg PO BID #70 tab Apixaban [Eliquis] 5 mg PO BID #60 tab Furosemide [Lasix*] 40 mg PO DAILY #60 tab Atorvastatin Calcium [Lipitor] 40 mg PO BEDTIME #60 tab Metoprolol Tartrate [Lopressor*] 50 mg PO BID #60 tab Physician Discharge Instructions: Ms. Swain was placed on an amiodarone drip on arrival and transitioned to p.o. amiodarone. Transitioned off of heparin onto Eliquis and social work has worked with the patient to get a co-pay card so that patient may continue Eliquis outpatient. The patient was transported back to ICU for concern for V. tach and placed back on an amiodarone drip. Dr. Coats confirmed visually and also confirmed with the ICD/PM interrogation that the rhythm was actually A-fib with aberrancy. She was once again weaned from the drip and placed on amiodarone 400 mg p.o. twice daily. She will continue this for another 4 days and then switch to amiodarone 200 mg p.o. twice daily. She will be discharged with Lasix 40 mg p.o. daily and will stop losartan/HCTZ secondary to JAVAD. Over the course of her hospitalization her creatinine has trended down. She will also be discharged with Lopressor 50 mg p.o. twice daily and Lipitor 40 mg p.o. daily. She should follow-up with cardiology next week and they will organize an outpatient stress test. The patient's questions have been answered and she verbalizes understanding of the treatment plan and follow-up. New prescriptions: Aspirin 81 mg p.o. daily Eliquis 5 mg p.o. twice daily Lopressor 50 mg p.o. twice daily Lasix 40 mg p.o. daily Lipitor 40 mg p.o. daily Amiodarone 200 mg. 2 tablets p.o. twice daily x 5 days and then 1 tablet p.o. twice daily GOAL: Clear understanding of disease process Diet: AHA, low sodium Activity: Fall precautions INSTRUCTIONS: Physician Discharge Instructions: Okay to DC IV and DC home Follow-up with primary care provider in 1 to 2 weeks Follow-up with cardiology in 1 week Please call the inpatient unit for any questions or concerns regarding hospital stay Return to the ER for worsening symptoms Followup: Angelo Matta MD [Primary Care Provider] - Stevenson Coats MD [ACTIVE - CAN ADMIT] -
[2024-07-07] MEDS: HYDROCODONE/APAP 5/325 MG TAB PO PRN (09:28)
[2024-07-07 10:29] VITALS: TEMP 97.3
--- NOTE | 2024-07-07 13:36 | P.PN ---
Subjective Date of Service: 07/07/24 Chief Complaint: A-fib with RVR, NSTEMI, fluid overload with JAVAD Subjective: No new changes, No C/O voiced, Tolerating diet, Ambulating, Improving Review of Systems 10-point ROS is otherwise unremarkable Physical Examination - Vital Signs Temperature: 97.3 F Blood Pressure: 135/106 Pulse: 104 Respirations: 24 Pulse Ox (%): 94 - Physical Exam General: Alert, In no apparent distress HEENT: Atraumatic, PERRLA, EOMI Neck: Supple, JVD not distended Respiratory: Clear to auscultation bilaterally, Normal air movement Cardiovascular: Regular rate/rhythm, Normal S1 S2 Gastrointestinal: Normal bowel sounds, No tenderness Musculoskeletal: No tenderness Integumentary: No rashes Neurological: Normal speech, Normal tone, Normal affect Lymphatics: No axilla or inguinal lymphadenopathy Other Physical/Emotional Findings: Ms. Swain has a history of anxiety. Hospitalization has exacerbated this and she has been receiving Xanax. She states she takes Xanax at home 3 times daily - Studies Medications List Reviewed: Yes Assessment And Plan - Current Problems (Diagnosis) (1) Atrial fibrillation Current Visit: Yes Status: Acute Plan: Patient was transferred to ICU overnight for a concern about VT, patient is not having VT but she is having few runs of AF RVR with aberrancy, her PM device interrogation confirmed that off Amiodarone drip start Amiodarone 400 mg po BID for 5 days then switch to amiodarone 200 mg po BID Eliquis 5 mg po BID (2) Acute on chronic combined systolic and diastolic CHF, NYHA class 3 Current Visit: Yes Status: Acute Plan: Lasix 40 mg po daily lopressor 50 mg po BID Hold losartan/hCTZ due to JAVAD. (3) NSTEMI (non-ST elevated myocardial infarction) Current Visit: Yes Status: Acute Plan: cardiac enzymes are trending down. type 2 ID from CHF/JAVAD ASA 81 mg daily Lipitor 40 mg daily Outpatient stress test.
[2024-07-07 14:34] VITALS: BP 128/86
--- NOTE | 2024-07-10 12:51 | EKG ---
Test Date: 2024-07-06 Test Time: 04:44:47 Resourcing Advisor: LUDIN MEASUREMENT RESULTS: Intervals: Rate: 119 [place]: QRSD: [id number] QT: 388 QTc: 545 [place]: P: ID: [id number]: [id number] T: 51 INTERPRETIVE STATEMENTS: Demand pacemaker, interpretation is based on intrinsic rhythm Undetermined rhythm Right superior axis deviation Left bundle branch block Abnormal ECG Compared to ECG 07/03/2024 13:04:21 Right superior axis now present Left bundle-branch block now present Atrial fibrillation no longer present Electronically Signed On 07-10-24 12:43:32 CDT by Stevenson Coats
== END 2024-07-07 14:00 | disposition home or self-care (01) | DRG 280 ==
LOC: ER 12:51 → ERHOLD 14:46 → 3RD-ICU 15:56 → 2ND 07-05 16:15 → 3RD-ICU 07-06 04:23 → 2ND 07-06 16:36
PROVIDERS: ADMIT Hospitalist; ATTEND Hospitalist
DX: I11.0 Hypertensive heart disease with heart failure (principal); I50.43 Acute on chronic combined systolic (congestive) and diastolic (congestive) heart failure; I21.A1 Myocardial infarction type 2; N17.9 Acute kidney failure, unspecified; I47.20 Ventricular tachycardia, unspecified; I48.91 Unspecified atrial fibrillation; E87.6 Hypokalemia; E83.42 Hypomagnesemia; F41.9 Anxiety disorder, unspecified; K21.9 Gastro-esophageal reflux disease without esophagitis; I25.10 Atherosclerotic heart disease of native coronary artery without angina pectoris; R79.89 Other specified abnormal findings of blood chemistry; Z98.51 Tubal ligation status; Z79.02 Long term (current) use of antithrombotics/antiplatelets; Z79.899 Other long term (current) drug therapy; Z95.810 Presence of automatic (implantable) cardiac defibrillator
CPT/HCPCS: 36415; 71045; 80048; 80053; 80061; 80307; 81001; 83735; 83880; 84100; 84443; 84484; 85025; 85610; 85730; 87077; 87086; 87088; 87186; 93005; 93306; 99285; J0282; J0696; J1644; J1940; J2405; J2470; J3475; J7060

== ENCOUNTER 2024-09-27 19:00 | Inpatient (IN) | payer OTHER ==
[2024-09-27] MEDS ORDERED: NA CHLORIDE 0.9% 2,000 ML ONE (19:34)
[2024-09-27] MEDS ORDERED: FAMOTIDINE 20 MG/2 ML VIAL IV ONE (19:34)
[2024-09-27] MEDS ORDERED: CEFTRIAXONE 1000 MG/VIAL ONE (19:34)
--- NOTE | 2024-09-27 20:41 | RAD REPORT ---
EXAM: CT CHEST, ABDOMEN AND PELVIS WITHOUT CONTRAST CLINICAL INDICATION: PAIN TECHNIQUE: CT chest, abdomen and pelvis was performed without contrast, as per department protocol. A xial, sagittal and coronal reconstructions were obtained. One or more of the following dose reduction techniques were used: Automated exposure control, adjustment of the mA and/or kV according to patient size, and/or iterative reconstruction. Unless otherwise specified, incidental findings do not require dedicated imaging follow-up. Examination is limited by the lack of intravenous contrast material. COMPARISON: No prior exam. FINDINGS: LUNGS: Mild subsegmental atelectasis is seen in both lung bases. PLEURA: Small bilateral pleural effusions. MEDIASTINUM AND LYMPH NODES: No mediastinal mass or fluid collection. Normal size mediastinal, hilar, and axillary lymph nodes. Dual-lead pacer device. OSSEOUS STRUCTURES AND CHEST WALL: Intact. LIVER: Normal in size and contour. No focal lesion or biliary dilatation. Grossly unremarkable gallbl adder. PANCREAS: No mass, ductal dilation, or mert-pancreatic fluid. SPLEEN: Normal size. No focal lesion. ADRENALS: Normal; no mass. KIDNEYS: 8 mm stone inferior calyx left kidney. No hydronephrosis. URINARY BLADDER: Normal contour. GASTROINTESTINAL TRACT: No bowel obstruction, free air, significant free fluid or abscess. Gastrost kathleen tube is in place. Sigmoid diverticulosis coli.. APPENDIX: Appendix not visualized, but no inflammatory changes in region of appendix. LYMPH NODES: No lymphadenopathy. MUSCULOSKELETAL: No acute or suspicious osseous abnormality. OTHER: Mild ascites noted. Mild air is also present in the peritoneal cavity, which may be related to recent procedure. IMPRESSION: Mild ascites is noted with mild pneumoperitoneum. This may be related to recent procedure, suggest co rrelation with procedure history. Sigmoid diverticulosis coli without diverticulitis. Small bilateral pleural effusions.
--- NOTE | 2024-09-27 21:04 | RAD REPORT ---
EXAMINATION: ONE VIEW CHEST XR CLINICAL INDICATION: Chest pain;Pain TECHNIQUE: Frontal chest projection is submitted. Examination is limited by patient positioning and t echnique. COMPARISON: 09/15/2024 FINDINGS: The lungs are well inflated and clear. Heart is mildly enlarged. No displaced fractures identified. Multilead pacer/defibrillator device present. IMPRESSION: No acute intrathoracic abnormalities.
[2024-09-27] MEDS ORDERED: ONDANSETRON 4 MG/2 ML VIAL ONE (21:07)
[2024-09-27] MEDS ORDERED: MORPHINE 2 MG/ML SYR ONE (21:07)
[2024-09-27 22:52] LABS: PT Prothrombin Time 12.2 SECONDS (9.4-12.5); Protime INR 1.09
[2024-09-27 23:05] LABS: Absolute Lymphocytes (CBC) 0.6 K/uL (0.7-4.9); Absolute Monocytes 0.5 K/uL (0.1-1.3); Basophils % 0.2 % (0-1.3); Eosinophils % 0.5 % (0-4.4); Hematocrit 29.4 % (36.0-45.0); Hemoglobin 9.5 g/dL (12.0-15.0); Lymphocytes % 6.5 % (15.3-44.8); MCH 30.6 pg (27.0-35.0); MCHC 32.4 g/dL (32.0-36.0); MCV 94.3 fL (80-100); MPV 8.3 fL (7.6-11.3); Neutrophils % 87.8 % (41.7-73.7); Platelets 270 thou/uL (152-406); RBC Red Blood Cell Count 3.12 M/uL (3.86-4.86)
[2024-09-27 23:17] LABS: ALT/SGPT < 14 U/L (13-56); AST/SGOT 13 U/L (15-37); Albumin 1.5 g/dL (3.4-5.0); Albumin/Globulin Ratio 0.4 (1.1-1.8); Alkaline Phosphatase 150 U/L (45-117); Anion Gap 9.8 mEq/L (5.0-15.0); BUN Blood Urea Nitrogen 23 mg/dL (7-18); Bicarbonate 25 mEq/L (21-32); Bilirubin Direct 0.2 mg/dL (0-0.2); Bilirubin Indirect, Calculated 0.2 mg/dL (0.2-0.8); Bilirubin Total 0.4 mg/dL (0.2-1.0); Globulin 3.9 g/dL (2.3-3.5); Glomerular Filtration Rate 55 ml/min (=/>90); Glucose Level 91 mg/dL (74-106); Lipase 21 U/L (13-75); Magnesium 1.6 mg/dL (1.6-2.4); NT PRO-BNP 15200 pg/mL (<125); Potassium 3.8 mEq/L (3.5-5.1); Protein, Total 5.4 g/dL (6.4-8.2); Sodium Level 141 mEq/L (136-145); Troponin High Sensitivity 45.7 pg/mL (<58.9); Valproic Acid (Depakene) Level 42.8 mcg/mL (50.0-100.0)
--- NOTE | 2024-09-27 23:22 | EDPHYS ---
Physician Documentation [facility] Name: Mandy Swain Age: 69 yrs Sex: Female : 1955 Arrival Date: 09/27/2024 Time: 19:00 Bed 2 Private MD: ED Physician Moy Gómez HPI: 09/27 20:18 This 69 yrs old Female presents to ER via EMS with complaints of chest pain, jono dizzy, 3 kicks in the chest, has medtronic defib. 20:18 The patient or guardian reports chest pain that is located primarily in the anterior jono chest wall, bilaterally. Onset: just prior to arrival. weak , dizzy, cp. The patient presents with dizziness, feeling faint, generalized weakness. Onset: The symptoms/episode began/occurred just prior to arrival, today. Context: occurred at a [facility] or assisted living facility. Modifying factors: The symptoms are alleviated by nothing, the symptoms are aggravated by nothing. Associated signs and symptoms: Pertinent positives: nausea. The pain does not radiate. Severity of symptoms: At their worst the symptoms were moderate in the emergency department the symptoms have improved moderately. Historical: - Allergies: 19:22 No Known Allergies; lg3 - Home Meds: 19:22 midodrine 10 mg oral tablet 1 tab 3 times per day [Active]; Entresto 24-26 mg oral lg3 tablet 1 tab 2 times per day [Active]; Zinc Sulfate Oral [Active]; metoprolol succinate 25 mg oral Tablet, Extended Release 24 hr [Active]; bumetanide 1 mg Oral tablet [Active]; modafinil 100 mg oral tablet [Active]; olanzapine 15 mg oral tablet [Active]; alprazolam 0.5 mg Oral Tablet, Extended Release 24 hr [Active]; - PMHx: 19:22 Anxiety; Asthma; Atrial fibrillation; CHF; Depression; esophagus problem; Hypertension; lg3 RLS (Depression); - PSHx: 19:22 Defibrilator; pacemaker; peg tube (pacemaker); lg3 - Immunization history:: Adult Immunizations up to date. - Infectious Disease History:: Denies. - Social history:: Smoking status: Patient denies any tobacco usage or history of. Patient/guardian denies using alcohol, street drugs. - Family history:: not pertinent. ROS: 20:18 Constitutional: Negative for fever, chills, and weight loss, Eyes: Negative for injury, jono pain, redness, and discharge, ENT: Negative for injury, pain, and discharge, Neck: Negative for injury, pain, and swelling, Respiratory: Negative for shortness of breath, cough, wheezing, and pleuritic chest pain, Abdomen/GI: Negative for abdominal pain, nausea, vomiting, diarrhea, and constipation, Back: Negative for injury and pain, : Negative for injury, bleeding, discharge, and swelling, MS/Extremity: Negative for injury and deformity, Skin: Negative for injury, rash, and discoloration, Psych: Negative for depression, anxiety, suicide ideation, homicidal ideation, and hallucinations, Allergy/Immunology: Negative for hives, rash, and allergies, Endocrine: Negative for neck swelling, polydipsia, polyuria, polyphagia, and marked weight changes, Hematologic/Lymphatic: Negative for swollen nodes, abnormal bleeding, and unusual bruising, 20:18 Cardiovascular: Positive for chest pain, possible defib dc x 3, 20:18 Neuro: Positive for dizziness, weakness, Exam: 20:18 Constitutional: This is a well developed, well nourished patient who is awake, alert, jono and in no acute distress. Head/Face: Normocephalic, atraumatic. Eyes: Pupils equal round and reactive to light, extra-ocular motions intact. Lids and lashes normal. Conjunctiva and sclera are non-icteric and not injected. Cornea within normal limits. Periorbital areas with no swelling, redness, or edema. ENT: Nares patent. No nasal discharge, no septal abnormalities noted. Tympanic membranes are normal and external auditory canals are clear. Oropharynx with no redness, swelling, or masses, exudates, or evidence of obstruction, uvula midline. Mucous membranes moist. Neck: Trachea midline, no thyromegaly or masses palpated, and no cervical lymphadenopathy. Supple, full range of motion without nuchal rigidity, or vertebral point tenderness. No Meningismus. Chest/axilla: Normal chest wall appearance and motion. Nontender with no deformity. No lesions are appreciated. Respiratory: Lungs have equal breath sounds bilaterally, clear to auscultation and percussion. No rales, rhonchi or wheezes noted. No increased work of breathing, no retractions or nasal flaring. Abdomen/GI: Soft, non-tender, with normal bowel sounds. No distension or tympany. No guarding or rebound. No evidence of tenderness throughout. Back: No spinal tenderness. No costovertebral tenderness. Full range of motion. Female : Normal external genitalia. Skin: Warm, dry with normal turgor. Normal color with no rashes, no lesions, and no evidence of cellulitis. MS/ Extremity: Pulses equal, no cyanosis. Neurovascular intact. Full, normal range of motion. Neuro: Awake and alert, GCS 15, oriented to person, place, time, and situation. Cranial nerves II-XII grossly intact. Motor strength 5/5 in all extremities. Sensory grossly intact. Cerebellar exam normal. Normal gait. Psych: Awake, alert, with orientation to person, place and time. Behavior, mood, and affect are within normal limits. 20:18 Cardiovascular: Rate: actual rate is 109 bpm, Heart sounds: Edema: is not appreciated, JVD: is not appreciated, 20:18 ECG was reviewed by the Attending Physician. Vital Signs: 19:15 BP 155 / 85; Pulse 112; Resp 22 S; Temp 97.3(TE); Pulse Ox 100% on R/A; Weight 57.61 kg lg3 (M); Height 5 ft. 3 in. ; 21:03 BP 104 / 79; Pulse 102; Resp 20; Pulse Ox 99% on 2 lpm NC; ay 23:00 BP 103 / 85; Pulse 99; Resp 20; Pulse Ox 100% on 2 lpm NC; ay 09/28 01:43 BP 95 / 73; Pulse 92; Resp 21; Temp 98.2(A); Pulse Ox 98% on 2 lpm NC; ay 09/27 19:15 Body Mass Index 22.50 (57.61 kg, 160.02 cm) lg3 Fidelity Coma Score: 09/27 21:03 Eye Response: spontaneous(4). Motor Response: obeys commands(6). Verbal Response: ay oriented(5). Total: 15. Procedures: 20:28 Peripheral line: by aseptic technique a peripheral line was placed in the left external jono jugular vein. MDM: 19:12 Medical Screening Exam initiated jono 20:24 Differential diagnosis: abnormal EKG, acute myocardial infarction, coronary artery jono disease chest wall pain, gastritis, herpes zoster, hiatal hernia, myocarditis, pancreatitis, peptic ulcer disease, pericarditis, pneumonia, pneumothorax, pulmonary embolus, stable angina, thoracic aortic disection, unstable angina. Differential Diagnosis altered mental status, sepsis, flu. HEART Score: History: Moderately Suspicious (1), ECG: Non specific repolarization disturbance / LBTB / PM (1), Age: > or = 65 years (2), Risk Factors: > or = 3 Risk factors for atherosclerotic disease (2), [Hypercholesterolemia] [Hypertension] [Active Smoker] Troponin: < or = 1 x Normal Limit (0). Differential diagnosis: cardiac arrhythmia, CVA, generalized weakness, GI bleed, hypovolemia, idiopathic dizziness, near-syncope, sepsis, syncope, TIA. The patient was not given aspirin in the Emergency Department. Not indicated due to patient's past medical history. TOMMY Risk Score: 1 - patient's age is greater or equal to 65 years, 1 - Three or more CAD risk factors, 1- Known CAD, 1 - Recent [<24hrs] Severe Angina, TOTAL SCORE = 4. Data reviewed: vital signs, nurses notes, lab test result(s), EKG. Consideration of Admission/Observation Patient was admitted/placed on observation. Escalation of care including admission/observation considered. I considered the following discharge prescriptions or medication management in the emergency department Medications were administered in the Emergency Department. See MAR. Independent interpretation of the following test(s) in the Emergency Department EKG: See my EKG interpretation above. 20:58 ED course: Patient taken over by me from Dr. Ro on signout. Patient is sp3 69-year-old female with PMH atrial fibrillation, CHF, hypertension now presents to the ED with chief complaint dizziness chest pain or palpitations. Medtronic pacemaker is likely present and we are attempting interrogation. Labs pending. CT scan of the chest abdomen pelvis demonstrates no significant abnormality except mild pneumoperitoneum. Abdomen is benign. Labs pending and disposition pending full workup review with probable admission. . 09/27 19:15 Order name: Basic Metabolic Panel; Complete Time: 23:22 jono 09/27 19:15 Order name: CBC with Diff jono 09/27 19:15 Order name: LFT's; Complete Time: 23:22 jono 09/27 19:15 Order name: Magnesium; Complete Time: 23:[address] [facility] 09/27 19:15 Order name: NT PRO-BNP; Complete Time: 23:[address] [facility] 09/27 19:15 Order name: Troponin HS; Complete Time: 23:[address] [facility] 09/27 19:15 Order name: Lipase; Complete Time: 23:[address] [facility] 09/27 19:15 Order name: Urinalysis w/ reflexes [facility] 09/27 19:15 Order name: Depakote; Complete Time: 23:[address] [facility] 09/27 19:29 Order name: Blood Culture Adult (2) [facility] 09/27 19:29 Order name: Lactate w/ 2H reflex if indic.; Complete Time: 21:[address] [facility] 09/27 19:49 Order name: Glucose, Ancillary Testing; Complete Time: 20:50 [facility] 09/27 19:54 Order name: Protime (+INR); Complete Time: 23:22 [facility] 09/27 23:12 Order name: Manual Differential [facility] 09/27 23:33 Order name: Ghost Lactate-NO COLLECT Timer [facility] 09/28 00:58 Order name: Urinalysis w/ reflexes [facility] 09/28 00:58 Order name: CBC with Automated Diff [facility] 09/28 00:58 Order name: CBC with Automated Diff [facility] 09/28 00:58 Order name: Comprehensive Metabolic Panel [facility] 09/28 00:58 Order name: Comprehensive Metabolic Panel [facility] 09/28 00:58 Order name: Troponin High Sensitivity [facility] 09/28 00:58 Order name: Troponin High Sensitivity [facility] 09/28 00:58 Order name: Troponin High Sensitivity [facility] 09/28 00:58 Order name: Troponin High Sensitivity [facility] 09/28 01:27 Order name: Lactate Sepsis 2 HR Follow-up [facility] 09/27 19:15 Order name: XRAY Chest (1 view); Complete Time: 21:[address] [facility] 09/27 19:15 Order name: CT Chest Abdomen Pelvis W/O Contrast; Complete Time: 20:[address] [facility] 09/27 19:29 Order name: EKG; Complete Time: 19:[address] [facility] 09/28 00:58 Order name: CONS Physician Consult [facility] 09/27 19:15 Order name: Cardiac monitoring; Complete Time: 19:[address] [facility] 09/27 19:15 Order name: EKG - Nurse/Tech; Complete Time: 19:[address] [facility] 09/27 19:15 Order name: IV Saline Lock; Complete Time: 19:[address] [facility] 09/27 19:15 Order name: Labs collected and sent; Complete Time: 19:[address] [facility] 09/27 19:15 Order name: O2 Per Protocol; Complete Time: 19:37 jono 09/27 19:15 Order name: O2 Sat Monitoring; Complete Time: 19:37 jono 09/27 19:15 Order name: Misc. Order: interrogate pm; Complete Time: 22:09 jono 09/27 19:29 Order name: Accucheck; Complete Time: 19:[address] [facility] 09/27 19:29 Order name: IV Saline Lock - Large Bore; Complete Time: 19:[address] [facility] 09/27 19:29 Order name: Vital Signs; Complete Time: 19:[address] [facility] 09/27 19:57 Order name: Misc. Order: recollect; Complete Time: 21:01 oe EC:18 Rate is 109 beats/min. Rhythm is regular. QRS [place] is Normal. ND interval is normal. jono QRS interval is normal. QT interval is normal. No Q waves. T waves are Normal. No ST changes noted. Clinical impression: Abnormal EKG without significant change and No evidence of ischemia. Interpreted by me. Reviewed by me. Administered Medications: 19:28 CANCELLED (Duplicate Order): ns 0.9% 1000 ml IV at 125 ml/hr continuous [facility] 20:00 Drug: Famotidine IVP 20 mg IVP once; dilute with 10 mL 0.9% NaCl; give over 2 minutes ay Route: IVP; Site: left jugular; 09/28 02:26 Follow up: Response: No adverse reaction bm8 09/27 20:00 Drug: NS 0.9% IV (30 ml/kg) 30 ml/kg IV at bolus once; Sepsis Protocol; to be given as ay a bolus over 90 minutes Route: IV; Rate: bolus; Site: left jugular; 21:30 Follow up: Response: No adverse reaction; IV Status: Completed infusion; IV Intake: bm8 2000ml 20:00 Drug: Rocephin IV 1 grams IV at per protocol once; Given slow IV push per pharmacy ay instructions Route: IV; Rate: per protocol; Site: left antecubital; 09/28 02:25 Follow up: Response: No adverse reaction; IV Status: Completed infusion; IV Intake: [id number] 09/27 21:30 Drug: morphine IVP or IV 2 mg IVP once over 4 mins Route: IVP; Infused Over: 4 mins; ay Site: Other; 09/28 02:25 Follow up: Response: No adverse reaction bm8 09/27 21:31 Drug: Ondansetron IVP 4 mg IVP once; over 2 minutes Route: IVP; Site: Other; ay 09/28 02:25 Follow up: Response: No adverse reaction bm8 Disposition Summary: 09/27/24 23:22 Hospitalization Ordered Notes: Hospitalization Status: Inpatient Admission sp3 Provider: Paresh Daly sp3 Condition: Stable sp3 Problem: an acute exacerbation sp3 Symptoms: have worsened sp3 Bed/Room Type: Standard sp3 Location: Intensive Care Unit(09/28/24 01:28) cg Room Assignment: 8-(09/28/24 01:28) cg Diagnosis - Palpitations, defibrillator discharge, chest pain sp3 Forms: - Medication Reconciliation Form sp3 - SBAR form sp3 - Leadership Thank You Letter sp3 Signatures: Dispatcher [employer] EDDamon Wagner MD MD cha Garcia, Cindy RN RN Vinod Khan Lacie, RN RN 3 Moy Gómez MD MD sp3 Mariann Pearson Awudu, RN RN ay Bird Chen RN bm8 Corrections: (The following items were deleted from the chart) 09/27 19:15 19:15 BASIC METABOLIC PANEL+C.LAB.BRZ ordered. EDMS EDMS 19:15 19:15 CBC+H.LAB.BRZ ordered. EDMS EDMS 19:15 19:15 HEPATIC FUNCTION+C.LAB.BRZ ordered. EDMS EDMS 19:15 19:15 MAGNESIUM+C.LAB.BRZ ordered. EDMS EDMS 19:15 19:15 PROBNP+C.LAB.BRZ ordered. EDMS EDMS 19:15 19:15 Troponin High Sensitivity+C.LAB.BRZ ordered. EDMS EDMS 19:15 19:15 LIPASE+C.LAB.BRZ ordered. EDMS EDMS 19:15 19:15 Urinalysis+U.LAB.BRZ ordered. EDMS EDMS 19:15 19:15 VALPROIC ACID (DEPAKOTE)+C.LAB.BRZ ordered. EDMS EDMS 19:15 19:15 Chest Single View+RAD.RAD.BRZ ordered. EDMS EDMS 19:15 19:15 Chest Abdomen Pelvis Wo Con+CT.RAD.BRZ ordered. EDMS EDMS 19:28 19:15 NS 0.9% IV 1000 ml IV at 125 ml/hr continuous ordered. jono jono 20:00 19:15 PROTIME (+INR)+COAG.LAB.BRZ ordered. EDMS EDMS 20:00 19:30 BLOOD CULTURE*+BA.LAB.BRZ ordered. EDMS EDMS 22:39 19:30 COMPREHENSIVE METABOLIC PANEL+C.LAB.BRZ ordered. EDMS EDMS 23:20 19:30 PTT, ACTIVATED+COAG.LAB.BRZ ordered. EDMS EDMS 09/28 01:15 09/27 23:11 Misc. Order ordered. hw lg3 09/28 01:28 09/27 23:22 Telemetry/MedSurg (observation) sp3 cg 09/28 01:28 09/27 23:22 sp3 cg
--- NOTE | 2024-09-27 23:22 | ER ---
Nurse's Notes [facility] Name: Mandy Swain Age: 69 yrs Sex: Female : 1955 Arrival Date: 09/27/2024 Time: 19:00 Bed 2 Private MD: Diagnosis: Palpitations, defibrillator discharge, chest pain Presentation: 09/27 19:15 Chief complaint: Patient states: shocked by defibrillator multiple times over the past lg3 2 days. heavy pressure to center chest. pain 8/10. peg tube placed to LLQ with new onset pain 10/10. new onset SOB. 324 mg ASA administered by EMS LEGAL DIRECTOR. Coronavirus screen: Client denies travel out of the [place] in the last 14 days. At this time, the client does not indicate any symptoms associated with coronavirus-19. Ebola Screen: No symptoms or risks identified at this time. Initial Sepsis Screen: Does the patient meet any 2 criteria? RR > 20 per min. HR > 90 bpm. Yes Does the patient have a suspected source of infection? No. Patient's initial sepsis screen is negative. Risk Assessment: Do you want to hurt yourself or someone else? Patient reports no desire to harm self or others. Onset of symptoms was September 26, 2024. 19:15 Method Of Arrival: EMS: [facility] lg3 19:15 Acuity: CRISTEL 3 lg3 Triage Assessment: 19:22 General: Appears in no apparent distress. comfortable, Behavior is calm, cooperative. lg3 Pain: Complains of pain in chest and abdomen. EENT: No deficits noted. No signs and/or symptoms were reported regarding the EENT system. Neuro: No deficits noted. Moser Agitation-Sedation Scale (RASS): 0 - Alert and Calm Level of Consciousness is awake, alert, obeys commands, Oriented to person, place, time, situation. Cardiovascular: Reports chest pain, shortness of breath, Capillary refill < 3 seconds Clubbing of nail beds is absent JVD is absent Patient's skin is warm and dry. Respiratory: Reports shortness of breath Airway is patent Respiratory effort is even, unlabored, Respiratory pattern is regular, symmetrical, Breath sounds are clear bilaterally. GI: Abdomen is flat, non-distended, PEG tube in place, clamped. Abd is soft X 4 quads Abdomen is tender to palpation in left lower quadrant Reports lower abdominal pain. : No signs and/or symptoms were reported regarding the genitourinary system. Derm: No deficits noted. No signs and/or symptoms reported regarding the dermatologic system. Skin is intact, is healthy with good turgor, Skin is dry, Skin is normal, Skin temperature is warm. Musculoskeletal: No deficits noted. No signs and/or symptoms reported regarding the musculoskeletal system. Circulation, motion, and sensation intact. Range of motion: intact in all extremities. Historical: - Allergies: 19:22 No Known Allergies; lg3 - Home Meds: 19:22 midodrine 10 mg oral tablet 1 tab 3 times per day [Active]; Entresto 24-26 mg oral lg3 tablet 1 tab 2 times per day [Active]; Zinc Sulfate Oral [Active]; metoprolol succinate 25 mg oral Tablet, Extended Release 24 hr [Active]; bumetanide 1 mg Oral tablet [Active]; modafinil 100 mg oral tablet [Active]; olanzapine 15 mg oral tablet [Active]; alprazolam 0.5 mg Oral Tablet, Extended Release 24 hr [Active]; - PMHx: 19:22 Anxiety; Asthma; Atrial fibrillation; CHF; Depression; esophagus problem; Hypertension; lg3 RLS (Depression); - PSHx: 19:22 Defibrilator; pacemaker; peg tube (pacemaker); lg3 - Immunization history:: Adult Immunizations up to date. - Infectious Disease History:: Denies. - Social history:: Smoking status: Patient denies any tobacco usage or history of. Patient/guardian denies using alcohol, street drugs. - Family history:: not pertinent. Screenin:27 [facility] ED Fall Risk Assessment (Adult) History of falling in the last 3 months, lg3 including since admission No falls in past 3 months (0 pts) Confusion or Disorientation No (0 pts) Intoxicated or Sedated No (0 pts) Impaired Gait No (0 pts) Mobility Assist Device Used No (0 pt) Altered Elimination No (0 pt) Score/Fall Risk Level 0 - 2 = Low Risk Oriented to surroundings, Maintained a safe environment, Educated pt \T\ family on fall prevention, incl call for assistance when getting out of bed, Assessed \T\ reinforced patient's understanding of fall precautions, Provided non-skid footwear. Abuse screen: Denies threats or abuse. Denies injuries from another. Nutritional screening: No deficits noted. Tuberculosis screening: No symptoms or risk factors identified. 21:03 [facility] ED Fall Risk Assessment (Adult) History of falling in the last 3 months, ay including since admission No falls in past 3 months (0 pts) Confusion or Disorientation No (0 pts) Intoxicated or Sedated No (0 pts) Impaired Gait Yes (1 pt) Mobility Assist Device Used No (0 pt) Altered Elimination No (0 pt) Score/Fall Risk Level 0 - 2 = Low Risk Oriented to surroundings, Maintained a safe environment, Educated pt \T\ family on fall prevention, incl call for assistance when getting out of bed, Assessed \T\ reinforced patient's understanding of fall precautions, Provided non-skid footwear. Abuse screen: Denies threats or abuse. Denies injuries from another. Nutritional screening: No deficits noted. Tuberculosis screening: No symptoms or risk factors identified. Assessment: 19:27 General: see triage assessment. lg3 21:03 General: Appears in no apparent distress. comfortable, Behavior is calm, cooperative. ay Pain: Complains of pain in abdomen. Neuro: Level of Consciousness is awake, alert, obeys commands, Oriented to person, place, situation, Speech is normal. Cardiovascular: Reports Heart tones S1 S2 Rhythm is ventricular pacer. Respiratory: Airway is patent. GI: Bowel sounds present X 4 quads. Abdomen is tender to palpation. : No deficits noted. EENT: No deficits noted. Derm: Skin is fragile, with poor turgor Skin is dry. Musculoskeletal: Capillary refill < 3 seconds, Reports. 09/28 01:41 Reassessment: Patient appears in no apparent distress at this time. Patient and/or ay family updated on plan of care and expected duration. Pain level reassessed. 02:24 Reassessment: Patient appears in no apparent distress at this time. Patient and/or bm8 family updated on plan of care and expected duration. Pain level reassessed. Patient is alert, oriented x 3, equal unlabored respirations, skin warm/dry/pink. Vital Signs: 09/27 19:15 BP 155 / 85; Pulse 112; Resp 22 S; Temp 97.3(TE); Pulse Ox 100% on R/A; Weight 57.61 kg lg3 (M); Height 5 ft. 3 in. ; 21:03 BP 104 / 79; Pulse 102; Resp 20; Pulse Ox 99% on 2 lpm NC; ay 23:00 BP 103 / 85; Pulse 99; Resp 20; Pulse Ox 100% on 2 lpm NC; ay 09/28 01:43 BP 95 / 73; Pulse 92; Resp 21; Temp 98.2(A); Pulse Ox 98% on 2 lpm NC; ay 09/27 19:15 Body Mass Index 22.50 (57.61 kg, 160.02 cm) lg3 Vitals: 09/27 21:03 Cardiac Rhythm Assessment Irregular Paced. ay Geovani Coma Score: 21:03 Eye Response: spontaneous(4). Motor Response: obeys commands(6). Verbal Response: ay oriented(5). Total: 15. ED Course: 19:06 Patient arrived in ED. hw 19:12 Damon Ro MD is Attending Physician. jono 19:21 EKG done, by ED staff, reviewed by Damon Ro MD. oe 19:22 Triage completed. lg3 19:22 Arm band placed on right wrist. lg3 19:27 Maintain EMS IV. Dressing intact. Good blood return noted. Site clean \T\ dry. Gauge \T\ lg 3 site: 22 R Hand. Flushed with 10 mL NS. Patient maintains SpO2 saturation greater than 95% on room air. 19:27 Patient has correct armband on for positive identification. Placed in gown. Bed in low lg3 position. Call light in reach. Side rails up X 1. Client placed on continuous cardiac and pulse oximetry monitoring. NIBP monitoring applied. wound care coordinator on. Door closed. Noise minimized. Warm blanket given. Pillow given. 19:30 Inserted saline lock: 20 gauge in left upper arm, using aseptic technique. Blood lg3 collected. Flushed with 10 mL NS. 20:00 Initial lab(s) drawn, by me, First set of blood cultures drawn by me, Second set of ay blood cultures drawn by me, EKG done, by ED staff, Pacemaker Interrogation completed and sent to [employer]. Inserted saline lock: 20 gauge in left Accessed Maintain EMS IV. Dressing intact. Good blood return noted. Site clean \T\ dry. Flushed with 10 mL NS. Oxygen administration via nasal cannula \T\ 2L/min. 20:25 Attending Physician role handed off by Damon Ro MD sp3 20:25 Moy Gómez MD is Attending Physician. sp3 20:35 CT Chest Abdomen Pelvis W/O Contrast In Process Unspecified. EDMS 21:00 Dipti Collins, DEZ is Primary Nurse. ay 21:03 XRAY Chest (1 view) In Process Unspecified. EDMS 21:03 Patient has correct armband on for positive identification. Placed in gown. Bed in low ay position. Call light in reach. Side rails up X2. Client placed on continuous cardiac and pulse oximetry monitoring. NIBP monitoring applied. wound care coordinator on. Door closed. Noise minimized. Lights dimmed. Warm blanket given. Pillow given. Verbal reassurance given. 22:59 IV discontinued, intact, bleeding controlled, No redness/swelling at site. Pressure bm8 dressing applied, 20g lac. 23:21 Praesh Daly MD is Hospitalizing Provider. sp3 09/28 01:56 Assisted provider with: EJ 20g. ay 01:56 Provided Education on: Procedure Consent. ay Administered Medications: 09/27 19:28 CANCELLED (Duplicate Order): ns 0.9% 1000 ml IV at 125 ml/hr continuous jono 20:00 Drug: Famotidine IVP 20 mg IVP once; dilute with 10 mL 0.9% NaCl; give over 2 minutes ay Route: IVP; Site: left jugular; 09/28 02:26 Follow up: Response: No adverse reaction bm8 09/27 20:00 Drug: NS 0.9% IV (30 ml/kg) 30 ml/kg IV at bolus once; Sepsis Protocol; to be given as ay a bolus over 90 minutes Route: IV; Rate: bolus; Site: left jugular; 21:30 Follow up: Response: No adverse reaction; IV Status: Completed infusion; IV Intake: bm8 2000ml 20:00 Drug: Rocephin IV 1 grams IV at per protocol once; Given slow IV push per pharmacy ay instructions Route: IV; Rate: per protocol; Site: left antecubital; 09/28 02:25 Follow up: Response: No adverse reaction; IV Status: Completed infusion; IV Intake: [id number] 09/27 21:30 Drug: morphine IVP or IV 2 mg IVP once over 4 mins Route: IVP; Infused Over: 4 mins; ay Site: Other; 09/28 02:25 Follow up: Response: No adverse reaction bm8 09/27 21:31 Drug: Ondansetron IVP 4 mg IVP once; over 2 minutes Route: IVP; Site: Other; ay 09/28 02:25 Follow up: Response: No adverse reaction bm8 Medication: 09/27 21:03 VIS not applicable for this client. ay Intake: 21:30 IV: 2000ml; Total: 2000ml. bm8 09/28 02:25 IV: 10ml; Total: 2010ml. bm8 Outcome: 09/27 23:22 Decision to Hospitalize by Provider. sp3 09/28 01:56 Admitted to ICU accompanied by nurse, via stretcher, with oxygen, ay Condition: stable Instructed on the need for admit, 02:27 Patient left the ED. bm8 Signatures: Dispatcher [employer] EDDamon Wagner MD MD cha Espinosa, Orlando oe Able, Lacie, RN RN lg3 Moy Gómez MD MD sp3 Bird Chen RN RN bm8 Mariann Pearson Awudu, RN RN ay Corrections: (The following items were deleted from the chart) 09/27 19:35 19:15 BP 155 / 85; Pulse 109bpm; Resp 22bpm; Spontaneous; Pulse Ox 100% RA; Temp 97.3F lg3 Temporal; 57.61 kg Measured; Height 5 ft. 3 in.; BMI: 22.5; lg3 21:31 20:00 Ondansetron IVP 4 mg IVP in left antecubital ay ay
--- NOTE | 2024-09-28 00:30 | P.HP ---
Certification for Inpatient Patient admitted to: Inpatient With expected LOS: >2 Midnights Practitioner: I am a practitioner with admitting privileges, knowledge of patient current condition, hospital course, and medical plan of care. Services: Services provided to patient in accordance with Admission requirements found in Title 42 Section 412.3 of the Code of Federal Regulations Patient History Date of Service: 09/28/24 Reason for admission: Palpitation History of Present Illness: 69 yrs old Female with past medical history of Anxiety,Asthma ,Atrial fibrillation,CHF,Depression, esophagus problem, Hypertension, RLS , h/o Defibrilator, pacemaker presents to ER with complaints of chest pain, dizzy, 3 kicks in the chest, has medtronic pacemaker brought to ER with chest discomfort and dizziness. Associated with feeling dizzy and feeling generalized weakness. She is intermediate resident. Symptoms intermittent. Denies any shortness of breath. Has nausea but no vomiting. Denies any abdominal pain. Patient was noted to have pacemaker firing and was admitted for further management Allergies No Known Allergies Allergy (Verified 12/22/17 01:16) Home medications list reviewed: Yes Home Medications: Thiamine HCl 100 mg FT DAILY 07/03/24 ALPRAZolam [Xanax*] 0.5 mg FT BID PRN 09/08/24 Acidophilus/Bifido Longum [Lactobacillus Capsule] 16 mg FT DAILY 09/08/24 Aspirin [Aspirin EC 81 MG] 81 mg FT DAILY 09/08/24 Atorvastatin Calcium [Lipitor] 40 mg FT BEDTIME 09/08/24 Mirtazapine 7.5 mg FT BEDTIME 09/08/24 OLANZapine [Olanzapine] 15 mg FT BEDTIME 09/08/24 Spironolactone 25 mg FT DAILY 09/08/24 Tamsulosin HCl [Flomax] 0.4 mg FT DAILY 09/08/24 Valproic Acid (As Sodium Salt) [Valproic Acid] 250 mg FT Q8HR 09/08/24 Zinc Sulfate 50 mg FT DAILY 09/08/24 modafiniL [Modafinil] 100 mg FT BEDTIME 09/08/24 Bumetanide [Bumex*] 1 mg PO BID tab 09/16/24 Sacubitril/Valsartan [Entresto 24 mg-26 mg Tablet] 0.5 tab PO BID tab 09/16/24 Amiodarone HCl [Cordarone*] 200 mg PO DAILY #30 tab 09/21/24 Clopidogrel Bisulfate [Plavix] 75 mg PO DAILY #30 tab 09/21/24 Magnesium Chloride [Slow-Mag] 64 mg PO DAILY #30 tab 09/21/24 Metoprolol Tartrate [Lopressor*] 50 mg PO TID #90 tab 09/24/24 Midodrine HCl [Proamatine*] 10 mg PO TID #90 tab 09/24/24 - Past Medical/Surgical History Diabetic: No Past Medical History: Reviewed- Non-Contributory -: Squamous Cell Carcinoma Left Ear -: IMPLANTED CARDIOVERTER (ICD) -: GERD/hiatal hernia -: Hypertension -: Depression/anxiety -: Chronic systolic congestive heart failure -: A-fib -: NSTEMI -: Esophageal stenosis -: Dysphagia Past Surgical History: Reviewed- Non-Contributory -: hernia repair -: tubal ligation -: 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 - Family History Father -: Heart disease, Hypertension Mother -: Heart disease, Hypertension Brother -: Hypertension Sister -: Hypertension Notes: per patient reports anxiety and high blood pressure for past medical history - Social History Smoking Status: Never smoker Alcohol use: No CD- Drugs: Yes Caffeine use: No Review of Systems 10-point ROS is otherwise unremarkable Physical Examination - Vital Signs Temperature: 97.2 F Blood Pressure: 136/82 Pulse: 78 Respirations: 18 Pulse Ox (%): 94 - Physical Exam General: Alert, In no apparent distress, Oriented x3 HEENT: Atraumatic, Normocephalic Neck: Supple Respiratory: Clear to auscultation bilaterally, Normal air movement Cardiovascular: Regular rate/rhythm, Normal S1 S2 Capillary refill: <2 Seconds Gastrointestinal: Soft and benign, W/out hepatosplenomegaly Musculoskeletal: No clubbing, No swelling Integumentary: No rashes, No tenderness/swelling Neurological: Normal speech, Cranial nerves 3-12 intact, Normal reflexes 2+ Lymphatics: No axilla or inguinal lymphadenopathy - Studies Laboratory Data (last 24 hrs) 09/27/24 09/27/24 09/27/24 22:29 22:29 22:29 WBC 9.10 Hgb 9.5 L Hct 29.4 L Plt Count 270 PT 12.2 INR 1.09 APTT Cancelled Sodium Cancelled Potassium Cancelled BUN Cancelled Creatinine Cancelled Glucose Cancelled Magnesium Total Bilirubin Cancelled AST Cancelled ALT Cancelled Alkaline Phosphatase Cancelled Lipase 09/27/24 09/27/24 22:29 19:25 WBC Hgb Hct Plt Count PT Cancelled INR Cancelled APTT Sodium 141 Potassium 3.8 BUN 23 H Creatinine 1.08 H Glucose 91 Magnesium 1.6 Total Bilirubin 0.4 AST 13 L ALT < 14 Alkaline Phosphatase 150 H Lipase 21 Assessment and Plan - Plan Pacemaker firing Monitor closely on telemetry Pacemaker interrogation Will consult cardiology Lactic acidosis Will obtain cultures Started on IV antibiotic Monitor closely CT consistent with pneumoperitoneum Possibly due to paracentesis Will hold back IV rehydration because of CHF history CHF possibly systolic/diastolic with not in exacerbation Monitor closely on telemetry Oxygen supplementation Will try to wean down oxygen requirement Continue home medications Titrate as needed Hypertension Antihypertensives titrated Continue home medications and titrate as needed CKD stage II Monitor renal parameters Electrolytes monitor and replace accordingly Anemia of chronic disease Monitor H&H closely No overt bleeding at this time GI/DVT prophylaxis Advanced directive full code Discharge Plan: Home Plan to discharge in: 48 Hours - Advance Directives Does patient have a Living Will: No Does patient have a Durable POA for Healthcare: No - Code Status/Comfort Care Code Status: Full Code Time Spent Managing Pts Care (In Minutes): 48
[2024-09-28] MEDS ORDERED: ONDANSETRON 4 MG/2 ML VIAL IV PRN (00:52)
[2024-09-28 00:53] LABS: Band Neutrophils 8 % (0-1); Blood Morphology Comment NOTED (NOT SEEN); Differential Total Cells Count 100; Lymphocytes 4 % (15-42); Monocytes 8 % (0-10); Ovalocytes 1+; Platelet Estimate ADEQ; Segmented Neutrophils 80 % (40-80)
[2024-09-28] MEDS ORDERED: MORPHINE 2 MG/ML SYR IV PRN (00:56)
[2024-09-28] MEDS: METRONIDAZOLE 500mg IVPB 500 MG/100 ML BAG IV SCH (03:12)
[2024-09-28 03:17] VITALS: BMI 21.9
--- NOTE | 2024-09-28 08:01 | RAD REPORT ---
EXAMINATION: ONE VIEW CHEST XR CLINICAL INDICATION: Female, 69 years old.,PICC placement TECHNIQUE: Frontal chest projection is submitted. Examination is limited by patient positioning and t echnique. COMPARISON: 09/27/2024 FINDINGS: Right arm PICC in place with catheter tip at the level of the distal SVC. Retrocardiac opacity and p robable bilateral effusions, stable. Mildly progressive right central interstitial prominence and right basilar atelectasis. No pneumothorax. Stable mild cardiomegaly Mediastinal contours are unchang ed with left chest wall pacer in place. IMPRESSION: Satisfactory right arm PICC positioning. No pneumothorax. Mildly progressive central interstitial prominence may reflect progressive central congestion/CHF.
--- NOTE | 2024-09-28 08:06 | P.PN ---
Date of Service: 09/28/24 Subjective: reports some chest pain, SOB associated with intermittent nausea/dizziness after her pacemaker fired shocked multiple times in the evening prior to arrival PEG tube was itchy and red. On exam was not properly secured, fixed by Dr. Cespedes this morning. 3 formed BM yesterday, no diarrhea ROS: 10 point ROS as noted above, otherwise negative Physical Exam: GEN: Alert, NAD HEENT: Normal conjunctiva, sclera anicteric CV: paced rhythm, no edema Pulm: Nonlabored respirations on 2L NC ABD: soft, nontender, PEG in place with slight irritation around Neuro: Normal speech, normal affect Problem List: Chest pain s/p multiple AICD shocks Dizziness Hx Atrial fibrillation Hx CAD Lactic acidosis Hx Dysphagia / esophageal stenosis Chronic systolic/diastolic CHF (HFrEF 30-35%) Hypertension Anxiety/Depression GERD Asthma Chest pain s/p multiple AICD shocks Dizziness Hx Atrial fibrillation Hx CAD Patient presents to ED with chest pain, shortness of breath, dizziness after multiple pacemaker/defib shocks over the last 2 days Recent prolonged hospitalization at [facility] from 07/30-09/07. previously transferred to [facility] 07/30/24 for high risk NSTEMI, hypotension, cardiogenic shock. LHC (07/30/24): patent LM, prox-LAD 30-40% stenosis, prox-OM2 70% stenosis, and PLV sub-total occulusion; none of these lesions felt likely to explain profound shock, therefore revascularization deferred at [facility] she required intubation and placed on ecmo for cardiogenic shock, CHF exacerbation. Extubated 08/12. at the time also s/p crrt for JAVAD, s/p 10 days of IV cefepime for whitaker-sens itive PSA PNA. Had PEG placed 09/03 after speech deemed her unsafe to swallow / high risk of aspiration. After discharge from [facility] 09/07, patient at SNF for 1 day then admitted here 09/08-09/24 for acute resp failure, c.diff. Echocardiogram (07/31/24): LVEF by Horn's method of disk assessment is severely reduced (<20%). severely enlarged LV. RV systolic function is reduced. at least moderate TR. Large circumferential pericardial effusion without evidence of pericardial tamponade Arterial Doppler LLE post ECMO (07/31/24): The superficial femoral (mid-distal), popliteal, posterior tibial(distal), peroneal and anterior tibial arteries are patent with monophasic doppler waveforms consistent with ECMO. The common femoral, profunda femoral, and proximal superficial femoral are not visualized. There is no flow seen in the proximal-mid posterior tibial artery. Pacemaker interrogated in ED. Sent to [facility] for review 7 shocks for VF/VT resume home amiodarone, midodrine, plavix, metoprolol troponins negative x3 Monitor on telemery Cardiology, nephrology consulted Lactic acidosis, resolved Hx Dysphagia / esophageal stenosis has PEG in place. placed 09/03 during last hospitalization at [facility]. CT abdomen (09/27): Mild ascites is noted with mild pneumoperitoneum. Sigmoid diverticulosis coli. Small bilateral pleural effusions. Patient with diarrhea last admission. Treated for C.diff last hospitalization (Ag pos, tox neg), urine cx (09/08): also grew 3+ yeast at the time. Previously grew Laquita Albicans on 08/27 at [facility] Patient reports redness, itchyness around PEG tube site. Currently denies fever, chills, diarrhea On exam PEG not properly secured, fixed by Dr. Cespedes this morning. s/p PEG / not fully secured would explain pneumoperitoneum; otherwise patient has benign abdomen on exam. Speech cleared patient for soft, bite sized foods during last admission 09/18. Patient eating overnight/this morning without any issues. Resume heart healthy diet lactate resolved 3.8 -> 1.4 no evidence of infection lactic acid likely secondary to VF/Vt / defibrillations continue empiric rocephin / flagyl (09/28-) follow blood cultures pain control Chronic systolic/diastolic CHF (HFrEF 30-35%) Hypertension Anxiety/Depression GERD Asthma confirm home meds, restart as appropriate VTE: Lovenox Code: Lead Manufacturing Engineer Spent Managing Pts Care (In Minutes): 55
[2024-09-28] MEDS: ENOXAPARIN 40 MG/0.4 ML SQ SCH (08:24)
[2024-09-28] MEDS: Mupirocin NASAL 2 APPL/1 GM TUBE NAS SCH (08:24)
[2024-09-28] MEDS: CEFTRIAXONE 1,000 MG in NA CHLORIDE 0.9% 50 ML IVPB SCH (08:24)
[2024-09-28 10:45] LABS: Absolute Eosinophils 0.1 K/uL (0-0.5); Absolute Lymphocytes (CBC) 0.9 K/uL (0.7-4.9); Absolute Monocytes 0.6 K/uL (0.1-1.3); Absolute Neutrophil 5.9 K/uL (1.8-8.0); Basophils % 0.5 % (0-1.3); Eosinophils % 1.6 % (0-4.4); Hematocrit 30.6 % (36.0-45.0); Hemoglobin 9.7 g/dL (12.0-15.0); Lymphocytes % 11.7 % (15.3-44.8); MCH 30.2 pg (27.0-35.0); MCHC 31.7 g/dL (32.0-36.0); MCV 95.1 fL (80-100); MPV 8.6 fL (7.6-11.3); Monocytes % 7.8 % (3.3-12.3); Neutrophils % 78.4 % (41.7-73.7); Platelets 373 thou/uL (152-406); RBC Red Blood Cell Count 3.22 M/uL (3.86-4.86); Red Cell Distribution Width 20.2 % (12.1-15.2)
[2024-09-28] MEDS: FLU (Fluarix Triv) TS24-25(6MOS UP)/PF 45 MCG/0.5 ML Syringe IM ONE (10:45)
[2024-09-28] MEDS: AMIODARONE HCL 200 MG TAB PO SCH ×2 (10:54→21:37)
[2024-09-28] MEDS: MIDODRINE HCL 5 MG TABLET PO SCH (10:54)
[2024-09-28] MEDS: METOPROLOL TAR 25 MG TAB PO SCH (10:54)
[2024-09-28] MEDS: PNEUMOCOCCAL VACCINE 0.5 ML IMVAC ONE (10:55)
[2024-09-28 11:05] LABS: AST/SGOT 12 U/L (15-37); Albumin 1.6 g/dL (3.4-5.0); Albumin/Globulin Ratio 0.5 (1.1-1.8); Alkaline Phosphatase 143 U/L (45-117); Anion Gap 9.2 mEq/L (5.0-15.0); BUN Blood Urea Nitrogen 23 mg/dL (7-18); Bicarbonate 28 mEq/L (21-32); Bilirubin Total 0.4 mg/dL (0.2-1.0); Globulin 3.5 g/dL (2.3-3.5); Glomerular Filtration Rate 54 ml/min (=/>90); Glucose Level 89 mg/dL (74-106); Magnesium 1.6 mg/dL (1.6-2.4); NT PRO-BNP 11272 pg/mL (<125); Potassium 4.2 mEq/L (3.5-5.1); Protein, Total 5.1 g/dL (6.4-8.2); Sodium Level 142 mEq/L (136-145); Troponin High Sensitivity 49.3 pg/mL (<58.9)
[2024-09-28 11:06] LABS: ALT/SGPT < 14 U/L (13-56)
--- NOTE | 2024-09-28 14:08 | P.CNS ---
Date of Consult: 09/28/24 Chief Complaint: Palpitation History of Present Illness: Patient with PMH of CAD, Atrial fibrillation, heart failure reduced EF, ICD, presented with multiple device shocks, denies chest pain, no SOB, no syncope. Allergies No Known Allergies Allergy (Verified 12/22/17 01:16) Home medications list reviewed: Yes Home Medications: Thiamine HCl 100 mg FT DAILY 07/03/24 ALPRAZolam [Xanax*] 0.5 mg FT BID PRN 09/08/24 Acidophilus/Bifido Longum [Lactobacillus Capsule] 16 mg FT DAILY 09/08/24 Aspirin [Aspirin EC 81 MG] 81 mg FT DAILY 09/08/24 Atorvastatin Calcium [Lipitor] 40 mg FT BEDTIME 09/08/24 Mirtazapine 7.5 mg FT BEDTIME 09/08/24 OLANZapine [Olanzapine] 15 mg FT BEDTIME 09/08/24 Spironolactone 25 mg FT DAILY 09/08/24 Tamsulosin HCl [Flomax] 0.4 mg FT DAILY 09/08/24 Valproic Acid (As Sodium Salt) [Valproic Acid] 250 mg FT Q8HR 09/08/24 Zinc Sulfate 50 mg FT DAILY 09/08/24 modafiniL [Modafinil] 100 mg FT BEDTIME 09/08/24 Bumetanide [Bumex*] 1 mg PO BID tab 09/16/24 Sacubitril/Valsartan [Entresto 24 mg-26 mg Tablet] 0.5 tab PO BID tab 09/16/24 Amiodarone HCl [Cordarone*] 200 mg PO DAILY #30 tab 09/21/24 Clopidogrel Bisulfate [Plavix] 75 mg PO DAILY #30 tab 09/21/24 Magnesium Chloride [Slow-Mag] 64 mg PO DAILY #30 tab 09/21/24 Metoprolol Tartrate [Lopressor*] 50 mg PO TID #90 tab 09/24/24 Midodrine HCl [Proamatine*] 10 mg PO TID #90 tab 09/24/24 - Past Medical/Surgical History Diabetic: No -: Squamous Cell Carcinoma Left Ear -: IMPLANTED CARDIOVERTER (ICD) -: GERD/hiatal hernia -: Hypertension -: Depression/anxiety -: Chronic systolic congestive heart failure -: A-fib -: NSTEMI -: Esophageal stenosis -: Dysphagia -: hernia repair -: tubal ligation -: 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 - Family History Father Medical History: Heart disease, Hypertension Mother Medical History: Heart disease, Hypertension Brother Medical History: Hypertension Sister Medical History: Hypertension Notes: per patient reports anxiety and high blood pressure for past medical history - Social History Smoking Status: Unknown if ever smoked Alcohol use: No CD- Drugs: No Caffeine use: Yes Place of Residence: Shelter Review of Systems 10-point ROS is otherwise unremarkable Physical Examination Temp Pulse Resp BP Pulse Ox 97.7 F 102 H 22 H 110/81 96 09/28/24 12:00 09/28/24 12:00 09/28/24 12:00 09/28/24 12:00 09/28/24 12:00 General: Alert, In no apparent distress HEENT: Atraumatic, PERRLA, Mucous membr. moist/pink, EOMI, Sclerae nonicteric Neck: Supple, 2+ carotid pulse no bruit, No LAD, Without JVD or thyroid abnormality Respiratory: Clear to auscultation bilaterally, Normal air movement Cardiovascular: Regular rate/rhythm, Normal S1 S2 Gastrointestinal: Normal bowel sounds, No tenderness Musculoskeletal: No tenderness Integumentary: No rashes Neurological: Normal gait, Normal speech, Normal tone, Normal affect Lymphatics: No axilla or inguinal lymphadenopathy Laboratory Data (last 24 hrs) 09/27/24 09/27/24 09/27/24 22:29 22:29 22:29 WBC 9.10 Hgb 9.5 L Hct 29.4 L Plt Count 270 PT 12.2 INR 1.09 APTT Cancelled Sodium Cancelled Potassium Cancelled BUN Cancelled Creatinine Cancelled Glucose Cancelled Magnesium Total Bilirubin Cancelled AST Cancelled ALT Cancelled Alkaline Phosphatase Cancelled Lipase 09/27/24 09/27/24 22:29 19:25 WBC Hgb Hct Plt Count PT Cancelled INR Cancelled APTT Sodium 141 Potassium 3.8 BUN 23 H Creatinine 1.08 H Glucose 91 Magnesium 1.6 Total Bilirubin 0.4 AST 13 L ALT < 14 Alkaline Phosphatase 150 H Lipase 21 - Problems (1) Ventricular tachyarrhythmia Current Visit: Yes Status: Acute Plan: patient device interrogations shows 7-8 shocks for VF/VT increase Amiodarone to 200 mg po BID Continue Lopressor 50 TID correct electrolytes (K>4, Mg>2). continue to monitor on tele. (2) Coronary artery disease Current Visit: Yes Status: Acute Plan: Patient recent coronary angiogram at [facility] shows mild LAD, significant OM2 and RPLB disease, patient troponin are negative. continue ASA 81 mg daily (3) Acute on chronic combined systolic and diastolic CHF, NYHA class 3 Current Visit: No Status: Acute Plan: lasix 40 mg po BID Monitor input and output and electrolytes. (4) Atrial fibrillation Current Visit: No Status: Acute Plan: hold anticoagulation for now, just in case patient will need procedures while she is inpatient continue amiodarone and lopressor.
[2024-09-28] MEDS: FUROSEMIDE 40 MG TABLET PO SCH (16:28)
--- NOTE | 2024-09-28 19:50 | P.CNS ---
Date of Consult: 09/28/24 Reason for Consult: CKD Requesting Physician: Elio Valdes Chief Complaint: Palpitation History of Present Illness: 69 yrs old Female with past medical history of Anxiety,Asthma ,Atrial fibrillation,CHF,Depression, esophagus problem, Hypertension, RLS , h/o Defibrilator, pacemaker presents to ER with complaints of chest pain, dizzy, 3 kicks in the chest, has [employer]tronic pacemaker brought to ER with chest discomfort and dizziness. Associated with feeling dizzy and feeling generalized weakness. 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 Symptoms intermittent. Denies any shortness of breath. Has nausea but no vomiting. Denies any abdominal pain. Patient was noted to have pacemaker firing and was admitted for further management [id number] 20:18 This 69 yrs old Female presents to ER via EMS with complaints of chest pain, jono dizzy, 3 kicks in the chest, has medtronic defib. 20:18 The patient or guardian reports chest pain that is located primarily in the anterior jono chest wall, bilaterally. Onset: just prior to arrival. weak , dizzy, cp. The patient presents with dizziness, feeling faint, generalized weakness. Onset: The symptoms/episode began/occurred just prior to arrival, today. Context: occurred at a correction or assisted living facility. Modifying factors: The symptoms are alleviated by nothing, the symptoms are aggravated by nothing. Associated signs and symptoms: Pertinent positives: nausea. The pain does not radiate. Severity of symptoms: At their worst the symptoms were moderate in the emergency department the symptoms have improved moderately. Allergies No Known Allergies Allergy (Verified 12/22/17 01:16) Home medications list reviewed: Yes Home Medications: Thiamine HCl 100 mg FT DAILY 07/03/24 ALPRAZolam [Xanax*] 0.5 mg FT BID PRN 09/08/24 Acidophilus/Bifido Longum [Lactobacillus Capsule] 16 mg FT DAILY 09/08/24 Aspirin [Aspirin EC 81 MG] 81 mg FT DAILY 09/08/24 Atorvastatin Calcium [Lipitor] 40 mg FT BEDTIME 09/08/24 Mirtazapine 7.5 mg FT BEDTIME 09/08/24 OLANZapine [Olanzapine] 15 mg FT BEDTIME 09/08/24 Spironolactone 25 mg FT DAILY 09/08/24 Tamsulosin HCl [Flomax] 0.4 mg FT DAILY 09/08/24 Valproic Acid (As Sodium Salt) [Valproic Acid] 250 mg FT Q8HR 09/08/24 Zinc Sulfate 50 mg FT DAILY 09/08/24 modafiniL [Modafinil] 100 mg FT BEDTIME 09/08/24 Bumetanide [Bumex*] 1 mg PO BID tab 09/16/24 Sacubitril/Valsartan [Entresto 24 mg-26 mg Tablet] 0.5 tab PO BID tab 09/16/24 Amiodarone HCl [Cordarone*] 200 mg PO DAILY #30 tab 09/21/24 Clopidogrel Bisulfate [Plavix] 75 mg PO DAILY #30 tab 09/21/24 Magnesium Chloride [Slow-Mag] 64 mg PO DAILY #30 tab 09/21/24 Metoprolol Tartrate [Lopressor*] 50 mg PO TID #90 tab 09/24/24 Midodrine HCl [Proamatine*] 10 mg PO TID #90 tab 09/24/24 - Past Medical/Surgical History Diabetic: No -: Squamous Cell Carcinoma Left Ear -: IMPLANTED CARDIOVERTER (ICD) -: GERD/hiatal hernia -: Hypertension -: Depression/anxiety -: Systolic CHF -: A-fib -: NSTEMI -: Esophageal stenosis -: Dysphagia -: hernia repair -: tubal ligation -: 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 - Family History Father Medical History: Heart disease, Hypertension Mother Medical History: Heart disease, Hypertension Brother Medical History: Hypertension Sister Medical History: Hypertension Notes: per patient reports anxiety and high blood pressure for past medical history - Social History Smoking Status: Unknown if ever smoked Alcohol use: No CD- Drugs: No Caffeine use: Yes Place of Residence: Assisted Review of Systems 10-point ROS is otherwise unremarkable General: Weakness Physical Examination Temp Pulse Resp BP Pulse Ox 98.4 F 86 20 112/90 97 09/28/24 16:00 09/28/24 16:00 09/28/24 16:00 09/28/24 16:00 09/28/24 16:00 General: In no apparent distress, Oriented x3, Cooperative HEENT: Atraumatic Neck: Supple Respiratory: Clear to auscultation bilaterally Cardiovascular: No edema, Regular rate/rhythm Gastrointestinal: Soft and benign, Non-distended Musculoskeletal: No clubbing, No contractures Integumentary: No rashes, No cyanosis Neurological: Normal speech Laboratory Data (last 24 hrs) 09/27/24 09/27/24 09/27/24 22:29 22:29 22:29 WBC 9.10 Hgb 9.5 L Hct 29.4 L Plt Count 270 PT 12.2 INR 1.09 APTT Cancelled Sodium Cancelled Potassium Cancelled BUN Cancelled Creatinine Cancelled Glucose Cancelled Magnesium Total Bilirubin Cancelled AST Cancelled ALT Cancelled Alkaline Phosphatase Cancelled Lipase 09/27/24 09/27/24 22:29 19:25 WBC Hgb Hct Plt Count PT Cancelled INR Cancelled APTT Sodium 141 Potassium 3.8 BUN 23 H Creatinine 1.08 H Glucose 91 Magnesium 1.6 Total Bilirubin 0.4 AST 13 L ALT < 14 Alkaline Phosphatase 150 H Lipase 21 Imagings Data: [id number] EXAMINATION: ONE VIEW CHEST XR CLINICAL INDICATION: Chest pain;Pain TECHNIQUE: Frontal chest projection is submitted. Examination is limited by patient positioning and technique. COMPARISON: 09/15/2024 FINDINGS: The lungs are well inflated and clear. Heart is mildly enlarged. No displaced fractures identified. Multilead pacer/defibrillator device present. IMPRESSION: No acute intrathoracic abnormalities. [address] EXAM: CT CHEST, ABDOMEN AND PELVIS WITHOUT CONTRAST CLINICAL INDICATION: PAIN TECHNIQUE: CT chest, abdomen and pelvis was performed without contrast, as per department protocol. Axial, sagittal and coronal reconstructions were obtained. One or more of the following dose reduction techniques were used: Automated exposure control, adjustment of the mA and/or kV according to patient size, and/or iterative reconstruction. Unless otherwise specified, incidental findings do not require dedicated imaging follow-up. Examination is limited by the lack of intravenous contrast material. COMPARISON: No prior exam. FINDINGS: LUNGS: Mild subsegmental atelectasis is seen in both lung bases. PLEURA: Small bilateral pleural effusions. MEDIASTINUM AND LYMPH NODES: No mediastinal mass or fluid collection. Normal size mediastinal, hilar, and axillary lymph nodes. Dual-lead pacer device. OSSEOUS STRUCTURES AND CHEST WALL: Intact. LIVER: Normal in size and contour. No focal lesion or biliary dilatation. Grossly unremarkable gallbladder. PANCREAS: No mass, ductal dilation, or mert-pancreatic fluid. SPLEEN: Normal size. No focal lesion. ADRENALS: Normal; no mass. KIDNEYS: 8 mm stone inferior calyx left kidney. No hydronephrosis. URINARY BLADDER: Normal contour. GASTROINTESTINAL TRACT: No bowel obstruction, free air, significant free fluid or abscess. Gastrostomy tube is in place. Sigmoid diverticulosis coli.. [id number] EXAMINATION: ONE VIEW CHEST XR CLINICAL INDICATION: Female, 69 years old.,PICC placement TECHNIQUE: Frontal chest projection is submitted. Examination is limited by patient positioning and technique. COMPARISON: 09/27/2024 FINDINGS: Right arm PICC in place with catheter tip at the level of the distal SVC. Retrocardiac opacity and probable bilateral effusions, stable. Mildly progressive right central interstitial prominence and right basilar atelectasis. No pneumothorax. Stable mild cardiomegaly Mediastinal contours are unchanged with left chest wall pacer in place. IMPRESSION: Satisfactory right arm PICC positioning. No pneumothorax. Mildly progressive central interstitial prominence may reflect progressive central congestion/CHF. Conclusions/Impression: CKD II -No NSAIDs Chronic Hypotension -Continue Midodrine Systolic Diastolic CHF, A/C -Continue Lasix Hypoalbuminenia -Start Ensure BID Anemia in chronic illness -Monitor H&H Hospitalist and ER notes reviewed Thank you kindly for the consultation
[2024-09-28] MEDS: ATORVASTATIN 40 MG TAB FT SCH (21:37)
[2024-09-29 05:39] LABS: Absolute Basophils 0.1 K/uL (0-0.5); Absolute Eosinophils 0.1 K/uL (0-0.5); Absolute Lymphocytes (CBC) 0.9 K/uL (0.7-4.9); Absolute Monocytes 0.7 K/uL (0.1-1.3); Absolute Neutrophil 5.8 K/uL (1.8-8.0); Basophils % 0.8 % (0-1.3); Eosinophils % 1.6 % (0-4.4); Hematocrit 31.6 % (36.0-45.0); Hemoglobin 10.1 g/dL (12.0-15.0); MCHC 31.8 g/dL (32.0-36.0); MCV 94.4 fL (80-100); MPV 8.8 fL (7.6-11.3); Neutrophils % 76.6 % (41.7-73.7); Platelets 451 thou/uL (152-406); RBC Red Blood Cell Count 3.35 M/uL (3.86-4.86); Red Cell Distribution Width 19.8 % (12.1-15.2)
[2024-09-29 05:48] LABS: AST/SGOT 14 U/L (15-37); Albumin 1.6 g/dL (3.4-5.0); Albumin/Globulin Ratio 0.4 (1.1-1.8); Alkaline Phosphatase 149 U/L (45-117); Anion Gap 6.3 mEq/L (5.0-15.0); BUN Blood Urea Nitrogen 23 mg/dL (7-18); Bicarbonate 31 mEq/L (21-32); Bilirubin Total 0.4 mg/dL (0.2-1.0); Globulin 3.7 g/dL (2.3-3.5); Glomerular Filtration Rate 56 ml/min (=/>90); Glucose Level 100 mg/dL (74-106); Magnesium 1.5 mg/dL (1.6-2.4); Potassium 4.3 mEq/L (3.5-5.1); Protein, Total 5.3 g/dL (6.4-8.2); Sodium Level 139 mEq/L (136-145)
[2024-09-29 06:00] LABS: ALT/SGPT < 14 U/L (13-56)
[2024-09-29] MEDS: ENSURE MAX PROTEIN 330 ML LIQUID PO SCH (08:30)
[2024-09-29] MEDS: CLOPIDOGREL 75 MG TABLET PO SCH (08:57)
[2024-09-29] MEDS: Magnesium Sulfate 2gm IVPB 2 G/50 ML BAG IV ONE (08:58)
[2024-09-29] MEDS: LACTOBACILLUS/ACIDOPHILUS TAB PO SCH (08:58)
--- NOTE | 2024-09-29 11:20 | P.PN ---
Date of Service: 09/29/24 Subjective: no further AICD shocks overnight HR remains paced in 60-80s , v paced denies chest pain afebrile ROS: 10 point ROS as noted above, otherwise negative Physical Exam: GEN: Alert, NAD CV: V paced rhythm, no edema Pulm: Nonlabored respirations on 2L NC ABD: soft, nontender, PEG in place with slight irritation around Neuro: Normal speech, normal affect Problem List: Chest pain s/p multiple AICD shocks Dizziness Hx Atrial fibrillation Hx CAD Lactic acidosis Hx Dysphagia / esophageal stenosis Chronic systolic/diastolic CHF (HFrEF 30-35%) Hypertension Anxiety/Depression GERD Asthma Chest pain s/p multiple AICD shocks Dizziness Hx Atrial fibrillation Hx CAD Patient presents to ED with chest pain, shortness of breath, dizziness after multiple pacemaker/defib shocks over the last 2 days Recent prolonged hospitalization at [facility] from 07/30-09/07. previously transferred to [facility] 07/30/24 for high risk NSTEMI, hypotension, cardiogenic shock. LHC (07/30/24): patent LM, prox-LAD 30-40% stenosis, prox-OM2 70% stenosis, and PLV sub-total occulusion; none of these lesions felt likely to explain profound shock, therefore revascularization deferred at [facility] she required intubation and placed on ecmo for cardiogenic shock, CHF exacerbation. Extubated 08/12. at the time also s/p crrt for JAVAD, s/p 10 days of IV cefepime for whitaker- sensitive PSA PNA. Had PEG placed 09/03 after speech deemed her unsafe to swallow / high risk of aspiration. After discharge from [facility] 09/07, patient at SNF for 1 day then admitted here 09/08-09/24 for acute resp failure, c.diff. Echocardiogram (07/31/24): LVEF severely reduced (<20%). severely enlarged LV. RV systolic function is reduced. at least moderate TR. Large circumferential pericardial effusion without evidence of pericardial tamponade Arterial Doppler LLE post ECMO (07/31/24): The superficial femoral (mid-distal), popliteal, posterior tibial(distal), peroneal and anterior tibial arteries are patent with monophasic doppler waveforms consistent with ECMO. The common femoral, profunda femoral, and proximal superficial femoral are not visualized. There is no flow seen in the proximal-mid posterior tibial artery. Pacemaker interrogated in ED. Sent to [employer] for review 7 shocks for VF/VT resume home amiodarone, midodrine, plavix, metoprolol amio increased to 200 mg BID 09/28 troponins negative x3 Monitor on telemery Cardiology, nephrology consulted Lactic acidosis, resolved Hx Dysphagia / esophageal stenosis has PEG in place. placed 09/03 during last hospitalization at [facility]. CT abdomen (09/27): Mild ascites is noted with mild pneumoperitoneum. Sigmoid diverticulosis coli. Small bilateral pleural effusions. Patient with diarrhea last admission. Treated for C.diff last hospitalization (Ag pos, tox neg), urine cx (09/08): also grew 3+ yeast at the time. Previously grew Laquita Albicans on 08/27 at [facility] Patient reports redness, itchyness around PEG tube site. Currently denies fever, chills, diarrhea On exam PEG not properly secured, fixed by Dr. Cespedes this morning. s/p PEG / not fully secured would explain pneumoperitoneum; otherwise patient has benign abdomen on exam. lactate resolved 3.8 -> 1.4 no evidence of infection lactic acid likely secondary to VF/Vt / defibrillations abx dc'd 09/28 Speech cleared patient for soft, bite sized foods during last admission 09/18. Patient eating overnight/this morning without any issues. Resume heart healthy diet Chronic systolic/diastolic CHF (HFrEF 30-35%) Hypertension Anxiety/Depression GERD Asthma confirm home meds, restart as appropriate VTE: Lovenox Code: Full anticipate dc back to SNF Tue- Time Spent Managing Pts Care (In Minutes): 45
[2024-09-29] MEDS: HYDROCODONE/APAP 5/325 MG TAB PO PRN (13:24)
[2024-09-29] MEDS: MELATONIN 3 MG TABLET PO PRN (20:27)
[2024-09-30 05:05] LABS: Albumin 1.7 g/dL (3.4-5.0); Anion Gap 8.5 mEq/L (5.0-15.0); Magnesium 1.9 mg/dL (1.6-2.4); Phosphorus 3.5 mg/dL (2.5-4.9); Potassium 4.5 mEq/L (3.5-5.1)
--- NOTE | 2024-09-30 09:13 | P.PN ---
Date of Service: 09/30/24 Subjective: no further AICD shocks since admission denies chest pain tolerating diet without issues denies trouble breathing no events overnight ROS: 10 point ROS as noted above, otherwise negative Physical Exam: GEN: Alert, NAD CV: V paced rhythm, no edema Pulm: Nonlabored respirations on 2L NC ABD: soft, nontender, PEG in place with slight irritation around Neuro: Normal speech, normal affect Problem List: Chest pain s/p multiple AICD shocks Dizziness Hx Atrial fibrillation Hx CAD Lactic acidosis Hx Dysphagia / esophageal stenosis Chronic systolic/diastolic CHF (HFrEF 30-35%) Hypertension Anxiety/Depression GERD Asthma Chest pain s/p multiple AICD shocks Dizziness Hx Atrial fibrillation Hx CAD Patient presents to ED with chest pain, shortness of breath, dizziness after multiple pacemaker/defib shocks over the last 2 days Recent prolonged hospitalization at [facility] from 07/30-09/07. previously transferred to [facility] 07/30/24 for high risk NSTEMI, hypotension, cardiogenic shock. LHC (07/30/24): patent LM, prox-LAD 30-40% stenosis, prox-OM2 70% stenosis, and PLV sub-total occulusion; none of these lesions felt likely to explain profound shock, therefore revascularization deferred See prior notes for more info on prior hospitalizations. Pacemaker interrogated in ED. Sent to [employer] for review 7 shocks for VF/VT no further shocks since admission resume home amiodarone, midodrine, plavix, metoprolol amio increased to 200 mg BID 09/28 troponins negative x3 Monitor on telemery Cardiology, nephrology are following Lactic acidosis, resolved Hx Dysphagia / esophageal stenosis has PEG in place. placed 09/03 during last hospitalization at [facility]. CT abdomen (09/27): Mild ascites is noted with mild pneumoperitoneum. Sigmoid diverticulosis coli. Small bilateral pleural effusions. Patient with diarrhea last admission. Treated for C.diff last hospitalization (Ag pos, tox neg), urine cx (09/08): also grew 3+ yeast at the time. Previously grew Laquita Albicans on 08/27 at [facility] Patient reports redness, itchyness around PEG tube site. Currently denies fever, chills, diarrhea On exam PEG not properly secured, fixed by Dr. Cespedes this morning. s/p PEG / not fully secured would explain pneumoperitoneum; otherwise patient has benign abdomen on exam. lactate resolved 3.8 -> 1.4 no evidence of infection. abx dc'd 09/28 lactic acid likely secondary to VF/Vt / defibrillations Speech cleared patient for soft, bite sized foods during last admission 09/18. Patient eating overnight/this morning without any issues. Resume heart healthy diet tolerating diet, denies pains. Chronic systolic/diastolic CHF (HFrEF 30-35%) Hypertension Anxiety/Depression GERD Asthma confirm home meds, restart as appropriate VTE: Lovenox Code: Full Dispo: SNF, needs new auth, can't be done over the weekend Time Spent Managing Pts Care (In Minutes): 45
[2024-09-30] MEDS: SACUBITRIL/VALSARTAN 24/26 MG TAB PO SCH (09:41)
[2024-10-01 05:49] LABS: Albumin 1.7 g/dL (3.4-5.0); Anion Gap 7.4 mEq/L (5.0-15.0); Magnesium 1.8 mg/dL (1.6-2.4); Phosphorus 3.8 mg/dL (2.5-4.9); Potassium 4.4 mEq/L (3.5-5.1)
[2024-10-01] MEDS: MAGNESIUM SULFATE 1 gm IVPB 1 GM/100 ML BAG IV ONE (08:19)
--- NOTE | 2024-10-01 11:22 | P.PN ---
Date of Service: 10/01/24 Subjective: Paced rhythm on tele No events overnight No further reported shocks Pending SNF auth afebrile ROS: 10 point ROS as noted above, otherwise negative Physical Exam: GEN: Alert, NAD CV: V paced rhythm, no edema Pulm: Nonlabored respirations on room air ABD: soft, nontender, PEG in place small bulge at left groin, nontender Neuro: Normal speech, normal affect Problem List: Chest pain s/p multiple AICD shocks Dizziness Hx Atrial fibrillation Hx CAD Lactic acidosis Hx Dysphagia / esophageal stenosis Chronic systolic/diastolic CHF (HFrEF 30-35%) Hypertension Anxiety/Depression GERD Asthma Chest pain s/p multiple AICD shocks Dizziness Hx Atrial fibrillation Hx CAD Patient presents to ED with chest pain, shortness of breath, dizziness after multiple pacemaker/defib shocks over the last 2 days Recent prolonged hospitalization at [facility] from 07/30-09/07. previously transferred to [facility] 07/30/24 for high risk NSTEMI, hypotension, cardiogenic shock. LHC (07/30/24): patent LM, prox-LAD 30-40% stenosis, prox-OM2 70% stenosis, and PLV sub-total occlusion; none of these lesions felt likely to explain profound shock, therefore revascularization deferred See prior notes for more info on prior hospitalizations. Pacemaker interrogated in ED. Sent to [employer] for review 7 shocks for VF/VT no further shocks since admission resume home amiodarone, midodrine, plavix, metoprolol amio increased to 200 mg BID 09/28 troponins negative x3 Monitor on telemery Cardiology, nephrology are following mild uptrend in Cr - dc lasix, suspect prerenal U/S ordered to eval left groin - ?pseudoaneurysm Lactic acidosis, resolved Hx Dysphagia / esophageal stenosis has PEG in place. placed 09/03 during last hospitalization at [facility]. CT abdomen (09/27): Mild ascites is noted with mild pneumoperitoneum. Sigmoid diverticulosis coli. Small bilateral pleural effusions. Patient with diarrhea last admission. Treated for C.diff last hospitalization (Ag pos, tox neg), urine cx (09/08): also grew 3+ yeast at the time. Previously grew Laquita Albicans on 08/27 at [facility] Patient reports redness, itchiness around PEG tube site. Currently denies fever, chills, diarrhea On exam PEG not properly secured, fixed by Dr. Cespedes this morning. s/p PEG / not fully secured would explain pneumoperitoneum; otherwise patient has benign abdomen on exam. lactate resolved 3.8 -> 1.4 no evidence of infection. abx dc'd 09/28 lactic acid likely secondary to VF/Vt / defibrillations Speech cleared patient for soft, bite sized foods during last admission 09/18. Patient eating overnight/this morning without any issues. Resume heart healthy diet tolerating diet, denies pains. Chronic systolic/diastolic CHF (HFrEF 30-35%) Hypertension Anxiety/Depression GERD Asthma VTE: Lovenox Code: Full Dispo: back to SNF, pending auth Time Spent Managing Pts Care (In Minutes): 45
--- NOTE | 2024-10-01 12:07 | EKG ---
Test Date: 2024-09-27 Test Time: 19:13:14 Retail Beauty Specialist: FERNANDO MEASUREMENT RESULTS: Intervals: Rate: 109 GA: QRSD: 146 QT: 406 QTc: 546 [place]: P: GA: QRS: -74 T: 120 INTERPRETIVE STATEMENTS: Electronic ventricular pacemaker Compared to ECG 09/22/2024 05:08:41 No significant changes Electronically Signed On 10-01-24 12:02:54 EMPLOYMENT COORDINATOR by Stevenson Coats
--- NOTE | 2024-10-01 13:06 | P.PN ---
Subjective Date of Service: 10/01/24 Chief Complaint: Palpitation Subjective: No new changes, No C/O voiced, Tolerating diet, Ambulating, Improving Review of Systems 10-point ROS is otherwise unremarkable Physical Examination - Vital Signs Temperature: 97.4 F Blood Pressure: 103/66 Pulse: 108 Respirations: 18 Pulse Ox (%): 94 - Physical Exam General: Alert, In no apparent distress HEENT: Atraumatic, PERRLA, EOMI Neck: Supple, JVD not distended Respiratory: Clear to auscultation bilaterally, Normal air movement Cardiovascular: Regular rate/rhythm, Normal S1 S2 Gastrointestinal: Normal bowel sounds, No tenderness Musculoskeletal: No tenderness Integumentary: No rashes Neurological: Normal speech, Normal tone, Normal affect Lymphatics: No axilla or inguinal lymphadenopathy - Studies Medications List Reviewed: Yes Assessment And Plan - Current Problems (Diagnosis) (1) Ventricular tachyarrhythmia Current Visit: Yes Status: Acute Plan: patient device interrogations shows 7-8 shocks for VF/VT, no shocks during hospital stay so far continue Amiodarone to 200 mg po BID Continue Lopressor 50 TID correct electrolytes (K>4, Mg>2). continue to monitor on tele. (2) Coronary artery disease Current Visit: Yes Status: Acute Plan: Patient recent coronary angiogram at [facility] shows mild LAD, significant OM2 and RPLB disease, patient troponin are negative. continue ASA 81 mg daily (3) Acute on chronic combined systolic and diastolic CHF, NYHA class 3 Current Visit: No Status: Acute Plan: patient creatinine is trending up, looks dry stop lasix continue entresto low dose monitor kidney function. Monitor input and output and electrolytes. (4) Atrial fibrillation Current Visit: No Status: Acute Plan: hold anticoagulation for now, just in case patient will need procedures while she is inpatient continue amiodarone and lopressor. (5) Localized swelling, mass and lump, left lower limb Current Visit: Yes Status: Acute Plan: left groin area shows a swelling, concerns for pseudoaneyrsm since patient had prior surgical clips in that area for most likely ECMO cut down. get US duplex of the area.
[2024-10-01 16:11] LABS: Specific Gravity 1.009 (1.005-1.030); Urine Bilirubin NEGATIVE (Negative); Urine Blood Negative (Negative); Urine Clarity Turbid (Clear); Urine Color Light-Yellow (Yellow); Urine Glucose NEGATIVE (Negative); Urine Ketones NEGATIVE (Negative); Urine Microscopic Reflex YN NO UMIC; Urine Nitrite NEGATIVE (Negative); Urine Protein NEGATIVE (Negative); Urine Urobilinogen Normal (Normal)
--- NOTE | 2024-10-01 23:15 | RAD REPORT ---
EXAM: US Extremity Nonvascular Complete HISTORY: swelling - localized at L groin COMPARISON: CT chest, abdomen, pelvis 09/27/2024 TECHNIQUE: Sonographic grayscale and color flow imaging of the left groin including the region of int erest as described by the patient. FINDINGS: Lobulated septated anechoic fluid collection in the cutaneous left groin region, measuring up to 5.7 x 3.6 x 2.7 cm. Septations are thin. No calcifications. No solid components. No vascular communication flow is appreciated IMPRESSION: Marginally septated lobulated 5.7 cm fluid collection in the left groin, nonspecific, but may represe nt a seroma.
[2024-10-02] MEDS: ALPRAZOLAM 0.5 MG TABLET FT PRN (04:28)
--- NOTE | 2024-10-02 10:34 | P.PN ---
Subjective Date of Service: 10/02/24 Chief Complaint: Palpitation Subjective: No new changes, No C/O voiced, Tolerating diet, Ambulating, Improving Review of Systems 10-point ROS is otherwise unremarkable Physical Examination - Vital Signs Temperature: 97 F Blood Pressure: 106/75 Pulse: 79 Respirations: 18 Pulse Ox (%): 92 - Physical Exam General: Alert, In no apparent distress HEENT: Atraumatic, PERRLA, EOMI Neck: Supple, JVD not distended Respiratory: Clear to auscultation bilaterally, Normal air movement Cardiovascular: Regular rate/rhythm, Normal S1 S2 Gastrointestinal: Normal bowel sounds, No tenderness Musculoskeletal: No tenderness Integumentary: No rashes Neurological: Normal speech, Normal tone, Normal affect Lymphatics: No axilla or inguinal lymphadenopathy - Studies Medications List Reviewed: Yes Assessment And Plan - Current Problems (Diagnosis) (1) Ventricular tachyarrhythmia Current Visit: Yes Status: Acute Plan: patient device interrogations shows 7-8 shocks for VF/VT, no shocks during hospital stay so far continue Amiodarone to 200 mg po BID Continue Lopressor 50 TID (Please do not hold unless systolic BP less than 100 mmHg) correct electrolytes (K>4, Mg>2). continue to monitor on tele. (2) Coronary artery disease Current Visit: Yes Status: Acute Plan: Patient recent coronary angiogram at [facility] shows mild LAD, significant OM2 and RPLB disease, patient troponin are negative. continue ASA 81 mg daily (3) Acute on chronic combined systolic and diastolic CHF, NYHA class 3 Current Visit: No Status: Acute Plan: patient creatinine is trending up, looks dry may resume Lasix 20 mg daily on discharge. continue lopressor continue spironlactone continue entresto low dose monitor kidney function. Monitor input and output and electrolytes. (4) Atrial fibrillation Current Visit: No Status: Acute Plan: restart patient on Eliquis 5 mg po BID continue amiodarone and lopressor. (5) Localized swelling, mass and lump, left lower limb Current Visit: Yes Status: Acute Plan: left groin area shows a swelling, US done and shows possible seroma, recommend heat pad compression and surgical consult.
--- NOTE | 2024-10-02 12:29 | P.PN ---
(S) Pt seen lying in bed, no acute complaints such as CP or dyspnea, SBP in the 100s. (O) vitals reviewed in the EMR General: In no apparent distress, Oriented x3, Cooperative HEENT: Atraumatic, not on O2 Neck: Supple Respiratory: no wheezing or rhonchi appreciated Cardiovascular: No sig edema, non tachy Gastrointestinal: Soft and benign, Non-distended Musculoskeletal: No contractures Integumentary: No rashes Neurological: Normal speech Conclusions/Impression: Prior Stage II JAVAD episode in Jun, fluctuating renal function tests since. Probable earlier stage CKD NOS, underlying -Hemodynamic factors, use of ANDRES inhibitors, lower BP at times along with diuretics likely to account for some of the mild upward rise in levels. Cont to monitor closely Systolic + Diastolic CHF, chronic -No signs of hypervolemia currently, diuretics paused currently, but will need to review lower dose maintenance loop diuretic/MRA on discharge. -Cont low dose Entresto if BP allows, apply holding parameters Hypotension, other Caution with use of Midodrine as currently max dose ordered
[2024-10-02] MEDS: ACETAMINOPHEN 325 MG TABLET PO PRN (14:35)
--- NOTE | 2024-10-02 14:50 | P.PN ---
Subjective Date of Service: 10/02/24 Chief Complaint: Palpitation Patient denies any new complaint. She is awake and alert, tolerating diet. No issues overnight. She denies any chest pain. Physical Examination - Vital Signs Temperature: 97.2 F Blood Pressure: 107/66 Pulse: 76 Respirations: 18 Pulse Ox (%): 100 - Studies Medications List Reviewed: Yes Assessment And Plan - Plan Physical Exam: GEN: Alert, NAD CV: V paced rhythm, no edema Pulm: Nonlabored respirations on room air ABD: soft, nontender, PEG in place small bulge at left groin, nontender Neuro: Normal speech, normal affect Problem List: Chest pain s/p multiple AICD shocks Dizziness Hx Atrial fibrillation Hx CAD Lactic acidosis Hx Dysphagia / esophageal stenosis Chronic systolic/diastolic CHF (HFrEF 30-35%) Hypertension Anxiety/Depression GERD Asthma Chest pain s/p multiple AICD shocks Dizziness Hx Atrial fibrillation Hx CAD Chronic systolic/diastolic CHF (HFrEF 30-35%) Patient presents to ED with chest pain, shortness of breath, dizziness after multiple pacemaker/defib shocks over the last 2 days Recent prolonged hospitalization at [facility] from 07/30-09/07. previously transferred to [facility] 07/30/24 for high risk NSTEMI, hypotension, cardiogenic shock. [facility] (07/30/24): patent LM, prox-LAD 30-40% stenosis, prox-OM2 70% stenosis, and PLV sub-total occlusion; none of these lesions felt likely to explain profound shock, therefore revascularization deferred Pacemaker interrogated in ED. Sent to [facility] for review 7 shocks for VF/VT no further shocks since admission Continue plavix metoprolol as his BP will tolerate. Midodrine as needed Amiodarone increased to 200 mg BID 09/28 troponins negative x3 Monitor on telemery Cardiology, nephrology are following Serum creatinine trended up. Lasix is on hold. Monitor renal function. Left groin mass U/S reviewed and report seroma. No further intervention. Lactic acidosis, resolved Hx Dysphagia / esophageal stenosis has PEG in place. placed 09/03 during last hospitalization at [facility]. CT abdomen (09/27): Mild ascites is noted with mild pneumoperitoneum. Sigmoid diverticulosis coli. Small bilateral pleural effusions. On exam PEG not properly secured, fixed by Dr. Cespedes. Lactic acidosis resolved. no evidence of infection. Patient was briefly on antibiotics. lactic acid likely secondary to VF/Vt / defibrillations Swallow evaluation done by speech therapy previous admission and soft, bite sized foods recommended. Patient eating with no issues. Anxiety/Depression Continue alprazolam VTE: Lovenox Code: Full Dispo: back to SNF, pending auth
[2024-10-02] MEDS: SACUBITRIL/VALSARTAN 24/26 MG TAB PO SCH (20:06)
[2024-10-03 08:44] VITALS: O2SAT 96
--- NOTE | 2024-10-03 11:09 | P.PN ---
(S) Pt seen sitting up in chair, reports both some othostatic symptoms and dyspnea with walking earlier (O) vitals reviewed in the EMR General: In no apparent distress, Oriented x3, Cooperative HEENT: Atraumatic, not on O2 Neck: Supple Respiratory: no wheezing or rhonchi appreciated Cardiovascular: No sig edema, non tachy Gastrointestinal: Soft and benign, Non-distended Musculoskeletal: No contractures Integumentary: No rashes Neurological: Normal speech Conclusions/Impression: Prior Stage II JAVAD episode in Jun, fluctuating renal function tests since. Probable earlier stage CKD NOS, underlying -Hemodynamic factors, use of ANDRES inhibitors, lower BP at times along with diuretics likely to account for some of the mild upward rise in levels. Cont to monitor closely, no new labs this AM Systolic + Diastolic CHF, chronic -No signs of hypervolemia currently, diuretics paused currently, but will need to review lower dose maintenance loop diuretic/MRA on discharge. -Cont low dose Entresto if BP allows, apply holding parameters Hypotension, other Caution with use of Midodrine as currently max dose ordered
[2024-10-03 16:39] LABS: Anion Gap 6.4 mEq/L (5.0-15.0); Potassium 4.4 mEq/L (3.5-5.1)
--- NOTE | 2024-10-03 17:55 | P.PN ---
Subjective Date of Service: 10/03/24 Chief Complaint: Palpitation Patient denies any new complaint. She is tolerating diet. Functional status is improving. No issues overnight. Physical Examination - Vital Signs Temperature: 97.7 F Blood Pressure: 117/75 Pulse: 67 Respirations: 20 Pulse Ox (%): 90 - Studies Microbiology Data (last 24 hrs): 09/27/24 19:25 Blood - Blood Aerobic Blood Culture - Final No growth in 5 days. 09/27/24 19:25 Blood - Blood Anaerobic Blood Culture - Final No growth in 5 days. Medications List Reviewed: Yes Assessment And Plan - Plan Physical Exam: GEN: Alert, NAD CV: V paced rhythm, no edema Pulm: Nonlabored respirations on room air ABD: soft, nontender, PEG in place Extremities: small bulge at left groin, nontender Neuro: Normal speech, normal affect, no focal motor deficit Problem List: Chest pain s/p multiple AICD shocks Dizziness Hx Atrial fibrillation Hx CAD Lactic acidosis Hx Dysphagia / esophageal stenosis Chronic systolic/diastolic CHF (HFrEF 30-35%) Hypertension Anxiety/Depression GERD Asthma Chest pain s/p multiple AICD shocks Dizziness Hx Atrial fibrillation Hx CAD Chronic systolic/diastolic CHF (HFrEF 30-35%) Patient presents to ED with chest pain, shortness of breath, dizziness after multiple pacemaker/defib shocks over the last 2 days Recent prolonged hospitalization at [facility] from 07/30-09/07. previously transferred to [facility] 07/30/24 for high risk NSTEMI, hypotension, cardiogenic shock. [facility] (07/30/24): patent LM, prox-LAD 30-40% stenosis, prox-OM2 70% stenosis, and PLV sub-total occlusion; none of these lesions felt likely to explain profound shock, therefore revascularization deferred Pacemaker interrogated in ED. Sent to [facility] for review 7 shocks for VF/VT no further shocks since admission Continue plavix metoprolol as his BP will tolerate. Midodrine as needed Amiodarone increased to 200 mg BID 09/28. Continue current dose. troponins negative x3 Monitor on telemery Cardiology and nephrology are following Lasix is on hold due to increasing serum creatinine. Monitor renal function. Left groin mass Seroma U/S reviewed and report seroma. No further intervention. Lactic acidosis, resolved Hx Dysphagia / esophageal stenosis has PEG in place. placed 09/03 during last hospitalization at [facility]. CT abdomen (09/27): Mild ascites is noted with mild pneumoperitoneum. Sigmoid diverticulosis coli. Small bilateral pleural effusions. Lactic acidosis resolved. no evidence of infection. Patient was briefly on antibiotics. lactic acid likely secondary to VF/Vt / defibrillations Swallow evaluation done by speech therapy during previous admission and soft, bite sized foods recommended. Patient eating with no issues. Anxiety/Depression Continue alprazolam Impaired mobility Patient functional status is improved. She is able to ambulate 75 to 150 feet with a rolling walker and minimal assistance. Patient denied SNF placement. Disposition to home with home health for PT and detention. VTE: Lovenox Code: Full Dispo: Home with home health.
[2024-10-04 05:56] LABS: Absolute Basophils 0.1 K/uL (0-0.5); Absolute Eosinophils 0.4 K/uL (0-0.5); Absolute Lymphocytes (CBC) 1.5 K/uL (0.7-4.9); Basophils % 0.9 % (0-1.3); Eosinophils % 4.6 % (0-4.4); Hematocrit 28.4 % (36.0-45.0); Hemoglobin 9.1 g/dL (12.0-15.0); Lymphocytes % 16.3 % (15.3-44.8); MCH 30.1 pg (27.0-35.0); MCV 94.1 fL (80-100); Monocytes % 10.8 % (3.3-12.3); Neutrophils % 67.4 % (41.7-73.7); Platelets 554 thou/uL (152-406); RBC Red Blood Cell Count 3.01 M/uL (3.86-4.86); Red Cell Distribution Width 19.7 % (12.1-15.2)
[2024-10-04 11:21] LABS: Magnesium 1.9 mg/dL (1.6-2.4); Phosphorus 2.7 mg/dL (2.5-4.9)
--- NOTE | 2024-10-04 12:32 | P.PN ---
Subjective Date of Service: 10/04/24 Chief Complaint: Palpitation Patient denies any new complaint. She reports good sleep last night and no issues overnight. Physical Examination - Vital Signs Temperature: 97.5 F Blood Pressure: 98/59 Pulse: 71 Respirations: 18 Pulse Ox (%): 93 - Studies Medications List Reviewed: Yes Assessment And Plan - Plan Physical Exam: GEN: Alert, NAD CV: Regular rhythm, normal rate, no edema Pulm: Nonlabored respirations on room air ABD: soft, nontender, PEG in place Extremities: left groin fluctuant bulge, nontender Neuro: Normal speech, normal affect, no focal motor deficit Problem List: Chest pain s/p multiple AICD shocks Dizziness Hx Atrial fibrillation Hx CAD Lactic acidosis Hx Dysphagia / esophageal stenosis Chronic systolic/diastolic CHF (HFrEF 30-35%) Hypertension Anxiety/Depression GERD Asthma Chest pain s/p multiple AICD shocks Dizziness Hx Atrial fibrillation Hx CAD Chronic systolic/diastolic CHF (HFrEF 30-35%) Patient presents to ED with chest pain, shortness of breath, dizziness after multiple pacemaker/defib shocks over the last 2 days Recent prolonged hospitalization at [facility] from 07/30-09/07. previously transferred to [facility] 07/30/24 for high risk NSTEMI, hypotension, cardiogenic shock. [facility] (07/30/24): patent LM, prox-LAD 30-40% stenosis, prox-OM2 70% stenosis, and PLV sub-total occlusion; none of these lesions felt likely to explain profound shock, therefore revascularization deferred Pacemaker interrogated in ED. Sent to [employer] for review 7 shocks for VF/VT no further shocks since admission Continue plavix metoprolol as his BP will tolerate. Midodrine as needed Amiodarone increased to 200 mg BID 09/28. Continue current dose. troponins negative x3 Monitor on telemery Cardiology and nephrology are following Serum creatinine trended down. Patient appear compensated for CHF. Continue to hold Lasix for now. Monitor renal function. Left groin mass Seroma U/S reviewed and report seroma. No further intervention. Lactic acidosis, resolved Hx Dysphagia / esophageal stenosis has PEG in place. placed 09/03 during last hospitalization at [facility]. CT abdomen (09/27): Mild ascites is noted with mild pneumoperitoneum. Sigmoid diverticulosis coli. Small bilateral pleural effusions. Lactic acidosis resolved. no evidence of infection. Patient was briefly on antibiotics. lactic acid likely secondary to VF/Vt / defibrillations Swallow evaluation done by speech therapy during previous admission and soft, bite sized foods recommended. Patient eating with no issues. Anxiety/Depression Continue alprazolam Impaired mobility Patient functional status is improved. She is able to ambulate 75 to 150 feet with a rolling walker and minimal assistance. Patient denied SNF placement. Disposition to home with home health for PT and assisted. VTE: Lovenox Code: Full Dispo: Home with home health.
[2024-10-05 03:31] VITALS: BP 130/81; TEMP 97.4
[2024-10-05 04:50] LABS: Absolute Basophils 0.1 K/uL (0-0.5); Absolute Eosinophils 0.5 K/uL (0-0.5); Absolute Lymphocytes (CBC) 1.4 K/uL (0.7-4.9); Absolute Monocytes 1.3 K/uL (0.1-1.3); Absolute Neutrophil 5.9 K/uL (1.8-8.0); Hematocrit 26.9 % (36.0-45.0); Hemoglobin 8.8 g/dL (12.0-15.0); Lymphocytes % 15.2 % (15.3-44.8); MCH 30.9 pg (27.0-35.0); MCHC 32.7 g/dL (32.0-36.0); MCV 94.7 fL (80-100); MPV 8.1 fL (7.6-11.3); Monocytes % 14.6 % (3.3-12.3); Neutrophils % 64.2 % (41.7-73.7); Platelets 545 thou/uL (152-406); RBC Red Blood Cell Count 2.84 M/uL (3.86-4.86); Red Cell Distribution Width 19.7 % (12.1-15.2)
[2024-10-05 05:02] LABS: Anion Gap 3.9 mEq/L (5.0-15.0); Potassium 3.9 mEq/L (3.5-5.1)
[2024-10-05] MEDS: POTASSIUM CL SA 10 MEQ TAB PO ONE (08:42)
--- NOTE | 2024-10-05 12:29 | P.PN ---
Subjective Date of Service: 10/05/24 Chief Complaint: Palpitation Patient has no new complaint. She is tolerating oral diet. No issues overnight. Physical Examination - Vital Signs Temperature: 97.4 F Blood Pressure: 130/81 Pulse: 77 Respirations: 18 Pulse Ox (%): 95 - Studies Medications List Reviewed: Yes Assessment And Plan - Plan Physical Exam: GEN: Alert, NAD CV: Regular rhythm, normal rate, no edema Pulm: Nonlabored respirations on room air, clear to auscultation bilateral. ABD: soft, nontender, PEG in place Extremities: left groin fluctuant bulge, nontender Neuro: Normal speech, normal affect, no focal motor deficit Problem List: Chest pain s/p multiple AICD shocks Dizziness Hx Atrial fibrillation Hx CAD Lactic acidosis Hx Dysphagia / esophageal stenosis Chronic systolic/diastolic CHF (HFrEF 30-35%) Hypertension Anxiety/Depression GERD Asthma Plan: Chest pain s/p multiple AICD shocks Dizziness Hx Atrial fibrillation Hx CAD Chronic systolic/diastolic CHF (HFrEF 30-35%) Patient presents to ED with chest pain, shortness of breath, dizziness after multiple pacemaker/defib shocks over the last 2 days Recent prolonged hospitalization at [facility] from 07/30-09/07. previously transferred to [facility] 07/30/24 for high risk NSTEMI, hypotension, cardiogenic shock. [facility] (07/30/24): patent LM, prox-LAD 30-40% stenosis, prox-OM2 70% stenosis, and PLV sub-total occlusion; none of these lesions felt likely to explain profound shock, therefore revascularization deferred Pacemaker interrogated in ED. Sent to [employer] for review 7 shocks for VF/VT no further shocks since admission Continue plavix metoprolol as his BP will tolerate. Patient blood pressure has been mostly stable. Discontinue midodrine Amiodarone increased to 200 mg BID 09/28. Continue current dose. troponins negative x3 Cardiology and nephrology are following Serum creatinine improved. Patient appear compensated for CHF. Resume home B[employer]ex maintenance dose. Monitor renal function. Left groin mass Seroma U/S reviewed and report seroma. No further intervention. Lactic acidosis, resolved Hx Dysphagia / esophageal stenosis has PEG in place. placed 09/03 during last hospitalization at [facility]. CT abdomen (09/27): Mild ascites is noted with mild pneumoperitoneum. Sigmoid diverticulosis coli. Small bilateral pleural effusions. Lactic acidosis resolved. no evidence of infection. Patient was briefly on antibiotics. lactic acid likely secondary to VF/Vt / defibrillations Swallow evaluation done by speech therapy during previous admission and soft, bite sized foods recommended. Patient is tolerating current food consistencies. Anxiety/Depression Continue alprazolam Impaired mobility Patient functional status is improved. She is able to ambulate 75 to 150 feet with a rolling walker and minimal assistance. Patient denied SNF placement. Patient's brother is the insurance denial. Disposition to home with home health for PT. VTE: Lovenox Code: Full Dispo: Home with home health.
== END 2024-10-05 14:35 | disposition home health service (06) | DRG 308 ==
LOC: ER 19:00 → 3RD-ICU 09-28 00:52 → 2ND 09-28 14:10
PROVIDERS: ADMIT Family Medicine; ATTEND Internal Medicine
PROC: 02HV33Z Insertion of Infusion Device into Superior Vena Cava, Percutaneous Approach (ICD-10-PCS; principal; 2024-09-28)
DX: I47.20 Ventricular tachycardia, unspecified (principal); I50.43 Acute on chronic combined systolic (congestive) and diastolic (congestive) heart failure; E87.20 Acidosis, unspecified; I13.0 Hypertensive heart and chronic kidney disease with heart failure and stage 1 through stage 4 chronic kidney disease, or unspecified chronic kidney disease; R18.8 Other ascites; N17.9 Acute kidney failure, unspecified; N18.2 Chronic kidney disease, stage 2 (mild); D63.1 Anemia in chronic kidney disease; I95.89 Other hypotension; I48.91 Unspecified atrial fibrillation; K21.9 Gastro-esophageal reflux disease without esophagitis; F41.9 Anxiety disorder, unspecified; E88.09 Other disorders of plasma-protein metabolism, not elsewhere classified; F32.A Depression, unspecified; K57.30 Diverticulosis of large intestine without perforation or abscess without bleeding; I25.10 Atherosclerotic heart disease of native coronary artery without angina pectoris; I25.2 Old myocardial infarction; R22.42 Localized swelling, mass and lump, left lower limb; Z79.82 Long term (current) use of aspirin; Z79.899 Other long term (current) drug therapy; Z95.810 Presence of automatic (implantable) cardiac defibrillator
CPT/HCPCS: 36415; 36569; 71045; 71250; 74176; 76881; 80048; 80053; 80069; 80076; 80164; 81003; 82947; 83605; 83690; 83735; 83880; 84100; 84484; 85025; 85610; 87040; 93005; 94760; 97110; 97116; 97161; 97530; 97542; 99285; J0696; J1650; J2270; J2405; J3475; J7030

== ENCOUNTER 2024-10-08 11:33 | Emergency (ER) | payer OTHER ==
[2024-10-08 12:17] LABS: Absolute Basophils 0.1 K/uL (0-0.5); Absolute Eosinophils 0.5 K/uL (0-0.5); Absolute Lymphocytes (CBC) 1.1 K/uL (0.7-4.9); Absolute Monocytes 1.1 K/uL (0.1-1.3); Absolute Neutrophil 6.6 K/uL (1.8-8.0); Basophils % 1.1 % (0-1.3); Eosinophils % 5.8 % (0-4.4); Hematocrit 30.6 % (36.0-45.0); Hemoglobin 9.7 g/dL (12.0-15.0); Lymphocytes % 11.6 % (15.3-44.8); MCHC 31.7 g/dL (32.0-36.0); MCV 94.6 fL (80-100); MPV 8.1 fL (7.6-11.3); Neutrophils % 69.5 % (41.7-73.7); Platelets 412 thou/uL (152-406); RBC Red Blood Cell Count 3.23 M/uL (3.86-4.86); Red Cell Distribution Width 20.1 % (12.1-15.2)
--- NOTE | 2024-10-08 12:23 | RAD REPORT ---
Procedure: Chest Single View HISTORY: Chest pain COMPARISON: September 2024 FINDINGS: The lungs appear clear of acute infiltrate. No significant pleural effusion noted. The heart is mildly to moderately enlarged. Pacemaker leads in place. IMPRESSION: No acute abnormality is displayed.
[2024-10-08 12:24] LABS: Protime INR 1.07
[2024-10-08 13:08] LABS: AST/SGOT 23 U/L (15-37); Albumin 1.8 g/dL (3.4-5.0); Albumin/Globulin Ratio 0.4 (1.1-1.8); Alkaline Phosphatase 142 U/L (45-117); BUN Blood Urea Nitrogen 25 mg/dL (7-18); Bicarbonate 27 mEq/L (21-32); Bilirubin Direct 0.2 mg/dL (0-0.2); Bilirubin Indirect, Calculated 0.1 mg/dL (0.2-0.8); Bilirubin Total 0.3 mg/dL (0.2-1.0); Globulin 4.2 g/dL (2.3-3.5); Glomerular Filtration Rate 56 ml/min (=/>90); Glucose Level 83 mg/dL (74-106); Magnesium 1.6 mg/dL (1.6-2.4); NT PRO-BNP 13507 pg/mL (<125); Sodium Level 139 mEq/L (136-145); Troponin High Sensitivity 48.4 pg/mL (<58.9)
[2024-10-08 13:11] LABS: ALT/SGPT < 14 U/L (13-56)
[2024-10-08 13:28] LABS: Blood Morphology Comment NOT SEEN (NOT SEEN); Platelet Estimate INCR; White Blood Cell Scan OK (OK)
[2024-10-08] MEDS ORDERED: FUROSEMIDE 20 MG/ 2ML VIAL ONE (13:59)
--- NOTE | 2024-10-08 15:09 | EDPHYS ---
Physician Documentation [facility] Name: Mandy Swain Age: 69 yrs Sex: Female : 1955 Arrival Date: 10/08/2024 Time: 11:33 Bed 4 Private MD: ED Physician Dougie Salazar HPI: 10/08 12:00 This 69 yrs old Female presents to ER via EMS with complaints of Chest Pain. sb4 12:00 Patient presents to ED with complaints of left sided chest pain with radiation to left sb4 arm that began this morning. She was recently admitted here for chest pain, shortness of breath, dizziness after multiple pacemaker/defib shocks. Troponins were negative. Pacemaker interrogated in ED, sent to [employer] for review which noted 7 recent shocks for VF/VT. Cardiology increased her home amiodarone to 200 mg twice a day from daily. Modafinil and midodrine were discontiued. Historical: - Allergies: 11:49 No Known Allergies; hb - Home Meds: 11:49 alprazolam 0.5 mg Oral Tablet [Active]; bumetanide 1 mg Oral tablet [Active]; Entresto hb 24-26 mg Oral tablet 1 tab 2 times per day [Active]; metoprolol succinate 25 mg Oral Tablet [Active]; midodrine 10 mg Oral tablet 1 tab 3 times per day [Active]; modafinil 100 mg Oral tablet [Active]; olanzapine 15 mg Oral tablet [Active]; Zinc Sulfate Oral [Active]; - PMHx: 11:42 Anxiety; Asthma; bp 11:49 CHF; Depression; esophagus problem; Atrial fibrillation; Hypertension; RLS (Depression);hb - PSHx: 11:42 PEG tube (ke); Defibrilator; pacemaker; bp - Immunization history:: Adult Immunizations up to date. - Infectious Disease History:: Denies. - Social history:: Smoking status: unknown. ROS: 14:01 Constitutional: Negative for fever, chills, and weight loss, sb4 14:01 Cardiovascular: Positive for chest pain, 14:01 All other systems are negative, Exam: 14:01 Head/Face: Normocephalic, atraumatic. Eyes: Extra-ocular motions intact. Periorbital sb4 areas with no swelling, redness, or edema. ENT: Mucous membranes moist. Cardiovascular: Regular rate and rhythm with a normal S1 and S2. Respiratory: No increased work of breathing, no retractions or nasal flaring. Skin: Warm, dry with normal turgor. Normal color with no rashes, no lesions, and no evidence of cellulitis. 14:01 Constitutional: The patient appears in no acute distress, alert, awake, 14:01 Cardiovascular: Edema: pedal edema, that is mild, Vital Signs: 11:40 BP 147 / 86; Pulse 60; Resp 16; Temp 98; Pulse Ox 97% ; bp 14:11 BP 118 / 88; Pulse 81; Resp 15; Pulse Ox 93% ; bp MDM: 11:35 Medical Screening Exam initiated sb4 14:04 Data reviewed: vital signs, nurses notes, EMS record, old medical records, inpatient sb4 documentation from recent admission lab test result(s), EKG, radiologic studies. Care significantly affected by the following chronic conditions: Hypertension, Congestive Heart Failure. Counseling: I had a detailed discussion with the patient and/or guardian regarding the historical points, exam findings, and any diagnostic results supporting the discharge/admit diagnosis, the presence of at least one elevated blood pressure reading (>120/80) during this emergency department visit, lab results, radiology results, the need for outpatient follow up, a body stylist, to return to the emergency department if symptoms worsen or persist or if there are any questions or concerns that arise at home. 10/08 11:35 Order name: Basic Metabolic Panel; Complete Time: 13:16 sb4 10/08 11:35 Order name: CBC with Diff; Complete Time: 13:30 sb4 10/08 11:35 Order name: LFT's; Complete Time: 13:16 sb4 10/08 11:35 Order name: Magnesium; Complete Time: 13:16 sb4 10/08 11:35 Order name: NT PRO-BNP; Complete Time: 13:16 sb4 10/08 11:35 Order name: PT-INR; Complete Time: 12:27 sb4 10/08 11:35 Order name: Troponin HS; Complete Time: 13:16 sb4 10/08 13:28 Order name: CBC Smear Scan; Complete Time: 13:30 EDMS 10/08 14:19 Order name: Troponin High Sensitivity; Complete Time: 15:06 sb4 10/08 11:35 Order name: XRAY Chest (1 view); Complete Time: 12:27 sb4 10/08 11:35 Order name: EKG; Complete Time: 11:36 sb4 10/08 11:35 Order name: Cardiac monitoring; Complete Time: 12:06 sb4 10/08 11:35 Order name: EKG - Nurse/Tech; Complete Time: 11:59 sb4 10/08 11:35 Order name: IV Saline Lock; Complete Time: 12:06 sb4 10/08 11:35 Order name: Labs collected and sent; Complete Time: 12:06 sb4 10/08 11:35 Order name: O2 Per Protocol; Complete Time: 12:06 sb4 10/08 11:35 Order name: O2 Sat Monitoring; Complete Time: 12:06 sb4 10/08 12:35 Order name: Labs - recollect needed: GREEN TOP; Complete Time: 12:35 hb 10/08 13:34 Order name: Misc. Order: repeat trop at 1430; Complete Time: 14:44 sb4 EC:57 Rate is 79 beats/min. Rhythm is regular, Paced. ID interval is normal at 152 msec. QRS sb4 interval is normal at 64 msec. QT interval is normal at 360 msec. No Q waves. T waves are Normal. No ST changes noted. Clinical impression: No evidence of ischemia. Interpreted by me. Reviewed by me. Administered Medications: 13:45 Drug: Furosemide IVP 20 mg IVP once; give over 2 minutes Route: IVP; Site: right bp forearm; Disposition Summary: 10/08/24 15:08 Discharge Ordered Notes: Location: Home sb4 Problem: new sb4 Symptoms: are resolved sb4 Condition: Stable sb4 Diagnosis - Chest pain, unspecified sb4 Followup: sb4 - With: Georges Mendoza MD - When: 2 - 3 days - Reason: Recheck today's complaints, Re-evaluation by your physician Followup: sb4 - With: Emergency Department - When: As needed - Reason: Trouble breathing, Worsening of condition Discharge Instructions: - Discharge Summary Sheet sb4 - Nonspecific Chest Pain, Adult, [id number] sb4 Forms: - Patient Portal Instructions sb4 - Leadership Thank You Letter sb4 Signatures: Dispatcher [employer] EDAshley Gonzalez RN RN Tito Butler RN RN Samantha Najera PA-C PAHerb sb4 Corrections: (The following items were deleted from the chart) 12:01 12:00 Amiodarone increased to 200 mg twice daily Modafinil and midodrine associated sb4 with increased risk of heart complications and they have been discontinued.. sb4 14:03 12:00 Patient presents to ED with chest pain, shortness of breath, dizziness after sb4 multiple pacemaker/defib shocks over the last 2 days. Troponins were negative x3. Chest xray negative for any acute findings. Pacemaker interrogated in ED, sent to [employer] for review which noted 7 recent shocks for VF/VT. Cardiology was consulted and recommending increasing her home amiodarone to 200 mg twice a day from daily. No further shocks since admission. Patient was feeling better, chest pain resolved, vitals stable, breathing okay on room air, and was deemed stable for discharge.Amiodarone increased to 200 mg twice daily Modafinil and midodrine associated with increased risk of heart complications and they have been discontinued.. sb4 14:20 14:20 Troponin High Sensitivity+C.LAB.BRZ ordered. EDMS EDMS
--- NOTE | 2024-10-08 15:09 | ER ---
Nurse's Notes [facility] Name: Mandy Swain Age: 69 yrs Sex: Female : 1955 Arrival Date: 10/08/2024 Time: 11:33 Bed 4 Private MD: Diagnosis: Chest pain, unspecified Presentation: 10/08 11:40 Chief complaint: EMS states: CHEST PAIN, RECENT DX CHF. Coronavirus screen: At this bp time, the client does not indicate any symptoms associated with coronavirus-19. Ebola Screen: No symptoms or risks identified at this time. Initial Sepsis Screen: Does the patient meet any 2 criteria? No. Patient's initial sepsis screen is negative. Does the patient have a suspected source of infection? No. Patient's initial sepsis screen is negative. Risk Assessment: Do you want to hurt yourself or someone else? Patient reports no desire to harm self or others. Onset of symptoms is unknown. 11:40 Method Of Arrival: EMS: [facility] bp 11:40 Acuity: CRISTEL 3 bp Triage Assessment: 11:40 General: Appears in no apparent distress. Behavior is cooperative, appropriate for age, bp anxious. Pain: Complains of pain in chest. EENT: No deficits noted. Neuro: No deficits noted. Cardiovascular: Reports chest pain. Respiratory: Reports shortness of breath. GI: No signs and/or symptoms were reported involving the gastrointestinal system. : No signs and/or symptoms were reported regarding the genitourinary system. Derm: No deficits noted. Musculoskeletal: No deficits noted. Historical: - Allergies: 11:49 No Known Allergies; hb - Home Meds: 11:49 alprazolam 0.5 mg Oral Tablet [Active]; bumetanide 1 mg Oral tablet [Active]; Entresto hb 24-26 mg Oral tablet 1 tab 2 times per day [Active]; metoprolol succinate 25 mg Oral Tablet [Active]; midodrine 10 mg Oral tablet 1 tab 3 times per day [Active]; modafinil 100 mg Oral tablet [Active]; olanzapine 15 mg Oral tablet [Active]; Zinc Sulfate Oral [Active]; - PMHx: 11:42 Anxiety; Asthma; bp 11:49 CHF; Depression; esophagus problem; Atrial fibrillation; Hypertension; RLS (Depression);hb - PSHx: 11:42 PEG tube (ke); Defibrilator; pacemaker; bp - Immunization history:: Adult Immunizations up to date. - Infectious Disease History:: Denies. - Social history:: Smoking status: unknown. Screenin:00 [facility] ED Fall Risk Assessment (Adult) History of falling in the last 3 months, bp including since admission No falls in past 3 months (0 pts) Confusion or Disorientation No (0 pts) Intoxicated or Sedated No (0 pts) Impaired Gait No (0 pts) Mobility Assist Device Used No (0 pt) Altered Elimination No (0 pt) Score/Fall Risk Level 0 - 2 = Low Risk. Abuse screen: Denies threats or abuse. Denies injuries from another. Nutritional screening: No deficits noted. Tuberculosis screening: No symptoms or risk factors identified. Assessment: 11:50 General: Appears in no apparent distress. Behavior is calm, cooperative. Pain: Pain hb currently is 3 out of 10 on a pain scale. Neuro: Level of Consciousness is awake, alert, obeys commands, Oriented to person, place, time, situation. Cardiovascular: Reports chest pain, Patient's skin is warm and dry. Respiratory: Respiratory effort is even, unlabored, Respiratory pattern is regular, symmetrical. GI: No signs and/or symptoms were reported involving the gastrointestinal system. : No signs and/or symptoms were reported regarding the genitourinary system. EENT: No signs and/or symptoms were reported regarding the EENT system. Derm: Skin is pink, warm \T\ dry. Musculoskeletal: No signs and/or symptoms reported regarding the musculoskeletal system. 12:00 General: Appears in no apparent distress. Behavior is cooperative, appropriate for age, bp anxious. 14:00 Reassessment: Patient appears in no apparent distress at this time. Patient is alert, bp oriented x 3, equal unlabored respirations, skin warm/dry/pink. 15:32 Reassessment: Patient appears in no apparent distress at this time. Patient and/or hb family updated on plan of care and expected duration. Pain level reassessed. Patient is alert, oriented x 3, equal unlabored respirations, skin warm/dry/pink. Vital Signs: 11:40 BP 147 / 86; Pulse 60; Resp 16; Temp 98; Pulse Ox 97% ; bp 14:11 BP 118 / 88; Pulse 81; Resp 15; Pulse Ox 93% ; bp ED Course: 11:35 Patient arrived in ED. sb4 11:35 [facility]antha Sosa [facility]-C [facility]. sb4 11:35 Dougie Salazar MD is Attending Physician. sb4 11:40 Tito Butler, RN is Primary Nurse. bp 11:40 Arm band placed on. bp 11:41 Triage completed. bp 11:50 Provided Education on: use of call light . hb 11:59 Missed attempt(s):. bc6 12:07 Initial lab(s) drawn, by me, sent to lab. EKG done, by ED staff, reviewed by Samantha Sosa PA-C. Inserted saline lock: 22 gauge in right forearm, using aseptic technique. Blood collected. Flushed with 10 mL NS. 12:15 XRAY Chest (1 view) In Process Unspecified. EDMS 13:00 Patient has correct armband on for positive identification. bp 14:44 Troponin High Sensitivity Sent. hb 15:08 Georges Mendoza MD is Referral Physician. sb4 15:32 No provider procedures requiring assistance completed. IV discontinued, intact, hb bleeding controlled, No redness/swelling at site. Pressure dressing applied. Administered Medications: 13:45 Drug: Furosemide IVP 20 mg IVP once; give over 2 minutes Route: IVP; Site: right bp forearm; Medication: 14:13 VIS not applicable for this client. hb Outcome: 15:08 Discharge ordered by . sb4 15:32 Discharged to home via wheelchair, hb 15:32 Condition: stable 15:32 Discharge instructions given to patient, Instructed on discharge instructions, follow up and referral plans. medication usage, Demonstrated understanding of instructions, follow-up care, medications, 15:46 Patient left the ED. hb Signatures: Dispatcher [employer] EDMD Ashley Isaac RN RN Tito Zaldivar, RN RN Samantha Najera PA-C PA-C sb4 Jaclyn Mcfadden bc6
[2024-10-08 16:23] VITALS: TEMP 98
[2024-10-08 16:29] VITALS: BP 118/88; O2SAT 93
== END 2024-10-08 15:46 | disposition home or self-care (01) ==
LOC: ER 11:33
DX: R07.9 Chest pain, unspecified (principal); I10 Essential (primary) hypertension; I50.9 Heart failure, unspecified; F41.9 Anxiety disorder, unspecified; Z95.810 Presence of automatic (implantable) cardiac defibrillator
CPT/HCPCS: 85025; 80048; 36415; 83735; 85610; 80076; 84484 ×2; 83880; 71045; 96374; 99284; J1940

== ENCOUNTER 2024-10-13 08:18 | Emergency (ER) | payer OTHER ==
[2024-10-13 09:09] LABS: Absolute Neutrophil 6.6 K/uL (1.8-8.0); Eosinophils % 3.6 % (0-4.4); Hematocrit 31.3 % (36.0-45.0); Hemoglobin 10.5 g/dL (12.0-15.0); Lymphocytes % 11.3 % (15.3-44.8); MCH 30.6 pg (27.0-35.0); MCHC 33.5 g/dL (32.0-36.0); MCV 91.5 fL (80-100); MPV 8.1 fL (7.6-11.3); Monocytes % 8.7 % (3.3-12.3); Neutrophils % 75.4 % (41.7-73.7); Nucleated Red Blood Cells % 0.1 % (0-0); Platelets 501 thou/uL (152-406); RBC Red Blood Cell Count 3.42 M/uL (3.86-4.86)
[2024-10-13 09:10] LABS: Absolute Basophils 0.1 K/uL (0-0.5); Absolute Eosinophils 0.3 K/uL (0-0.5); Absolute Monocytes 0.8 K/uL (0.1-1.3)
[2024-10-13 09:11] LABS: PT Prothrombin Time 12.1 SECONDS (9.4-12.5); Protime INR 1.08
--- NOTE | 2024-10-13 09:32 | RAD REPORT ---
EXAM: Chest Single View HISTORY: defib shock COMPARISON: 10/08/2024 FINDINGS: LUNGS/PLEURA: Small left pleural effusion. There is likely associated atelectasis. MEDIASTINUM: The mediastinal silhouette is within normal limits. CARDIAC: Similar size and configuration. UPPER ABDOMEN: No significant abnormality. BONES: No acute fracture. LINES/TUBES/OTHER: Pacemaker/ICD IMPRESSION: Small left pleural effusion and probably underlying atelectasis similar to prior.
[2024-10-13 10:17] LABS: Anion Gap 10.2 mEq/L (5.0-15.0); Magnesium 1.7 mg/dL (1.6-2.4); Potassium 3.2 mEq/L (3.5-5.1); Troponin High Sensitivity 40.4 pg/mL (<58.9)
--- NOTE | 2024-10-13 10:26 | EDPHYS ---
Physician Documentation [facility] Name: Mandy Swain Age: 69 yrs Sex: Female : 1955 Arrival Date: 10/13/2024 Time: 08:18 Bed 2 Private MD: ED Physician Gwyn Valdes HPI: 10/13 08:45 This 69 yrs old Female presents to ER via EMS with complaints of defibrillator shock. rn 08:45 The patient or guardian reports chest pain that is located primarily in the anterior rn chest wall. Onset: just prior to arrival. The pain does not radiate. The chest pain is described as aching. Modifying factors: The symptoms are alleviated by nothing. the symptoms are aggravated by nothing. Severity of pain: At its worst the pain was mild in the emergency department the pain is unchanged. Patient reports was asleep when defibrillator shocked her, woke her up and now has left-sided chest pain. Reports mild shortness of breath. States this happened recently where she was shocked 3 times and admitted to the hospital.. Historical: - Allergies: 08:20 No Known Allergies; aa5 - PMHx: 08:20 Anxiety; Asthma; Atrial fibrillation; CHF; Depression; esophagus problem; Hypertension; aa5 RLS (Unknown); 08:20 GERD; aa5 08:20 Unsteadiness on feet; aa5 - PSHx: 08:20 Defibrilator; pacemaker; PEG tube; aa5 - Immunization history:: Adult Immunizations unknown. - Infectious Disease History:: Denies. - Social history:: Smoking status: Patient/guardian denies using tobacco. - Family history:: not pertinent. - Hospitalizations: : No recent hospitalization is reported. ROS: 08:46 Constitutional: Negative for fever, chills, and weight loss, Neck: Negative for injury, rn pain, and swelling, Cardiovascular: Negative for palpitations, and edema, Respiratory: Negative for cough, wheezing, and pleuritic chest pain, Abdomen/GI: Negative for abdominal pain, nausea, vomiting, diarrhea, and constipation, MS/Extremity: Negative for injury and deformity, Skin: Negative for injury, rash, and discoloration, Neuro: Negative for headache, weakness, numbness, tingling, and seizure, Exam: 08:46 Constitutional: This is a well developed, well nourished patient who is awake, alert, rn and in no acute distress. Cardiovascular: Regular rate and rhythm. No pulse deficits. Respiratory: No increased work of breathing, no retractions or nasal flaring. Abdomen/GI: Soft, non-tender MS/ Extremity: Pulses equal, no cyanosis. Neuro: Awake and alert, GCS 15 09:19 ECG was reviewed by the Attending Physician. rn Vital Signs: 08:18 BP 105 / 74; Pulse 79; Resp 20 S; Temp 97.8(TE); Pulse Ox 96% on R/A; Weight 53.52 kg aa5 (R); Height 5 ft. 4 in. (R); 09:30 BP 107 / 72; Pulse 82; Resp 16 S; Pulse Ox 95% on R/A; aa5 11:20 BP 92 / 69; Pulse 84; Resp 20 S; Pulse Ox 96% on R/A; aa5 12:28 BP 115 / 71; Pulse 83; Resp 16 S; Pulse Ox 96% on R/A; aa5 13:30 BP 112 / 69; Pulse 84; Resp 16 S; Temp 97.6(TE); Pulse Ox 98% on R/A; aa5 08:18 Body Mass Index 20.25 (53.52 kg, 162.56 cm) aa5 MDM: 08:21 Medical Screening Exam initiated rn 10:23 Differential diagnosis: acute myocardial infarction, acute pericarditis, pleurisy, rn pneumothorax, Arrhythmia, pleural effusion, pulmonary edema. Data reviewed: vital signs, nurses notes, lab test result(s), EKG, radiologic studies, plain films, and as a result, I will admit patient. Consideration of Admission/Observation Patient was admitted/placed on observation. Escalation of care including admission/observation considered. Counseling: I had a detailed discussion with the patient and/or guardian regarding the historical points, exam findings, and any diagnostic results supporting the discharge/admit diagnosis, lab results, radiology results, the need for further work-up and treatment in the hospital. Response to treatment: the patient's symptoms have markedly improved after treatment. 11:17 ED course: Case was discussed with enroller Dr. Mendoza who recommends transfer for rn EP enroller given recent admission for defibrillator shocks and now has prolonged QT and need to stop amiodarone.. 11:43 ED course: Discussed case with cardiology at [facility], accepted for transfer. Waiting rn for hospitalist to return call.. ED course: I personally spent 35 minutes engaged in work directly related to the individual patient's care. This does not include any time spent performing procedures. The patient has been deemed critically ill because of evaluation regarding ventricular tachycardia and defibrillator discharge, organization of admission and transfer, need for IV magnesium for prolonged QT and management of pulmonary edema.. 10/13 08:29 Order name: Basic Metabolic Panel; Complete Time: 10:20 rn 10/13 08:29 Order name: CBC with Diff; Complete Time: 09:41 rn 10/13 08:29 Order name: Magnesium; Complete Time: 10:20 rn 10/13 08:29 Order name: NT PRO-BNP; Complete Time: 10:20 rn 10/13 08:29 Order name: PT-INR; Complete Time: 09:41 rn 10/13 08:29 Order name: Troponin HS; Complete Time: 10:20 rn 10/13 08:29 Order name: XRAY Chest (1 view); Complete Time: 09:41 rn 10/13 08:29 Order name: EKG; Complete Time: 08:30 rn 10/13 08:29 Order name: Cardiac monitoring; Complete Time: 08:37 rn 10/13 08:29 Order name: EKG - Nurse/Tech; Complete Time: 08:36 rn 10/13 08:29 Order name: IV Saline Lock; Complete Time: 09:29 rn 10/13 08:29 Order name: Labs collected and sent; Complete Time: 09:29 rn 10/13 08:29 Order name: O2 Per Protocol; Complete Time: 08:37 rn 10/13 08:29 Order name: O2 Sat Monitoring; Complete Time: 08:37 rn 10/13 09:30 Order name: Interrogate Pacemaker: VO at 0820; Complete Time: 09:30 aa5 10/13 09:37 Order name: Misc. Order: Green top recollect; Complete Time: 09:57 sp EC:19 Rate is 78 beats/min. Rhythm is regular. T waves are Normal. No ST changes noted. rn Clinical impression: Paced rhythm . Interpreted by me. Reviewed by me. Administered Medications: 10:44 Drug: Furosemide IVP 20 mg IVP once; give over 2 minutes Route: IVP; Site: left hand; rs5 11:28 Follow up: Response: No adverse reaction aa5 11:00 Drug: Potassium PO Effervescent Tablet 50 mEq PO once; dissolve in 4 ounces of water or rs5 juice Route: PO; 11:28 Follow up: Response: No adverse reaction aa5 11:05 Drug: Acetaminophen PO 325 mg PO once Route: PO; rs5 11:28 Follow up: Response: No adverse reaction aa5 11:28 Drug: Magnesium Sulfate IVPB 1 grams IVPB once over 1 hrs Route: IVPB; Infused Over: 1 aa5 hrs; Site: right hand; 12:28 Follow up: IV Status: Completed infusion aa5 Disposition: 11:43 Critical Care:. 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 Total time: 35 rn minutes Signatures: Dispatcher [employer] EDMS Nilda Mccall Roman, MD MD rn Calderon, Audri RN RN aa5 Deangelo Freeman, ASSEMBLER DIELECTRIC HEATER-C ASSEMBLER DIELECTRIC HEATER-Cla1 Jareth Herring, RN RN rs5 Corrections: (The following items were deleted from the chart) 08:30 08:30 BASIC METABOLIC PANEL+C.LAB.BRZ ordered. EDMS EDMS 08:30 08:30 CBC+H.LAB.BRZ ordered. EDMS EDMS 08:30 08:30 MAGNESIUM+C.LAB.BRZ ordered. EDMS EDMS 08:30 08:30 PROBNP+C.LAB.BRZ ordered. EDMS EDMS 08:30 08:30 PROTIME (+INR)+COAG.LAB.BRZ ordered. EDMS EDMS 08:30 08:30 Troponin High Sensitivity+C.LAB.BRZ ordered. 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
--- NOTE | 2024-10-13 10:26 | ER ---
Nurse's Notes [facility] Name: Mandy Swain Age: 69 yrs Sex: Female : 1955 Arrival Date: 10/13/2024 Time: 08:18 Bed 2 Private MD: Diagnosis: Encounter for adjustment and management of automatic implantable cardiac defibrillator-with discharge;Ventricular tachycardia;Unspecified combined systolic (congestive) and diastolic (congestive) heart failure Presentation: 10/13 08:18 Chief complaint: Patient states: was woken up by defibrillator shock this morning. aa5 08:18 Coronavirus screen: At this time, the client does not indicate any symptoms associated aa5 with coronavirus-19. Ebola Screen: Patient denies travel to an Ebola-affected area in the 21 days before illness onset. Initial Sepsis Screen: Does the patient meet any 2 criteria? No. Patient's initial sepsis screen is negative. Does the patient have a suspected source of infection? No. Patient's initial sepsis screen is negative. Risk Assessment: Do you want to hurt yourself or someone else? Patient reports no desire to harm self or others. Onset of symptoms was October 13, 2024. 08:18 Method Of Arrival: EMS: [facility] aa5 08:18 Acuity: CRISTEL 2 aa5 08:18 Transition of care: patient was received from another setting of care ([facility]. Historical: - Allergies: 08:20 No Known Allergies; aa5 - PMHx: 08:20 Anxiety; Asthma; Atrial fibrillation; CHF; Depression; esophagus problem; Hypertension; aa5 RLS (Unknown); 08:20 GERD; aa5 08:20 Unsteadiness on feet; aa5 - PSHx: 08:20 Defibrilator; pacemaker; PEG tube; aa5 - Immunization history:: Adult Immunizations unknown. - Infectious Disease History:: Denies. - Social history:: Smoking status: Patient/guardian denies using tobacco. - Family history:: not pertinent. - Hospitalizations: : No recent hospitalization is reported. Screenin:20 [facility] ED Fall Risk Assessment (Adult) History of falling in the last 3 months, aa5 including since admission No falls in past 3 months (0 pts) Confusion or Disorientation No (0 pts) Intoxicated or Sedated No (0 pts) Impaired Gait Yes (1 pt) Mobility Assist Device Used Yes (1 pt) Altered Elimination No (0 pt) Score/Fall Risk Level 0 - 2 = Low Risk Oriented to surroundings, Maintained a safe environment, Educated pt \T\ family on fall prevention, incl call for assistance when getting out of bed. 08:20 Nutritional screening: No deficits noted. Tuberculosis screening: No symptoms or risk aa5 factors identified. 08:47 Abuse screen: Denies threats or abuse. aa5 Assessment: 08:18 General: Appears comfortable, Behavior is calm, cooperative. Pain: Complains of pain in aa5 anterior aspect of left upper chest (pacemaker/defibrillator site) Quality of pain is described as aching. Neuro: Level of Consciousness is awake, alert, obeys commands, Oriented to person, place, time, situation. Cardiovascular: Heart tones S1 S2 present Rhythm is ventricular pacer with capture. Respiratory: Airway is patent Respiratory effort is even, unlabored, Respiratory pattern is regular, symmetrical. GI: PEG tube in place, Site clean. : No signs and/or symptoms were reported regarding the genitourinary system. EENT: No signs and/or symptoms were reported regarding the EENT system. Derm: Skin is pink, warm \T\ dry. Musculoskeletal: Range of motion: intact in all extremities. 08:40 Reassessment: [employer] Pacemaker interrogation completed. . aa5 09:10 Reassessment: Patient is alert, oriented x 3, equal unlabored respirations, skin aa5 warm/dry/pink. Pt sitting up in bed using her cell phone. . 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 aa5 11:28 Reassessment: Patient is alert, oriented x 3, equal unlabored respirations, skin aa5 warm/dry/pink. Pt sitting up in bed, requesting lunch, was notified and diet order was placed. . 12:28 Reassessment: Patient is alert, oriented x 3, equal unlabored respirations, skin aa5 warm/dry/pink. 13:30 Reassessment: Patient is alert, oriented x 3, equal unlabored respirations, skin aa5 warm/dry/pink. 13:50 Reassessment: Report given to Jagruti nurse at [facility]. . aa5 13:53 Reassessment: Patient is alert, oriented x 3, equal unlabored respirations, skin aa5 warm/dry/pink. 14:40 Reassessment: Patient is alert, oriented x 3, equal unlabored respirations, skin aa5 warm/dry/pink. Vital Signs: 08:18 BP 105 / 74; Pulse 79; Resp 20 S; Temp 97.8(TE); Pulse Ox 96% on R/A; Weight 53.52 kg aa5 (R); Height 5 ft. 4 in. (R); 09:30 BP 107 / 72; Pulse 82; Resp 16 S; Pulse Ox 95% on R/A; aa5 11:20 BP 92 / 69; Pulse 84; Resp 20 S; Pulse Ox 96% on R/A; aa5 12:28 BP 115 / 71; Pulse 83; Resp 16 S; Pulse Ox 96% on R/A; aa5 13:30 BP 112 / 69; Pulse 84; Resp 16 S; Temp 97.6(TE); Pulse Ox 98% on R/A; aa5 08:18 Body Mass Index 20.25 (53.52 kg, 162.56 cm) aa5 ED Course: 08:18 Arm band placed on. aa5 08:18 Patient has correct armband on for positive identification. Placed in gown. Bed in low aa5 position. Call light in reach. Side rails up X2. Client placed on continuous cardiac and pulse oximetry monitoring. NIBP monitoring applied. cost recovery technician on. Pulse ox on. NIBP on. 08:20 Patient arrived in ED. aa5 08:21 Gwyn Valdes MD is Attending Physician. rn 08:25 EKG done, by ED staff, reviewed by Gwyn Valdes MD. em1 08:28 Kinga Luz, RN is Primary Nurse. aa5 08:38 Triage completed. aa5 09:01 Initial lab(s) drawn, by me, sent to lab. Inserted saline lock: 22 gauge in right hand, em1 using aseptic technique. Blood collected. Flushed with 10 mL NS. 09:26 XRAY Chest (1 view) In Process Unspecified. EDMS 10:24 Elio Valdes MD is Hospitalizing Provider. rn 11:[address] [facility] for Transfer talked to Tiara. sp 11:41 MD called to talk to provider. sp 13:20 called transfer center for an update on the bed placement. sp 14:40 No provider procedures requiring assistance completed. Patient transferred, IV remains aa5 in place. 14:55 [id number] admin approval by Shakila Coronado RN TC [id number] Dr. Favio Cuevas accepted pt to [facility].report number [phone] room number [phone] called [facility] no trucks at this time for transport called [facility] for transport. Administered Medications: 10:44 Drug: Furosemide IVP 20 mg IVP once; give over 2 minutes Route: IVP; Site: left hand; rs5 11:28 Follow up: Response: No adverse reaction aa5 11:00 Drug: Potassium PO Effervescent Tablet 50 mEq PO once; dissolve in 4 ounces of water or rs5 juice Route: PO; 11:28 Follow up: Response: No adverse reaction aa5 11:05 Drug: Acetaminophen PO 325 mg PO once Route: PO; rs5 11:28 Follow up: Response: No adverse reaction aa5 11:28 Drug: Magnesium Sulfate IVPB 1 grams IVPB once over 1 hrs Route: IVPB; Infused Over: 1 aa5 hrs; Site: right hand; 12:28 Follow up: IV Status: Completed infusion aa5 Medication: 09:35 VIS not applicable for this client. aa5 Outcome: 10:25 Decision to Hospitalize by Provider. rn 11:18 ER care complete, transfer ordered by . rn 14:40 Transferred by [facility] to [facility], Transfer form completed. aa5 X-rays sent w/ patient. Note: Report given to [facility]. 14:40 Condition: stable 14:40 Instructed on the need for transfer, Demonstrated understanding of instructions, 14:43 Patient left the ED. aa5 Signatures: Dispatcher [employer] EDMS Nilda Mccall Roman, MD MD rn Martinez, Eric em1 Kinga Luz RN RN aa5 Jareth Herring RN RN rs5 Corrections: (The following items were deleted from the chart) 11:58 08:18 Cardiovascular: Heart tones S1 S2 present Rhythm is atrial pacer with capture aa5 aa5 13:06 13:05 Transition of care: patient was received from another setting of care (long[facility]term [facility]), [facility] aa5 13:45 08:40 Reassessment: Pacemaker interrogation completed. . [facility] aa5
[2024-10-13] MEDS ORDERED: FUROSEMIDE 20 MG/ 2ML VIAL ONE (10:36)
[2024-10-13] MEDS ORDERED: POTASSIUM 25 MEQ EFFERV TAB ONE (11:03)
[2024-10-13] MEDS ORDERED: ACETAMINOPHEN 325 MG TABLET ONE (11:03)
[2024-10-13] MEDS ORDERED: MAGNESIUM SULFATE 1 gm IVPB 1 GM/100 ML BAG IV ONE (11:19)
--- NOTE | 2024-10-13 11:44 | P.CNS ---
Date of Consult: 10/13/24 Reason for Consult: Eval for admission Requesting Physician: Gwyn Valdes Chief Complaint: Defib shock History of Present Illness: Patient was recently admitted inpatient at her facility for defibrillator firing x 3. During that hospitalization she had her amiodarone increased to twice daily and she had no further episodes of fatigue/VF requiring defibrillation. She was monitored throughout hospitalization and discharged to SNF. She had been doing well at the nursing home facility, receiving her home medications this morning she is well by defibrillator shock. She was shocked 1 time presented to the ER shortly after that. Allergies No Known Allergies Allergy (Verified 12/22/17 01:16) Home Medications: Thiamine HCl 100 mg FT DAILY 07/03/24 ALPRAZolam [Xanax*] 0.5 mg FT BID PRN 09/08/24 Acidophilus/Bifido Longum [Lactobacillus Capsule] 16 mg FT DAILY 09/08/24 Aspirin [Aspirin EC 81 MG] 81 mg FT DAILY 09/08/24 Atorvastatin Calcium [Lipitor] 40 mg FT BEDTIME 09/08/24 Mirtazapine 7.5 mg FT BEDTIME 09/08/24 Spironolactone 25 mg FT DAILY 09/08/24 Tamsulosin HCl [Flomax] 0.4 mg FT DAILY 09/08/24 Valproic Acid (As Sodium Salt) [Valproic Acid] 250 mg FT Q8HR 09/08/24 Zinc Sulfate 50 mg FT DAILY 09/08/24 Bumetanide [Bumex*] 1 mg PO BID tab 09/16/24 Sacubitril/Valsartan [Entresto 24 mg-26 mg Tablet] 0.5 tab PO BID tab 09/16/24 Clopidogrel Bisulfate [Plavix*] 75 mg PO DAILY #30 tab 09/21/24 Magnesium Chloride [Slow-Mag*] 64 mg PO DAILY #30 tab 09/21/24 Metoprolol Tartrate [Lopressor*] 50 mg PO TID #90 tab 09/24/24 Amiodarone HCl [Cordarone*] 200 mg PO BID #60 tab 10/05/24 Ensure Max Protein 240 ml PO BIDPC #30 can 10/05/24 - Past Medical/Surgical History Diabetic: No -: Squamous Cell Carcinoma Left Ear -: IMPLANTED CARDIOVERTER (ICD) -: GERD/hiatal hernia -: Hypertension -: Depression/anxiety -: Systolic CHF -: A-fib -: NSTEMI -: Esophageal stenosis -: Dysphagia -: hernia repair -: tubal ligation -: 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 - Family History Father Medical History: Heart disease, Hypertension Mother Medical History: Heart disease, Hypertension Brother Medical History: Hypertension Sister Medical History: Hypertension Notes: per patient reports anxiety and high blood pressure for past medical history - Social History Smoking Status: Unknown if ever smoked Alcohol use: No CD- Drugs: No Caffeine use: Yes Place of Residence: Home Review of Systems 10-point ROS is otherwise unremarkable Cardiovascular: Chest Pain Physical Examination General: Alert, In no apparent distress, Oriented x3 HEENT: Atraumatic, PERRLA, EOMI Neck: Supple, 2+ carotid pulse no bruit, No LAD Respiratory: Clear to auscultation bilaterally, Normal air movement Cardiovascular: Regular rate/rhythm, Normal S1 S2 Gastrointestinal: Normal bowel sounds, No tenderness Musculoskeletal: No tenderness Integumentary: No rashes Neurological: Normal gait, Normal speech, Normal tone Laboratory Data (last 24 hrs) 10/13/24 10/13/24 10/13/24 09:46 08:57 08:57 WBC 8.80 Hgb 10.5 L Hct 31.3 L Plt Count 501 H PT 12.1 INR 1.08 Sodium 138 Potassium 3.2 L BUN 37 H Creatinine 1.37 H Glucose 93 Magnesium 1.7 Conclusions/Impression: Patient was evaluated in the emergency department. She reports she has been compliant with her medications since discharge. Her labs are notable for a mildly low potassium and magnesium level. Regimen for antiarrhythmics/beta- blockers were amiodarone 200 mg twice daily and metoprolol tartrate 50 mg 3 times daily. EKG was remarkable for a QTc of 560 given continued arrhythmia/defib despite medical management Case was discussed with cardiology prior to admission. After speaking with cardiology it was noted that the amiodarone would need to be discontinued given her prolonged QTc of 560, given her ongoing arrhythmias and required for defib and the need to discontinue the amiodarone it was recommended that she be transferred to tertiary center for evaluation from EP with possible ablation. I also spoke with [employer] who confirmed an episode of atrial/ventricular tachycardia that occurred today, initially attempted pacing which did not work and subsequently she was defibrillated x 1 which was successful. Discussed plan of care with patient and her brother who are agreeable with the plan, ED to attempt transfer to tertiary center for EP eval. Critical Care: No Time Spent Managing Pts care (In Minutes): 35
[2024-10-13 15:30] VITALS: TEMP 97.8
[2024-10-13 15:41] VITALS: BP 92/69; O2SAT 96
== END 2024-10-13 14:43 | disposition short-term general hospital (02) ==
LOC: ER 08:18
DX: Z45.02 Encounter for adjustment and management of automatic implantable cardiac defibrillator (principal); I47.20 Ventricular tachycardia, unspecified; I50.40 Unspecified combined systolic (congestive) and diastolic (congestive) heart failure; I10 Essential (primary) hypertension; I48.91 Unspecified atrial fibrillation; Z95.810 Presence of automatic (implantable) cardiac defibrillator
CPT/HCPCS: 96365; 85025; 80048; 36415; 83735; 85610; 84484; 83880; 71045; 96375; 99285; J3475; J1940

== ENCOUNTER 2024-11-05 13:12 | Emergency (ER) | payer OTHER ==
[2024-11-05] MEDS ORDERED: NA CHLORIDE 0.9% 500 ML ONE (13:33)
[2024-11-05 14:06] LABS: Absolute Basophils 0.1 K/uL (0-0.5); Absolute Eosinophils 0.1 K/uL (0-0.5); Absolute Lymphocytes (CBC) 1.1 K/uL (0.7-4.9); Absolute Monocytes 1.3 K/uL (0.1-1.3); Absolute Neutrophil 6.6 K/uL (1.8-8.0); Basophils % 0.7 % (0-1.3); Eosinophils % 1.3 % (0-4.4); Hematocrit 26.9 % (36.0-45.0); Hemoglobin 8.3 g/dL (12.0-15.0); Lymphocytes % 12.2 % (15.3-44.8); MCH 28.9 pg (27.0-35.0); MCHC 30.9 g/dL (32.0-36.0); MCV 93.5 fL (80-100); Monocytes % 13.8 % (3.3-12.3); Nucleated Red Blood Cells % 0.1 % (0-0); Platelets 335 thou/uL (152-406); RBC Red Blood Cell Count 2.88 M/uL (3.86-4.86); Red Cell Distribution Width 18.5 % (12.1-15.2)
[2024-11-05 14:19] LABS: PT Prothrombin Time 22.6 SECONDS (9.4-12.5); PTT, Activated Partial Thromb 31.2 SECONDS (24.3-36.9); Protime INR 2.06
--- NOTE | 2024-11-05 14:25 | RAD REPORT ---
EXAMINATION: CT HEAD WITHOUT CONTRAST CT CERVICAL SPINE WITHOUT CONTRAST CLINICAL INDICATION: Female, 69 years old. TRAUMA TECHNIQUE: Axial CT images from the skull base to the vertex without intravenous contrast. Axial CT i mages through the cervical spine were obtained without intravenous contrast. Sagittal and coronal reformatted images were created from the data set. Coronal and sagittal reformatted images were creat ed from the data set. One or more of the following dose reduction techniques were used: Automated exposure control, adjustment of the mA and/or kV according to patient size, and/or iterative reconstr uction. Unless otherwise specified, incidental findings do not require dedicated imaging follow-up. [id number]. COMPARISON: 12/05/2021 FINDINGS: Head: INTRACRANIAL: No acute intracranial hemorrhage. No hydrocephalus. No mass effect or midline shift. Mi ld chronic small vessel ischemic changes.Mild cerebral atrophy. VASCULATURE: No visualized abnormalities in the arteries or dural venous sinuses. SCALP/SKULL: No significant soft tissue or osseous abnormalities. SINUSES: The visualized paranasal sinuses and mastoid air cells are predominantly clear. Cervical spine: ALIGNMENT: 4 mm anterolisthesis of C4 on C5 which is a chronic finding. Trace retrolisthesis of C5 on C6. BONE: Vertebral body heights are maintained. No aggressive osseous lesions. DEGENERATIVE CHANGES: Cervical spondylosis including moderate disc height loss at C3-4 and C5-6. Bila teral neural foraminal narrowing of varying degrees. SOFT TISSUE: No significant abnormalities in the soft tissue of the neck. The visualized lung apices are clear. IMPRESSION: No acute intracranial abnormality. No acute fracture or traumatic malalignment of the cervical spine.
[2024-11-05 14:26] LABS: Albumin 2.3 g/dL (3.4-5.0); Albumin/Globulin Ratio 0.5 (1.1-1.8); Anion Gap 11.8 mEq/L (5.0-15.0); Bilirubin Total 0.7 mg/dL (0.2-1.0); Globulin 4.7 g/dL (2.3-3.5)
[2024-11-05 14:27] LABS: Potassium 3.8 mEq/L (3.5-5.1)
[2024-11-05 14:28] LABS: Troponin High Sensitivity 70.6 pg/mL (<58.9)
--- NOTE | 2024-11-05 14:31 | RAD REPORT ---
EXAM: CT CHEST, ABDOMEN AND PELVIS WITHOUT CONTRAST CLINICAL INDICATION: Female, 69 years old TRAUMA TECHNIQUE: CT chest, abdomen and pelvis was performed, without IV contrast, as per department protoco l. Axial, sagittal and coronal reconstructions were obtained. One or more of the following dose reduction techniques were used: Automated exposure control, adjustment of the mA and/or kV according to the patient size, and/or iterative reconstruction. Unless otherwise specified, incidental findings do not require dedicated imaging follow-up. [id number]. COMPARISON: 09/27/24 FINDINGS: The lack of intravenous contrast limits the sensitivity of this exam for evaluation of solid visceral organs, vascular structures, and retroperitoneum. Chest: LOWER NECK: Left upper chest wall pacemaker. LUNGS AND AIRWAYS: Airways are clear. No evidence of airspace or interstitial process.No suspicious a nd/or stable pulmonary nodules. PLEURA: Small bilateral pleural effusions. MEDIASTINUM AND LYMPH NODES: No mediastinal mass or fluid collection. Normal size mediastinal, hilar, and axillary lymph nodes. Moderate distal esophageal thickening which could reflect esophagitis. THORACIC AORTA: No thoracic aortic aneurysm. PULMONARY ARTERIES: Caliber is within normal limits. HEART: Moderate cardiomegaly. Multivessel coronary artery diseaseSmall pericardial effusion. Abdomen/Pelvis UPPER GI: Surgical changes at the gastroesophageal junction. LIVER: No significant focal abnormality. GALLBLADDER/BILE DUCTS: Gallbladder wall thickening. Dense contents present within the gallbladder baldev men.? PANCREAS: Atrophy, but otherwise unremarkable. SPLEEN: Unremarkable. ADRENALS: No adrenal masses. KIDNEYS AND URETERS: No hydronephrosis.No suspicious renal mass.Stone at the left renal pelvis measur ing 9 mm. ABDOMINAL AORTA AND OTHER VESSELS: Mild atherosclerotic changes. PERITONEUM: Moderate pelvic free fluid. LYMPH NODES: No pathologic lymphadenopathy. ABDOMINAL WALL: Body wall edema. Fluid collection left lower quadrant inguinal region may be a lympho adriano or in the iliopsoas bursa SMALL BOWEL/COLON: Moderate colonic stool.Nonvisualized appendix but no secondary signs of acute appe ndicitis. Moderate diverticulosis without diverticulitis. URINARY BLADDER: Underdistended but grossly unremarkable. REPRODUCTIVE ORGANS: Fibroid uterus. MUSCULOSKELETAL: No acute or suspicious osseous abnormality. ADDITIONAL FINDINGS: None. IMPRESSION: No acute findings in the chest, abdomen, or pelvis. Anasarca including body wall edema, small pleural effusions, and mild ascites. Gallbladder wall thickening is probably related to heart failure/fluid status rather than acute cholecystitis.
--- NOTE | 2024-11-05 15:07 | RAD REPORT ---
Abdomen Exam Limited: 11/05/2024 2:56 PM CLINICAL HISTORY: ABD PAIN STUDY: Limited right upper quadrant ultrasound of abdomen. COMPARISON: Same day CT FINDINGS: Bile ducts: No intrahepatic or extrahepatic biliary ductal dilatation. Common bile duct measures 3 mm. Gallbladder: No gallstones identified. The gallbladder wall is thickened with some pericholecystic fl uid. The wall measures 12 mm. A sonographic Morillo's sign was reported. The gallbladder is incompletely IMPRESSION: Gallbladder wall thickening, pericholecystic fluid, and positive sonographic Morillo sign would sugges t acute cholecystitis however no gallstones identified and no significant gallbladder distension. The patient has other findings that could contribute to gallbladder wall thickening. HIDA scan could confirm cystic duct patency if clinically indicated.
[2024-11-05] MEDS ORDERED: ALBUMIN HUMAN 25% 100 ML IV ONE (15:33)
[2024-11-05 16:13] LABS: Specific Gravity 1.021 (1.005-1.030); Sqamous Epithelial None Seen /HPF (None Seen); Urine Bacteria None Seen /HPF (<20); Urine Bilirubin NEGATIVE (Negative); Urine Blood 3+ (OVER) (Negative); Urine Clarity Extremely Turbid (Clear); Urine Color Light-Orange (Yellow); Urine Crystals Unidentified Few /HPF (None Seen); Urine Culture Reflex Order REFLEXED; Urine Glucose TRACE (Negative); Urine Ketones NEGATIVE (Negative); Urine Microscopic Reflex YN ORDER UMIC; Urine Mucus Slight /HPF (None Seen); Urine Nitrite NEGATIVE (Negative); Urine Protein 1+ (Negative); Urine RBC >50 /HPF (None Seen); Urine Urobilinogen Normal (Normal); Urine WBC 20-50 /HPF (<5); Urine WBC Clump Rare /HPF (None Seen); Urine Yeast (Budding) Occasional /HPF (None Seen); Urine pH 5.5 (5.0-7.0)
--- NOTE | 2024-11-05 17:12 | EDPHYS ---
Physician Documentation [facility] Name: Mandy Swain Age: 69 yrs Sex: Female : 1955 Arrival Date: 11/05/2024 Time: 13:12 Bed 6 Private MD: ED Physician Gwyn Valdes HPI: 11/05 14:17 This 69 yrs old Female presents to ER via Unassigned with complaints of Fall Injury. sb4 15:05 patient states that she sustained a mechanical fall 3 days and landed on her left side. sb4 states that she was able to get up with the help of her son but has had pain since. she was very weak today and still complaining of a lot of pain so EMS was called. she is confused upon arrival. history is limited. Historical: - Allergies: 16:56 No Known Allergies; hb - PMHx: 16:56 Anxiety; Asthma; Atrial fibrillation; RLS (Unknown); GERD; CHF; Unsteadiness on feet; hb Depression; esophagus problem; Hypertension; - PSHx: 16:56 Defibrilator; pacemaker; PEG tube; hb - Immunization history:: Adult Immunizations unknown. - Infectious Disease History:: Denies. - Social history:: Smoking status: unknown. ROS: 15:14 Constitutional: Negative for fever, chills, and weight loss, sb4 15:14 MS/extremity: Positive for injury or acute deformity, pain, of the left arm and left leg, 15:14 All other systems are negative, sb4 Exam: 15:23 Head/Face: Normocephalic, atraumatic. Eyes: Extra-ocular motions intact. Periorbital sb4 areas with no swelling, redness, or edema. Respiratory: No increased work of breathing, no retractions or nasal flaring. Abdomen/GI: Soft, non-tender, no distension. 15:23 Constitutional: The patient appears awake, pale, restless, unkempt, 15:23 Cardiovascular: Rate: tachycardic, Rhythm: irregularly irregular, Vital Signs: 13:30 BP 74 / 55; Pulse 95; hb 14:15 BP 78 / 69; Pulse 90; Resp 21; Pulse Ox 98% ; hb 14:20 Temp 97.3(TE); hb 15:00 BP 76 / 69; Pulse 90; Resp 23; Pulse Ox 96% on R/A; hb 15:45 BP 59 / 37; Pulse 92; hb 16:00 BP 75 / 58; Pulse 91; Resp 21; Pulse Ox 95% ; hb 16:30 BP 87 / 61; Pulse 82; Resp 19; Pulse Ox 95% on R/A; hb 17:09 Weight 60.78 kg (M); hb 17:32 BP 82 / 65; Pulse 67; Resp 21; Pulse Ox 97% on R/A; hb 17:40 BP 116 / 85; Pulse 85; rn 17:45 BP 138 / 84; Pulse 100; hb 18:00 BP 134 / 96; Pulse 93; Resp 17; Pulse Ox 99% ; hb 18:08 Temp 97(T); sb4 18:15 BP 127 / 104; Pulse 95; hb 18:45 BP 104 / 79; Pulse 81; hb 19:00 BP 97 / 75; Pulse 96; Resp 19; Pulse Ox 100% on R/A; al5 19:15 BP 97 / 73; Pulse 89; Resp 19; Pulse Ox 96% on R/A; al5 19:30 BP 95 / 73; Pulse 89; Resp 21; Pulse Ox 91% on R/A; al5 20:00 BP 100 / 79; Pulse 94; Resp 18; Pulse Ox 91% on R/A; al5 20:15 BP 106 / 81; Pulse 96; Resp 21; Pulse Ox 88% on R/A; al5 20:30 BP 99 / 81; Pulse 102; Resp 22; Pulse Ox 85% on R/A; al5 20:45 BP 98 / 82; Pulse 90; Resp 20; Pulse Ox 99% on 15 lpm Non-rebreather mask; al5 21:00 BP 100 / 73; Pulse 88; Resp 21; Pulse Ox 100% on 15 lpm Non-rebreather mask; al5 21:15 BP 106 / 85; Pulse 97; Resp 22; Pulse Ox 95% on 15 lpm Non-rebreather mask; al5 Procedures: 17:38 Central Line: the site was prepped with in sterile fashion, Chlorhexidine, a triple rn lumen catheter was inserted, in the right femoral vein, in 1 attempts. placement was verified, by blood return, the site was dressed with Tegaderm, using sterile technique, the patient tolerated the procedure, well, Used 5 mL of lidocaine without epinephrine and used ultrasound guidance for placement. MDM: 13:14 Medical Screening Exam initiated sb4 16:32 Data reviewed: vital signs, nurses notes, EMS record, lab test result(s), EKG, sb4 radiologic studies, I have discussed the patient's presentation/case with the attending Emergency Department Physician; and as a result, I will admit patient. Consideration of Admission/Observation Patient was admitted/placed on observation. Post IV fluid administration reassessment for Sepsis: Client not prescribed the 30 mL/kg IVF due to: concern for fluid overload. Amount of IVF prescribed: 500 Patient with history of congestive heart failure. CT scan is showing signs of anasarca. For these reasons, I will not prescribe the 30 cc/kg fluid bolus. Instead I will give 500mL of normal saline as a bolus Sepsis focused reassessment complete. 17:11 Counseling: I had a detailed discussion with the patient and/or guardian regarding the sb4 historical points, exam findings, and any diagnostic results supporting the discharge/admit diagnosis, lab results, radiology results, the need to transfer to another facility. 17:39 ED course: Blood pressure currently 116/85 after Levophed initiation. Sepsis rn reevaluation complete.. 11/05 13:22 Order name: Blood Culture Adult (2) sb4 11/05 13:22 Order name: CBC with Diff; Complete Time: 14:08 sb4 11/05 13:22 Order name: CMP; Complete Time: 14:28 sb4 11/05 13:22 Order name: Lactate w/ 2H reflex if indic.; Complete Time: 14:29 sb4 11/05 13:22 Order name: Protime (+inr); Complete Time: 14:20 sb4 11/05 13:22 Order name: Ptt, Activated; Complete Time: 14:20 sb4 11/05 13:22 Order name: Urinalysis w/ reflexes; Complete Time: 16:14 sb4 11/05 13:22 Order name: CK; Complete Time: 14:28 sb4 11/05 13:22 Order name: Troponin High Sensitivity; Complete Time: 14:28 sb4 11/05 14:30 Order name: Ghost Lactate-NO COLLECT Timer; Complete Time: 16:30 EDMS 11/05 14:36 Order name: AMMONIA; Complete Time: 15:06 sb4 11/05 16:16 Order name: Urine Culture EDMS 11/05 18:08 Order name: Lactate Sepsis 2 HR Follow-up; Complete Time: 18:09 EDMS 11/05 13:22 Order name: Head C Spine MPR Wo Con CT; Complete Time: 14:26 sb4 11/05 13:22 Order name: Chest Abdomen Pelvis Wo Con CT; Complete Time: 14:33 sb4 11/05 14:34 Order name: Abdomen Limited US; Complete Time: 15:14 sb4 11/05 13:22 Order name: Accucheck; Complete Time: 14:02 sb4 11/05 13:22 Order name: Cardiac monitoring; Complete Time: 14:02 sb4 11/05 13:22 Order name: EKG - Nurse/Tech; Complete Time: 14:02 sb4 11/05 13:22 Order name: IV Saline Lock - Large Bore; Complete Time: 14:03 sb4 11/05 13:22 Order name: Labs collected and sent; Complete Time: 14:03 sb4 11/05 13:22 Order name: O2 Per Protocol; Complete Time: 14:03 sb4 11/05 13:22 Order name: O2 Sat Monitoring; Complete Time: 14:03 sb4 11/05 13:22 Order name: Vital Signs; Complete Time: 14:03 sb4 EC:44 Rate is 88 beats/min. Rhythm is regular, Paced. QRS interval is normal at 162 msec. QT sb4 interval is normal at 464 msec. No Q waves. T waves are Normal. No ST changes noted. Clinical impression: No evidence of ischemia. Interpreted by me. Reviewed by me. Administered Medications: 14:46 Drug: NS 0.9% IV 500 ml 500 ml IV at 1 bolus once; to be given as a bolus over 30 jl7 minutes Volume: 500 ml; Route: IV; Rate: 1 bolus; Site: left antecubital; 16:00 Follow up: Response: No adverse reaction; IV Status: Completed infusion; IV Intake: ko1 500ml 16:01 Drug: Albumin IVPB 25 grams 100 ml IVPB once; (Note: Albumin 25% concentration) Volume: ko1 100 ml; Route: IVPB; Site: left antecubital; 17:40 Follow up: Response: No adverse reaction; IV Status: Completed infusion; IV Intake: ko1 100ml 17:32 Drug: Piperacillin-Tazobactam IVPB 3.375 grams IVPB once over 60 mins; (mix in NS 100 hb mL) Route: IVPB; Infused Over: 60 mins; Site: right femoral; 21:30 Follow up: Response: No adverse reaction; IV Status: Completed infusion; IV Intake: al5 100ml 17:32 Drug: Norepinephrine IV 0.1 mcg/kg/min IV at calculated rate See Administration hb Instructions; (Standard concentration 4 mg / 250 mL D5W); Recommended max rate 3 mcg/kg/min; Titrate 0.05 mcg/kg/min as often as every 5 minutes to achieve goal (see titration policy); Goal parameter MAP greater than 65 mmHg. Route: IV; Rate: calculated rate; Site: right femoral; 21:30 Follow up: Response: No adverse reaction; IV Status: Infusion continued upon transfer al5 Disposition: 11/06 07:08 Co-signature as Attending Physician, Gwyn Valdes MD I reviewed the patient's care rn provided by the Advanced Practice Provider and agree with the diagnosis and treatment plan. Disposition Summary: 11/05/24 17:12 Transfer Ordered Notes: Transfer Location: [facility] sb4 Reason: Higher level of care sb4 Condition: Serious sb4 Problem: new sb4 Symptoms: are unchanged sb4 Accepting Physician: smooth stucco resurfacer(11/05/24 22:10) al5 Diagnosis - Acalculous cholecystitis sb4 - Severe sepsis with septic shock sb4 Forms: - Medication Reconciliation Form sb4 - SBAR form sb4 Critical care time excluding procedures: 11/05 17:13 Critical care time: Bedside Care: 20 minutes, Consultation: 20 minutes, Family sb4 Intervention: 10 minutes. Total time: 50 minutes Signatures: Dispatcher [employer] EDGwyn Ramachandran MD MD rn Baxter, Heather RN RN Victor M Frazier RN RN [id number] Denita Mathews RN RN Samantha Clement PA-C PAHerb sb4 Ainsley Barahona RN RN al5 Corrections: (The following items were deleted from the chart) 13:23 13:22 BLOOD CULTURE*+BA.LAB.BRZ ordered. EDMS EDMS 13:23 13:22 CBC+H.LAB.BRZ ordered. EDMS EDMS 13:23 13:22 COMPREHENSIVE METABOLIC PANEL+C.LAB.BRZ ordered. EDMS EDMS 13:23 13:22 LACTATE+C.LAB.BRZ ordered. EDMS EDMS 13:23 13:22 PROTIME (+INR)+COAG.LAB.BRZ ordered. EDMS EDMS 13:23 13:22 PTT, ACTIVATED+COAG.LAB.BRZ ordered. EDMS EDMS 13:23 13:22 Urinalysis+U.LAB.BRZ ordered. EDMS EDMS 13:23 13:22 CREATINE PHOSPHOKINASE+C.LAB.BRZ ordered. EDMS EDMS 13:23 13:22 Troponin High Sensitivity+C.LAB.BRZ ordered. EDMS EDMS 13:23 13:23 Head C Spine MPR Wo Con+CT.RAD.BRZ ordered. EDID EDMS 13:23 13:23 Chest Abdomen Pelvis Wo Con+CT.RAD.BRZ ordered. EDID EDMS 15:07 15:05 patient states that she sustained a mechanical fall 3 days . sb4 sb4 15:15 15:05 patient states that she sustained a mechanical fall 3 days and landed on her sb4 right side. states that she was able to get up with the help of her son but has had pain since. she was very weak today and still complaining of a lot of pain . sb4 16:56 16:32 Post IV fluid administration reassessment for Sepsis: Client not prescribed the sb4 30 mL/kg IVF due to: concern for fluid overload. Amount of IVF prescribed: 1000 Patient with history of congestive heart failure. CT scan is showing signs of anasarca. For these reasons, I will not prescribe the 30 cc/kg fluid bolus. Instead I will give 1000mL of normal saline as a bolus Sepsis focused reassessment complete. sb4 17:17 15:30 LACTATE+C.LAB.BRZ ordered. EDID EDMS 18:40 15:05 patient states that she sustained a mechanical fall 3 days and landed on her sb4 right side. states that she was able to get up with the help of her son but has had pain since. she was very weak today and still complaining of a lot of pain so EMS was called. she is confused upon arrival . sb4 22:10 17:12 smooth stucco resurfacer sb4 al5
--- NOTE | 2024-11-05 17:12 | ER ---
Nurse's Notes [facility] Name: Mandy Swain Age: 69 yrs Sex: Female : 1955 Arrival Date: 11/05/2024 Time: 13:12 Bed 6 Private MD: Diagnosis: Acalculous cholecystitis;Severe sepsis with septic shock Presentation: 11/05 13:15 Chief complaint: EMS states: patient fell and hit her head 3 days ago, now complains of ko1 left hip pain and she is slightly AMS also low bp. Coronavirus screen: At this time, the client does not indicate any symptoms associated with coronavirus-19. Ebola Screen: No symptoms or risks identified at this time. Initial Sepsis Screen: Does the patient meet any 2 criteria? No. Patient's initial sepsis screen is negative. Does the patient have a suspected source of infection? No. Patient's initial sepsis screen is negative. Risk Assessment: Do you want to hurt yourself or someone else? Patient reports no desire to harm self or others. Onset of symptoms is unknown. 13:15 Method Of Arrival: EMS: [facility] ko1 13:15 Acuity: CRISTEL 2 ko1 Triage Assessment: 13:15 General: Appears ill, Behavior is anxious, restless. Pain: Complains of pain in left ko1 leg and left arm. EENT: No deficits noted. No signs and/or symptoms were reported regarding the EENT system. Neuro: Level of Consciousness is awake, alert, Oriented to person, place, time. Cardiovascular: No deficits noted. Respiratory: No deficits noted. GI: No deficits noted. No signs and/or symptoms were reported involving the gastrointestinal system. : No deficits noted. No signs and/or symptoms were reported regarding the genitourinary system. Derm: Bruising that is on scattered from prev hospitalization. Musculoskeletal: No deficits noted. No signs and/or symptoms reported regarding the musculoskeletal system. Historical: - Allergies: 16:56 No Known Allergies; hb - PMHx: 16:56 Anxiety; Asthma; Atrial fibrillation; RLS (Unknown); GERD; CHF; Unsteadiness on feet; hb Depression; esophagus problem; Hypertension; - PSHx: 16:56 Defibrilator; pacemaker; PEG tube; hb - Immunization history:: Adult Immunizations unknown. - Infectious Disease History:: Denies. - Social history:: Smoking status: unknown. Screenin:[address] [facility] ED Fall Risk Assessment (Adult) History of falling in the last 3 months, hb including since admission No falls in past 3 months (0 pts) Confusion or Disorientation Yes (5 pts) Intoxicated or Sedated No (0 pts) Impaired Gait Yes (1 pt) Mobility Assist Device Used No (0 pt) Altered Elimination Yes (1 pt) Score/Fall Risk Level 3 or more points = High Risk Oriented to surroundings, Maintained a safe environment, Educated pt \T\ family on fall prevention, incl call for assistance when getting out of bed. Abuse screen: Denies threats or abuse. Denies injuries from another. Nutritional screening: No deficits noted. Tuberculosis screening: No symptoms or risk factors identified. Assessment: 14:02 Reassessment: Pt altered, restless, SBP 50s-60s, PA Ninfa aware. hb 15:00 Reassessment: Patient appears in no apparent distress at this time. No changes from hb previously documented assessment. 16:51 Reassessment: Dr. Valdes at bedside for central line placement. hb 17:30 Reassessment: Pt remains altered and hypotensive, Levo started to right femoral CVC. hb 18:27 Reassessment: Patient appears in no apparent distress at this time. No changes from hb previously documented assessment. 19:31 General: Appears in no apparent distress. uncomfortable, ill. Pain: Denies pain. Neuro: al5 Level of Consciousness is alert, obeys commands, lethargic. Cardiovascular: Patient's skin is warm and dry. Respiratory: Airway is patent Respiratory effort is even, unlabored, Respiratory pattern is regular, symmetrical. GI: No signs and/or symptoms were reported involving the gastrointestinal system. : No signs and/or symptoms were reported regarding the genitourinary system. EENT: No signs and/or symptoms were reported regarding the EENT system. Derm: Skin is intact, Skin is pink, warm \T\ dry. normal. Musculoskeletal: No signs and/or symptoms reported regarding the musculoskeletal system. 20:50 Reassessment: Patient appears in no apparent distress at this time. No changes from al5 previously documented assessment. Patient and/or family updated on plan of care and expected duration. Pain level reassessed. 20:51 Reassessment: attempted twice to call [facility], both calls unsuccessful al5 due to phone ringing until phone call eventually dropped. called from personal cellphone and was able to reach them almost immediately, placed on hold at this time. charge nurse notified and aware. 21:29 Reassessment: gave report to [facility] for transfer. al5 Vital Signs: 13:30 BP 74 / 55; Pulse 95; hb 14:15 BP 78 / 69; Pulse 90; Resp 21; Pulse Ox 98% ; hb 14:20 Temp 97.3(TE); hb 15:00 BP 76 / 69; Pulse 90; Resp 23; Pulse Ox 96% on R/A; hb 15:45 BP 59 / 37; Pulse 92; hb 16:00 BP 75 / 58; Pulse 91; Resp 21; Pulse Ox 95% ; hb 16:30 BP 87 / 61; Pulse 82; Resp 19; Pulse Ox 95% on R/A; hb 17:09 Weight 60.78 kg (M); hb 17:32 BP 82 / 65; Pulse 67; Resp 21; Pulse Ox 97% on R/A; hb 17:40 BP 116 / 85; Pulse 85; rn 17:45 BP 138 / 84; Pulse 100; hb 18:00 BP 134 / 96; Pulse 93; Resp 17; Pulse Ox 99% ; hb 18:08 Temp 97(T); sb4 18:15 BP 127 / 104; Pulse 95; hb 18:45 BP 104 / 79; Pulse 81; hb 19:00 BP 97 / 75; Pulse 96; Resp 19; Pulse Ox 100% on R/A; al5 19:15 BP 97 / 73; Pulse 89; Resp 19; Pulse Ox 96% on R/A; al5 19:30 BP 95 / 73; Pulse 89; Resp 21; Pulse Ox 91% on R/A; al5 20:00 BP 100 / 79; Pulse 94; Resp 18; Pulse Ox 91% on R/A; al5 20:15 BP 106 / 81; Pulse 96; Resp 21; Pulse Ox 88% on R/A; al5 20:30 BP 99 / 81; Pulse 102; Resp 22; Pulse Ox 85% on R/A; al5 20:45 BP 98 / 82; Pulse 90; Resp 20; Pulse Ox 99% on 15 lpm Non-rebreather mask; al5 21:00 BP 100 / 73; Pulse 88; Resp 21; Pulse Ox 100% on 15 lpm Non-rebreather mask; al5 21:15 BP 106 / 85; Pulse 97; Resp 22; Pulse Ox 95% on 15 lpm Non-rebreather mask; al5 ED Course: 13:13 Patient arrived in ED. ty 13:14 Samantha Sosa PA-C is PHCP. sb4 13:14 Gwyn Valdes MD is Attending Physician. sb4 13:15 Arm band placed on right wrist. Patient placed in an exam room, on a stretcher, on ko1 medical director of hospice, on pulse oximetry, Patient notified of wait time. 13:40 First set of blood cultures drawn by me. zm 13:55 Initial lab(s) drawn, by me, sent to lab. Inserted saline lock: 22 gauge in left zm forearm, using aseptic technique. Blood collected. Flushed with 10 mL NS. 13:55 Second set of blood cultures drawn by me. zm 14:03 Blood Culture Adult (2) Sent. zm 14:03 CBC with Diff Sent. zm 14:03 CMP Sent. zm 14:03 Lactate w/ 2H reflex if indic. Sent. zm 14:03 Protime (+inr) Sent. zm 14:03 Ptt, Activated Sent. zm 14:03 CK Sent. zm 14:03 Troponin High Sensitivity Sent. zm 14:05 Ashley Isaac, RN is Primary Nurse. hb 14:10 Head C Spine MPR Wo Con CT In Process Unspecified. EDMS 14:11 Chest Abdomen Pelvis Wo Con CT In Process Unspecified. EDMS 14:15 Patient has correct armband on for positive identification. Provided Education on: fall hb precautions. 14:47 AMMONIA Sent. jl7 14:50 Inserted saline lock: 20 gauge in left antecubital area, using aseptic technique. hb ,using aseptic technique. US GUIDED. 14:58 Abdomen Limited US In Process Unspecified. EDMS 15:59 Urinalysis w/ reflexes Sent. ko1 17:20 Assisted provider with central line placement. Set up central line tray. Triple lumen hb line placed in right femoral. Line placed by Gwyn Valdes MD Placement verified by blood return, Dressed with Tegaderm, Patient tolerated well. 17:40 Urine Culture Sent. ko1 17:46 Repeat lab(s) drawn. by me. kb4 18:00 [facility] CALLED TO INITIATE PATIENT TRANSFER, SPOKE WITH [facility]. ty 18:07 Triage completed. ko1 19:53 trying ALIREZA Andrade. ty 20:20 Oxygen administration via non-rebreather mask \T\ 15L/min Response to oxygen therapy: bm8 symptoms improved. 21:31 Patient transferred, IV remains in place. al5 Administered Medications: 14:46 Drug: NS 0.9% IV 500 ml 500 ml IV at 1 bolus once; to be given as a bolus over 30 jl7 minutes Volume: 500 ml; Route: IV; Rate: 1 bolus; Site: left antecubital; 16:00 Follow up: Response: No adverse reaction; IV Status: Completed infusion; IV Intake: ko1 500ml 16:01 Drug: Albumin IVPB 25 grams 100 ml IVPB once; (Note: Albumin 25% concentration) Volume: ko1 100 ml; Route: IVPB; Site: left antecubital; 17:40 Follow up: Response: No adverse reaction; IV Status: Completed infusion; IV Intake: ko1 100ml 17:32 Drug: Piperacillin-Tazobactam IVPB 3.375 grams IVPB once over 60 mins; (mix in NS 100 hb mL) Route: IVPB; Infused Over: 60 mins; Site: right femoral; 21:30 Follow up: Response: No adverse reaction; IV Status: Completed infusion; IV Intake: al5 100ml 17:32 Drug: Norepinephrine IV 0.1 mcg/kg/min IV at calculated rate See Administration hb Instructions; (Standard concentration 4 mg / 250 mL D5W); Recommended max rate 3 mcg/kg/min; Titrate 0.05 mcg/kg/min as often as every 5 minutes to achieve goal (see titration policy); Goal parameter MAP greater than 65 mmHg. Route: IV; Rate: calculated rate; Site: right femoral; 21:30 Follow up: Response: No adverse reaction; IV Status: Infusion continued upon transfer al5 Medication: 18:32 VIS not applicable for this client. hb Intake: 16:00 IV: 500ml; Total: 500ml. ko1 17:40 IV: 100ml; Total: 600ml. ko1 21:30 IV: 100ml; Total: 700ml. al5 Outcome: 17:12 ER care complete, transfer ordered by sb4 21:31 Transferred by [facility]. Note: ALIREZA andrade al5 21:31 critical 21:31 Instructed on the need for transfer, 22:10 Patient left the ED. al5 Signatures: Dispatcher [employer] EDMS Ashley Isaac, RN RN hb Victor M Collier RN RN jl7 Elizabet Tejeda Kathy, RN RN ko1 Samantha Sosa, PA-C PA-C sb4 Walker Williamson Brad, RN RN bm8 Ainsley Barahona RN RN al5 Livier Contreras kb4 Corrections: (The following items were deleted from the chart) 18:29 14:50 Reassessment: Pt altered, restless, SBP 50s-60s, PA Ninfa notified hb hb 18:30 17:30 Reassessment: Patient appears in no apparent distress at this time. No changes hb from previously documented assessment. hb
[2024-11-05] MEDS ORDERED: NA CHLORIDE 0.9% 100 ML ONE (17:16)
[2024-11-05] MEDS ORDERED: PIPERACIL/TAZO 3.375 GM VIAL IV ONE (17:17)
[2024-11-05] MEDS ORDERED: NOREPINEPHRINE BITARTRATE/D5W 4 MG/250 ML KIT IV ONE (17:17)
[2024-11-06 05:08] VITALS: TEMP 97
[2024-11-06 05:26] VITALS: BP 106/85; O2SAT 95
--- NOTE | 2024-11-09 12:52 | EKG ---
Test Date: 2024-11-05 Test Time: 13:31:07 Statistician: BULL MEASUREMENT RESULTS: Intervals: Rate: 88 NM: QRSD: 162 QT: 464 QTc: 561 [place]: P: NM: QRS: -87 T: 93 INTERPRETIVE STATEMENTS: Ventricular-paced rhythm Abnormal ECG Compared to ECG 10/13/2024 08:23:38 AV dual-paced complex(es) or rhythm no longer present Electronically Signed On 11-09-24 12:49:24 PRIVATE [employer]ANCH EXCHANGE SERVICE ADVISOR by Stevenson Coats
== END 2024-11-05 22:10 | disposition short-term general hospital (02) ==
LOC: ER 13:12
DX: K81.0 Acute cholecystitis (principal); R65.21 Severe sepsis with septic shock; R53.1 Weakness; R41.0 Disorientation, unspecified; I48.11 Longstanding persistent atrial fibrillation; I50.9 Heart failure, unspecified; K21.9 Gastro-esophageal reflux disease without esophagitis; J45.909 Unspecified asthma, uncomplicated; F41.9 Anxiety disorder, unspecified; R26.81 Unsteadiness on feet; Z91.81 History of falling
CPT/HCPCS: 93005; 87040 ×2; 87088; 85025; 81001; 87086; 36415; 82140; 82550; 85610; 83605 ×2; 85730; 84484; 80053; 70450; 71250; 72125; 74176; 76705; 99285; 36556; J2543; P9047; J7040